=== PATIENT | male | born 1940 | race Caucasian/White ===

== ENCOUNTER 2020-11-01 01:29 | Emergency (ER) | payer MEDICARE, SELFPAY ==
[2020-11-01 01:41] VITALS: BP 160/80; BP 168/78; PULSE 90; RESP 22; TEMP 36.5; O2SAT 98; BMI 36.6
--- NOTE | 2020-11-01 01:56 | ECG_ITS ---
Test Reason : SOB Blood Pressure : / mmHG Vent. Rate : 089 BPM Atrial Rate : 089 BPM P-R Int : 150 ms QRS Dur : 078 ms QT Int : 352 ms P-R-T Axes : 059 041 005 degrees QTc Int : 428 ms Normal sinus rhythm Nonspecific T wave abnormality Borderline ECG When compared with ECG of 16-JUN-2020 15:38, No significant changes seen Referred By: Flores Amador Electronically Signed By:YEHUDA REHMAN
--- NOTE | 2020-11-01 01:56 | XR_ITS ---
EXAMINATION: XR CHEST CLINICAL INFORMATION: Shortness of breath COMPARISON: 06/16/2020 TECHNIQUE: Frontal view of the chest was obtained. FINDINGS: Lung volumes are symmetric. No focal consolidation is seen. No evidence of pneumothorax, pleural effusion, or pulmonary edema. Cardiac size is within normal limits. Calcification is present at the aortic arch. No acute osseous findings are seen. XR/XR chest 1V IMPRESSION: No acute cardiopulmonary findings.
[2020-11-01 02:00] VITALS: BP 167/67; PULSE 89; RESP 20; TEMP 36.7; O2SAT 95
--- NOTE | 2020-11-01 02:16 | ED_ITS ---
HPI - URI/Sore Throat General Chief Complaint: Upper Respiratory Symptoms Stated Complaint: sob,weakness Time Seen by Provider: 11/01/20 01:46 History of Present Illness HPI Narrative: Patient is a 79-year-old male with a history of asthma, diabetes presents today with having coughing upper respiratory symptoms starting at around 23:00 tonight. No fever. Patient from home. No new leg swelling. No chest pain. No diaphoresis. Positive generalized malaise. No change in smell or taste. Related Data Previous Rx's Medication Instructions Recorded albuterol sulfate 2 inh INHALATION Q6H PRN #1 ea 11/01/20 benzonatate [Tessalon Perles] 100 mg PO TID PRN #10 cap 11/01/20 prednisone 20 mg PO DAILY 4 Days #4 tab 11/01/20 Allergies Allergy/AdvReac Type Severity Reaction Status Date / Time Penicillins Allergy Unknown UNKNOWN Verified 11/01/20 01:40 Review of Systems Review of Systems: Constitutional: No Weight loss, No Fever, No Chills, No Night Sweats, No Fatigue, No Malaise ENT/Mouth: No Hearing loss, No Ear Pain, No Nasal Congestion, No Sinus Pain, No Hoarseness, No sore throat, No Rhinorrhea, No Swallowing Difficulty Eyes: No Eye Pain, No Swelling, No Redness, No Foreign Body, No Discharge, No Vision Changes Cardiovascular: No Chest Pain, No SOB, + Dyspnea on Exertion, No Orthopnea, No Edema, No Palpitations Respiratory: + Cough, No Sputum, No Wheezing, No Smoke Exposure, No Dyspnea Gastrointestinal: No Nausea, No Vomiting, No Diarrhea, No Constipation, No abdominal Pain, No Hematochezia, No Melena Genitourinary: no irregular bleeding, No Dysuria, No Urinary Frequency, No Hematuria, No Urinary Incontinence, No Urgency, No Flank Pain, No Urinary Flow Changes, No Hesitancy Musculoskeletal: No joint pain, No Myalgias, No Joint Swelling Skin: No Skin Lesions, No rash Neuro: No Weakness, No Numbness, No Paresthesias, No Loss of Consciousness, No Dizziness, No Headache Psych: No Anxiety/Panic, No Depression, No SI/HI/AH/VH, No Social Issues, Heme/Lymph: No Bruising, No Bleeding,No Lymphadenopathy Endocrine: No Polyuria, No Polydipsia, No Temperature Intolerance PMF Past Medical History Medical History (Updated 11/01/20 @ 04:08 by Flores Amador MD) Asthma Diabetes Hypertension Social History Social History Advance Directives: No Advance Directives Information Provided: No Physical Exam Vital Signs: Vital Signs: Last Vital Signs Temp 98.1 F 11/01/20 02:00 Pulse 94 11/01/20 03:35 Resp 20 11/01/20 02:00 BP 167/67 H 11/01/20 02:00 Pulse Ox 95 11/01/20 02:00 Body Mass Index 36.6 MDM - URI/Sore Throat MDM Narrative Medical decision making narrative: Patient's O2 sat 98% on room air. Chest x-ray negative for infiltrate. Test for coronavirus was negative. White count is 7.4. Minimal wheezing. Will give a small dose of steroid. Given albuterol here in the emergency department with moderate relief. When patient continue the albuterol pump on an outpatient basis. In stable condition. Patient's BMP was negative no evidence for congestive heart failure. Patient's troponin was negative. No chest pain. Unlikely ACS. Patient's EKG also showed no evidence of acute ST segment changes consistent with myocardial infarction. Will discharge patient home. Differential Diagnosis Differential diagnosis: Likely upper respiratory infection and bronchitis Medical Records Attestation: I reviewed the patient's medical records. Lab Data Attestation: I reviewed the patient's lab results. Result diagrams: 11/01/20 02:22 11/01/20 02:22 Labs: Lab Results 11/01/20 11/01/20 11/01/20 Range/Units 01:49 02:22 02:22 WBC 7.4 (4.8-10.8) X10*3/uL RBC 4.32 L (4.60-5.80) X10*6/uL Hgb 13.8 L (14.0-18.0) g/dl Hct 40.4 L (42-52) % MCV 93.5 (80-98) fL MCH 31.9 (27.0-33.0) pg MCHC 34.2 (31.0-36.0) g/dl RDW 12.3 (11.0-16.0) % Plt Count 87 L (160-400) X10*3/uL MPV 10.4 (9.4-12.4) fL Immature Gran % (Auto) Cancelled Neut % (Auto) Cancelled Lymph % (Auto) Cancelled [place] % (Auto) Cancelled Eos % (Auto) Cancelled Baso % (Auto) Cancelled Lymph # (Auto) Cancelled [place] # (Auto) Cancelled Eos # (Auto) Cancelled Baso # (Auto) Cancelled Abs Immat Gran (auto) Cancelled Absolute Neuts (auto) Cancelled Absolute Nucleated RBC 0.000 (0.0-0.012) X10*3/uL Nucleated RBC % (auto) 0.0 (0.0-0.2) /100WBC Neutrophils % (Manual) 44 L (45-73) % Band Neutrophils % 2 L (3-5) % Lymphocytes % (Manual) 17 L (20-40) % Monocytes % (Manual) 34 H (2-11) % Eosinophils % (Manual) 3 (0-4) % Abs Neuts (Manual) 3.4 (2.2-7.9) X10*3/uL Lymphocytes # (Manual) 1.3 (0.6-4.8) X10*3/uL Monocytes # (Manual) 2.5 H (0.0-1.2) X10*3/uL Eosinophils # (Manual) 0.2 (0.0-0.8) X10*3/UL Platelet Estimate DECREASED (NORMAL) Plt Morphology Comment NORMAL RBC Morphology NORMAL Hold Blue Top SEE NOTE Sodium (135-145) mmol/L Potassium (3.3-5.1) mmol/l Chloride (96-108) mmol/L Carbon Dioxide (22-29) mmol/L Anion Gap (12-20) BUN (9-16) mg/dL Creatinine (0.5-1.4) mg/dL Estim Creat Clear Calc Estimated GFR Random Glucose (60-115) mg/dL Calcium (8.4-10.2) mg/dL Troponin I High Sens (<3.5-35.0) ng/L B-Natriuretic Peptide (<100) pg/mL Urine Color Urine Appearance Urine pH (5.0-8.0) Ur Specific [place] (1.005-1.025) Urine Protein (NEG-TRACE) MG/DL Urine Glucose (UA) (NEG) MG/DL Urine Ketones (NEG) MG/DL Urine Blood (NEG) Urine Nitrite (NEG) Ur Leukocyte Esterase (NEG) Coronavirus (PCR) NEGATIVE (Negative) Influenza Type A (PCR) NEGATIVE (Negative) Influenza Type B (PCR) NEGATIVE (Negative) RSV RNA Qual (PCR) NEGATIVE (Negative) 11/01/20 11/01/20 11/01/20 Range/Units 02:22 02:22 03:53 WBC (4.8-10.8) X10*3/uL RBC (4.60-5.80) X10*6/uL Hgb (14.0-18.0) g/dl Hct (42-52) % MCV (80-98) fL MCH (27.0-33.0) pg MCHC (31.0-36.0) g/dl RDW (11.0-16.0) % Plt Count (160-400) X10*3/uL MPV (9.4-12.4) fL Immature Gran % (Auto) Neut % (Auto) Lymph % (Auto) [place] % (Auto) Eos % (Auto) Baso % (Auto) Lymph # (Auto) [place] # (Auto) Eos # (Auto) Baso # (Auto) Abs Immat Gran (auto) Absolute Neuts (auto) Absolute Nucleated RBC (0.0-0.012) X10*3/uL Nucleated RBC % (auto) (0.0-0.2) /100WBC Neutrophils % (Manual) (45-73) % Band Neutrophils % (3-5) % Lymphocytes % (Manual) (20-40) % Monocytes % (Manual) (2-11) % Eosinophils % (Manual) (0-4) % Abs Neuts (Manual) (2.2-7.9) X10*3/uL Lymphocytes # (Manual) (0.6-4.8) X10*3/uL Monocytes # (Manual) (0.0-1.2) X10*3/uL Eosinophils # (Manual) (0.0-0.8) X10*3/UL Platelet Estimate (NORMAL) Plt Morphology Comment RBC Morphology Hold Blue Top Sodium 139 (135-145) mmol/L Potassium 3.9 (3.3-5.1) mmol/l Chloride 104 (96-108) mmol/L Carbon Dioxide 23 (22-29) mmol/L Anion Gap 16 (12-20) BUN 15 (9-16) mg/dL Creatinine 0.80 (0.5-1.4) mg/dL Estim Creat Clear Calc 81.3 Estimated GFR > 60 Random Glucose 120 H (60-115) mg/dL Calcium 9.0 (8.4-10.2) mg/dL Troponin I High Sens 5.4 (<3.5-35.0) ng/L B-Natriuretic Peptide 28 (<100) pg/mL Urine Color DARK YELLOW Urine Appearance CLEAR Urine pH 5.5 (5.0-8.0) Ur Specific [place] 1.025 (1.005-1.025) Urine Protein NEG (NEG-TRACE) MG/DL Urine Glucose (UA) 100 H (NEG) MG/DL Urine Ketones NEG (NEG) MG/DL Urine Blood NEG (NEG) Urine Nitrite NEG (NEG) Ur Leukocyte Esterase NEG (NEG) Coronavirus (PCR) (Negative) Influenza Type A (PCR) (Negative) Influenza Type B (PCR) (Negative) RSV RNA Qual (PCR) (Negative) ECG Data Attestation: I personally reviewed and interpreted this ECG as follows: Interpretation: Are heart rate is 90 AK QRS QT within normal limits is nonspecific T-wave flattening diffusely noted. Discharge Plan Discharge Clinical Impression: Upper respiratory infection, Asthma Patient Disposition: Home, Self-Care Instructions: Asthma (ED), Upper Respiratory Infection (ED), COVID-19 (Coronavirus Disease 2019) (ED) Additional Instructions: Strict home quarantine into all symptom has resolved for at least 24 hours recommended. Prescriptions: New albuterol sulfate 90 mcg/actuation aerosol powdr breath activated 2 inh inhalation Q6H PRN (Reason: shortness of breath) Qty: 1 RF: 0 prednisone 20 mg tablet 20 mg PO DAILY 4 Days Qty: 4 RF: 0 benzonatate [Tessalon Perles] 100 mg capsule 100 mg PO TID PRN (Reason: cough) Qty: 10 RF: 0 Referrals: Lorne Gardner MD [Primary Care Provider] - 2 days Print Language: Japanese
[2020-11-01 02:28] LABS: PLT CLUMP 1
[2020-11-01 02:30] LABS: Hematocrit 40.4 % (42-52); Hemoglobin 13.8 g/dl (14.0-18.0); Mean Corpuscular HGB Conc 34.2 g/dl (31.0-36.0); Mean Corpuscular Hemoglobin 31.9 pg (27.0-33.0); Mean Corpuscular Volume 93.5 fL (80-98); Mean Platelet Volume 10.4 fL (9.4-12.4); Platelet Count 87 X10*3/uL (160-400); Red Blood Count 4.32 X10*6/uL (4.60-5.80); Red Cell Distribution Width 12.3 % (11.0-16.0); White Blood Count 7.4 X10*3/uL (4.8-10.8)
[2020-11-01 02:42] LABS: Influenza A PCR NEGATIVE (Negative); Influenza B PCR NEGATIVE (Negative); Resp Syncy Virus RNA Qual PCR NEGATIVE (Negative); SARS COV2 PCR INHOUSE NEGATIVE (Negative)
[2020-11-01 02:49] LABS: Band Neutrophils Percent 2 % (3-5); Eosinophils Absolute Manual 0.2 X10*3/UL (0.0-0.8); Eosinophils Percent Manual 3 % (0-4); Lymphocytes Absolute Manual 1.3 X10*3/uL (0.6-4.8); Lymphocytes Percent Manual 17 % (20-40); Monocytes Absolute Manual 2.5 X10*3/uL (0.0-1.2); Monocytes Percent Manual 34 % (2-11); Neutrophils Absolute Manual 3.4 X10*3/uL (2.2-7.9); Neutrophils Percent Manual 44 % (45-73)
[2020-11-01 02:50] LABS: Platelet Estimate DECREASED (NORMAL); Platelet Morphology Comment NORMAL; RBC Morphology NORMAL
[2020-11-01 02:58] LABS: Anion Gap 16 (12-20); Blood Urea Nitrogen 15 mg/dL (9-16); Carbon Dioxide 23 mmol/L (22-29); Chloride 104 mmol/L (96-108); Creatinine Clr Calc Pharmacy 81.3; Estimated Glomerular Filt Rate > 60; Glucose Random 120 mg/dL (60-115); Potassium 3.9 mmol/l (3.3-5.1); Sodium 139 mmol/L (135-145)
[2020-11-01 03:05] LABS: B Type Natriuretic Peptide 28 pg/mL (<100); Troponin-I High Sensitivity 5.4 ng/L (<3.5-35.0)
[2020-11-01] MEDS: predniSONE 20 MG TABLET PO (03:31)
--- NOTE | 2020-11-01 03:32 | PC.NURSE ---
pt resting in bed, rt at bedside with mdi and spirometer. pt in no distress, speaking in full sentences, interpretor at bedside. pt has clear and equal BBS.
[2020-11-01] MEDS: Albuterol Sulfate 90 MCG 8 GM INHALER 2 PUFF INHALE (03:33)
[2020-11-01 03:35] VITALS: PULSE 94; O2SAT 95
[2020-11-01 03:59] LABS: Appearance Urine CLEAR; Color Urine DARK YELLOW; Glucose Urine UA 100 MG/DL (NEG); Leukocyte Esterase Urine NEG (NEG); Nitrite Urine NEG (NEG); PH 5.5 (5.0-8.0); Specific Gravity - Urine 1.025 (1.005-1.025); UACC Culture Trigger NO; Urine Blood NEG (NEG); Urine Ketones NEG (NEG); Urine Protein NEG (NEG-TRACE)
[2020-11-01 04:01] VITALS: PULSE 95; RESP 96
--- NOTE | 2020-11-01 04:05 | PC.NURSE ---
PT AMBULATORY AROUND ER X2 WITH RT, PT'S SPO2 REMAINED 96% ON ROOM AIR.
[2020-11-01 04:19] VITALS: PULSE 112; RESP 17; O2SAT 96
== END 2020-11-01 04:36 | disposition home or self-care (01) ==
PROVIDERS: Emergency Provider Emergency Medicine Emergency Medical Services; PCP Internal Medicine
DX: J06.9 Acute upper respiratory infection, unspecified (principal); Z20.828 Contact with and (suspected) exposure to other viral communicable diseases; J45.909 Unspecified asthma, uncomplicated; E11.9 Type 2 diabetes mellitus without complications; I10 Essential (primary) hypertension
CPT/HCPCS: 0241U; 36415; 71045; 80048; 81003; 83880; 84484; 85007; 85027; 93005; 94640; 99284

== ENCOUNTER → 2021-03-22 13:51 | Outpatient (BNVA) | payer MEDICARE, SELFPAY | PROVIDERS: PCP Internal Medicine; Visit Provider Internal Medicine Pulmonary Disease | DX: J44.9 Chronic obstructive pulmonary disease, unspecified (principal); R06.00 Dyspnea, unspecified | CPT/HCPCS: 99202 ==

== ENCOUNTER → 2021-05-26 14:21 | Outpatient (BNVA) | payer MEDICARE, SELFPAY | PROVIDERS: PCP Internal Medicine; Visit Provider Internal Medicine Pulmonary Disease | DX: J44.9 Chronic obstructive pulmonary disease, unspecified (principal); R06.00 Dyspnea, unspecified | CPT/HCPCS: 99212 ==

== ENCOUNTER → 2021-06-21 08:05 | Outpatient (REF) | payer MEDICARE, SELFPAY ==
--- NOTE | 2021-06-21 08:08 | CA_ITS ---
Transthoracic Echocardiogram Patient (Last, First, Middle): Santiago Almanza, Gender: Male Date of : 1940 Age: 80 Procedure Date: 06/21/2021 Procedure Type: Transthoracic Echocardiogram Location: OP Height: 154.94 cm Weight: 96.16 kg BSA: 1.94 m2 Heart Rate: bpm BP: 176 / 88 mmHg Dough Machine Operator: Referring MD: Jose Luis Barbosa MD Symptoms: R06.00 - Dyspnea, unspecified Study Quality: Good ECG Rhythm: Sinus Conclusions: - The left ventricular systolic function is normal. The visually estimated ejection fraction is between 65-70%. - There is moderate calcification of the aortic valve. There is mild aortic valve stenosis. - There is mild posterior mitral annular calcification. - Small plaque is seen in the ascending aorta. Findings Procedure Information Contrast agent, definity, is being given per protocol without apparent complications. Left Ventricle Normal left ventricular cavity size. There is moderately increased left ventricular wall thickness. The left ventricular systolic function is normal. The visually estimated ejection fraction is between 65-70%. There is no evidence of regional wall motion abnormalities. E/E prime ratio is >15, consistent with elevated filling pressures. Evidence suggests grade I (mild) diastolic dysfunction. Right Ventricle Normal right ventricular cavity size and systolic function. Atria Both atria are normal in size. Aortic Valve There is moderate calcification of the aortic valve. There is mild aortic valve stenosis. The peak aortic velocity is 2.42 m/s with a calculated peak gradient of 23 mmHg. The mean gradient is 13 mmHg. The aortic valve area is 1.81 cm2. There is no aortic valve regurgitation. Mitral Valve There is mild posterior mitral annular calcification. There is no mitral valve regurgitation. There is no mitral valve stenosis. Pulmonic Valve The pulmonic valve was not well visualized. Tricuspid Valve Normal tricuspid valve structure. There is trace tricuspid valve regurgitation. The pulmonary artery systolic pressure is normal. Great Vessels The asc aorta and aortic arch are normal in size. Small plaque is seen in the ascending aorta. Venous The inferior vena cava is normal in size and collapses greater than 50% with inspiration. Pericardium/Pleural There is a trivial pericardial effusion. Prior Study Comparison No prior study available for comparison. Measurements 2D Linear Measurements RVIDd: 2.63 RVIDd Index: 1.36 IVSd: 1.37 0.6-0.9/0.6-1.0 cm LVIDd: 4.50 3.9-5.3/4.2-5.9 cm LVIDd Index: 2.32 2.4-3.2/2.2-3.1 cm/m2 LVIDs: 2.62 2.0-3.6 cm LVPWd: 1.35 0.7-1.1 cm Ao Root: 2.90 2.1-3.5 cm LA Diam: 4.40 2.7-3.8/3.0-4.0 cm LAIDs Index: 2.27 1.5-2.3 cm/m2 LV Mass: 296.65 67-162/88-224 g LV Mass Index: 152.91 43-95/49-115 g/m2 LVOT Diam: 2.10 3.0+(-)1.3 cm 2D Systolic Function EF 4C: 75.90 >55% EF 2C: 75.90 >55% EF BiP: 76.20 >55% Mitral Valve MV Pk E: 1.24 MV PK A: 1.56 MV Decel Time: 281.00 E/A: 0.80 E'Lateral: 6.20 E'Medial: 5.44 E/E' Med: 22.80 E/E' Lat: 20.00 PHT: 73.00 MVA PHT: 3.01 Decel [place]: 5.83 Aortic Valve AoV Pk Andrea: 2.42 AoV Mn Andrea: 1.67 AoV VTI: 0.47 AoV Pk Grad: 23.00 Aov Mn Grad: 13.00 ANN-MARIE Cont.VTI: 1.81 LVOT LVOT Pk Andrea: 1.10 LVOT Mn Andrea: 0.82 LVOT VTI: 0.25 LVOT Pk Grad: 5.00 LVOT Mn Grad: 3.00 LVOT Diam: 2.10 LVOT Area: 3.46 Diastolic Function MV Pk E: 1.24 MV Pk A: 1.56 E/A: 0.80 E'Medial: 5.44 E/E' Med: 22.80 E' Laterial: 6.20 E/E' Lat: 20.00 Tricuspid Valve TR Pk Andrea: 2.43 TR Pk Grad: 24.00 RA Press: 3.00 RVSP: 27.00 Great Vessels Aorta Ao Root-2D: 2.90 2.0-3.7 cm Ao Asc: 3.20 2.1-3.4 cm Ao Arch: 2.80 Updated in Other Vendor System with Status of Final Theodore Villafana MD electronically signed on 06/23/2021 12:05:58 PM with status of Final
== END ==
LOC: HO.CARD 08:05
PROVIDERS: Visit Provider Internal Medicine Pulmonary Disease
DX: R06.00 Dyspnea, unspecified (principal)
CPT/HCPCS: 93306; Q9957

== ENCOUNTER 2021-12-16 22:27 | Inpatient (IN) | payer MEDICARE, SELFPAY ==
--- NOTE | ~2021-12-16 | CT_ITS ---
EXAMINATION: CT ABDOMEN AND PELVIS WITH CONTRAST CLINICAL INFORMATION: Diffuse abdominal discomfort, greatest at the right lower quadrant. COMPARISON: CT from 06/16/2020 TECHNIQUE: Multidetector volumetric images were obtained from the superior aspect of the liver through the pubic symphysis following administration 85 mL of Omnipaque 350 intravenous contrast. Sagittal and coronal reformatted images were obtained on the technologist's workstation. Oral contrast: No This CT examination was performed using dose optimization techniques as appropriate, variously including the following: *Automated exposure control *Adjustment of mA and/or kV according to patient size (this includes techniques or standardized protocols for targeted exams where dose is matched to indication/reason for exam; i.e. extremities or head) *Use of iterative reconstruction technique DLP: 753 mGy-cm FINDINGS: LUNG BASES: Minimal bibasilar atelectasis. Coronary artery calcifications. LIVER, GALLBLADDER, AND BILIARY TREE: The liver is normal in size, shape, and attenuation. No focal hepatic lesion or biliary ductal dilatation is present. The gallbladder is unremarkable with no evidence of radiopaque gallstones, gallbladder wall thickening, or obvious pericholecystic inflammatory changes. PANCREAS: Calcifications in the region of the pancreatic head are unchanged from prior. The pancreatic parenchyma is otherwise homogenous. No pancreatic ductal dilatation. SPLEEN: Unremarkable. ADRENAL GLANDS: Unremarkable. KIDNEYS AND URETERS: The kidneys are normal in size, shape, and attenuation. No hydronephrosis, hydroureter, or calculi seen. Mild symmetric perinephric stranding. BLADDER: Unremarkable. GASTROINTESTINAL TRACT: The stomach is decompressed. Normal caliber of the small bowel. There is no obstruction. Abnormal appearance of the cecum with diffuse irregular wall thickening and adjacent inflammation. The appendix is identified. This appears to be normal in caliber, measuring 0.5 cm. Inflammation does not extend along the more distal aspect of the appendix. The appearance of the cecum is changed from prior. The remainder of the colon is unremarkable. No free air or free fluid. ABDOMINAL WALL: No significant hernia is appreciated. LYMPH NODES: Normal. VASCULAR: Normal caliber aorta with moderate atherosclerotic calcifications. PELVIC VISCERA: The prostate and seminal vesicles are unremarkable. Penile pump noted. OSSEOUS STRUCTURES: No acute or suspicious osseous abnormality. Degenerative changes are seen throughout the spine. Mild degenerative changes of the hips. Right femoral head avascular necrosis. CT/CT abdomen pelvis w con IMPRESSION: Abnormal appearance of the cecum and proximal ascending colon. There is prominent wall thickening with adjacent inflammation. The appearance is not suggestive of appendicitis. This is most concerning for colitis. Cannot exclude underlying neoplastic process. Fleischner guidelines were followed.
[2021-12-16 22:54] VITALS: BP 131/69; BP 180/100; PULSE 107; PULSE 116; RESP 20; TEMP 36.8; O2SAT 98; BMI 27.4
--- NOTE | 2021-12-16 23:30 | ED_ITS ---
HPI - Abdominal Pain General Chief Complaint: Abdominal Pain Stated Complaint: RLQ pain Time Seen by Provider: 12/16/21 23:05 Source: patient and title assistant Mode of arrival: ambulatory History of Present Illness HPI narrative: 81-year-old male who presents with abdominal discomfort for the past 3 days and describes some nausea without vomiting denies any fever chills and states he has had diarrheal stool with the presence of blood that he noticed in the toilet bowl. He denies any history of kidney stones or hemorrhoids and states that his last colonoscopy was without acute findings. He states is abdomen is diffusely tender and denies any urinary pain/burning/frequency and states that this is the 1st time he has had these symptoms. He denies any prior surgical history of the abdomen. Related Data Previous Rx's Medication Instructions Recorded albuterol sulfate 90 mcg/actuation 2 inh INHALATION Q6H PRN #1 ea 11/01/20 breath activated powder inhaler benzonatate 100 mg capsule 100 mg PO TID PRN #10 cap 11/01/20 (George Zabala) prednisone 20 mg tablet 20 mg PO DAILY 4 Days #4 tab 11/01/20 albuterol sulfate 90 mcg/actuation 2 puff INHALATION Q4-6H PRN 30 03/22/21 aerosol inhaler Days #1 ea fluticasone fur. 200 mcg-umeclid 1 ea PO DAILY #60 cap 10/31/21 62.5 mcg-vilant 25 mcg inhalat.powder (Trelegy Ellipta) Allergies Allergy/AdvReac Type Severity Reaction Status Date / Time Penicillins Allergy Unknown UNKNOWN Verified 05/26/21 14:27 Review of Systems Review of Systems Pertinent positives and negatives as stated in HPI 10 point review of systems is otherwise negative. Physical Exam Vital Signs: Vital Signs: Last Vital Signs Temp 98.5 F 12/17/21 00:00 Pulse 79 12/17/21 02:58 Resp 16 12/17/21 02:58 BP 122/65 12/17/21 02:58 Pulse Ox 98 12/17/21 02:58 BMI result Body Mass Index 27.4 VITAL SIGNS: Reviewed. GENERAL: Well developed, well nourished, in no acute distress. HEAD: Normocephalic/atraumatic EYES: PERRLA, EOMI OROPHARYNX: no oral lesions noted, posterior pharynx clear LUNGS: Normal breath sounds. No adventitious sounds or accessory muscle use. S pO2<96> CARDIOVASCULAR: Regular rate and rhythm without noted murmurs ABDOMEN: Soft, diffuse tenderness without rebound, non-distended with bowel sounds. HOLLY: Noted tag, but no evidence of external hemorrhoids, minimal brick red, thin stool in the rectal vault, good rectal tone MUSCULOSKELETAL: No tenderness, deformities, or effusions noted on gross inspection. EXTREMITIES: No cyanosis, clubbing or edema. SKIN: Inspection of the skin reveals no rashes, ulcerations, jaundice, pallor, or petechiae. NEUROLOGIC: Alert and oriented x 4. Strength and sensation to light touch were grossly intact x 4. Course Course Course Narrative: 81-year-old male with history and clinical presentation concerning for possible diverticulitis, SBO, GI bleed. Review of all investigations suggests right-sided colitis, abdomen remains tender and patient will receive antibiotics. I discussed this case with the inpatient hospitalist who accepts admission. MDM - Abdominal Pain Lab Data Result diagrams: 12/17/21 23:05 12/17/21 23:05 Labs: Lab Results 12/16/21 12/17/21 12/17/21 Range/Units 23:31 00:13 23:05 WBC 11.9 H (4.8-10.8) X10*3/uL RBC 3.78 L (4.60-5.80) X10*6/uL Hgb 12.1 L (14.0-18.0) g/dl Hct 35.3 L (42.0-52.0) % MCV 93.4 (80.0-98.0) fL MCH 32.0 (27.0-33.0) pg MCHC 34.3 (31.0-36.0) g/dl RDW 12.6 (11.0-16.0) % Plt Count 97 L (160-400) X10*3/uL MPV 10.6 (9.4-12.4) fL Immature Gran % (Auto) 0.7 H (0.0-0.4) % Neut % (Auto) 52.9 (45-73) % Lymph % (Auto) 12.7 L (20-40) % [place] % (Auto) 33.5 H (2-11) % Eos % (Auto) 0.1 (0-4) % Baso % (Auto) 0.1 (0-2) % Lymph # (Auto) 1.5 (1.2-4.9) X10*3/uL [place] # (Auto) 4.0 H (0.1-1.2) X10*3/uL Eos # (Auto) 0.0 (0.0-0.4) X10*3/uL Baso # (Auto) 0.0 (0.0-0.2) X10*3/uL Abs Immat Gran (auto) 0.08 H (0.00-0.03) X10*3/uL Absolute Neuts (auto) 6.3 (2.0-8.3) x10*3/uL Absolute Nucleated RBC 0.000 (0.0-0.012) X10*3/uL Nucleated RBC % (auto) 0.0 (0.0-0.2) /100WBC Smear Tech's Comments VERIFIED Sodium (135-145) mmol/L Potassium (3.3-5.1) mmol/L Chloride (96-108) mmol/L Carbon Dioxide (22-29) mmol/L Anion Gap (12-20) BUN (9-16) mg/dL Creatinine (0.5-1.4) mg/dL Estim Creat Clear Calc Estimated GFR Random Glucose (60-115) mg/dL Calcium (8.4-10.2) mg/dL Total Bilirubin (0.0-1.0) mg/dL AST (5-37) U/L ALT (0-40) U/L Alkaline Phosphatase (39-117) U/L Total Protein (6.5-8.0) g/dL Albumin (3.5-5.0) g/dL Urine Color YELLOW Urine Appearance CLEAR Urine pH 7.0 (5.0-8.0) Ur Specific [place] 1.015 (1.005-1.025) Urine Protein TRACE (NEG-TRACE) MG/DL Urine Glucose (UA) 100 H (NEG) MG/DL Urine Ketones 5 (NEG) MG/DL Urine Blood NEG (NEG) Urine Nitrite NEG (NEG) Ur Leukocyte Esterase NEG (NEG) Stool Occult Blood POSITIVE (NEGATIVE) 12/17/21 Range/Units 23:05 WBC (4.8-10.8) X10*3/uL RBC (4.60-5.80) X10*6/uL Hgb (14.0-18.0) g/dl Hct (42.0-52.0) % MCV (80.0-98.0) fL MCH (27.0-33.0) pg MCHC (31.0-36.0) g/dl RDW (11.0-16.0) % Plt Count (160-400) X10*3/uL MPV (9.4-12.4) fL Immature Gran % (Auto) (0.0-0.4) % Neut % (Auto) (45-73) % Lymph % (Auto) (20-40) % [place] % (Auto) (2-11) % Eos % (Auto) (0-4) % Baso % (Auto) (0-2) % Lymph # (Auto) (1.2-4.9) X10*3/uL [place] # (Auto) (0.1-1.2) X10*3/uL Eos # (Auto) (0.0-0.4) X10*3/uL Baso # (Auto) (0.0-0.2) X10*3/uL Abs Immat Gran (auto) (0.00-0.03) X10*3/uL Absolute Neuts (auto) (2.0-8.3) x10*3/uL Absolute Nucleated RBC (0.0-0.012) X10*3/uL Nucleated RBC % (auto) (0.0-0.2) /100WBC Smear Tech's Comments Sodium 137 (135-145) mmol/L Potassium 2.9 L (3.3-5.1) mmol/L Chloride 98 (96-108) mmol/L Carbon Dioxide 29 (22-29) mmol/L Anion Gap 13 (12-20) BUN 9 (9-16) mg/dL Creatinine 0.76 (0.5-1.4) mg/dL Estim Creat Clear Calc 64.6 Estimated GFR > 60 Random Glucose 218 H D (60-115) mg/dL Calcium 8.9 (8.4-10.2) mg/dL Total Bilirubin 0.8 (0.0-1.0) mg/dL AST 19 (5-37) U/L ALT 19 (0-40) U/L Alkaline Phosphatase 48 (39-117) U/L Total Protein 6.8 (6.5-8.0) g/dL Albumin 3.6 (3.5-5.0) g/dL Urine Color Urine Appearance Urine pH (5.0-8.0) Ur Specific [place] (1.005-1.025) Urine Protein (NEG-TRACE) MG/DL Urine Glucose (UA) (NEG) MG/DL Urine Ketones (NEG) MG/DL Urine Blood (NEG) Urine Nitrite (NEG) Ur Leukocyte Esterase (NEG) Stool Occult Blood (NEGATIVE) Discharge Plan Discharge Clinical Impression: Colitis, Abdominal pain, Hypokalemia Patient Disposition: Admitted As Inpatient [facility] Past Medical History Source: nursing notes reviewed Medical History Asthma Diabetes Hypertension Social History Social History Alcohol intake: unknown Patient Tobacco Use Status: Never used Tobacco Use of substances other than those prescribed or required for medical reasons: No Advance Directives: No
[2021-12-16 23:38] LABS: OBS Int Ctl Valid YES; OBS1 POSITIVE (NEGATIVE)
[2021-12-17] VITALS (11 sets, daily range): BP systolic 117–163; BP diastolic 60–83; PULSE 66–92; RESP 14–28; TEMP 36.7–37.2; O2SAT 94–98
[2021-12-17] MEDS: Ketorolac Tromethamine 30 MG/ML VIAL 15 MG IVPUSH (00:19)
[2021-12-17 00:20] LABS: Appearance Urine CLEAR; Color Urine YELLOW; Glucose Urine UA 100 MG/DL (NEG); Leukocyte Esterase Urine NEG (NEG); Nitrite Urine NEG (NEG); Specific Gravity - Urine 1.015 (1.005-1.025); Urine Blood NEG (NEG); Urine Ketones 5 MG/DL (NEG); Urine Protein TRACE MG/DL (NEG-TRACE)
[2021-12-17 01:05] LABS: Basophils Percent Auto 0.1 % (0-2); Imm Gran Abs Auto 0.08 X10*3/uL (0.00-0.03); Imm Gran Pct Auto 0.7 % (0.0-0.4); MANUAL DIFF FLAG SCAN; PLT CLUMP 1; SCAN SMEAR FLAG 1
[2021-12-17 01:06] LABS: Eosinophils Percent Auto 0.1 % (0-4); Hematocrit 35.3 % (42.0-52.0); Hemoglobin 12.1 g/dl (14.0-18.0); Lymphocytes Absolute Auto 1.5 X10*3/uL (1.2-4.9); Lymphocytes Percent Auto 12.7 % (20-40); Mean Corpuscular HGB Conc 34.3 g/dl (31.0-36.0); Mean Corpuscular Volume 93.4 fL (80.0-98.0); Mean Platelet Volume 10.6 fL (9.4-12.4); Monocytes Percent Auto 33.5 % (2-11); Neutrophils Absolute Auto 6.3 x10*3/uL (2.0-8.3); Neutrophils Percent Auto 52.9 % (45-73); Red Blood Count 3.78 X10*6/uL (4.60-5.80); Red Cell Distribution Width 12.6 % (11.0-16.0); White Blood Count 11.9 X10*3/uL (4.8-10.8)
[2021-12-17 01:17] LABS: Platelet Count 97 X10*3/uL (160-400)
[2021-12-17 01:24] LABS: Alanine Aminotransferase 19 U/L (0-40); Albumin Level 3.6 g/dL (3.5-5.0); Alkaline Phosphatase 48 U/L (39-117); Anion Gap 13 (12-20); Aspartate Amino Transferase 19 U/L (5-37); Bilirubin Total 0.8 mg/dL (0.0-1.0); Blood Urea Nitrogen 9 mg/dL (9-16); Calcium 8.9 mg/dL (8.4-10.2); Carbon Dioxide 29 mmol/L (22-29); Chloride 98 mmol/L (96-108); Creatinine Clr Calc Pharmacy 64.6; Estimated Glomerular Filt Rate > 60; Glucose Random 218 mg/dL (60-115); Potassium 2.9 mmol/L (3.3-5.1); Sodium 137 mmol/L (135-145); Total Protein 6.8 g/dL (6.5-8.0)
[2021-12-17 01:32] LABS: SLIDE REVIEW VERIFIED
--- NOTE | 2021-12-17 01:55 | PC.NURSE ---
pt taken to rad, meds will be given on return from ct.and xray
[2021-12-17] MEDS: iohexoL 350 MG/ML 100 ML INFUS..BTL 85 ML IV (02:24)
[2021-12-17] MEDS: Potassium Chloride ER 20 MEQ TAB.ER.PRT 60 MEQ PO (02:30)
[2021-12-17] MEDS: Potassium Chloride/H20 10 MEQ/100 ML PIGGYBACK 100 MEQ IV ×2 (02:31→04:09)
--- NOTE | 2021-12-17 03:24 | P.HPHOSP_ITS ---
History of Present Illness Date of Service: 12/17/21 Chief Complaint: abdominal pain 81-year-old male with a past medical history of COPD/asthma presented to the hospital with a chief complaint of nausea vomiting and abdominal discomfort. Patient reports that over the past 3 days he has been having nausea vomiting abdominal discomfort; abdominal discomfort is Diffuse, crampy. No change with bowel movements the food habits. Complains of 1 episode of blood in the stool. Denies any chest pain or palpitations. Denies any urinary symptoms. Denies any fever chills cough. Reports that he has been having decreased oral intake. Review of all other systems is negative except mentioned above ER course: Per ER team patient noted to have mild abdominal tenderness; CT scan showed severe inflammation - concern for colitis versus neoplasm. Patient was given empiric antibiotics. Guaiac test was positive. Admitted for further management. [facility] Medical History Asthma Diabetes Hypertension Pertinent family history: reviewed Social History Alcohol intake: unknown Patient Tobacco Use Status: Never used Tobacco Use of substances other than those prescribed or required for medical reasons: No Advance Directives: No Meds Allergies Allergy/AdvReac Type Severity Reaction Status Date / Time Penicillins Allergy Unknown UNKNOWN Verified 05/26/21 14:27 Active Medications: Current Medications Acetaminophen (Acetaminophen 325 Mg Tablet) 650 mg PO Q6H PRN PRN Reason: Pain, Mild (Pain Scale 1-3) Albuterol/Ipratropium (Albuterol/Iprat 2.5/0.5mg 3 Ml Ampul.Neb) 3 ml INHALE RQ4H PRN PRN Reason: Shortness of Breath/Wheezing Famotidine (Famotidine/Pf 20 Mg/2 Ml Vial) 20 mg IVPUSH BID [facility] Hydromorphone HCl (Hydromorphone Hcl 1 Mg/Ml Syringe) 0.5 mg IVPUSH Q4H PRN; Protocol PRN Reason: Pain, Severe (Pain Scale 7-10) Potassium Chloride () 10 meq in 100 mls @ 100 mls/hr IV Q1H [facility] Stop: 12/17/21 03:29 Last Admin: 12/17/21 02:31 Dose: 100 mls/hr Documented by: Ceftriaxone Sodium 1 gm/ (Sodium Chloride) 50 mls @ 100 mls/hr IV ONCE ONE Stop: 12/17/21 03:39 Metronidazole (Flagyl) 500 mg in 100 mls @ 100 mls/hr IV ONCE ONE Stop: 12/17/21 04:09 Dextrose/Sodium Chloride (D51/2ns) 1,000 mls @ 75 mls/hr IVCONT .[id number] [facility] Levofloxacin (Levaquin) 750 mg in 150 mls @ 100 mls/hr IV Q24H [facility] Metronidazole (Flagyl) 500 mg in 100 mls @ 100 mls/hr IV Q8H [facility] Sodium Chloride (0.9 % Sodium Chloride Flush 3 Ml Syringe) 3 ml IVFLUSH QSHIFT [facility] Physical Exam Verdana 4l Vital Signs and Narrative: Verdana 4d Verdana 4d Vital Signs: Verdana 4d Verdana 4Bd Last Vital Signs Verdana 4d Booky New 4d Booky New 4d Temp 98.5 F 12/17/21 00:00 Booky New 4d Pulse 79 12/17/21 02:58 Booky NewNew 4d Resp 16 12/17/21 02:58 BP 122/65 12/17/21 02:58 Pulse Ox 98 12/17/21 02:58 BMI result Body Mass Index 27.4 Gen: Appears be in no acute distress HEENT: NCAT, Moist mucosa. Pulmonary: Vesicular breath sounds, fair air entry CVS: Normal S1-S2 Abdomen: BS+, Soft, Mildly tender diffusely; no guarding no rigidity Extremities: Warm well perfused Neuro: Alert and awake. Results Labs CBC and Chem 7: 12/17/21 23:05 12/17/21 23:05 Labs: Laboratory Results - last 24 hr 12/16/21 12/17/21 12/17/21 23:31 00:13 23:05 MCV 93.4 MCH 32.0 MCHC 34.3 RDW 12.6 Plt Count 97 L MPV 10.6 Immature Gran % (Auto) 0.7 H Neut % (Auto) 52.9 Lymph % (Auto) 12.7 L [place] % (Auto) 33.5 H Eos % (Auto) 0.1 Baso % (Auto) 0.1 Lymph # (Auto) 1.5 [place] # (Auto) 4.0 H Eos # (Auto) 0.0 Baso # (Auto) 0.0 Abs Immat Gran (auto) 0.08 H Absolute Neuts (auto) 6.3 Absolute Nucleated RBC 0.000 Nucleated RBC % (auto) 0.0 Smear Tech's Comments VERIFIED Anion Gap Estim Creat Clear Calc Estimated GFR Random Glucose Calcium Total Bilirubin AST ALT Alkaline Phosphatase Total Protein Albumin Urine Color YELLOW Urine Appearance CLEAR Urine pH 7.0 Ur Specific [place] 1.015 Urine Protein TRACE Urine Glucose (UA) 100 H Urine Ketones 5 Urine Blood NEG Urine Nitrite NEG Ur Leukocyte Esterase NEG Stool Occult Blood POSITIVE 12/17/21 23:05 MCV MCH MCHC RDW Plt Count MPV Immature Gran % (Auto) Neut % (Auto) Lymph % (Auto) [place] % (Auto) Eos % (Auto) Baso % (Auto) Lymph # (Auto) [place] # (Auto) Eos # (Auto) Baso # (Auto) Abs Immat Gran (auto) Absolute Neuts (auto) Absolute Nucleated RBC Nucleated RBC % (auto) Smear Tech's Comments Anion Gap 13 Estim Creat Clear Calc 64.6 Estimated GFR > 60 Random Glucose 218 H D Calcium 8.9 Total Bilirubin 0.8 AST 19 ALT 19 Alkaline Phosphatase 48 Total Protein 6.8 Albumin 3.6 Urine Color Urine Appearance Urine pH Ur Specific [place] Urine Protein Urine Glucose (UA) Urine Ketones Urine Blood Urine Nitrite Ur Leukocyte Esterase Stool Occult Blood Imaging Radiologist's Impressions: Impressions Abdomen/Pelvis CT 12/17/21 02:20 IMPRESSION: Abnormal appearance of the cecum and proximal ascending colon. There is prominent wall thickening with adjacent inflammation. The appearance is not suggestive of appendicitis. This is most concerning for colitis. Cannot exclude underlying neoplastic process. Fleischner guidelines were followed. Assessment and Plan (1) Colitis: Status: Acute (2) Hypokalemia: Status: Acute (3) Asthma-COPD overlap syndrome: Status: Acute 81-year-old male with a past medical history of COPD/asthma presented to the hospital with a chief complaint of nausea vomiting and abdominal discomfort/ Diarrhea/ blood in the stool. Noted to have following. Colitis: CT scan showed Abnormal appearance of the cecum and proximal ascending colon. There is prominent wall thickening with adjacent inflammation. The appearance is not suggestive of appendicitis. This is most concerning for colitis. Cannot exclude underlying neoplastic process. continue empiric antibiotics -Levaquin, Flagyl. Will consult General surgery guaiac-positive stool: Hemoglobin currently stable. GI consult. Serial H&H. Hypokalemia: Repleted. History of asthma / COPD: DuoNebs p.r.n.. Stable. DVT prophylaxis: SCD boots. Unable to use pharmacologic agent given concerns for GI bleed. Code status: Full code Quality Stroke Does the patient have a stroke diagnosis?: No VTE Prior VTE?: No VTE Risk Level:: Medical - moderate - high VTE Device Contraindication: N/A - Device Ordered VTE Drug Contraindication: Treatment Not Indicated
[2021-12-17 03:49] LABS: Mean Corpuscular HGB Conc 34.2 g/dl (31.0-36.0); PLT CLUMP 1; SCAN SMEAR FLAG 1
[2021-12-17 03:50] LABS: MANUAL DIFF FLAG NO
[2021-12-17 03:51] LABS: Eosinophils Percent Auto 0.1 % (0-4); Hematocrit 37.1 % (42.0-52.0); Hemoglobin 12.7 g/dl (14.0-18.0); Imm Gran Abs Auto 0.07 X10*3/uL (0.00-0.03); Imm Gran Pct Auto 0.6 % (0.0-0.4); Lymphocytes Absolute Auto 1.7 X10*3/uL (1.2-4.9); Lymphocytes Percent Auto 15.2 % (20-40); Mean Corpuscular Hemoglobin 32.1 pg (27.0-33.0); Mean Corpuscular Volume 93.7 fL (80.0-98.0); Mean Platelet Volume 10.5 fL (9.4-12.4); Monocytes Absolute Auto 3.4 X10*3/uL (0.1-1.2); Monocytes Percent Auto 30.8 % (2-11); Neutrophils Absolute Auto 5.9 x10*3/uL (2.0-8.3); Neutrophils Percent Auto 53.3 % (45-73); Red Blood Count 3.96 X10*6/uL (4.60-5.80); Red Cell Distribution Width 12.7 % (11.0-16.0)
[2021-12-17 03:54] LABS: Platelet Count 96 X10*3/uL (160-400); White Blood Count 11.2 X10*3/uL (4.8-10.8)
[2021-12-17 04:00] LABS: Lactic Acid 1.1 mmol/L (0.5-2.0)
[2021-12-17 04:07] LABS: Anion Gap 11 (12-20); Blood Urea Nitrogen 9 mg/dL (9-16); Calcium 8.9 mg/dL (8.4-10.2); Carbon Dioxide 30 mmol/L (22-29); Chloride 98 mmol/L (96-108); Creatinine Clr Calc Pharmacy 62.2; Estimated Glomerular Filt Rate > 60; Glucose Random 194 mg/dL (60-115); Potassium 3.5 mmol/L (3.3-5.1); Sodium 135 mmol/L (135-145)
[2021-12-17] MEDS: cefTRIAXone sodium 1 GM in 0.9 % Sodium Chloride 50 ML IV (04:11)
[2021-12-17] MEDS: ondansetron HCL 4 MG/2 ML VIAL IVPUSH (04:12)
[2021-12-17] MEDS: metroNIDAZOLE/NS 500 MG/100 ML PIGGYBACK 100 MG IV ×3 (04:14→21:05)
[2021-12-17] MEDS: Dextrose 5 % and 0.45 % NaCl 1,000 ML 75 ML IVCONT ×2 (05:26→21:07)
[2021-12-17] MEDS: levoFLOXacin/D5W 750 MG/150 ML PIGGYBACK 100 MG IV (05:41)
[2021-12-17 07:42] LABS: Glucose, Whole Blood 181 mg/dL (60-115)
[2021-12-17] MEDS: 0.9 % Sodium Chloride Flush 3 ML SYRINGE IVFLUSH ×2 (08:20→16:24)
[2021-12-17] MEDS: Famotidine/PF 20 MG/2 ML VIAL IVPUSH (08:20)
--- NOTE | 2021-12-17 08:51 | PHA.MEDREC ---
Pharmacy Consult ? Medication Reconciliation Pharmacy has completed the medication reconciliation.Spoke with patient via metal flooring installer. Patient was unsure of medications, had a partial list. patient last took his medications two days ago. metformin to restart on 12/19/21.
--- NOTE | 2021-12-17 08:52 | P.CNGI_ITS ---
History of Present Illness Data of Consult Service Date: 12/17/21 Requesting physician: Bacilio Garcia Primary Care Provider: Sarah Hopper MD HPI Reason for consult: Abdominal pain, colitis, GI bleeding 81 year old Libyan-speaking male was seen at [facility] on 12/17/21 with abdominal pain, diarrhea and bloody stools: HPI narrative: 81-year-old male who presents with abdominal discomfort for the past 3 days and describes some nausea without vomiting denies any fever chills and states he has had diarrheal stool with the presence of blood that he noticed in the toilet bowl.? He denies any history of kidney stones or hemorrhoids and states that his last colonoscopy was without acute findings.? He states is abdomen is diffusely tender and denies any urinary pain/burning/frequency and states that this is the 1st time he has had these symptoms.? He denies any prior surgical history of the abdomen. History obtained with the help of early childhood specialist, Mayra. Patient complains of abdominal pain for the past 3-4 days which became worse on 12/16/2021. Patient took some milk of magnesia without improvement in abdominal pain and came to the ER. Pain is constant, 10 x 10 in intensity and becomes worse when he moves. Pt reports intermittent episodes of similar pain in the past which resolved when he took MOM. Patient noted nausea and denies fever chills or sweating, constipation. After arrival in ED, pt went to the rest room and noted 1 episode of blood in the stool. Blood was light red and stool was watery. He denies noticing any blood on subsequent BMs. Patient denies feeling dizzy or lightheaded. Patient has Htn, DM and asthma-COPD overlap syndrome and denies loud snoring or sleep apnea Denies being on chronic anticoagulation. Patient quit did smoking 20 years ago. He admits to intermittent alcohol use - 6 packs of beer when he has the money to buy it. He denies drinking for the past 12 days. Patient denies known family history of colon polyps, colon cancer or other GI malignancies. PAST EGD/COLONOSCOPY: Pt denies having an upper endoscopy in the past. He has been getting colonoscopy every 5 years at [facility]. Last colonoscopy was in 2018 and a tubular adenoma was removed from the ascending colon. He is due for repeat colonoscopy next year. IMAGING STUDIES: 12/17/[address] SCAN (PERSONALLY REVIEWED) SHOWED: Abnormal appearance of the cecum and proximal ascending colon. There is prominent wall thickening with adjacent inflammation. The appearance is not suggestive of appendicitis. This is most concerning for colitis. Cannot exclude underlying neoplastic process.? ? Review of Systems Constitutional: Constitutional: Denies fever(s), Denies headache(s) and Denies weight loss Eyes: Eyes: Denies eye discharge and Denies irritation ENT: Reports Normal hearing present, Denies dysphagia, Denies dizziness and Denies headache(s) Cardiovascular: Cardiovascular: Denies chest pain, Denies leg edema and Reports dyspnea on exertion Respiratory: Respiratory: Denies cough, Reports dyspnea on exertion and Denies wheezing Gastrointestinal: Gastrointestinal: Reports abdominal pain, Reports hematochezia, Denies change in bowel habits, Denies dysphagia, Denies heartburn and Reports diarrhea Genitourinary: Genitourinary: Denies dysuria Musculoskeletal: Musculoskeletal: Denies back pain and Denies arthralgias Integumentary/Breasts: Skin/Breast: Denies pruritus, Denies rash and Denies jaundice Neurologic: Reports Normal hearing present, Denies Abnormal speech present, Denies dizziness, Denies headache(s) and Denies seizure-like activity Psychiatric: Psychiatric: Denies anxiety, Denies depression and Denies panic attacks Endocrine: Endocrine: Denies cold intolerance, Denies flushing and Denies heat intolerance Hematologic/Lymphatic: Hematologic/Lymphatic: Denies easy bleeding and Denies easy bruising Allergic/Immunologic: Allergic/Immunologic: Denies wheezing PMFSH Past Medical History Medical History Asthma Diabetes Hypertension Social History Social History Household Members: None Housing: Apartment Do you presently have visiting nurse or other home services: Yes ([employer] 7 hrs a week) Alcohol intake: unknown Patient Tobacco Use Status: Never used Tobacco service: No Current occupational status: disabled Meds Allergies Allergy/AdvReac Type Severity Reaction Status Date / Time Penicillins Allergy Unknown UNKNOWN Verified 05/26/21 14:27 Active Medications: Current Medications Acetaminophen (Acetaminophen 325 Mg Tablet) 650 mg PO Q6H PRN PRN Reason: Pain, Mild (Pain Scale 1-3) Albuterol/Ipratropium (Albuterol/Iprat 2.5/0.5mg 3 Ml Ampul.Neb) 3 ml INHALE RQ4H PRN PRN Reason: Shortness of Breath/Wheezing Famotidine (Famotidine/Pf 20 Mg/2 Ml Vial) 20 mg IVPUSH BID [facility] Last Admin: 12/17/21 08:20 Dose: 20 mg Documented by: Hydromorphone HCl (Hydromorphone Hcl 1 Mg/Ml Syringe) 0.5 mg IVPUSH Q4H PRN; Protocol PRN Reason: Pain, Severe (Pain Scale 7-10) Dextrose/Sodium Chloride (D51/2ns) 1,000 mls @ 75 mls/hr IVCONT .[id number] [facility] Last Admin: 12/17/21 05:26 Dose: 75 mls/hr Documented by: Levofloxacin (Levaquin) 750 mg in 150 mls @ 100 mls/hr IV Q24H [facility] Last Infusion: 12/17/21 06:44 Dose: Infused Documented by: Metronidazole (Flagyl) 500 mg in 100 mls @ 100 mls/hr IV Q8H [facility] Last Admin: 12/17/21 05:28 Dose: Not Given Documented by: Pharmacy Consult (Consult Rx Perform Med Rec) 1 each MISCELLANE ONCE PRN PRN Reason: Consult order Sodium Chloride (0.9 % Sodium Chloride Flush 3 Ml Syringe) 3 ml IVFLUSH QSHIFT [facility] Last Admin: 12/17/21 08:20 Dose: 3 ml Documented by: Home Medications Medication Instructions Recorded Confirmed Last Taken Type albuterol sulfate 90 mcg/actuation 2 puff PO Q4-6H PRN 12/17/21 12/17/21 Unknown History aerosol inhaler cetirizine 10 mg tablet 1 tab PO DAILY PRN 12/17/21 12/17/21 Unknown History fluticasone propionate 50 1 spray INTRANASAL DAILY 12/17/21 12/17/21 12/15/21 History mcg/actuation nasal spray,suspension glipizide 10 mg tablet, extended 1 tab PO DAILY 12/17/21 12/17/21 12/15/21 History release 24 hr glipizide 5 mg tablet, extended 1 tab PO DAILY 12/17/21 12/17/21 12/15/21 History release 24 hr insulin detemir U-100 100 unit/mL 12 unit SUBCUT DAILY 12/17/21 12/17/21 12/15/21 History (3 mL) subcutaneous pen (Levemir FlexTouch U-100 Insulin) losartan 25 mg tablet 1 tab PO DAILY 12/17/21 12/17/21 12/15/21 History metformin 500 mg tablet 2 tab PO DAILY 12/17/21 12/17/21 12/15/21 History oxybutynin chloride 5 mg 1 tab PO DAILY 12/17/21 12/17/21 12/15/21 History tablet,extended release 24 hr oxycodone-acetaminophen 5 mg-325 1 tab PO Q8H PRN 12/17/21 12/17/21 12/15/21 History mg tablet pravastatin 40 mg tablet 1 tab PO BEDTIME 12/17/21 12/17/21 12/15/21 History tamsulosin 0.4 mg capsule 1 cap PO DAILY@1700 12/17/21 12/17/21 12/15/21 History Physical Exam Vital Signs: Vital Signs: Last Vital Signs Temp 98.5 F 12/17/21 07:32 Pulse 72 12/17/21 07:32 Resp 14 12/17/21 07:32 BP 120/60 12/17/21 07:32 Pulse Ox 94 12/17/21 07:32 BMI result Body Mass Index 27.4 Const: General: healthy appearing and no acute distress Nutritional Appearance: overweight Orientation/consciousness: patient oriented x3 Li mitations: no limitations HENMT: Head: Yes normal to inspection Ears: hearing grossly normal bilaterally Mouth: Normal oral and palatal mucosa present Eyes: Sclerae: sclerae normal Pupils: Equal, round and reactive pupils present Neck: Neck: Yes normal visual inspection Chest: Chest palpation & inspection: normal inspection of the chest Resp: Effort & Inspection: normal respiratory effort Auscultation: clear to auscultation bilaterally Cardio: Palpation: normal PMI Rate: regular rate Rhythm: regular rhythm Heart sounds: S1 normal heart sound present, S2 normal heart sound present and no murmurs GI: Palpation (GI): Soft to palpation, Tenderness to palpation present (GI) (RLQ tenderness) and No hepatosplenomegaly present Auscultation: normal bowel sounds Rectal Exam - Male: Yes deferred Skin: General skin exam: no rashes or lesions noted Neuro: General: patient oriented x3, gait normal and moves all extremities Cranial nerves: Yes Equal, round and reactive pupils present and Yes Normal hearing present Speech: No Abnormal speech present Psych: Appearance: grossly normal Mental Status: mental status grossly nor mal Results Labs CBC & Chem 7: 12/19/21 06:19 12/19/21 06:19 Labs: Short CBC 12/17/21 12/17/21 Range/Units 03:43 23:05 WBC 11.2 H 11.9 H (4.8-10.8) X10*3/uL Hgb 12.7 L 12.1 L (14.0-18.0) g/dl Hct 37.1 L 35.3 L (42.0-52.0) % Plt Count 96 L 97 L (160-400) X10*3/uL BMP 12/17/21 12/17/21 03:43 23:05 Sodium 135 137 Potassium 3.5 2.9 L Chloride 98 98 Carbon Dioxide 30 H 29 BUN 9 9 Creatinine 0.79 0.76 Calcium 8.9 8.9 Liver Function 12/17/21 Range/Units 23:05 Total Bilirubin 0.8 (0.0-1.0) mg/dL AST 19 (5-37) U/L ALT 19 (0-40) U/L Alkaline Phosphatase 48 (39-117) U/L Albumin 3.6 (3.5-5.0) g/dL Urine 12/17/21 Range/Units 00:13 Urine Color YELLOW Urine Appearance CLEAR Urine pH 7.0 (5.0-8.0) Ur Specific [place] 1.015 (1.005-1.025) Urine Protein TRACE (NEG-TRACE) MG/DL Urine Glucose (UA) 100 H (NEG) MG/DL Assessment and Plan (1) Colitis: Status: Acute (2) Abdominal pain: Status: Acute Plan 81 year old Libyan-speaking male with hypertension, diabetes mellitus, GERD, COPD overlap syndrome was seen at [facility] on 12/17/21 with abdominal pain, diarrhea and bloody stools. labs showed an elevated WBC count. COVID 19 antigen test was positive. Abdominal CT scan showed abnormal appearance of the cecum and proximal ascending colon with prominent wall thickening with adjacent inflammation concerning for colitis. CT changes are likely due to ischemic colitis or IBD. Malignancy is less likely since patient is undergoing regular colonoscopies every 5 yrs. Colonic and small-bowel ischemia have been reported in patients with severe coronavirus disease 2019 (COVID-19) infection usually related to thrombophl ebitis and hypoperfusion RECOMMENDATIONS: 1. Continue IV antibiotics and pain medications 2. Clear liquid diet and advance diet in the am if abdominal pain has improved. 3. Pt needs evaluation with a colonoscopy - can be scheduled once he is negative for COVID. Procedures Date of Service Date of Service: 12/17/21
[2021-12-17] MEDS: Acetaminophen 325 MG TABLET 650 MG PO ×2 (09:44→16:24)
[2021-12-17] MEDS: Losartan Potassium 25 MG TABLET PO (09:45)
[2021-12-17] MEDS: HYDROmorphone HCl 1 MG/ML SYRINGE 0.5 MG IVPUSH ×3 (09:45→21:20)
--- NOTE | 2021-12-17 10:05 | PC.NURSE ---
pt seen by renetta (norberto) pt aware of plan of care.
[2021-12-17 11:54] LABS: Glucose, Whole Blood 188 mg/dL (60-115)
--- NOTE | 2021-12-17 12:06 | P.PNIM_ITS ---
Subjective Subjective Date of Service: 12/17/21 Interval History: cc: abd pain interval hiustory: still with pain Cardiovascular Cardiovascular: Reports no additional cardiovascular complaints Respiratory Respiratory: Reports no additional respiratory complaints Physical Exam Vital Signs: Vital Signs: Last Vital Signs Temp 98.1 F 12/17/21 11:27 Pulse 73 12/17/21 11:27 Resp 18 12/17/21 11:27 BP 117/63 12/17/21 11:27 Pulse Ox 95 12/17/21 11:27 BMI result Body Mass Index 27.4 General: AO X 3, no acute distress Resp: CTA bilateral, no accessory muscles used CVS: S1,S2,RRR GI: soft,LLQ tender, non distended Neuro: motor grossly intact, alert Psych: appropriate affect, appropriate insight Objective Data Active Medications Acetaminophen (Acetaminophen 325 Mg Tablet) 650 mg PO Q6H PRN PRN Reason: Pain, Mild (Pain Scale 1-3) Last Admin: 12/17/21 09:44 Dose: 650 mg Documented by: CHRIS Albuterol/Ipratropium (Albuterol/Iprat 2.5/0.5mg 3 Ml Ampul.Neb) 3 ml INHALE RQ4H PRN PRN Reason: Shortness of Breath/Wheezing Dextrose (Dextrose 50 % 25 Gm/50 Ml Syringe) 25 gm IVPUSH Q15M PRN; Protocol PRN Reason: per Hypoglycemia Standing Ord. Glucose (Glucose Gel 15 Gm Gel..Gram.) 15 gm PO Q15M PRN; Protocol PRN Reason: per Hypoglycemia Standing Ord. Hydromorphone HCl (Hydromorphone Hcl 1 Mg/Ml Syringe) 0.5 mg IVPUSH Q4H PRN; Protocol PRN Reason: Pain, Severe (Pain Scale 7-10) Last Admin: 12/17/21 09:45 Dose: 0.5 mg Documented by: SCOC Dextrose/Sodium Chloride (D51/2ns) 1,000 mls @ 75 mls/hr IVCONT .[id number] [facility] Last Admin: 12/17/21 05:26 Dose: 75 mls/hr Documented by: MCTA Levofloxacin (Levaquin) 750 mg in 150 mls @ 100 mls/hr IV Q24H [facility] Last Infusion: 12/17/21 06:44 Dose: 0 mls/hr Documented by: BLAINE Metronidazole (Flagyl) 500 mg in 100 mls @ 100 mls/hr IV Q8H [facility] Last Admin: 12/17/21 05:28 Dose: Not Given Documented by: BLAINE Non-Admin Reason: Previously Administered Insulin Human Lispro (Insulin Lispro 100 Unit/Ml 3 Ml Vial) 0 unit SUBCUT QIDACHS [facility]; Protocol Losartan Potassium (Losartan Potassium 25 Mg Tablet) 25 mg PO DAILY [facility]; Protocol Last Admin: 12/17/21 09:45 Dose: 25 mg Documented by: CHRIS Non-Formulary Medication (Kfimaisfgia-Lwxnmapiv-Qhxoypqa [Trelegy Ellipta]) 1 each PO DAILY [facility] Pharmacy Consult (Consult Rx Perform Med Rec) 1 each MISCELLANE ONCE PRN PRN Reason: Consult order Pravastatin Sodium (Pravastatin Sodium 40 Mg Tablet) 40 mg PO BEDTIME [facility] Sodium Chloride (0.9 % Sodium Chloride Flush 3 Ml Syringe) 3 ml IVFLUSH QSHIFT [facility] Last Admin: 12/17/21 08:20 Dose: 3 ml Documented by: CHRIS Tamsulosin HCl (Tamsulosin Hcl 0.4 Mg Capsule) 0.4 mg PO DAILY@1700 [facility] Labs CBC & Chem 7: 12/17/21 23:05 12/17/21 23:05 Labs: Laboratory Results - last 24 hr 12/16/21 12/17/21 12/17/21 23:31 00:13 03:43 MCV MCH MCHC RDW Plt Count MPV Immature Gran % (Auto) Neut % (Auto) Lymph % (Auto) [place] % (Auto) Eos % (Auto) Baso % (Auto) Lymph # (Auto) [place] # (Auto) Eos # (Auto) Baso # (Auto) Abs Immat Gran (auto) Absolute Neuts (auto) Absolute Nucleated RBC Nucleated RBC % (auto) Smear Tech's Comments Anion Gap Estim Creat Clear Calc Estimated GFR POC Glucose Random Glucose Lactic Acid 1.1 Calcium Total Bilirubin AST ALT Alkaline Phosphatase Total Protein Albumin Urine Color YELLOW Urine Appearance CLEAR Urine pH 7.0 Ur Specific [place] 1.015 Urine Protein TRACE Urine Glucose (UA) 100 H Urine Ketones 5 Urine Blood NEG Urine Nitrite NEG Ur Leukocyte Esterase NEG Stool Occult Blood POSITIVE 12/17/21 12/17/21 12/17/21 03:43 03:43 07:37 MCV 93.7 MCH 32.1 MCHC 34.2 RDW 12.7 Plt Count 96 L MPV 10.5 Immature Gran % (Auto) 0.6 H Neut % (Auto) 53.3 Lymph % (Auto) 15.2 L [place] % (Auto) 30.8 H Eos % (Auto) 0.1 Baso % (Auto) 0.0 Lymph # (Auto) 1.7 [place] # (Auto) 3.4 H Eos # (Auto) 0.0 Baso # (Auto) 0.0 Abs Immat Gran (auto) 0.07 H Absolute Neuts (auto) 5.9 Absolute Nucleated RBC 0.000 Nucleated RBC % (auto) 0.0 Smear Tech's Comments Anion Gap 11 L Estim Creat Clear Calc 62.2 Estimated GFR > 60 POC Glucose 181 H Random Glucose 194 H D Lactic Acid Calcium 8.9 Total Bilirubin AST ALT Alkaline Phosphatase Total Protein Albumin Urine Color Urine Appearance Urine pH Ur Specific [place] Urine Protein Urine Glucose (UA) Urine Ketones Urine Blood Urine Nitrite Ur Leukocyte Esterase Stool Occult Blood 12/17/21 12/17/21 12/17/21 11:49 23:05 23:05 MCV 93.4 MCH 32.0 MCHC 34.3 RDW 12.6 Plt Count 97 L MPV 10.6 Immature Gran % (Auto) 0.7 H Neut % (Auto) 52.9 Lymph % (Auto) 12.7 L [place] % (Auto) 33.5 H Eos % (Auto) 0.1 Baso % (Auto) 0.1 Lymph # (Auto) 1.5 [place] # (Auto) 4.0 H Eos # (Auto) 0.0 Baso # (Auto) 0.0 Abs Immat Gran (auto) 0.08 H Absolute Neuts (auto) 6.3 Absolute Nucleated RBC 0.000 Nucleated RBC % (auto) 0.0 Smear Tech's Comments VERIFIED Anion Gap 13 Estim Creat Clear Calc 64.6 Estimated GFR > 60 POC Glucose 188 H Random Glucose 218 H Lactic Acid Calcium 8.9 Total Bilirubin 0.8 AST 19 ALT 19 Alkaline Phosphatase 48 Total Protein 6.8 Albumin 3.6 Urine Color Urine Appearance Urine pH Ur Specific [place] Urine Protein Urine Glucose (UA) Urine Ketones Urine Blood Urine Nitrite Ur Leukocyte Esterase Stool Occult Blood Assessment and Plan (1) Colitis: Status: Acute Assessment and Plan: 81M presented with abdominal pain and blood in stool, found to have right sided colitis acute colitis levaquinagapito gi eval will need scope eventually to rule out neoplasm hematokezia hgb stable monitor hyopkalemia resplace and monitor copd trelegy htn losartan hld statin dm insulin bph flomax Quality Stroke Does the patient have a stroke diagnosis?: No VTE Prior VTE?: No VTE Risk Level:: Medical - moderate - high VTE Device Contraindication: N/A - Device Ordered VTE Drug Contraindication: Treatment Not Indicated
--- NOTE | 2021-12-17 13:20 | MHC.CM.PN ---
Met with pt and whey department operator to review d/c plans: pt resides with a room mate, Lauri who assists pt with transportation. He is independent with care needs and has no services but does receive CM visits from his insurance payor, [facility]. Pt states Lauri will transport him home when he is ready to d/c. HCP declined: Vax status: possibly one: pt vague. IMM in chart. CM to follow for changes in d/c plan.
--- NOTE | 2021-12-17 14:11 | PC.NURSE ---
rn to rn report given to fay in ed overflow unit. pt aware of plan of care.
[2021-12-17] MEDS: Insulin Lispro 100 UNIT/ML 3 ML VIAL SUBCUT ×3 (14:24→22:31)
--- NOTE | 2021-12-17 14:39 | PC.NURSE ---
pt moved to [facility], bed 5.
[2021-12-17 15:36] LABS: COVID-19 Test Positive (Negative); IDNOW Serial# 9DD0AD1C
--- NOTE | 2021-12-17 16:29 | P.CONGS_ITS ---
History of Present Illness Consult details Consult date: 12/17/21 Reason for consult: abdominal pain Requesting physician: Eyad MCKINLEY Past Medical History Medical History Asthma Diabetes Hypertension Family History Family history: reviewed and not pertinent Social History Social History Alcohol intake: unknown Patient Tobacco Use Status: Never used Tobacco Use of substances other than those prescribed or required for medical reasons: No Advance Directives: No service: No Current occupational status: disabled Meds Allergies Allergy/AdvReac Type Severity Reaction Status Date / Time Penicillins Allergy Unknown UNKNOWN Verified 05/26/21 14:27 Active Medications: Current Medications Acetaminophen (Acetaminophen 325 Mg Tablet) 650 mg PO Q6H PRN PRN Reason: Pain, Mild (Pain Scale 1-3) Last Admin: 12/17/21 16:24 Dose: 650 mg Documented by: Albuterol/Ipratropium (Albuterol/Iprat 2.5/0.5mg 3 Ml Ampul.Neb) 3 ml INHALE RQ4H PRN PRN Reason: Shortness of Breath/Wheezing Dextrose (Dextrose 50 % 25 Gm/50 Ml Syringe) 25 gm IVPUSH Q15M PRN; Protocol PRN Reason: per Hypoglycemia Standing Ord. Glucose (Glucose Gel 15 Gm Gel..Gram.) 15 gm PO Q15M PRN; Protocol PRN Reason: per Hypoglycemia Standing Ord. Hydromorphone HCl (Hydromorphone Hcl 1 Mg/Ml Syringe) 0.5 mg IVPUSH Q4H PRN; Protocol PRN Reason: Pain, Severe (Pain Scale 7-10) Last Admin: 12/17/21 14:24 Dose: 0.5 mg Documented by: Dextrose/Sodium Chloride (D51/2ns) 1,000 mls @ 75 mls/hr IVCONT .[id number] [facility] Last Admin: 12/17/21 05:26 Dose: 75 mls/hr Documented by: Levofloxacin (Levaquin) 750 mg in 150 mls @ 100 mls/hr IV Q24H [facility] Last Infusion: 12/17/21 06:44 Dose: Infused Documented by: Metronidazole (Flagyl) 500 mg in 100 mls @ 100 mls/hr IV Q8H [facility] Last Infusion: 12/17/21 15:24 Dose: Infused Documented by: Insulin Human Lispro (Insulin Lispro 100 Unit/Ml 3 Ml Vial) 0 unit SUBCUT QIDACHS [facility]; Protocol Last Admin: 12/17/21 14:24 Dose: 2 unit Documented by: Losartan Potassium (Losartan Potassium 25 Mg Tablet) 25 mg PO DAILY [facility]; Protocol Last Admin: 12/17/21 09:45 Dose: 25 mg Documented by: Non-Formulary Medication (Ckednuxygqm-Hknslykyx-Jqdmiymj [Trelegy Ellipta]) 1 each PO DAILY [facility] Pharmacy Consult (Consult Rx Perform Med Rec) 1 each MISCELLANE ONCE PRN PRN Reason: Consult order Pravastatin Sodium (Pravastatin Sodium 40 Mg Tablet) 40 mg PO BEDTIME [facility] Sodium Chloride (0.9 % Sodium Chloride Flush 3 Ml Syringe) 3 ml IVFLUSH QSHIFT [facility] Last Admin: 12/17/21 16:24 Dose: 3 ml Documented by: Tamsulosin HCl (Tamsulosin Hcl 0.4 Mg Capsule) 0.4 mg PO DAILY@1700 [facility] Home Medications Medication Instructions Recorded Confirmed Last Taken Type albuterol sulfate 90 mcg/actuation 2 puff PO Q4-6H PRN 12/17/21 12/17/21 Unknown History aerosol inhaler cetirizine 10 mg tablet 1 tab PO DAILY PRN 12/17/21 12/17/21 Unknown History fluticasone propionate 50 1 spray INTRANASAL DAILY 12/17/21 12/17/21 12/15/21 History mcg/actuation nasal spray,suspension glipizide 10 mg tablet, extended 1 tab PO DAILY 12/17/21 12/17/21 12/15/21 History release 24 hr glipizide 5 mg tablet, extended 1 tab PO DAILY 12/17/21 12/17/21 12/15/21 History release 24 hr insulin detemir U-100 100 unit/mL 12 unit SUBCUT DAILY 12/17/21 12/17/21 12/15/21 History (3 mL) subcutaneous pen (Levemir FlexTouch U-100 Insulin) losartan 25 mg tablet 1 tab PO DAILY 12/17/21 12/17/21 12/15/21 History metformin 500 mg tablet 2 tab PO DAILY 12/17/21 12/17/21 12/15/21 History oxybutynin chloride 5 mg 1 tab PO DAILY 12/17/21 12/17/21 12/15/21 History tablet,extended release 24 hr oxycodone-acetaminophen 5 mg-325 1 tab PO Q8H PRN 12/17/21 12/17/21 12/15/21 Hi story mg tablet pravastatin 40 mg tablet 1 tab PO BEDTIME 12/17/21 12/17/21 12/15/21 History tamsulosin 0.4 mg capsule 1 cap PO DAILY@1700 12/17/21 12/17/21 12/15/21 History Physical Exam Vital Signs: Vital Signs: Last Vital Signs Temp 98.5 F 12/17/21 14:31 Pulse 82 12/17/21 14:31 Resp 16 12/17/21 14:31 BP 124/65 12/17/21 14:31 Pulse Ox 97 12/17/21 14:31 BMI result Body Mass Index 27.4 Const: General: cooperative, healthy appearing, comfortable and no acute distress Nutritional Appearance: overweight Orientation/consciousness: oriented to person, oriented to place and oriented to time GI: Other: abdomen soft , obese, mild tenderness diffuse more on right side but no peritonitis and active bowel sounds Inspection: Yes normal to inspection Neuro: General: oriented to person, oriented to place and oriented to time Results Labs Result diagrams: 12/17/21 23:05 12/17/21 23:05 Labs: Abnormal lab results 12/17/21 12/17/21 12/17/21 Range/Units 00:13 03:43 03:43 WBC 11.2 H (4.8-10.8) X10*3/uL RBC 3.96 L (4.60-5.80) X10*6/uL Hgb 12.7 L (14.0-18.0) g/dl Hct 37.1 L (42.0-52.0) % Plt Count 96 L (160-400) X10*3/uL Immature Gran % (Auto) 0.6 H (0.0-0.4) % Lymph % (Auto) 15.2 L (20-40) % Nuckolls % (Auto) 30.8 H (2-11) % Nuckolls # (Auto) 3.4 H (0.1-1.2) X10*3/uL Abs Immat Gran (auto) 0.07 H (0.00-0.03) X10*3/uL Potassium (3.3-5.1) mmol/L Carbon Dioxide 30 H (22-29) mmol/L Anion Gap 11 L (12-20) POC Glucose (60-115) mg/dL Random Glucose 194 H D (60-115) mg/dL Urine Glucose (UA) 100 H (NEG) MG/DL COVID-19 ([facility]) (Negative) 12/17/21 12/17/21 12/17/21 Range/Units 07:37 11:49 15:18 WBC (4.8-10.8) X10*3/uL RBC (4.60-5.80) X10*6/uL Hgb (14.0-18.0) g/dl Hct (42.0-52.0) % Plt Count (160-400) X10*3/uL Immature Gran % (Auto) (0.0-0.4) % Lymph % (Auto) (20-40) % Nuckolls % (Auto) (2-11) % [place]olls # (Auto) (0.1-1.2) X10*3/uL Abs Immat Gran (auto) (0.00-0.03) X10*3/uL Potassium (3.3-5.1) mmol/L Carbon Dioxide (22-29) mmol/L Anion Gap (12-20) POC Glucose 181 H 188 H (60-115) mg/dL Random Glucose (60-115) mg/dL Urine Glucose (UA) (NEG) MG/DL COVID-19 ([facility]) Positive A (Negative) 12/17/21 12/17/21 Range/Units 23:05 23:05 WBC 11.9 H (4.8-10.8) X10*3/uL RBC 3.78 L (4.60-5.80) X10*6/uL Hgb 12.1 L (14.0-18.0) g/dl Hct 35.3 L (42.0-52.0) % Plt Count 97 L (160-400) X10*3/uL Immature Gran % (Auto) 0.7 H (0.0-0.4) % Lymph % (Auto) 12.7 L (20-40) % Nuckolls % (Auto) 33.5 H (2-11) % [place]olls # (Auto) 4.0 H (0.1-1.2) X10*3/uL Abs Immat Gran (auto) 0.08 H (0.00-0.03) X10*3/uL Potassium 2.9 L (3.3-5.1) mmol/L Carbon Dioxide (22-29) mmol/L Anion Gap (12-20) POC Glucose (60-115) mg/dL Random Glucose 218 H (60-115) mg/dL Urine Glucose (UA) (NEG) MG/DL COVID-19 ([facility]ANCO) (Negative) Short CBC 12/17/21 12/17/21 Range/Units 03:43 23:05 WBC 11.2 H 11.9 H (4.8-10.8) X10*3/uL Hgb 12.7 L 12.1 L (14.0-18.0) g/dl Hct 37.1 L 35.3 L (42.0-52.0) % Plt Count 96 L 97 L (160-400) X10*3/uL BMP 12/17/21 12/17/21 03:43 23:05 Sodium 135 137 Potassium 3.5 2.9 L Chloride 98 98 Carbon Dioxide 30 H 29 BUN 9 9 Creatinine 0.79 0.76 Calcium 8.9 8.9 Liver Function 12/17/21 Range/Units 23:05 Total Bilirubin 0.8 (0.0-1.0) mg/dL AST 19 (5-37) U/L ALT 19 (0-40) U/L Alkaline Phosphatase 48 (39-117) U/L Albumin 3.6 (3.5-5.0) g/dL Urine 12/17/21 Range/Units 00:13 Urine Color YELLOW Urine Appearance CLEAR Urine pH 7.0 (5.0-8.0) Ur Specific Holly 1.015 (1.005-1.025) Urine Protein TRACE (NEG-TRACE) MG/DL Urine Glucose (UA) 100 H (NEG) MG/DL All other labs normal. Imaging Abdomen CT scan report/results: report reviewed and image reviewed CT scan - pelvis: report reviewed and image reviewed Assessment and Plan (1) Colitis: Status: Acute pt is a 81 year old male with colitis -? etiology but significant changes on CT, not too tender and vitals stable. recommend - admit and npo ivf iv antibx gi consult he will need outpt cscope - his findings on ct are significant but he looks good we will follow along as needed - no surgical intervention required at this time thanks yudelka scott now Procedures Date of Service Date of Service: 12/17/21
[2021-12-17 18:03] LABS: Glucose, Whole Blood 171 mg/dL (60-115)
[2021-12-17] MEDS: Tamsulosin HCL 0.4 MG CAPSULE PO (18:25)
[2021-12-17] MEDS: Pravastatin Sodium 40 MG TABLET PO (21:04)
--- NOTE | 2021-12-17 22:52 | PC.NURSE ---
pt received IV Dilaudid per JAN, pt continues to c/o pain. [employer] interpreter Juancho in room to assist t/w. bedside commode brought to room for pt and moved next to bed for easy access. educated pt regarding the importance to ring for assistance as necessary. pt ambulates independently.
[2021-12-18] VITALS (7 sets, daily range): BP systolic 104–167; BP diastolic 51–80; PULSE 85–119; RESP 15–20; TEMP 36.7–37; O2SAT 92–97
[2021-12-18] MEDS: 0.9 % Sodium Chloride Flush 3 ML SYRINGE IVFLUSH ×3 (01:59→22:05)
[2021-12-18] MEDS: metroNIDAZOLE/NS 500 MG/100 ML PIGGYBACK 100 MG IV ×3 (05:18→21:50)
[2021-12-18] MEDS: HYDROmorphone HCl 1 MG/ML SYRINGE 0.5 MG IVPUSH ×4 (05:19→21:48)
[2021-12-18] MEDS: levoFLOXacin/D5W 750 MG/150 ML PIGGYBACK 100 MG IV (06:47)
[2021-12-18 07:54] LABS: Hematocrit 35.9 % (42.0-52.0); Hemoglobin 11.8 g/dl (14.0-18.0); Mean Corpuscular HGB Conc 32.9 g/dl (31.0-36.0); Mean Corpuscular Hemoglobin 31.3 pg (27.0-33.0); Mean Corpuscular Volume 95.2 fL (80.0-98.0); Mean Platelet Volume 10.7 fL (9.4-12.4); Red Blood Count 3.77 X10*6/uL (4.60-5.80); Red Cell Distribution Width 12.6 % (11.0-16.0); White Blood Count 8.7 X10*3/uL (4.8-10.8)
[2021-12-18 07:55] LABS: Platelet Count 88 X10*3/uL (160-400)
[2021-12-18 08:01] LABS: Glucose, Whole Blood 186 mg/dL (60-115)
[2021-12-18 08:01] LABS: Glucose, Whole Blood 197 mg/dL (60-115)
[2021-12-18 08:23] LABS: Anion Gap 12 (12-20); Blood Urea Nitrogen 6 mg/dL (9-16); Calcium 8.3 mg/dL (8.4-10.2); Carbon Dioxide 26 mmol/L (22-29); Chloride 103 mmol/L (96-108); Creatinine Clr Calc Pharmacy 72.2; Estimated Glomerular Filt Rate > 60; Glucose Fasting 202 mg/dL (60-99); Potassium 3.5 mmol/L (3.3-5.1); Sodium 137 mmol/L (135-145)
[2021-12-18] MEDS: Insulin Lispro 100 UNIT/ML 3 ML VIAL SUBCUT ×4 (08:40→21:48)
[2021-12-18] MEDS: Dextrose 5 % and 0.45 % NaCl 1,000 ML 75 ML IVCONT (08:41)
[2021-12-18] MEDS: Losartan Potassium 25 MG TABLET PO (08:41)
--- NOTE | 2021-12-18 11:41 | HO.PM.IMPN ---
Subjective Subjective Date of Service: 12/18/21 Interval History: cc: abd pain itnerval history: still with pain but wants to advance diet Cardiovascular Cardiovascular: Reports no additional cardiovascular complaints Gastrointestinal Gastrointestinal: Reports no additional gastrointestinal complaints Physical Exam Vital Signs: Vital Signs: Last Vital Signs Temp 98.0 F 12/18/21 00:00 Pulse 108 H 12/18/21 08:12 Resp 15 12/18/21 08:12 BP 115/69 12/18/21 08:12 Pulse Ox 96 12/18/21 08:12 BMI result Body Mass Index 27.4 General: AO X 3, no acute distress Resp:? CTA bilateral, no accessory muscles used CVS: S1,S2,RRR GI: soft,LLQ tender, non distended Neuro:? motor grossly intact, alert Psych: appropriate affect, appropriate insight? Objective Data Active Medications Acetaminophen (Acetaminophen 325 Mg Tablet) 650 mg PO Q6H PRN PRN Reason: Pain, Mild (Pain Scale 1-3) Last Admin: 12/17/21 16:24 Dose: 650 mg Documented by: RK Albuterol/Ipratropium (Albuterol/Iprat 2.5/0.5mg 3 Ml Ampul.Neb) 3 ml INHALE RQ4H PRN PRN Reason: Shortness of Breath/Wheezing Dextrose (Dextrose 50 % 25 Gm/50 Ml Syringe) 25 gm IVPUSH Q15M PRN; Protocol PRN Reason: per Hypoglycemia Standing Ord. Glucose (Glucose Gel 15 Gm Gel..Gram.) 15 gm PO Q15M PRN; Protocol PRN Reason: per Hypoglycemia Standing Ord. Hydromorphone HCl (Hydromorphone Hcl 1 Mg/Ml Syringe) 0.5 mg IVPUSH Q4H PRN; Protocol PRN Reason: Pain, Severe (Pain Scale 7-10) Last Admin: 12/18/21 10:40 Dose: 0.5 mg Documented by: DAYLIN Levofloxacin (Levaquin) 750 mg in 150 mls @ 100 mls/hr IV Q24H [facility] Last Admin: 12/18/21 06:47 Dose: 100 mls/hr Documented by: MARTÍN Metronidazole (Flagyl) 500 mg in 100 mls @ 100 mls/hr IV Q8H [facility] Last Infusion: 12/18/21 08:53 Dose: 0 mls/hr Documented by: DAYLIN Insulin Human Lispro (Insulin Lispro 100 Unit/Ml 3 Ml Vial) 0 unit SUBCUT QIDACHS [facility]; Protocol Last Admin: 12/18/21 08:40 Dose: 2 unit Documented by: DAYLIN Losartan Potassium (Losartan Potassium 25 Mg Tablet) 25 mg PO DAILY [facility]; Protocol Last Admin: 12/18/21 08:41 Dose: 25 mg Documented by: DAYLIN Non-Formulary Medication (Fbdyshyliyj-Swvsuzyjw-Lfsazrmx [Trelegy Ellipta]) 1 each PO DAILY [facility] Pharmacy Consult (Consult Rx Perform Med Rec) 1 each MISCELLANE ONCE PRN PRN Reason: Consult order Pravastatin Sodium (Pravastatin Sodium 40 Mg Tablet) 40 mg PO BEDTIME [facility] Last Admin: 12/17/21 21:04 Dose: 40 mg Documented by: RK Sodium Chloride (0.9 % Sodium Chloride Flush 3 Ml Syringe) 3 ml IVFLUSH QSHIFT [facility] Last Admin: 12/18/21 09:06 Dose: Not Given Documented by: DAYLIN Non-Admin Reason: IV Running Tamsulosin HCl (Tamsulosin Hcl 0.4 Mg Capsule) 0.4 mg PO DAILY@1700 [facility] Last Admin: 12/17/21 18:25 Dose: 0.4 mg Documented by: RK Labs CBC & Chem 7: 12/18/21 06:55 12/18/21 06:55 Labs: Laboratory Results - last 24 hr 12/17/21 12/17/21 12/17/21 11:49 15:18 17:51 MCV MCH MCHC RDW Plt Count MPV Absolute Nucleated RBC Nucleated RBC % (auto) Anion Gap Estim Creat Clear Calc Estimated GFR POC Glucose 188 H 171 H Fasting Glucose Calcium COVID-19 ([facility]) Positive A COVID-19 Clin Com See Note 12/17/21 12/18/21 12/18/21 21:40 06:55 06:55 MCV 95.2 MCH 31.3 MCHC 32.9 RDW 12.6 Plt Count 88 L MPV 10.7 Absolute Nucleated RBC 0.000 Nucleated RBC % (auto) 0.0 Anion Gap 12 Estim Creat Clear Calc 72.2 Estimated GFR > 60 POC Glucose 197 H Fasting Glucose 202 H Calcium 8.3 L D COVID-19 ([facility]) COVID-19 Clin Com 12/18/21 07:20 MCV MCH MCHC RDW Plt Count MPV Absolute Nucleated RBC Nucleated RBC % (auto) Anion Gap Estim Creat Clear Calc Estimated GFR POC Glucose 186 H Fasting Glucose Calcium COVID-19 ([facility]) COVID-19 Clin Com Microbiology Microbiology Results: Microbiology 12/17/21 18:38 Stool Culture - Preliminary Stool Normal so far. 12/17/21 04:07 Blood Culture - Preliminary Blood - Venous No growth after 24 hours. 12/17/21 04:07 Blood Culture - Preliminary Blood - Venous No growth after 24 hours. Assessment and Plan (1) Colitis: Status: Acute Assessment and Plan: 81M presented with abdominal pain and blood in stool, found to have right sided colitis, incidentally found to be covid positive acute colitis levaquin, flagyl will need scope eventually to rule out neoplasm advanced to low residue covid positive asymptomatic isolation monitor BRBPR hgb stable monitor hyopkalemia replaced copd trelegy htn losartan hld statin dm insulin bph flomax Quality Stroke Does the patient have a stroke diagnosis?: No VTE Prior VTE?: No VTE Risk Level:: Medical - moderate - high VTE Device Contraindication: N/A - Device Ordered VTE Drug Contraindication: Treatment Not Indicated
--- NOTE | 2021-12-18 11:42 | P.PNGS_ITS ---
Subjective Subjective Date of Service: 12/18/21 Interval history: pt feeling like still has pain, no further bloody bowel movements wbc improved Physical Exam Vital Signs: Vital Signs: Last Vital Signs Temp 98.0 F 12/18/21 00:00 Pulse 108 H 12/18/21 08:12 Resp 15 12/18/21 08:12 BP 115/69 12/18/21 08:12 Pulse Ox 96 12/18/21 08:12 BMI result Body Mass Index 27.4 GI: Other: abdo soft still says diffuse tenderness but improving no peritoneal signs Objective Data Active Medications Acetaminophen (Acetaminophen 325 Mg Tablet) 650 mg PO Q6H PRN PRN Reason: Pain, Mild (Pain Scale 1-3) Last Admin: 12/17/21 16:24 Dose: 650 mg Documented by: RK Albuterol/Ipratropium (Albuterol/Iprat 2.5/0.5mg 3 Ml Ampul.Neb) 3 ml INHALE RQ4H PRN PRN Reason: Shortness of Breath/Wheezing Dextrose (Dextrose 50 % 25 Gm/50 Ml Syringe) 25 gm IVPUSH Q15M PRN; Protocol PRN Reason: per Hypoglycemia Standing Ord. Glucose (Glucose Gel 15 Gm Gel..Gram.) 15 gm PO Q15M PRN; Protocol PRN Reason: per Hypoglycemia Standing Ord. Hydromorphone HCl (Hydromorphone Hcl 1 Mg/Ml Syringe) 0.5 mg IVPUSH Q4H PRN; Protocol PRN Reason: Pain, Severe (Pain Scale 7-10) Last Admin: 12/18/21 10:40 Dose: 0.5 mg Documented by: DAYLIN Levofloxacin (Levaquin) 750 mg in 150 mls @ 100 mls/hr IV Q24H [facility] Last Admin: 12/18/21 06:47 Dose: 100 mls/hr Documented by: MARTÍN Metronidazole (Flagyl) 500 mg in 100 mls @ 100 mls/hr IV Q8H [facility] Last Infusion: 12/18/21 08:53 Dose: 0 mls/hr Documented by: DAYLIN Insulin Human Lispro (Insulin Lispro 100 Unit/Ml 3 Ml Vial) 0 unit SUBCUT QIDACHS [facility]; Protocol Last Admin: 12/18/21 08:40 Dose: 2 unit Documented by: DAYLIN Losartan Potassium (Losartan Potassium 25 Mg Tablet) 25 mg PO DAILY [facility]; Protocol Last Admin: 12/18/21 08:41 Dose: 25 mg Documented by: DAYLIN Non-Formulary Medication (Ygrmdfapifn-Ufplkrpot-Vtpokfxk [Trelegy Ellipta]) 1 each PO DAILY [facility] Pharmacy Consult (Consult Rx Perform Med Rec) 1 each MISCELLANE ONCE PRN PRN Reason: Consult order Pravastatin Sodium (Pravastatin Sodium 40 Mg Tablet) 40 mg PO BEDTIME [facility] Last Admin: 12/17/21 21:04 Dose: 40 mg Documented by: RK Sodium Chloride (0.9 % Sodium Chloride Flush 3 Ml Syringe) 3 ml IVFLUSH QSHIFT [facility] Last Admin: 12/18/21 09:06 Dose: Not Given Documented by: DAYLIN Non-Admin Reason: IV Running Tamsulosin HCl (Tamsulosin Hcl 0.4 Mg Capsule) 0.4 mg PO DAILY@1700 [facility] Last Admin: 12/17/21 18:25 Dose: 0.4 mg Documented by: RK Labs CBC & Chem 7: 12/18/21 06:55 12/18/21 06:55 Labs: Laboratory Results - last 24 hr 12/17/21 12/17/21 12/17/21 11:49 15:18 17:51 MCV MCH MCHC RDW Plt Count MPV Absolute Nucleated RBC Nucleated RBC % (auto) Anion Gap Estim Creat Clear Calc Estimated GFR POC Glucose 188 H 171 H Fasting Glucose Calcium COVID-19 ([facility]) Positive A COVID-19 Clin Com See Note 12/17/21 12/18/21 12/18/21 21:40 06:55 06:55 MCV 95.2 MCH 31.3 MCHC 32.9 RDW 12.6 Plt Count 88 L MPV 10.7 Absolute Nucleated RBC 0.000 Nucleated RBC % (auto) 0.0 Anion Gap 12 Estim Creat Clear Calc 72.2 Estimated GFR > 60 POC Glucose 197 H Fasting Glucose 202 H Calcium 8.3 L D COVID-19 ([facility]) COVID-19 Clin Com 12/18/21 07:20 MCV MCH MCHC RDW Plt Count MPV Absolute Nucleated RBC Nucleated RBC % (auto) Anion Gap Estim Creat Clear Calc Estimated GFR POC Glucose 186 H Fasting Glucose Calcium COVID-19 ([facility]) COVID-19 Clin Com Microbiology Microbiology Results: Microbiology 12/17/21 18:38 Stool Culture - Preliminary Stool Normal so far. 12/17/21 04:07 Blood Culture - Preliminary Blood - Venous No growth after 24 hours. 12/17/21 04:07 Blood Culture - Preliminary Blood - Venous No growth after 24 hours. Procedures Date of Service Date of Service: 12/18/21 Progress Note: A&P Assessment and plan (1) Colitis: Status: Acute Assessment and Plan: pt still complaining of pain but abdo exam is better, less bloody stools, wbc improved. pt to follow course with conservative advancement of diet once less tender GI should follow for care and outpt cscope. Fall Risk Details Current Medications: Current Medications Acetaminophen (Acetaminophen 325 Mg Tablet) 650 mg PO Q6H PRN PRN Reason: Pain, Mild (Pain Scale 1-3) Last Admin: 12/17/21 16:24 Dose: 650 mg Documented by: Albuterol/Ipratropium (Albuterol/Iprat 2.5/0.5mg 3 Ml Ampul.Neb) 3 ml INHALE RQ4H PRN PRN Reason: Shortness of Breath/Wheezing Dextrose (Dextrose 50 % 25 Gm/50 Ml Syringe) 25 gm IVPUSH Q15M PRN; Protocol PRN Reason: per Hypoglycemia Standing Ord. Glucose (Glucose Gel 15 Gm Gel..Gram.) 15 gm PO Q15M PRN; Protocol PRN Reason: per Hypoglycemia Standing Ord. Hydromorphone HCl (Hydromorphone Hcl 1 Mg/Ml Syringe) 0.5 mg IVPUSH Q4H PRN; Protocol PRN Reason: Pain, Severe (Pain Scale 7-10) Last Admin: 12/18/21 10:40 Dose: 0.5 mg Documented by: Levofloxacin (Levaquin) 750 mg in 150 mls @ 100 mls/hr IV Q24H [facility] Last Admin: 12/18/21 06:47 Dose: 100 mls/hr Documented by: Metronidazole (Flagyl) 500 mg in 100 mls @ 100 mls/hr IV Q8H [facility] Last Infusion: 12/18/21 08:53 Dose: Infused Documented by: Insulin Human Lispro (Insulin Lispro 100 Unit/Ml 3 Ml Vial) 0 unit SUBCUT QIDA [facility]; Protocol Last Admin: 12/18/21 08:40 Dose: 2 unit Documented by: Losartan Potassium (Losartan Potassium 25 Mg Tablet) 25 mg PO DAILY [facility]; Protocol Last Admin: 12/18/21 08:41 Dose: 25 mg Documented by: Non-Formulary Medication (Llswagmebrj-Fjihmjpbn-Vrrhfwnq [Trelegy Ellipta]) 1 each PO DAILY [facility] Pharmacy Consult (Consult Rx Perform Med Rec) 1 each MISCELLANE ONCE PRN PRN Reason: Consult order Pravastatin Sodium (Pravastatin Sodium 40 Mg Tablet) 40 mg PO BEDTIME [facility] Last Admin: 12/17/21 21:04 Dose: 40 mg Documented by: Sodium Chloride (0.9 % Sodium Chloride Flush 3 Ml Syringe) 3 ml IVFLUSH QSHIFT [facility] Last Admin: 12/18/21 09:06 Dose: Not Given Documented by: Tamsulosin HCl (Tamsulosin Hcl 0.4 Mg Capsule) 0.4 mg PO DAILY@1700 [facility] Last Admin: 12/17/21 18:25 Dose: 0.4 mg Documented by: Time Spent With Patient Time: Total time spent is greater than 50% in coordination of care (as documented) at patient's floor/unit and/or counseling patient: Time with patient: 15 - 24 minutes Quality Stroke Does the patient have a stroke diagnosis?: No VTE Prior VTE?: No VTE Risk Level:: Medical - moderate - high VTE Device Contraindication: N/A - Device Ordered VTE Drug Contraindication: Treatment Not Indicated
[2021-12-18 13:35] LABS: Glucose, Whole Blood 187 mg/dL (60-115)
[2021-12-18 16:21] LABS: Glucose, Whole Blood 197 mg/dL (60-115)
[2021-12-18] MEDS: Tamsulosin HCL 0.4 MG CAPSULE PO ×2 (16:27→16:29)
[2021-12-18 20:37] LABS: Glucose, Whole Blood 181 mg/dL (60-115)
[2021-12-18] MEDS: Pravastatin Sodium 40 MG TABLET PO (21:48)
[2021-12-19 03:20] VITALS: RESP 18
[2021-12-19] MEDS: HYDROmorphone HCl 1 MG/ML SYRINGE 0.5 MG IVPUSH (03:20)
[2021-12-19 03:29] VITALS: BP 114/56; PULSE 85; RESP 18; TEMP 36.6; O2SAT 97
[2021-12-19] MEDS: levoFLOXacin/D5W 750 MG/150 ML PIGGYBACK 100 MG IV (05:26)
[2021-12-19] MEDS: metroNIDAZOLE/NS 500 MG/100 ML PIGGYBACK 100 MG IV (05:26)
[2021-12-19 06:44] LABS: Hematocrit 34.3 % (42.0-52.0); Hemoglobin 11.8 g/dl (14.0-18.0); Mean Corpuscular HGB Conc 34.4 g/dl (31.0-36.0); Mean Corpuscular Hemoglobin 32.7 pg (27.0-33.0); Mean Platelet Volume 10.9 fL (9.4-12.4); Red Blood Count 3.61 X10*6/uL (4.60-5.80); Red Cell Distribution Width 12.4 % (11.0-16.0); White Blood Count 6.3 X10*3/uL (4.8-10.8)
[2021-12-19 06:47] LABS: Anion Gap 9 (12-20); Blood Urea Nitrogen 6 mg/dL (9-16); Calcium 8.6 mg/dL (8.4-10.2); Carbon Dioxide 29 mmol/L (22-29); Chloride 102 mmol/L (96-108); Creatinine Clr Calc Pharmacy 72.2; Estimated Glomerular Filt Rate > 60; Glucose Fasting 199 mg/dL (60-99); Potassium 3.4 mmol/L (3.3-5.1); Sodium 137 mmol/L (135-145)
[2021-12-19 06:50] LABS: Platelet Count 95 X10*3/uL (160-400)
[2021-12-19 07:26] VITALS: BP 119/71; PULSE 75; RESP 20; TEMP 36.4; O2SAT 92
[2021-12-19 07:28] LABS: Glucose, Whole Blood 196 mg/dL (60-115)
[2021-12-19] MEDS: Insulin Lispro 100 UNIT/ML 3 ML VIAL SUBCUT (07:39)
--- NOTE | 2021-12-19 09:06 | PM.DS ---
DS: Providers Provider Date of Service: 12/19/21 Date of admission: 12/17/21 03:19 Primary care physician: Sarah Hopper MD Consults: 12/17/21 03:19 Consult to Gastroenterology Routine Consulting Provider: Alison Marshall Reason for consultation: GI bleed; colitis; guaiac positive stool Consult to General Surgery Routine Consulting Provider: Nikki Kaufman Reason for consultation: colitis; guaiac positive stool DS: Diagnosis Discharge Diagnosis (1) Colitis: Status: Acute DS: Summary Hospital Course Hospital Course: patient was admitted for acute colitis. he was treated with levaquin and flagyl. he was seen by GI who recommended follow up outpatient for colonoscopy. patient was incidentally noted to be covid positive, but has been asymptomatic. his pain improved, he was able to be advanced to solid diet. he will be discharged home on one week of levaquin and flagyl and will follow up with GI. Time Spent with Patient Time attestation: Total time spent providing and/or coordinating discharge services: Discharge coordination time: Greater than 30 minutes Quality: Stroke Does the patient have a stroke diagnosis?: No Physical Exam Vital Signs: Vital Signs: Last Vital Signs Temp 97.6 F 12/19/21 07:26 Pulse 75 12/19/21 07:26 Resp 20 12/19/21 07:26 BP 119/71 12/19/21 07:26 Pulse Ox 92 12/19/21 07:26 BMI result Body Mass Index 27.4 General: AO X 3, no acute distress Resp: CTA bilateral, no accessory muscles used CVS: S1,S2,RRR GI: soft, non tender, non distended Neuro: motor grossly intact, alert Psych: appropriate affect, appropriate insight DS: Data Data Completed and Pending Labs on day of discharge: Laboratory Results - last 24 hr 12/18/21 12/18/21 12/18/21 13:27 16:17 20:14 WBC RBC Hgb Hct MCV MCH MCHC RDW Plt Count MPV Absolute Nucleated RBC Nucleated RBC % (auto) Sodium Potassium Chloride Carbon Dioxide Anion Gap BUN Creatinine Estim Creat Clear Calc Estimated GFR POC Glucose 187 H 197 H 181 H Fasting Glucose Calcium 12/19/21 12/19/21 12/19/21 06:19 06:19 07:08 WBC 6.3 RBC 3.61 L Hgb 11.8 L Hct 34.3 L MCV 95.0 MCH 32.7 MCHC 34.4 RDW 12.4 Plt Count 95 L MPV 10.9 Absolute Nucleated RBC 0.000 Nucleated RBC % (auto) 0.0 Sodium 137 Potassium 3.4 Chloride 102 Carbon Dioxide 29 Anion Gap 9 L BUN 6 L Creatinine 0.68 Estim Creat Clear Calc 72.2 Estimated GFR > 60 POC Glucose 196 H Fasting Glucose 199 H Calcium 8.6 Preliminary micro results at discharge 12/17/21 18:38 Stool Culture - Preliminary Stool Normal so far. 12/17/21 04:07 Blood Culture - Preliminary Blood - Venous No growth after 48 hours. 12/17/21 04:07 Blood Culture - Preliminary Blood - Venous No growth after 48 hours. Discharge Plan Discharge Patient Disposition: Home, Self-Care Discharge Diagnosis: colitis Referrals: Sarah Caal MD [Primary Care Provider] - 1 Week Alison Marshall MD [Physician] - 1 Week Discharge Medications: New levofloxacin 500 mg tablet 500 mg PO DAILY Qty: 7 RF: 0 metronidazole 500 mg tablet 500 mg PO Q12H Qty: 14 RF: 0 Continued Trelegy Ellipta 200-62.5-25 mcg blister with device 1 ea PO DAILY Qty: 60 RF: 6 metformin 500 mg tablet 2 tab PO DAILY RF: 0 cetirizine 10 mg tablet 1 tab PO DAILY PRN (Reason: Allergy Symptoms) RF: 0 pravastatin 40 mg tablet 1 tab PO BEDTIME RF: 0 glipizide 10 mg tablet extended release 24hr 1 tab PO DAILY RF: 0 glipizide 5 mg tablet extended release 24 hr 1 tab PO DAILY RF: 0 oxycodone-acetaminophen 5-325 mg tablet 1 tab PO Q8H PRN (Reason: severe pain) RF: 0 tamsulosin 0.4 mg capsule 1 cap PO DAILY@1700 RF: 0 losartan 25 mg tablet 1 tab PO DAILY RF: 0 oxybutynin chloride 5 mg tablet extended release 24hr 1 tab PO DAILY RF: 0 albuterol sulfate 90 mcg/actuation HFA aerosol inhaler 2 puff PO Q4-6H PRN (Reason: Shortness Of Breath) RF: 0 fluticasone propionate 50 mcg/actuation [place],Suspension 1 spray INTRANASAL DAILY RF: 0 Levemir FlexTouch U-100 Insuln 100 unit/mL (3 mL) insulin pen 12 unit subcut DAILY RF: 0 Discharge Orders: Discharge Order (Routine); Ordered 12/19/21 Ordered By: Eyad Blake Diet: advance to usual diet Activity on Discharge: As tolerated Stand Alone Forms: Patient Portal Discharge page Care Plan Goals: recovery Health Concerns: colitis, rule out underlying mass Plan of Treatment: levaquin, flagyl, monitor covid symptoms, isolation, follow up gi for cscope Assessment: see above
--- NOTE | 2021-12-19 09:11 | MHC.CM.PN ---
pt dcd home today no skilled servceis orderd by
[2021-12-19] MEDS: Losartan Potassium 25 MG TABLET PO (09:39)
[2021-12-19] MEDS: 0.9 % Sodium Chloride Flush 3 ML SYRINGE IVFLUSH (09:39)
== END 2021-12-19 10:08 | disposition home or self-care (01) | DRG 391 ==
LOC: HO.ED 12-17 03:22 → HO.EDOVER 12-17 03:56 → HO.IMC 12-18 15:39
PROVIDERS: Admitting Provider Hospitalist; Emergency Provider Student in an Organized Health Care Education/Training Program; PCP Internal Medicine; Visit Provider Internal Medicine
DX: K52.9 Noninfective gastroenteritis and colitis, unspecified (principal); U07.1 COVID-19; K62.5 Hemorrhage of anus and rectum; E87.6 Hypokalemia; J44.9 Chronic obstructive pulmonary disease, unspecified; I10 Essential (primary) hypertension; E78.5 Hyperlipidemia, unspecified; E11.9 Type 2 diabetes mellitus without complications; N40.0 Benign prostatic hyperplasia without lower urinary tract symptoms; Z88.0 Allergy status to penicillin; Z79.4 Long term (current) use of insulin; Z79.51 Long term (current) use of inhaled steroids; Z79.899 Other long term (current) drug therapy
CPT/HCPCS: 36415; 74177; 80048; 80053; 81003; 82272; 82947; 83605; 85025; 85027; 87040; 87045; 87046; 87635; 99285; J0696; J1170; J1885; J1956; J2405; Q9967

== ENCOUNTER 2022-04-05 12:24 | Outpatient (REF) | payer OTHER, SELFPAY ==
--- NOTE | ~2022-04-05 | XR_ITS ---
EXAMINATION: XR SHOULDER, RIGHT CLINICAL INFORMATION: Primary osteoarthritis COMPARISON: Chest radiograph from 11/01/2020 TECHNIQUE: Four views of the right shoulder. FINDINGS: No acute visible fracture or dislocation. Moderate to severe degenerative changes of the glenohumeral and acromioclavicular joint with joint space narrowing, subchondral cystic changes, and periarticular osteophyte formation, the largest appearing at the inferior margin of the glenohumeral joints measuring up to 1.4 cm. Joint spaces and alignment are otherwise maintained. Soft tissues are unremarkable. Visualized portions of the right chest are unremarkable. XR/XR shoulder RT min 2V IMPRESSION: 1. No acute visible fracture or dislocation. 2. Moderate to severe degenerative changes of the glenohumeral and acromioclavicular joint.
== END 2022-04-05 12:25 | disposition home or self-care (01) ==
LOC: HO.XRAY 12:24
PROVIDERS: PCP Internal Medicine; Visit Provider Physical Medicine & Rehabilitation
DX: M19.011 Primary osteoarthritis, right shoulder (principal)
CPT/HCPCS: 73030

== ENCOUNTER 2022-05-11 06:05 | Inpatient (IN) | payer OTHER, SELFPAY ==
--- NOTE | ~2022-05-11 | XR_ITS ---
EXAMINATION: XR CHEST CLINICAL INFORMATION: Shortness of breath COMPARISON: Chest radiograph 11/01/2020. TECHNIQUE: Frontal view of the chest was obtained. FINDINGS: Normal appearance of the cardiomediastinal structures. Dense aortic calcific atherosclerosis. No effusions or pneumothoraces. Mild diffuse vascular indistinctness. Mild prominence of the minor fissure. No focal pulmonary consolidation. XR/XR chest 1V IMPRESSION: *Findings suspicious for mild pulmonary vascular congestion. No focal pulmonary consolidation. *Dense aortic calcific atherosclerosis.
--- NOTE | 2022-05-11 06:14 | ECG_ITS ---
Test Reason : CHEST PAIN Blood Pressure : / mmHG Vent. Rate : 106 BPM Atrial Rate : 106 BPM P-R Int : 142 ms QRS Dur : 082 ms QT Int : 310 ms P-R-T Axes : 062 040 146 degrees QTc Int : 411 ms Sinus tachycardia Nonspecific T wave abnormality Abnormal ECG When compared with ECG of 01-NOV-2020 02:48, No significant changes seen Referred By: Generic ED Physician Electronically Signed By:Angelo Adler
[2022-05-11 06:17] VITALS: BP 142/68; BP 157/81; PULSE 115; PULSE 90; RESP 20; TEMP 36.6; O2SAT 96; BMI 34.2
[2022-05-11 06:31] LABS: Hematocrit 38.9 % (42.0-52.0); Hemoglobin 13.1 g/dl (14.0-18.0); Mean Corpuscular HGB Conc 33.7 g/dl (31.0-36.0); Mean Corpuscular Hemoglobin 31.6 pg (27.0-33.0); Mean Platelet Volume 10.6 fL (9.4-12.4); Platelet Count 63 X10*3/uL (160-400); Red Blood Count 4.14 X10*6/uL (4.60-5.80); WBC ABN SCTR FOR CBC 1; White Blood Count 5.9 X10*3/uL (4.8-10.8)
[2022-05-11 06:43] LABS: Anion Gap 15 (12-20); Blood Urea Nitrogen 13 mg/dL (9-16); Calcium 9.4 mg/dL (8.4-10.2); Carbon Dioxide 21 mmol/L (22-29); Chloride 106 mmol/L (96-108); Creatinine Clr Calc Pharmacy 75.7; Estimated Glomerular Filt Rate > 60; Glucose Random 249 mg/dL (60-115); Sodium 138 mmol/L (135-145)
[2022-05-11 06:44] LABS: COVID-19 Test Negative (Negative)
[2022-05-11 06:51] LABS: Troponin-I High Sensitivity 357.2 ng/L (<3.5-35.0)
[2022-05-11 06:52] LABS: Band Neutrophils Percent 0 % (3-5); Eosinophils Absolute Manual 0.1 X10*3/uL (0.0-0.4); Eosinophils Percent Manual 1 % (0-4); Lymphocytes Absolute Manual 1.1 X10*3/uL (1.2-4.9); Lymphocytes Percent Manual 19 % (20-40); Monocytes Absolute Manual 1.8 X10*3/uL (0.1-1.2); Monocytes Percent Manual 30 % (2-11); Neutrophils Percent Manual 50 % (45-73)
[2022-05-11 06:53] LABS: Platelet Estimate DECREASED (NORMAL); Platelet Morphology Comment NORMAL; RBC Morphology NORMAL
--- NOTE | 2022-05-11 06:55 | ECG_ITS ---
Test Reason : REPEAT CHEST PAIN Blood Pressure : / mmHG Vent. Rate : 101 BPM Atrial Rate : 101 BPM P-R Int : 156 ms QRS Dur : 076 ms QT Int : 300 ms P-R-T Axes : 056 018 106 degrees QTc Int : 389 ms Sinus tachycardia Poor R wave progression Abnormal ECG When compared with ECG of 11-MAY-2022 06:07, Poor R wave progression Referred By: Ghazala Pete Electronically Signed By:Angelo Adler
--- NOTE | 2022-05-11 06:57 | ED.CHESTPAIN ---
HPI - Chest Pain General Chief Complaint: Chest Pain Stated Complaint: cp Time Seen by Provider: 05/11/22 06:43 Source: patient and deaf interpreter Mode of arrival: EMS History of Present Illness HPI narrative: 81-year-old male with history of COPD, intermittent chest pain for several days he described as ?feeling fatigued and then becoming short of breath? especially when he was in the sun and he denies any radiation of this ?pain? into the back/neck/arm and states that this has happened several times before. He denies any recent increase in size of his lower extremities, travel, fever/chills, GI or symptoms. He states that this does feel different from his asthma congestion. Currently patient denies any chest pain. Related Data Home Medications Medication Instructions Recorded Confirmed cetirizine 10 mg tablet 1 tab PO DAILY PRN Allergy Symptoms 12/17/21 12/17/21 fluticasone propionate 50 1 spray intranasal DAILY 12/17/21 12/17/21 mcg/actuation nasal spray,suspension glipizide 10 mg tablet, extended 1 tab PO DAILY 12/17/21 12/17/21 release 24 hr glipizide 5 mg tablet, extended 1 tab PO DAILY 12/17/21 12/17/21 release 24 hr insulin detemir U-100 100 unit/mL 12 unit subcut DAILY 12/17/21 12/17/21 (3 mL) subcutaneous pen (Levemir FlexTouch U-100 Insulin) losartan 25 mg tablet 1 tab PO DAILY 12/17/21 12/17/21 metformin 500 mg tablet 2 tab PO DAILY 12/17/21 12/17/21 oxybutynin chloride 5 mg 1 tab PO DAILY 12/17/21 12/17/21 tablet,extended release 24 hr oxycodone-acetaminophen 5 mg-325 1 tab PO Q8H PRN severe pain 12/17/21 12/17/21 mg tablet pravastatin 40 mg tablet 1 tab PO BEDTIME 12/17/21 12/17/21 tamsulosin 0.4 mg capsule 1 cap PO DAILY@1700 12/17/21 12/17/21 Previous Rx's Medication Instructions Recorded fluticasone fur. 200 mcg-umeclid 1 ea PO DAILY #60 caps 10/31/21 62.5 mcg-vilant 25 mcg inhalat.powder (Trelegy Ellipta) levofloxacin 500 mg tablet 500 mg PO DAILY #7 tabs 12/19/21 metronidazole 500 mg tablet 500 mg PO Q12H #14 tabs 12/19/21 albuterol sulfate 90 mcg/actuation 2 puff PO Q4-6H PRN shortness of 05/02/22 aerosol inhaler breath or wheezing #8.5 grams Allergies Allergy/AdvReac Type Severity Reaction Status Date / Time Penicillins Allergy Unknown UNKNOWN Verified 05/26/21 14:27 Review of Systems Review of Systems: Pertinent positives and negatives as stated in HPI 10 point review of systems otherwise negative. [facility]LY [facility] Past Medical History Source: nursing notes reviewed Medical History Asthma Diabetes Hypertension Social History Social History Household Members: None Housing: Apartment Do you presently have visiting nurse or other home services: Yes ([employer] 7 hrs a week) Alcohol intake: unknown Patient Tobacco Use Status: Never used Tobacco Advance Directives: No Advance Directives Information Provided: Yes service: No Current occupational status: disabled Physical Exam Vital Signs: Vital Signs: Last Vital Signs Temp 98.0 F 05/11/22 08:06 Pulse 100 05/11/22 08:06 Resp 22 H 05/11/22 08:06 BP 155/81 H 05/11/22 08:06 Pulse Ox 98 05/11/22 08:06 O2 Del Method 05/11/22 08:06 O2 Flow Rate 4 05/11/22 07:06 Oxygen Flow Rate 4 05/11/22 06:17 BMI result Body Mass Index 34.2 VITAL SIGNS: Reviewed. GENERAL: Elevated BMI, Well developed, well nourished, in no acute distress. HEAD: Normocephalic/atraumatic EYES: PERRLA, EOMI EARS: Ext canals without abnormality OROPHARYNX: no oral lesions noted, posterior pharynx clear LUNGS: Good inspiratory effort, decreased breath sounds bilaterally but no appreciated expiratory wheeze/rhonchi/rales. SpO2<96> CARDIOVASCULAR: Regular rate and rhythm without noted murmurs, no JVD or lower extremity edema. ABDOMEN: Soft, non-tender, non-distended with bowel sounds. MUSCULOSKELETAL: No tenderness, deformities, or effusions noted on gross inspection. EXTREMITIES: No cyanosis, clubbing or edema. SKIN: Inspection of the skin reveals no rashes NEUROLOGIC: Alert and oriented x 4. Strength and sensation to light touch were grossly intact x 4. Course Course Course Narrative: 81-year-old male with history and clinical presentation suggestive of ACS, COPD/asthma overlap exacerbation, less likely felt to be pneumonia or CHF. Patient is currently asymptomatic for chest pain but it is noted that his troponin was elevated to over 300 however this is in the context of patient being tachycardic. Will repeat EKG which was not significant for STEMI as well as repeating the troponins. Patient was provided with aspirin. Review of all investigations without evidence to objectively suggest COPD or CHF, however initial troponin was noted be elevated and initially attributed to patient's tachycardia, however on repeat troponin it is 1600, patient does remain without chest pain at this time and states that he feels better after the breathing treatment that he was provided. 0935: D-dimer is not indicative of PE, and will proceed with heparinization, it is noted the patient does have low platelets but these appear to be chronic in nature. This was communicated to the cryogenic transport driver as well. Reevaluation(s) Reevaluation #1: I paged Cardiology thinks nothing acute and recommendations are to follow-up with a D-dimer, if it is positive do the CT angio with PE protocol, if it is negative heparinize the patient and Dr. Adler to see patient in the ER. Time: 08:53 MDM - Chest Pain Lab Data Result diagrams: 05/11/22 06:22 05/11/22 06:22 Labs: Lab Results 05/11/22 05/11/22 05/11/22 Range/Units 06:22 06:22 06:22 WBC 5.9 (4.8-10.8) X10*3/uL RBC 4.14 L (4.60-5.80) X10*6/uL Hgb 13.1 L (14.0-18.0) g/dl Hct 38.9 L (42.0-52.0) % MCV 94.0 (80.0-98.0) fL MCH 31.6 (27.0-33.0) pg MCHC 33.7 (31.0-36.0) g/dl RDW 13.0 (11.0-16.0) % Plt Count 63 L D (160-400) X10*3/uL MPV 10.6 (9.4-12.4) fL Immature Gran % (Auto) Cancelled Neut % (Auto) Cancelled Lymph % (Auto) Cancelled [place] % (Auto) Cancelled Eos % (Auto) Cancelled Baso % (Auto) Cancelled Lymph # (Auto) Cancelled [place] # (Auto) Cancelled Eos # (Auto) Cancelled Baso # (Auto) Cancelled Abs Immat Gran (auto) Cancelled Absolute Neuts (auto) Cancelled Absolute Nucleated RBC 0.000 (0.0-0.012) X10*3/uL Nucleated RBC % (auto) 0.0 (0.0-0.2) /100WBC Neutrophils % (Manual) 50 (45-73) % Band Neutrophils % 0 L (3-5) % Lymphocytes % (Manual) 19 L (20-40) % Monocytes % (Manual) 30 H (2-11) % Eosinophils % (Manual) 1 (0-4) % Abs Neuts (Manual) 3.0 (2.0-8.3) X10*3/uL Lymphocytes # (Manual) 1.1 L (1.2-4.9) X10*3/uL Monocytes # (Manual) 1.8 H (0.1-1.2) X10*3/uL Eosinophils # (Manual) 0.1 (0.0-0.4) X10*3/uL Platelet Estimate DECREASED (NORMAL) Plt Morphology Comment NORMAL RBC Morphology NORMAL PT (9.9-13.0) SEC INR (0.9-1.1) APTT (24.1-38.0) SEC D-Dimer High Sensitivty NG/ML VBG pH (7.32-7.43) VBG pCO2 mmHg VBG pO2 mmHg VBG HCO3 (22-26) mmol/L VBG O2 Saturation % VBG Base Excess mmol/L Sodium 138 (135-145) mmol/L Potassium 4.0 (3.3-5.1) mmol/L Chloride 106 (96-108) mmol/L Carbon Dioxide 21 L (22-29) mmol/L Anion Gap 15 (12-20) BUN 13 D (9-16) mg/dL Creatinine 0.83 (0.5-1.4) mg/dL Estim Creat Clear Calc 75.7 Estimated GFR > 60 POC Glucose (60-115) mg/dL Random Glucose 249 H (60-115) mg/dL Lactic Acid (0.5-2.0) mmol/L Calcium 9.4 D (8.4-10.2) mg/dL Troponin I High Sens 357.2 H* (<3.5-35.0) ng/L B-Natriuretic Peptide 78 (<100) pg/mL COVID-19 ([facility]) (Negative) COVID-19 Clin Com 05/11/22 05/11/22 05/11/22 Range/Units 06:22 07:12 07:54 WBC (4.8-10.8) X10*3/uL RBC (4.60-5.80) X10*6/uL Hgb (14.0-18.0) g/dl Hct (42.0-52.0) % MCV (80.0-98.0) fL MCH (27.0-33.0) pg MCHC (31.0-36.0) g/dl RDW (11.0-16.0) % Plt Count (160-400) X10*3/uL MPV (9.4-12.4) fL Immature Gran % (Auto) Neut % (Auto) Lymph % (Auto) [place] % (Auto) Eos % (Auto) Baso % (Auto) Lymph # (Auto) [place] # (Auto) Eos # (Auto) Baso # (Auto) Abs Immat Gran (auto) Absolute Neuts (auto) Absolute Nucleated RBC (0.0-0.012) X10*3/uL Nucleated RBC % (auto) (0.0-0.2) /100WBC Neutrophils % (Manual) (45-73) % Band Neutrophils % (3-5) % Lymphocytes % (Manual) (20-40) % Monocytes % (Manual) (2-11) % Eosinophils % (Manual) (0-4) % Abs Neuts (Manual) (2.0-8.3) X10*3/uL Lymphocytes # (Manual) (1.2-4.9) X10*3/uL Monocytes # (Manual) (0.1-1.2) X10*3/uL Eosinophils # (Manual) (0.0-0.4) X10*3/uL Platelet Estimate (NORMAL) Plt Morphology Comment RBC Morphology PT (9.9-13.0) SEC INR (0.9-1.1) APTT (24.1-38.0) SEC D-Dimer High Sensitivty NG/ML VBG pH (7.32-7.43) VBG pCO2 mmHg VBG pO2 mmHg VBG HCO3 (22-26) mmol/L VBG O2 Saturation % VBG Base Excess mmol/L Sodium (135-145) mmol/L Potassium (3.3-5.1) mmol/L Chloride (96-108) mmol/L Carbon Dioxide (22-29) mmol/L Anion Gap (12-20) BUN (9-16) mg/dL Creatinine (0.5-1.4) mg/dL Estim Creat Clear Calc Estimated GFR POC Glucose 222 H (60-115) mg/dL Random Glucose (60-115) mg/dL Lactic Acid 2.9 H* (0.5-2.0) mmol/L Calcium (8.4-10.2) mg/dL Troponin I High Sens (<3.5-35.0) ng/L B-Natriuretic Peptide (<100) pg/mL COVID-19 ([facility]) Negative (Negative) COVID-19 Clin Com See Note 05/11/22 05/11/22 05/11/22 Range/Units 08:02 08:04 09:09 WBC (4.8-10.8) X10*3/uL RBC (4.60-5.80) X10*6/uL Hgb (14.0-18.0) g/dl Hct (42.0-52.0) % MCV (80.0-98.0) fL MCH (27.0-33.0) pg MCHC (31.0-36.0) g/dl RDW (11.0-16.0) % Plt Count (160-400) X10*3/uL MPV (9.4-12.4) fL Immature Gran % (Auto) Neut % (Auto) Lymph % (Auto) [place] % (Auto) Eos % (Auto) Baso % (Auto) Lymph # (Auto) [place] # (Auto) Eos # (Auto) Baso # (Auto) Abs Immat Gran (auto) Absolute Neuts (auto) Absolute Nucleated RBC (0.0-0.012) X10*3/uL Nucleated RBC % (auto) (0.0-0.2) /100WBC Neutrophils % (Manual) (45-73) % Band Neutrophils % (3-5) % Lymphocytes % (Manual) (20-40) % Monocytes % (Manual) (2-11) % Eosinophils % (Manual) (0-4) % Abs Neuts (Manual) (2.0-8.3) X10*3/uL Lymphocytes # (Manual) (1.2-4.9) X10*3/uL Monocytes # (Manual) (0.1-1.2) X10*3/uL Eosinophils # (Manual) (0.0-0.4) X10*3/uL Platelet Estimate (NORMAL) Plt Morphology Comment RBC Morphology PT (9.9-13.0) SEC INR (0.9-1.1) APTT 35.4 (24.1-38.0) SEC D-Dimer High Sensitivty NG/ML VBG pH 7.33 (7.32-7.43) VBG pCO2 43 mmHg VBG pO2 53 mmHg VBG HCO3 23 (22-26) mmol/L VBG O2 Saturation 77.0 % VBG Base Excess -2.4 mmol/L Sodium (135-145) mmol/L Potassium (3.3-5.1) mmol/L Chloride (96-108) mmol/L Carbon Dioxide (22-29) mmol/L Anion Gap (12-20) BUN (9-16) mg/dL Creatinine (0.5-1.4) mg/dL Estim Creat Clear Calc Estimated GFR POC Glucose (60-115) mg/dL Random Glucose (60-115) mg/dL Lactic Acid (0.5-2.0) mmol/L Calcium (8.4-10.2) mg/dL Troponin I High Sens 1650.8 H* D (<3.5-35.0) ng/L B-Natriuretic Peptide (<100) pg/mL COVID-19 ([facility]) (Negative) COVID-19 Clin Com 05/11/22 Range/Units 09:09 WBC (4.8-10.8) X10*3/uL RBC (4.60-5.80) X10*6/uL Hgb (14.0-18.0) g/dl Hct (42.0-52.0) % MCV (80.0-98.0) fL MCH (27.0-33.0) pg MCHC (31.0-36.0) g/dl RDW (11.0-16.0) % Plt Count (160-400) X10*3/uL MPV (9.4-12.4) fL Immature Gran % (Auto) Neut % (Auto) Lymph % (Auto) [place] % (Auto) Eos % (Auto) Baso % (Auto) Lymph # (Auto) [place] # (Auto) Eos # (Auto) Baso # (Auto) Abs Immat Gran (auto) Absolute Neuts (auto) Absolute Nucleated RBC (0.0-0.012) X10*3/uL Nucleated RBC % (auto) (0.0-0.2) /100WBC Neutrophils % (Manual) (45-73) % Band Neutrophils % (3-5) % Lymphocytes % (Manual) (20-40) % Monocytes % (Manual) (2-11) % Eosinophils % (Manual) (0-4) % Abs Neuts (Manual) (2.0-8.3) X10*3/uL Lymphocytes # (Manual) (1.2-4.9) X10*3/uL Monocytes # (Manual) (0.1-1.2) X10*3/uL Eosinophils # (Manual) (0.0-0.4) X10*3/uL Platelet Estimate (NORMAL) Plt Morphology Comment RBC Morphology PT 12.7 (9.9-13.0) SEC INR 1.1 (0.9-1.1) APTT (24.1-38.0) SEC D-Dimer High Sensitivty 160 NG/ML VBG pH (7.32-7.43) VBG pCO2 mmHg VBG pO2 mmHg VBG HCO3 (22-26) mmol/L VBG O2 Saturation % VBG Base Excess mmol/L Sodium (135-145) mmol/L Potassium (3.3-5.1) mmol/L Chloride (96-108) mmol/L Carbon Dioxide (22-29) mmol/L Anion Gap (12-20) BUN (9-16) mg/dL Creatinine (0.5-1.4) mg/dL Estim Creat Clear Calc Estimated GFR POC Glucose (60-115) mg/dL Random Glucose (60-115) mg/dL Lactic Acid (0.5-2.0) mmol/L Calcium (8.4-10.2) mg/dL Troponin I High Sens (<3.5-35.0) ng/L B-Natriuretic Peptide (<100) pg/mL COVID-19 ([facility]) (Negative) COVID-19 Clin Com ECG Data ECG #1: Interpretation: Sinus tachycardia, HR-106, no STEMI, ME/QRS/QTC are within normal limits. 0655: Sinus tachycardia, HR-101, no STEMI, ME/QRS/QTC is within normal limits. Discharge Plan Discharge Clinical Impression: Non-ST elevation MS (NSTEMI), COPD with asthma, Diabetes, Thrombocytopenia Patient Disposition: Admitted As Inpatient Prescriptions: No Action Trelegy Ellipta 200-62.5-25 mcg blister with device 1 ea PO DAILY Qty: 60 6RF albuterol sulfate 90 mcg/actuation HFA aerosol inhaler 2 puff PO Q4-6H PRN (Reason: shortness of breath or wheezing) Qty: 8.5 6RF metformin 500 mg tablet 2 tab PO DAILY Rx Instructions: RESTARTING ON 12/19/21 cetirizine 10 mg tablet 1 tab PO DAILY PRN (Reason: Allergy Symptoms) pravastatin 40 mg tablet 1 tab PO BEDTIME glipizide 10 mg tablet extended release 24hr 1 tab PO DAILY Rx Instructions: total daily dose = 15 mg glipizide 5 mg tablet extended release 24 hr 1 tab PO DAILY Rx Instructions: total daily dose = 15 mg oxycodone-acetaminophen 5-325 mg tablet 1 tab PO Q8H PRN (Reason: severe pain) tamsulosin 0.4 mg capsule 1 cap PO DAILY@1700 losartan 25 mg tablet 1 tab PO DAILY oxybutynin chloride 5 mg tablet extended release 24hr 1 tab PO DAILY fluticasone propionate 50 mcg/actuation [place],Suspension 1 spray INTRANASAL DAILY Levemir FlexTouch U-100 Insuln 100 unit/mL (3 mL) insulin pen 12 unit subcut DAILY levofloxacin 500 mg tablet 500 mg PO DAILY Qty: 7 0RF metronidazole 500 mg tablet 500 mg PO Q12H Qty: 14 0RF
--- NOTE | 2022-05-11 07:00 | CA_ITS ---
Transthoracic Echocardiogram Patient (Last, First, Middle): Santiago Almanza, Gender: Male Date of : 1940 Age: 81 Procedure Date: 05/11/2022 Procedure Type: Transthoracic Echocardiogram Location: ER Height: 167.64 cm Weight: 97.98 kg BSA: 2.07 m2 Heart Rate: bpm BP: 155 / 81 mmHg Credit Collector: TO Referring MD: Romain Perrin MD Symptoms: NSTEMI Study Quality: Technically Difficult Conclusions: - Technically limited and incomplete study. - Poor visualization of the heart and cannot comment about LV function or wall motion abnormality. Overall the heart size looks okay. - No obvious pericardial effusion is noted. Findings Left Ventricle The left ventricle was not well visualized. Normal left ventricular cavity size. Regional wall motion abnormalities can not be excluded due to suboptimal endocardial definition. Diastolic function is indeterminate on the basis of available data. Right Ventricle The right ventricle was not well visualized. Atria The left atrium was not well visualized. Aortic Valve The aortic valve was not well visualized. There is mild calcification of the aortic valve. Mitral Valve The mitral valve was not well visualized. There is mild mitral annular calcification. Pulmonic Valve The pulmonic valve was not well visualized. Tricuspid Valve The tricuspid valve was not well visualized. Great Vessels All visible segments of the aorta are normal in size. Venous The inferior vena cava was not well visualized. Pericardium/Pleural There is no evidence of pericardial effusion. Measurements Mitral Valve E'Lateral: 2.07 E'Medial: 2.61 Diastolic Function E'Medial: 2.61 E' Laterial: 2.07 Great Vessels Aorta Ao Asc: 3.20 2.1-3.4 cm Updated in Other Vendor System with Status of Final Angelo Adler MD electronically signed on 05/12/2022 11:55:25 AM with status of Final
[2022-05-11 07:06] VITALS: BP 147/84; PULSE 100; RESP 22; TEMP 36.7; O2SAT 99
[2022-05-11 07:07] VITALS: PULSE 104; RESP 26; O2SAT 96
[2022-05-11] MEDS: Albuterol Sulfate (0.083%) 2.5 MG/3 ML VIAL.NEB 5 MG INHALE (07:07)
[2022-05-11] MEDS: Aspirin 81 MG TAB.CHEW 324 MG PO (07:08)
[2022-05-11 07:17] LABS: Glucose, Whole Blood 222 mg/dL (60-115)
[2022-05-11 07:27] LABS: B Type Natriuretic Peptide 78 pg/mL (<100)
[2022-05-11 08:06] VITALS: BP 155/81; PULSE 100; RESP 22; TEMP 36.7; O2SAT 98
[2022-05-11 08:06] LABS: VBG Base Excess -2.4 mmol/L; VBG HCO3 23 mmol/L (22-26); VBG pCO2 43 mmHg; VBG pH 7.33 (7.32-7.43); VBG pO2 53 mmHg
[2022-05-11 08:07] LABS: Venous Blood Gas Refer to POC result
[2022-05-11] MEDS: methylPREDNISolone Sod Succ 125 MG/2 ML VIAL IVPUSH (08:08)
[2022-05-11 08:21] LABS: Lactic Acid 2.9 mmol/L (0.5-2.0)
[2022-05-11 08:43] LABS: Troponin-I High Sensitivity 1650.8 ng/L (<3.5-35.0)
[2022-05-11 09:26] LABS: INTERNATIONAL NORM RATIO 1.1 (0.9-1.1); Prothrombin Time 12.7 SEC (9.9-13.0)
[2022-05-11 09:28] LABS: D Dimer High Sensitivity 160 NG/ML; Partial Thromboplastin Time 35.4 SEC (24.1-38.0)
[2022-05-11 09:40] VITALS: BMI 35.0
[2022-05-11 10:00] LABS: Reflex Lactate? Lactic Acid Added
[2022-05-11 10:19] LABS: Hematocrit 40.2 % (42.0-52.0); Hemoglobin 13.6 g/dl (14.0-18.0); Mean Corpuscular HGB Conc 33.8 g/dl (31.0-36.0); Mean Corpuscular Hemoglobin 31.8 pg (27.0-33.0); Mean Corpuscular Volume 93.9 fL (80.0-98.0); Mean Platelet Volume 10.9 fL (9.4-12.4); Platelet Count 63 X10*3/uL (160-400); Red Blood Count 4.28 X10*6/uL (4.60-5.80)
[2022-05-11] MEDS: Heparin Sodium,Porcine/1/2NS 25,000 UNIT/250 ML IV.SOLN 10 UNIT IVCONT (10:25)
[2022-05-11 10:27] LABS: INTERNATIONAL NORM RATIO 1.1 (0.9-1.1); Prothrombin Time 12.6 SEC (9.9-13.0)
[2022-05-11 10:28] LABS: ~Lactic Acid-LAB USE ONLY 2.4 mmol/L (0.5-2.0)
[2022-05-11 10:30] LABS: PTT Heparin Drip 35.8 SEC (53-77.9)
--- NOTE | 2022-05-11 10:30 | P.HPHOSP_ITS ---
History of Present Illness Date of Service: 05/11/22 Chief Complaint: chest pain / shortness of breath This is an 81 yo M with multiple medical problems including DM, HTN, HLD, Thrombocytopenia, asthma-COPD overlap syndrome, chronic respiratory failure with hypoxia on oxygen as needed (does not know how much) who presents to [facility] with sudden onset chest symptoms. The patient is Macedonian speaking and despite the use of a Macedonian speaking certified court interpreter, he remains a vague historian. He reports that he woke up around 4am on the day of admission and noticed a strange feeling in his lower neck/upper chest which he is unable to describe, but repeatedly says it is not pain. He reports some trouble breathing during this time. He reports that he has had similar symptoms, more progressive over the last 1 month. How ever, he reoprts that these occur when he is exerting himself and not rest. Today his symptoms did no subside and hence he presented to [facility] for evalatuion. He denies any current chest pain at the time of admission. He denies any orthopnea, PND. He does endorse LE swelling, but is unsure how long it has been present. In the ED, he was given ASA, albuterol updraft, IV solu-medrol. His work up s howed an EKG with non-specific changes. His HS trop-I was around 300 and jumped to 1600. A d-dimer was low. His case was d/w with cardiology who recommended work up and treatment for NSTEMI. Review of Systems Review of Systems: negative except HPI [facility] Medical History (Updated 05/11/22 @ 10:47 by Romain Perrin MD) Asthma Asthma-COPD overlap syndrome COPD with asthma COVID-19 Diabetes Diabetes Dyspnea on exertion Hyperlipidemia Hypertension Thrombocytopenia Pertinent family history: Denies any significant FH Surgical History (Updated 05/11/22 @ 10:49 by Romain Perrin MD) H/O lithotripsy Social History (Updated 05/11/22 @ 10:58 by Romain Perrin MD) Household Members: None Housing: Apartment Do you presently have visiting nurse or other home services: Yes ([employer] 7 hrs a week) Alcohol intake: current Alcohol intake frequency: 3 or more drinks per day Patient Tobacco Use Status: Former Tobacco user Advance Directives: No Advance Directives Information Provided: Yes service: No Current occupational status: disabled Meds Allergies Allergy/AdvReac Type Severity Reaction Status Date / Time Penicillins Allergy Unknown UNKNOWN Verified 05/26/21 14:27 Active Medications: Current Medications Acetaminophen (Acetaminophen 325 Mg Tablet) 650 mg PO Q6H PRN PRN Reason: Pain, Mild (Pain Scale 1-3) Furosemide (Furosemide 40 Mg/4 Ml Vial) 40 mg IVPUSH BID@0900,1800 [facility]; Protocol Heparin Sodium (Porcine) (Heparin Sodium,Porcine 5,000 Unit/Ml Vial) 3,900 unit 40 unit/kg (3900 unit) IVPUSH PROTOCOL BOLUS PRN; Protocol PRN Reason: 40 unit/kg - Heparin Protocol Heparin Sodium (Porcine) (Heparin Sodium,Porcine 5,000 Unit/Ml Vial) 7,900 unit 80 unit/kg (7900 unit) IVPUSH PROTOCOL BOLUS PRN; Protocol PRN Reason: 80 unit/kg - Heparin Protocol Heparin Sodium/Sodium Chloride () 25,000 unit in 250 mls @ 0 mls/hr IVCONT .Q0M [facility]; Protocol Last Admin: 05/11/22 10:25 Dose: 10.16 units/kg/hr, 10 mls/hr Ondansetron HCl (Ondansetron Hcl 4 Mg/2 Ml Vial) 4 mg IVPUSH Q8H PRN PRN Reason: Nausea and Vomiting Pharmacy Consult (Consult Rx Perform Med Rec) 1 each MISCELLANE ONCE PRN PRN Reason: Consult order Sodium Chloride (0.9 % Sodium Chloride Flush 3 Ml Syringe) [facility]ations Medication Instructions Recorded Confirmed Last Taken Type cetirizine 10 mg tablet 1 tab PO DAILY PRN Allergy Symptoms 12/17/21 12/17/21 Unknown History fluticasone propionate 50 1 spray intranasal DAILY 12/17/21 12/17/21 12/15/21 History mcg/actuation nasal spray,suspension glipizide 10 mg tablet, extended 1 tab PO DAILY 12/17/21 12/17/21 12/15/21 History release 24 hr glipizide 5 mg tablet, extended 1 tab PO DAILY 12/17/21 12/17/21 12/15/21 History release 24 hr insulin detemir U-100 100 unit/mL 12 unit subcut DAILY 12/17/21 12/17/21 12/15/21 History (3 mL) subcutaneous pen (Levemir FlexTouch U-100 Insulin) losartan 25 mg tablet 1 tab PO DAILY 12/17/21 12/17/21 12/15/21 History metformin 500 mg tablet 2 tab PO DAILY 12/17/21 12/17/21 12/15/21 History oxybutynin chloride 5 mg 1 tab PO DAILY 12/17/21 12/17/21 12/15/21 History tablet,extended release 24 hr oxycodone-acetaminophen 5 mg-325 1 tab PO Q8H PRN severe pain 12/17/21 12/17/21 12/15/21 History mg tablet pravastatin 40 mg tablet 1 tab PO BEDTIME 12/17/21 12/17/21 12/15/21 History tamsulosin 0.4 mg capsule 1 cap PO DAILY@1700 12/17/21 12/17/21 12/15/21 History Physical Exam Vital Signs and Narrative: Vital Signs: Last Vital Signs Temp 98.0 F 05/11/22 08:06 Pulse 100 05/11/22 08:06 Resp 22 H 05/11/22 08:06 BP 155/81 H 05/11/22 08:06 Pulse Ox 98 05/11/22 08:06 O2 Del Method 05/11/22 08:06 O2 Flow Rate 4 05/11/22 07:06 Oxygen Flow Rate 4 05/11/22 06:17 BMI result Body Mass Index 35.0 Const: Other: Constitutional - Awake and Alert, No apparent distress Eyes - PERRLA, EOMI Cardiovascular - S1S2, RRR, 2+ b/l LE pitting edema Respiratory - Dim sound, specifically at the bases; no respiratory distress Gastrointestinal - NT / ND; +BS; No rebound or guarding - No CVA tenderness Extremities - no calf tenderness bilaterally, no swelling Musculoskeletal - Normal inspection, normal ROM Skin - Warm/Dry Neurological - Alert & oriented x3, No focal deficit Psychological - Appropriate affect Results Labs CBC and Chem 7: 05/11/22 10:10 05/11/22 06:22 Labs: Laboratory Results - last 24 hr 05/11/22 05/11/22 05/11/22 06:22 06:22 06:22 MCV 94.0 MCH 31.6 MCHC 33.7 RDW 13.0 Plt Count 63 L D MPV 10.6 Immature Gran % (Auto) Cancelled Neut % (Auto) Cancelled Lymph % (Auto) Cancelled [place] % (Auto) Cancelled Eos % (Auto) Cancelled Baso % (Auto) Cancelled Lymph # (Auto) Cancelled [place] # (Auto) Cancelled Eos # (Auto) Cancelled Baso # (Auto) Cancelled Abs Immat Gran (auto) Cancelled Absolute Neuts (auto) Cancelled Absolute Nucleated RBC 0.000 Nucleated RBC % (auto) 0.0 Neutrophils % (Manual) 50 Band Neutrophils % 0 L Lymphocytes % (Manual) 19 L Monocytes % (Manual) 30 H Eosinophils % (Manual) 1 Abs Neuts (Manual) 3.0 Lymphocytes # (Manual) 1.1 L Monocytes # (Manual) 1.8 H Eosinophils # (Manual) 0.1 Platelet Estimate DECREASED Plt Morphology Comment NORMAL RBC Morphology NORMAL PT INR APTT aPTT Heparin Protocol D-Dimer High Sensitivty VBG pH VBG pCO2 VBG pO2 VBG HCO3 VBG O2 Saturation VBG Base Excess Anion Gap 15 Estim Creat Clear Calc 75.7 Estimated GFR > 60 POC Glucose Random Glucose 249 H Lactic Acid Lactic Acid F/U @ 2Hr Calcium 9.4 D Troponin I High Sens 357.2 H* B-Natriuretic Peptide 78 COVID-19 ([facility]) COVID-19 Clin Com 05/11/22 05/11/22 05/11/22 06:22 07:12 07:54 MCV MCH MCHC RDW Plt Count MPV Immature Gran % (Auto) Neut % (Auto) Lymph % (Auto) [place] % (Auto) Eos % (Auto) Baso % (Auto) Lymph # (Auto) [place] # (Auto) Eos # (Auto) Baso # (Auto) Abs Immat Gran (auto) Absolute Neuts (auto) Absolute Nucleated RBC Nucleated RBC % (auto) Neutrophils % (Manual) Band Neutrophils % Lymphocytes % (Manual) Monocytes % (Manual) Eosinophils % (Manual) Abs Neuts (Manual) Lymphocytes # (Manual) Monocytes # (Manual) Eosinophils # (Manual) Platelet Estimate Plt Morphology Comment RBC Morphology PT INR APTT aPTT Heparin Protocol D-Dimer High Sensitivty VBG pH VBG pCO2 VBG pO2 VBG HCO3 VBG O2 Saturation VBG Base Excess Anion Gap Estim Creat Clear Calc Estimated GFR POC Glucose 222 H Random Glucose Lactic Acid 2.9 H* Lactic Acid F/U @ 2Hr Calcium Troponin I High Sens B-Natriuretic Peptide COVID-19 ([facility]) Negative COVID-19 Clin Com See Note 05/11/22 05/11/22 05/11/22 08:02 08:04 09:09 MCV MCH MCHC RDW Plt Count MPV Immature Gran % (Auto) Neut % (Auto) Lymph % (Auto) [place] % (Auto) Eos % (Auto) Baso % (Auto) Lymph # (Auto) [place] # (Auto) Eos # (Auto) Baso # (Auto) Abs Immat Gran (auto) Absolute Neuts (auto) Absolute Nucleated RBC Nucleated RBC % (auto) Neutrophils % (Manual) Band Neutrophils % Lymphocytes % (Manual) Monocytes % (Manual) Eosinophils % (Manual) Abs Neuts (Manual) Lymphocytes # (Manual) Monocytes # (Manual) Eosinophils # (Manual) Platelet Estimate Plt Morphology Comment RBC Morphology PT INR APTT 35.4 aPTT Heparin Protocol D-Dimer High Sensitivty VBG pH 7.33 VBG pCO2 43 VBG pO2 53 VBG HCO3 23 VBG O2 Saturation 77.0 VBG Base Excess -2.4 Anion Gap Estim Creat Clear Calc Estimated GFR POC Glucose Random Glucose Lactic Acid Lactic Acid F/U @ 2Hr Calcium Troponin I High Sens 1650.8 H* D B-Natriuretic Peptide COVID-19 ([facility]) COVID-19 Clin Com 05/11/22 05/11/22 05/11/22 09:09 10:10 10:10 MCV 93.9 MCH 31.8 MCHC 33.8 RDW 13.0 Plt Count 63 L MPV 10.9 Immature Gran % (Auto) Neut % (Auto) Lymph % (Auto) [place] % (Auto) Eos % (Auto) Baso % (Auto) Lymph # (Auto) [place] # (Auto) Eos # (Auto) Baso # (Auto) Abs Immat Gran (auto) Absolute Neuts (auto) Absolute Nucleated RBC 0.000 Nucleated RBC % (auto) 0.0 Neutrophils % (Manual) Band Neutrophils % Lymphocytes % (Manual) Monocytes % (Manual) Eosinophils % (Manual) Abs Neuts (Manual) Lymphocytes # (Manual) Monocytes # (Manual) Eosinophils # (Manual) Platelet Estimate Plt Morphology Comment RBC Morphology PT 12.7 12.6 INR 1.1 1.1 APTT aPTT Heparin Protocol 35.8 L D-Dimer High Sensitivty 160 VBG pH VBG pCO2 VBG pO2 VBG HCO3 VBG O2 Saturation VBG Base Excess Anion Gap Estim Creat Clear Calc Estimated GFR POC Glucose Random Glucose Lactic Acid Lactic Acid F/U @ 2Hr Calcium Troponin I High Sens B-Natriuretic Peptide COVID-19 ([facility]) COVID-19 Clin Com 05/11/22 10:10 MCV MCH MCHC RDW Plt Count MPV Immature Gran % (Auto) Neut % (Auto) Lymph % (Auto) [place] % (Auto) Eos % (Auto) Baso % (Auto) Lymph # (Auto) [place] # (Auto) Eos # (Auto) Baso # (Auto) Abs Immat Gran (auto) Absolute Neuts (auto) Absolute Nucleated RBC Nucleated RBC % (auto) Neutrophils % (Manual) Band Neutrophils % Lymphocytes % (Manual) Monocytes % (Manual) Eosinophils % (Manual) Abs Neuts (Manual) Lymphocytes # (Manual) Monocytes # (Manual) Eosinophils # (Manual) Platelet Estimate Plt Morphology Comment RBC Morphology PT INR APTT aPTT Heparin Protocol D-Dimer High Sensitivty VBG pH VBG pCO2 VBG pO2 VBG HCO3 VBG O2 Saturation VBG Base Excess Anion Gap Estim Creat Clear Calc Estimated GFR POC Glucose Random Glucose Lactic Acid Lactic Acid F/U @ 2Hr 2.4 H* Calcium Troponin I High Sens B-Natriuretic Peptide COVID-19 ([facility]) COVID-19 Clin Com Imaging Radiologist's Impressions: Impressions Chest X-Ray 05/11/22 06:45 IMPRESSION: *Findings suspicious for mild pulmonary vascular congestion. No focal pulmonary consolidation. *Dense aortic calcific atherosclerosis. Assessment and Plan (1) Non-ST elevation AR (NSTEMI): Status: Acute Plan This is an 81 yo M with multiple risk factors for CAD who presents to the ED with vague chest pain/shortness of breath complaints. He endorses an increase in frequency of these symptoms over the last 1 month. His work up and presentation are concerning for NSTEMI. 1. NSTEMI HS trop I 300 --> 1600; no active CP right now; EKG non-specific given asa in the ED, started on heparin drip will check 2d echo and cardiology consult; beta-malinda post echo 2. Acute CHF, diastolic on echo done in Jun 2021. clinically with volume overload + congestion seen on CXR IV lasix 40mg BID I/O 3. DM hold orals -- use basal + bolus 4. HTN med rec pending -- resume home meds as appropriate 5. Heavy alcohol use endores 3-5 beers daily; last drink day [employer] denies prior alcohol withdrawal symptoms currently not in withdrawal -- monitor 6. Thrombocytopenia chronic and above 50 Of note -- patient was admitted to [facility] in November 2021 for rectal bleed + colitis. He was advised to f/u as an outpatient for colonoscopy which he has not done. He denies any further bleeding since then. For now, will continue heparin and given his prior bleed, monitor for bleeding. Full Code DVT pptx -- heparin drip. In light of the patients acute CHF + NSTEMI -- I anticipate a medically necessary inpatient hospitalization for the treatment of and monitoring response to the above mentioned conditions / treatments. This cannot be completed in a less acute setting. Med rec is pending -- will continue baseline meds as appropriate. Quality Stroke Does the patient have a stroke diagnosis?: No VTE Prior VTE?: No VTE Risk Level:: Medical - moderate - high VTE Device Contraindication: Treatment Not Indicated VTE Drug Contraindication: N/A - Med Ordered
[2022-05-11 10:43] VITALS: BP 177/94; PULSE 107; RESP 24; O2SAT 96
[2022-05-11 10:48] LABS: Cholesterol 125 mg/dL; HDL Cholesterol 34 mg/dL; LDL Cholesterol Calculated 72 mg/dl; Triglycerides 97 mg/dL
[2022-05-11] MEDS: Furosemide 40 MG/4 ML VIAL IVPUSH (11:01)
--- NOTE | 2022-05-11 11:14 | PC.NURSE ---
@ 1111AM CALL RECEIVED FROM DORIS OF THE [facility] PT TX LINE WITH ROOM ASSIGNMENT AND ACCEPTING MD INFO MASS MUTUAL 7, ROOM 6 RN TO RN SHOULD BE CALLED TO [phone]
[2022-05-11] MEDS: Nitroglycerin 2 % Oint 1 GM Packet 1 INCH TRANSDERMA (11:16)
--- NOTE | 2022-05-11 11:43 | PHA.MEDREC ---
Pharmacy Consult ? Medication Reconciliation Pharmacy has completed the medication reconciliation. Patient carries a list of medications that is not accurate. Received list for [facility]. Called PCP to confirm which dose of glipizde patient is on, which is suppose to be glipizde ER 5 mg and not glipizde ER 15 mg. Patient reports using 14 untis of Levemir but admits he is not sure if he is doing it correctly. Daniela Smallwood, PharmD
--- NOTE | 2022-05-11 11:48 | PC.NURSE ---
MOY CERNA HERE @ THIS TIME TO [employer]INFORMAT[employer] ANALYST FOR ALS TX TO [facility]
--- NOTE | 2022-05-11 11:53 | PM.DS ---
DS: Providers Provider Date of Service: 05/11/22 Date of admission: 05/11/22 10:25 Date of discharge: 05/11/22 Primary care physician: Sarah Hopper MD Consults: 05/11/22 10:26 Consult to Cardiology Routine Consulting Provider: Angelo Adler Reason for consultation: NSTEMI DS: Diagnosis Discharge Diagnosis (1) Non-ST elevation CA (NSTEMI): Status: Acute (2) Acute CHF: Status: Acute DS: Summary Hospital Course Hospital Course: HPI from admission H&P: Chief Complaint: chest pain / shortness of breath This is an 81 yo M with multiple medical problems including DM, HTN, HLD, Thrombocytopenia, asthma-COPD overlap syndrome, chronic respiratory failure with hypoxia on oxygen as needed (does not know how much) who [place] [facility] with sudden onset chest symptoms. The patient is Swedish speaking and despite the use of a Swedish speaking staff interpreter, he remains a vague historian. He reports that he woke up around 4am on the day of admission and noticed a strange feeling in his lower neck/upper chest which he is unable to describe, but repeatedly says it is not pain. He reports some trouble breathing during this time. He reports that he has had similar symptoms, more progressive over the last 1 month. However, he reoprts that these occur when he is exerting himself and not rest. Today his symptoms did no subside and hence he presented to [facility] [place]. He denies any current chest pain at the time of admission. He denies any orthopnea, PND. He does endorse LE swelling, but is unsure how long it has been present. In the ED, he was given ASA, albuterol updraft, IV solu-medrol. His work up showed an EKG with non-specific changes. His HS trop-I was around 300 and jumped to 1600. A d-dimer was low. His case was d/w with cardiology who recommended work up and treatment for NSTEMI. Hospital Course: Patient was admitted for NSTEMI/acute CHF. He was started on IV heparin drip and cardiology was consulted. Cardiology recommended transfer [place] [facility] [place] cath which was arranged. He was in agreement with transclementina. Patient is chest pain free at the time of transfer. Discharge diagnosis: 1. NSTEMI 2. Acute CHF, previously diastolic 3. THrombocytopenia 4. DM 5. Alcohol abuse 6. HLD 7. HTN Time Spent with Patient Time attestation: Total time spent providing and/or coordinating discharge services: Discharge coordination time: Greater than 30 minutes Quality: Safe Use of Opioids Does Pt have an Active Cancer Diagnosis on the Problem List?: No Quality: Stroke Does the patient have a stroke diagnosis?: No Physical Exam Vital Signs: Vital Signs: Last Vital Signs Temp 98.0 F 05/11/22 08:06 Pulse 107 H 05/11/22 10:43 Resp 24 H 05/11/22 10:43 BP 177/94 H 05/11/22 10:43 Pulse Ox 96 05/11/22 10:43 O2 Del Method 05/11/22 10:43 O2 Flow Rate 2 05/11/22 10:43 Oxygen Flow Rate 4 05/11/22 06:17 BMI result Body Mass Index 35.0 Const: Other: unchanged from admission DS: Data Data Completed and Pending Labs on day of discharge: Laboratory Results - last 24 hr 05/11/22 05/11/22 05/11/22 06:22 06:22 06:22 WBC 5.9 RBC 4.14 L Hgb 13.1 L Hct 38.9 L MCV 94.0 MCH 31.6 MCHC 33.7 RDW 13.0 Plt Count 63 L D MPV 10.6 Immature Gran % (Auto) Cancelled Neut % (Auto) Cancelled Lymph % (Auto) Cancelled [place] % (Auto) Cancelled Eos % (Auto) Cancelled Baso % (Auto) Cancelled Lymph # (Auto) Cancelled [place] # (Auto) Cancelled Eos # (Auto) Cancelled Baso # (Auto) Cancelled Abs Immat Gran (auto) Cancelled Absolute Neuts (auto) Cancelled Absolute Nucleated RBC 0.000 Nucleated RBC % (auto) 0.0 Neutrophils % (Manual) 50 Band Neutrophils % 0 L Lymphocytes % (Manual) 19 L Monocytes % (Manual) 30 H Eosinophils % (Manual) 1 Abs Neuts (Manual) 3.0 Lymphocytes # (Manual) 1.1 L Monocytes # (Manual) 1.8 H Eosinophils # (Manual) 0.1 Platelet Estimate DECREASED Plt Morphology Comment NORMAL RBC Morphology NORMAL PT INR APTT aPTT Heparin Protocol D-Dimer High Sensitivty VBG pH VBG pCO2 VBG pO2 VBG HCO3 VBG O2 Saturation VBG Base Excess Sodium 138 Potassium 4.0 Chloride 106 Carbon Dioxide 21 L Anion Gap 15 BUN 13 D Creatinine 0.83 Estim Creat Clear Calc 75.7 Estimated GFR > 60 POC Glucose Random Glucose 249 H Lactic Acid Lactic Acid F/U @ 2Hr Calcium 9.4 D Troponin I High Sens 357.2 H* B-Natriuretic Peptide 78 Triglycerides 97 Cholesterol 125 LDL Cholesterol, Calc 72 HDL Cholesterol 34 COVID-19 ([facility]) COVID-19 Clin Com 05/11/22 05/11/22 05/11/22 06:22 07:12 07:54 WBC RBC Hgb Hct MCV MCH MCHC RDW Plt Count MPV Immature Gran % (Auto) Neut % (Auto) Lymph % (Auto) [place] % (Auto) Eos % (Auto) Baso % (Auto) Lymph # (Auto) [place] # (Auto) Eos # (Auto) Baso # (Auto) Abs Immat Gran (auto) Absolute Neuts (auto) Absolute Nucleated RBC Nucleated RBC % (auto) Neutrophils % (Manual) Band Neutrophils % Lymphocytes % (Manual) Monocytes % (Manual) Eosinophils % (Manual) Abs Neuts (Manual) Lymphocytes # (Manual) Monocytes # (Manual) Eosinophils # (Manual) Platelet Estimate Plt Morphology Comment RBC Morphology PT INR APTT aPTT Heparin Protocol D-Dimer High Sensitivty VBG pH VBG pCO2 VBG pO2 VBG HCO3 VBG O2 Saturation VBG Base Excess Sodium Potassium Chloride Carbon Dioxide Anion Gap BUN Creatinine Estim Creat Clear Calc Estimated GFR POC Glucose 222 H Random Glucose Lactic Acid 2.9 H* Lactic Acid F/U @ 2Hr Calcium Troponin I High Sens B-Natriuretic Peptide Triglycerides Cholesterol LDL Cholesterol, Calc HDL Cholesterol COVID-19 ([facility]) Negative COVID-19 Clin Com See Note 05/11/22 05/11/22 05/11/22 08:02 08:04 09:09 WBC RBC Hgb Hct MCV MCH MCHC RDW Plt Count MPV Immature Gran % (Auto) Neut % (Auto) Lymph % (Auto) [place] % (Auto) Eos % (Auto) Baso % (Auto) Lymph # (Auto) [place] # (Auto) Eos # (Auto) Baso # (Auto) Abs Immat Gran (auto) Absolute Neuts (auto) Absolute Nucleated RBC Nucleated RBC % (auto) Neutrophils % (Manual) Band Neutrophils % Lymphocytes % (Manual) Monocytes % (Manual) Eosinophils % (Manual) Abs Neuts (Manual) Lymphocytes # (Manual) Monocytes # (Manual) Eosinophils # (Manual) Platelet Estimate Plt Morphology Comment RBC Morphology PT INR APTT 35.4 aPTT Heparin Protocol D-Dimer High Sensitivty VBG pH 7.33 VBG pCO2 43 VBG pO2 53 VBG HCO3 23 VBG O2 Saturation 77.0 VBG Base Excess -2.4 Sodium Potassium Chloride Carbon Dioxide Anion Gap BUN Creatinine Estim Creat Clear Calc Estimated GFR POC Glucose Random Glucose Lactic Acid Lactic Acid F/U @ 2Hr Calcium Troponin I High Sens 1650.8 H* D B-Natriuretic Peptide Triglycerides Cholesterol LDL Cholesterol, Calc HDL Cholesterol COVID-19 ([facility]) COVID-Semasio 05/11/22 05/11/22 05/11/22 09:09 10:10 10:10 WBC 5.0 RBC 4.28 L Hgb 13.6 L Hct 40.2 L MCV 93.9 MCH 31.8 MCHC 33.8 RDW 13.0 Plt Count 63 L MPV 10.9 Immature Gran % (Auto) Neut % (Auto) Lymph % (Auto) [place] % (Auto) Eos % (Auto) Baso % (Auto) Lymph # (Auto) [place] # (Auto) Eos # (Auto) Baso # (Auto) Abs Immat Gran (auto) Absolute Neuts (auto) Absolute Nucleated RBC 0.000 Nucleated RBC % (auto) 0.0 Neutrophils % (Manual) Band Neutrophils % Lymphocytes % (Manual) Monocytes % (Manual) Eosinophils % (Manual) Abs Neuts (Manual) Lymphocytes # (Manual) Monocytes # (Manual) Eosinophils # (Manual) Platelet Estimate Plt Morphology Comment RBC Morphology PT 12.7 12.6 INR 1.1 1.1 APTT aPTT Heparin Protocol 35.8 L D-Dimer High Sensitivty 160 VBG pH VBG pCO2 VBG pO2 VBG HCO3 VBG O2 Saturation VBG Base Excess Sodium Potassium Chloride Carbon Dioxide Anion Gap BUN Creatinine Estim Creat Clear Calc Estimated GFR POC Glucose Random Glucose Lactic Acid Lactic Acid F/U @ 2Hr Calcium Troponin I High Sens B-Natriuretic Peptide Triglycerides Cholesterol LDL Cholesterol, Calc HDL Cholesterol COVID-19 ([facility]) COVID-19 [employer] 05/11/22 10:10 WBC RBC Hgb Hct MCV MCH MCHC RDW Plt Count MPV Immature Gran % (Auto) Neut % (Auto) Lymph % (Auto) [place] % (Auto) Eos % (Auto) Baso % (Auto) Lymph # (Auto) [place] # (Auto) Eos # (Auto) Baso # (Auto) Abs Immat Gran (auto) Absolute Neuts (auto) Absolute Nucleated RBC Nucleated RBC % (auto) Neutrophils % (Manual) Band Neutrophils % Lymphocytes % (Manual) Monocytes % (Manual) Eosinophils % (Manual) Abs Neuts (Manual) Lymphocytes # (Manual) Monocytes # (Manual) Eosinophils # (Manual) Platelet Estimate Plt Morphology Comment RBC Morphology PT INR APTT aPTT Heparin Protocol D-Dimer High Sensitivty VBG pH VBG pCO2 VBG pO2 VBG HCO3 VBG O2 Saturation VBG Base Excess Sodium Potassium Chloride Carbon Dioxide Anion Gap BUN Creatinine Estim Creat Clear Calc Estimated GFR POC Glucose Random Glucose Lactic Acid Lactic Acid F/U @ 2Hr 2.4 H* Calcium Troponin I High Sens B-Natriuretic Peptide Triglycerides Cholesterol LDL Cholesterol, Calc HDL Cholesterol COVID-19 ([facility]) COVID-19 Clin Com Discharge Plan Discharge Patient Disposition: Xfer Acute Care Hospital Discharge Diagnosis: NSTEMI Referrals: Sarah Caal MD [Primary Care Provider] - 1 Week Discharge Medications: Continued albuterol sulfate 90 mcg/actuation HFA aerosol inhaler 2 puff PO Q4-6H PRN (Reason: shortness of breath or wheezing) Qty: 8.5 6RF cetirizine 10 mg tablet 1 tab PO DAILY PRN (Reason: Allergy Symptoms) pravastatin 40 mg tablet 1 tab PO BEDTIME glipizide 5 mg tablet extended release 24 hr 1 tab PO DAILY oxycodone-acetaminophen 5-325 mg tablet 1 tab PO Q8H PRN (Reason: severe pain) tamsulosin 0.4 mg capsule 1 cap PO DAILY@1700 losartan 25 mg tablet 1 tab PO DAILY oxybutynin chloride 5 mg tablet extended release 24hr 1 tab PO DAILY Levemir FlexTouch U-100 Insuln 100 unit/mL (3 mL) insulin pen 14 unit subcut DAILY ipratropium-albuterol 0.5 mg-3 mg(2.5 mg base)/3 mL solution for nebulization 3 ml INHALATION QID metformin 500 mg tablet extended release 24 hr 500 mg PO BID Fish Oil 340-1,000 mg capsule 1 cap PO TID multivitamin with folic acid [Daily-Tejinder (with folic acid)] 400 mcg tablet 1 tab PO DAILY Trelegy Ellipta 200-62.5-25 mcg blister with device 1 inh INHALATION DAILY Diet: advance to usual diet Activity on Discharge: As tolerated Stand Alone Forms: Patient Portal Discharge page Care Plan Goals: Transfer [place] [facility] [place] Health Concerns: Transfer to [facility] [place] cardiac evaluation Plan of Treatment: Transfer to [facility] [place] cardiac evaluation Assessment: see d/c summary
[2022-05-11 12:13] LABS: Reflex Lactate? 2 Y
--- NOTE | 2022-05-11 12:19 | PM.CNCAR ---
History of Present Illness History of Present Illness Date of Service: 05/11/22 Requesting physician: Ghazala Pete Chief complaint: Chest Pain SOB Narrative: 81-year-old gentleman who is presenting for chest discomfort shortness of breath ongoing for couple of weeks. He has been experiencing a dull chest discomfort and shortness of breath for 2 weeks. He had worsening of his shortness of breath overnight along with chest discomfort and decided come to the emergency department where he has ruled in for NSTEMI. He is short of breath and has crackles on examination along with signs of congestive heart failure. He is tachycardic on exam. He is also hypertensive. EKG is not showing any dynamic changes. He has been started on heparin drip. We given nitroglycerin paste in the ER and also IV furosemide. [facility] Past Medical History Medical History (Updated 05/11/22 @ 11:59 by Romain Perrin MD) Asthma Asthma-COPD overlap syndrome COPD with asthma COVID-19 Diabetes Diabetes Dyspnea on exertion Hyperlipidemia Hypertension Thrombocytopenia Surgical History Surgical History (Updated 05/11/22 @ 10:49 by Romain Perrin MD) H/O lithotripsy Social History Social History (Updated 05/11/22 @ 10:58 by Romain Perrin MD) Household Members: None Housing: Apartment Do you presently have visiting nurse or other home services: Yes ([employer] 7 hrs a week) Alcohol intake: current Alcohol intake frequency: 3 or more drinks per day Patient Tobacco Use Status: Former Tobacco user service: No Current occupational status: disabled Meds Allergies Allergy/AdvReac Type Severity Reaction Status Date / Time Penicillins Allergy Unknown UNKNOWN Verified 05/26/21 14:27 Active Medications: Current Medications Acetaminophen (Acetaminophen 325 Mg Tablet) 650 mg PO Q6H PRN PRN Reason: Pain, Mild (Pain Scale 1-3) Furosemide (Furosemide 40 Mg/4 Ml Vial) 40 mg IVPUSH BID@0900,1800 [facility]; Protocol Last Admin: 05/11/22 11:01 Dose: 40 mg Heparin Sodium (Porcine) (Heparin Sodium,Porcine 5,000 Unit/Ml Vial) 3,900 unit 40 unit/kg (3900 unit) IVPUSH PROTOCOL BOLUS PRN; Protocol PRN Reason: 40 unit/kg - Heparin Protocol Heparin Sodium (Porcine) (Heparin Sodium,Porcine 5,000 Unit/Ml Vial) 7,900 unit 80 unit/kg (7900 unit) IVPUSH PROTOCOL BOLUS PRN; Protocol PRN Reason: 80 unit/kg - Heparin Protocol Heparin Sodium/Sodium Chloride () 25,000 unit in 250 mls @ 0 mls/hr IVCONT .Q0M [facility]; Protocol Last Admin: 05/11/22 10:25 Dose: 10.16 units/kg/hr, 10 mls/hr Insulin Human Lispro (Insulin Lispro 100 Unit/Ml 3 Ml Vial) 0 unit SUBCUT QIDACHS [facility]; Protocol Last Admin: 05/11/22 11:01 Dose: Not Given Ondansetron HCl (Ondansetron Hcl 4 Mg/2 Ml Vial) 4 mg IVPUSH Q8H PRN PRN Reason: Nausea and Vomiting Pharmacy Consult (Consult Rx Perform Med Rec) 1 each MISCELLANE ONCE PRN PRN Reason: Consult order Sodium Chloride (0.9 % Sodium Chloride Flush 3 Ml Syringe) 3 ml IVFLUSH QSHIFT [facility] Last Admin: 05/11/22 10:31 Dose: Not Given Home Medications Medication Instructions Recorded Confirmed Last Taken Type cetirizine 10 mg tablet 1 tab PO DAILY PRN Allergy Symptoms 12/17/21 05/11/22 Unknown History glipizide 5 mg tablet, extended 1 tab PO DAILY 12/17/21 05/11/22 12/15/21 History release 24 hr insulin detemir U-100 100 unit/mL 14 unit subcut DAILY 12/17/21 05/11/22 12/15/21 History (3 mL) subcutaneous pen (Levemir FlexTouch U-100 Insulin) losartan 25 mg tablet 1 tab PO DAILY 12/17/21 05/11/22 12/15/21 History oxybutynin chloride 5 mg 1 tab PO DAILY 12/17/21 05/11/22 12/15/21 History tablet,extended release 24 hr oxycodone-acetaminophen 5 mg-325 1 tab PO Q8H PRN severe pain 12/17/21 05/11/22 12/15/21 History mg tablet pravastatin 40 mg tablet 1 tab PO BEDTIME 12/17/21 05/11/22 12/15/21 History tamsulosin 0.4 mg capsule 1 cap PO DAILY@1700 12/17/21 05/11/22 12/15/21 History fluticasone fur. 200 mcg-umeclid 1 inh inhalation DAILY 05/11/22 05/11/22 Unknown History 62.5 mcg-vilant 25 mcg inhalat.powder (Trelegy Ellipta) ipratropium 0.5 mg-albuterol 3 mg 3 ml inhalation QID 05/11/22 05/11/22 Unknown History (2.5 mg base)/3 mL nebulization soln metformin 500 mg tablet,extended 500 mg PO BID 05/11/22 05/11/22 Unknown History release 24 hr multivitamin with folic acid 400 1 tab PO DAILY 05/11/22 05/11/22 Unknown History mcg tablet (Daily-Tejinder (with folic acid)) omega-3 fatty acids-fish oil 340 1 cap PO TID 05/11/22 05/11/22 Unknown History mg-1,000 mg capsule (Fish Oil) Physical Exam Vital Signs: Vital Signs: Last Vital Signs Temp 98.0 F 05/11/22 08:06 Pulse 107 H 05/11/22 10:43 Resp 24 H 05/11/22 10:43 BP 177/94 H 05/11/22 10:43 Pulse Ox 96 05/11/22 10:43 O2 Del Method 05/11/22 10:43 O2 Flow Rate 2 05/11/22 10:43 Oxygen Flow Rate 4 05/11/22 06:17 BMI result Body Mass Index 35.0 GENERAL APPEARANCE: Short of breath. NECK: no carotid bruit, mild jugular venous distention. SKIN: no suspicious lesions, warm and dry. HEART: no murmurs, regular rate and rhythm. Tachycardic. LUNGS: Bilateral crackles. ABDOMEN: soft, nontender. EXTREMITIES: Mild edema. PERIPHERAL PULSES: equal. NEUROLOGIC: No gross deficits, AAO X 3 Objective Labs and Meds Result diagrams: 05/11/22 10:10 05/11/22 06:22 Lab results: Laboratory Results - last 24 hr 05/11/22 05/11/22 05/11/22 06:22 06:22 06:22 WBC 5.9 RBC 4.14 L Hgb 13.1 L Hct 38.9 L MCV 94.0 MCH 31.6 MCHC 33.7 RDW 13.0 Plt Count 63 L D MPV 10.6 Immature Gran % (Auto) Cancelled Neut % (Auto) Cancelled Lymph % (Auto) Cancelled Pinal % (Auto) Cancelled Eos % (Auto) Cancelled Baso % (Auto) Cancelled Lymph # (Auto) Cancelled Pinal # (Auto) Cancelled Eos # (Auto) Cancelled Baso # (Auto) Cancelled Abs Immat Gran (auto) Cancelled Absolute Neuts (auto) Cancelled Absolute Nucleated RBC 0.000 Nucleated RBC % (auto) 0.0 Neutrophils % (Manual) 50 Band Neutrophils % 0 L Lymphocytes % (Manual) 19 L Monocytes % (Manual) 30 H Eosinophils % (Manual) 1 Abs Neuts (Manual) 3.0 Lymphocytes # (Manual) 1.1 L Monocytes # (Manual) 1.8 H Eosinophils # (Manual) 0.1 Platelet Estimate DECREASED Plt Morphology Comment NORMAL RBC Morphology NORMAL PT INR APTT aPTT Heparin Protocol D-Dimer High Sensitivty VBG pH VBG pCO2 VBG pO2 VBG HCO3 VBG O2 Saturation VBG Base Excess Sodium 138 Potassium 4.0 Chloride 106 Carbon Dioxide 21 L Anion Gap 15 BUN 13 D Creatinine 0.83 Estim Creat Clear Calc 75.7 Estimated GFR > 60 POC Glucose Random Glucose 249 H Lactic Acid Lactic Acid F/U @ 2Hr Calcium 9.4 D Troponin I High Sens 357.2 H* B-Natriuretic Peptide 78 Triglycerides 97 Cholesterol 125 LDL Cholesterol, Calc 72 HDL Cholesterol 34 COVID-19 ([facility]) COVID-19 Clin Com 05/11/22 05/11/22 05/11/22 06:22 07:12 07:54 WBC RBC Hgb Hct MCV MCH MCHC RDW Plt Count MPV Immature Gran % (Auto) Neut % (Auto) Lymph % (Auto) P[place] % (Auto) Eos % (Auto) Baso % (Auto) Lymph # (Auto) Pinal # (Auto) Eos # (Auto) Baso # (Auto) Abs Immat Gran (auto) Absolute Neuts (auto) Absolute Nucleated RBC Nucleated RBC % (auto) Neutrophils % (Manual) Band Neutrophils % Lymphocytes % (Manual) Monocytes % (Manual) Eosinophils % (Manual) Abs Neuts (Manual) Lymphocytes # (Manual) Monocytes # (Manual) Eosinophils # (Manual) Platelet Estimate Plt Morphology Comment RBC Morphology PT INR APTT aPTT Heparin Protocol D-Dimer High Sensitivty VBG pH VBG pCO2 VBG pO2 VBG HCO3 VBG O2 Saturation VBG Base Excess Sodium Potassium Chloride Carbon Dioxide Anion Gap BUN Creatinine Estim Creat Clear Calc Estimated GFR POC Glucose 222 H Random Glucose Lactic Acid 2.9 H* Lactic Acid F/U @ 2Hr Calcium Troponin I High Sens B-Natriuretic Peptide Triglycerides Cholesterol LDL Cholesterol, Calc HDL Cholesterol COVID-19 ([facility]) Negative COVID-19 Clin Com See Note 05/11/22 05/11/22 05/11/22 08:02 08:04 09:09 WBC RBC Hgb Hct MCV MCH MCHC RDW Plt Count MPV Immature Gran % (Auto) Neut % (Auto) Lymph % (Auto) Pinal % (Auto) Eos % (Auto) Baso % (Auto) Lymph # (Auto) Pinal # (Auto) Eos # (Auto) Baso # (Auto) Abs Immat Gran (auto) Absolute Neuts (auto) Absolute Nucleated RBC Nucleated RBC % (auto) Neutrophils % (Manual) Band Neutrophils % Lymphocytes % (Manual) Monocytes % (Manual) Eosinophils % (Manual) Abs Neuts (Manual) Lymphocytes # (Manual) Monocytes # (Manual) Eosinophils # (Manual) Platelet Estimate Plt Morphology Comment RBC Morphology PT INR APTT 35.4 aPTT Heparin Protocol D-Dimer High Sensitivty VBG pH 7.33 VBG pCO2 43 VBG pO2 53 VBG HCO3 23 VBG O2 Saturation 77.0 VBG Base Excess -2.4 Sodium Potassium Chloride Carbon Dioxide Anion Gap BUN Creatinine Estim Creat Clear Calc Estimated GFR POC Glucose Random Glucose Lactic Acid Lactic Acid F/U @ 2Hr Calcium Troponin I High Sens 1650.8 H* D B-Natriuretic Peptide Triglycerides Cholesterol LDL Cholesterol, Calc HDL Cholesterol COVID-19 ([facility]) COVID-19 Clin Com 05/11/22 05/11/22 05/11/22 09:09 10:10 10:10 WBC 5.0 RBC 4.28 L Hgb 13.6 L Hct 40.2 L MCV 93.9 MCH 31.8 MCHC 33.8 RDW 13.0 Plt Count 63 L MPV 10.9 Immature Gran % (Auto) Neut % (Auto) Lymph % (Auto) Pinal % (Auto) Eos % (Auto) Baso % (Auto) Lymph # (Auto) Pinal # (Auto) Eos # (Auto) Baso # (Auto) Abs Immat Gran (auto) Absolute Neuts (auto) Absolute Nucleated RBC 0.000 Nucleated RBC % (auto) 0.0 Neutrophils % (Manual) Band Neutrophils % Lymphocytes % (Manual) Monocytes % (Manual) Eosinophils % (Manual) Abs Neuts (Manual) Lymphocytes # (Manual) Monocytes # (Manual) Eosinophils # (Manual) Platelet Estimate Plt Morphology Comment RBC Morphology PT 12.7 12.6 INR 1.1 1.1 APTT aPTT Heparin Protocol 35.8 L D-Dimer High Sensitivty 160 VBG pH VBG pCO2 VBG pO2 VBG HCO3 VBG O2 Saturation VBG Base Excess Sodium Potassium Chloride Carbon Dioxide Anion Gap BUN Creatinine Estim Creat Clear Calc Estimated GFR POC Glucose Random Glucose Lactic Acid Lactic Acid F/U @ 2Hr Calcium Troponin I High Sens B-Natriuretic Peptide Triglycerides Cholesterol LDL Cholesterol, Calc HDL Cholesterol COVID-19 ([facility]) COVID-[employer] 05/11/22 10:10 WBC RBC Hgb Hct MCV MCH MCHC RDW Plt Count MPV Immature Gran % (Auto) Neut % (Auto) Lymph % (Auto) Pinal % (Auto) Eos % (Auto) Baso % (Auto) Lymph # (Auto) Pinal # (Auto) Eos # (Auto) Baso # (Auto) Abs Immat Gran (auto) Absolute Neuts (auto) Absolute Nucleated RBC Nucleated RBC % (auto) Neutrophils % (Manual) Band Neutrophils % Lymphocytes % (Manual) Monocytes % (Manual) Eosinophils % (Manual) Abs Neuts (Manual) Lymphocytes # (Manual) Monocytes # (Manual) Eosinophils # (Manual) Platelet Estimate Plt Morphology Comment RBC Morphology PT INR APTT aPTT Heparin Protocol D-Dimer High Sensitivty VBG pH VBG pCO2 VBG pO2 VBG HCO3 VBG O2 Saturation VBG Base Excess Sodium Potassium Chloride Carbon Dioxide Anion Gap BUN Creatinine Estim Creat Clear Calc Estimated GFR POC Glucose Random Glucose Lactic Acid Lactic Acid F/U @ 2Hr 2.4 H* Calcium Troponin I High Sens B-Natriuretic Peptide Triglycerides Cholesterol LDL Cholesterol, Calc HDL Cholesterol COVID-19 ([facility]) COVID-19 Clin Com Imaging Radiologist's impression: Impressions Chest X-Ray 05/11/22 06:45 IMPRESSION: *Findings suspicious for mild pulmonary vascular congestion. No focal pulmonary consolidation. *Dense aortic calcific atherosclerosis. Assessment and Plan (1) Acute CHF: Status: Acute (2) Non-ST elevation ND (NSTEMI): Status: Acute Plan 81-year-old gentleman who is presenting for chest discomfort and shortness of breath. He has ruled in for NSTEMI. Clinically he is in heart failure and is tachycardia. He has been started on heparin drip and given aspirin load. Agree with giving nitro paste to him. I would avoid beta-malinda till I do echocardiography to assess for wall motion abnormality and assess ejection fraction. He is tachycardic which is a concerning sign. I think he needs to be transferred to [facility] urgently. I will arrange transfer to [facility]. Will try to do cardiac catheterization on him today if he stabilizes. Otherwise we will do angiography on him tomorrow. In the meantime he should be diuresed and given nitrates. We need to control blood pressure better. Thank you for allowing me to participate in the care of your patient. Please feel free to contact me if you have any questions. Procedures Date of Service Date of Service: 05/11/22
[2022-05-11 13:56] LABS: Glucose, Whole Blood 262 mg/dL (60-115)
== END 2022-05-11 15:59 | disposition short-term general hospital (02) | DRG 280 ==
LOC: HO.ED 09:40 → HO.EDOVER 10:46
PROVIDERS: Admitting Provider Family Medicine; Emergency Provider Student in an Organized Health Care Education/Training Program; PCP Internal Medicine; Visit Provider Family Medicine
DX: I21.4 Non-ST elevation (NSTEMI) myocardial infarction (principal); I50.31 Acute diastolic (congestive) heart failure; E78.5 Hyperlipidemia, unspecified; D69.6 Thrombocytopenia, unspecified; E11.9 Type 2 diabetes mellitus without complications; I11.0 Hypertensive heart disease with heart failure; J44.9 Chronic obstructive pulmonary disease, unspecified; F10.10 Alcohol abuse, uncomplicated; Z87.442 Personal history of urinary calculi; Z20.822 Contact with and (suspected) exposure to COVID-19; Z87.891 Personal history of nicotine dependence; Z88.0 Allergy status to penicillin; Z79.84 Long term (current) use of oral hypoglycemic drugs; Z79.899 Other long term (current) drug therapy
CPT/HCPCS: 36415; 71045; 80048; 80061; 82803; 82947; 83605; 83880; 84484; 85007; 85027; 85379; 85610; 85730; 87040; 87635; 93005; 93308; 94640; 96374; 96375; 99284; 99285; J1940; J2930; Q9957

== ENCOUNTER 2022-05-25 13:39 | Outpatient (REF) | payer OTHER, SELFPAY ==
--- NOTE | ~2022-05-25 | XR_ITS ---
EXAMINATION: XR RIBS, LEFT CLINICAL INFORMATION: Pleurodynia COMPARISON: Chest radiographs 05/11/2022, 11/01/2020, 06/16/2020, 11/17/2018; CT abdomen 12/17/2021. TECHNIQUE: Frontal view chest and 3 views left ribs are obtained for a total of 4 views. FINDINGS: There is no visible left rib fracture or rib destructive process. The lungs are clear and there is no pneumothorax, pleural reaction, airspace consolidation, or effusion. Heart size within limits of normal. Mitral annulus calcification. The hilar and mediastinal contours similar to prior exam. There are again degenerative changes thoracic spine and right glenohumeral joint. Small calcification left shoulder in region of teres minor consistent with calcific tendinosis. There are scattered vascular calcifications upper abdomen. XR/XR ribs LT min 3V w CXR1V IMPRESSION: -No visible rib fracture or rib destructive process. -No acute intrathoracic disease. No pneumothorax or effusion.
== END 2022-05-25 13:40 | disposition home or self-care (01) ==
LOC: HO.XRAY 13:39
PROVIDERS: PCP Internal Medicine; Visit Provider Internal Medicine
DX: R07.81 Pleurodynia (principal); I21.4 Non-ST elevation (NSTEMI) myocardial infarction; I11.0 Hypertensive heart disease with heart failure; I50.9 Heart failure, unspecified; E78.5 Hyperlipidemia, unspecified; E11.9 Type 2 diabetes mellitus without complications; Z79.899 Other long term (current) drug therapy
CPT/HCPCS: 71101; 99212

== ENCOUNTER → 2022-07-24 12:59 | Outpatient (REF) | payer OTHER, SELFPAY ==
--- NOTE | 2022-07-24 13:03 | CA_ITS ---
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 Left Ventricle Normal left ventricular cavity size. There is mildly increased left ventricular wall thickness. The left ventricular systolic function is hyperdynamic. The visually estimated ejection fraction is >70%. Spectral Doppler is indicative of an impaired relaxation filling pattern. Filling pressures are difficult to assess due to extensive mitral annular calcification Pericardium/Pleural There is a trivial pericardial effusion. Prior Study Comparison Changes noted compared to prior study dated: 05/11/2022. prior study was suboptimal, on this study LV systolic function appears to be hyperdynamic Measurements 2D Linear Measurements IVSd: 1.39 0.6-0.9/0.6-1.0 cm LVIDd: 3.99 3.9-5.3/4.2-5.9 cm LVIDd Index: 2.13 2.4-3.2/2.2-3.1 cm/m2 LVIDs: 2.94 2.0-3.6 cm LVPWd: 1.34 0.7-1.1 cm LA Diam: 3.30 2.7-3.8/3.0-4.0 cm LAIDs Index: 1.76 1.5-2.3 cm/m2 LV Mass: 249.54 67-162/88-224 g LV Mass Index: 133.44 43-95/49-115 g/m2 2D Systolic Function EF 4C: 76.20 >55% EF 2C: 69.60 >55% EF BiP: 73.30 >55% Mitral Valve MV Pk E: 1.20 MV PK A: 1.63 MV Decel Time: 367.00 E/A: 0.70 E'Lateral: 4.79 E'Medial: 4.57 E/E' Med: 26.30 E/E' Lat: 25.10 PHT: 108.00 MVA PHT: 2.04 Decel Marion: 3.27 Diastolic Function MV Pk E: 1.20 MV Pk A: 1.63 E/A: 0.70 E'Medial: 4.57 E/E' Med: 26.30 E' Laterial: 4.79 E/E' Lat: 25.10 Right Ventricle TAPSE (mm): 20.80 TVS' Andrea: 11.50 Updated in Other Vendor System with Status of Final Ephraim Cartagena MD electronically signed on 07/25/2022 10:35:22 AM with status of Final
== END ==
LOC: HO.CARD 12:59
PROVIDERS: PCP Internal Medicine; Visit Provider Nurse Practitioner Family
DX: I21.4 Non-ST elevation (NSTEMI) myocardial infarction (principal)
CPT/HCPCS: 93308; Q9957

== ENCOUNTER 2022-08-20 14:17 | Emergency (ER) | payer OTHER, SELFPAY ==
--- NOTE | ~2022-08-20 | XR_ITS ---
EXAMINATION: XR CHEST CLINICAL INFORMATION: Chest pain COMPARISON: Chest x-ray and left rib radiographs 05/25/2022 TECHNIQUE: 2 views of the chest were obtained. FINDINGS: Minimal streaky linear subsegmental atelectasis or scarring in the lateral costophrenic sulci, unchanged. Lungs are otherwise clear. No airspace consolidation, pleural effusion, or pneumothorax. Unchanged cardiomediastinal silhouette. Prominence of the hilar vascular structures, unchanged. No evidence pulmonary edema. Aortic vascular calcifications noted. No acute osseous injury. 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 XR/XR chest 2V IMPRESSION: No acute pulmonary process.
[2022-08-20 14:25] VITALS: BP 136/65; BP 152/76; PULSE 103; PULSE 91; RESP 18; TEMP 37.1; O2SAT 96; O2SAT 97; BMI 41.2
--- NOTE | 2022-08-20 14:43 | ED_ITS ---
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 Patient states that the pain started 3 days ago. Patient states that the pain resolves when he sits up. Patient denies any dizziness, lightheadedness, abdominal pain, nausea, vomiting, fever, chills, blurry vision, double vision, loss of vision, difficulty breathing, shortness of breath, back pain, night sweats, pain with urination, increased urinary frequency, increased urinary urgency, blood in his urine or stool, syncope or a near syncopal episode, recent trauma or falls, bowel incontinence, bladder incontinence, bowel retention, bladder retention, or any other complaints at this time. MD complaint: chest pain Relieving factors: nothing Exacerbating factors: other (sitting up) Treatment prior to arrival: none Related Data Home Medications Medication Instructions Recorded Confirmed insulin detemir U-100 100 unit/mL 14 unit subcut DAILY 12/17/21 05/26/22 (3 mL) subcutaneous pen (Levemir FlexTouch U-100 Insulin) oxybutynin chloride 5 mg 1 tab PO DAILY 12/17/21 05/26/22 tablet,extended release 24 hr oxycodone-acetaminophen 5 mg-325 1 tab PO Q8H PRN severe pain 12/17/21 05/26/22 mg tablet fluticasone fur. 200 mcg-umeclid 1 inh inhalation DAILY 05/11/22 05/26/22 62.5 mcg-vilant 25 mcg inhalat.powder (Trelegy Ellipta) ipratropium 0.5 mg-albuterol 3 mg 3 ml inhalation QID 05/11/22 05/26/22 (2.5 mg base)/3 mL nebulization soln metformin 500 mg tablet,extended 500 mg PO BID 05/11/22 05/26/22 release 24 hr multivitamin with folic acid 400 1 tab PO DAILY 05/11/22 05/26/22 mcg tablet (Daily-Tejinder (with folic acid)) omega-3 fatty acids-fish oil 340 1 cap PO TID 05/11/22 05/26/22 mg-1,000 mg capsule (Fish Oil) cetirizine 10 mg tablet 10 mg PO DAILY PRN Allergy Symptoms 05/25/22 05/26/22 glipizide 5 mg tablet, extended 10 mg PO DAILY 05/25/22 05/26/22 release 24 hr tamsulosin 0.4 mg capsule 0.4 mg PO DAILY@1700 05/25/22 05/26/22 atorvastatin 80 mg tablet 80 mg PO DAILY 05/30/22 carvedilol 3.125 mg tablet 3.125 mg PO BID 05/30/22 furosemide 40 mg tablet 40 mg PO DAILY 05/30/22 omega-3 fatty acids 1,000 mg 1,000 mg PO DAILY 05/30/22 capsule oxybutynin chloride 5 mg 5 mg PO DAILY 05/30/22 tablet,extended release 24 hr Previous Rx's Medication Instructions Recorded albuterol sulfate 90 mcg/actuation 2 puff PO Q4-6H PRN shortness of 05/02/22 aerosol inhaler breath or wheezing #8.5 grams aspirin 81 mg tablet,delayed 81 mg PO DAILY #90 tabs 05/26/22 release ticagrelor 90 mg tablet (Brilinta) 90 mg PO BID #180 tabs 05/26/22 isosorbide mononitrate 30 mg 30 mg PO DAILY #90 tabs 06/14/22 tablet,extended release 24 hr losartan 25 mg tablet 25 mg PO DAILY #90 tabs 07/27/22 Allergies Allergy/AdvReac Type Severity Reaction Status Date / Time Penicillins Allergy Unknown UNKNOWN Verified 05/25/22 13:05 Review of Systems Constitutional: Constitutional: Reports no additional constitutional complaints, Denies chills, Denies fever(s) and Denies night sweats Eyes: Eyes: Reports no additional eye complaints, Denies blurry vision, Denies change in vision, Denies diplopia, Denies eye discharge, Denies loss of vision and Denies eye pain ENT: Denies dizziness Cardiovascular: Cardiovascular: Reports no additional cardiovascular complaints, Reports chest pain, Denies lightheadedness, Denies Loss of Consciousness and Denies dyspnea Respiratory: Respiratory: Reports no additional respiratory complaints and Denies dyspnea Gastrointestinal: Gastrointestinal: Reports no additional gastrointestinal complaints, Denies abdominal pain, Denies melena, Denies hematochezia, Denies c hange in bowel habits and Denies change in stool character Genitourinary: Genitourinary: Reports no additional male genitourinary complaints, Denies hematuria, Denies oliguria, Denies difficulty urinating, Denies dysuria, Denies urinary frequency, Denies urinary hesitancy, Denies urinary incontinence and Denies urinary urgency Musculoskeletal: Musculoskeletal: Reports no additional musculoskeletal complaints, Denies numbness and Denies tingling Neurologic: Denies dizziness, Denies loss of vision, Denies numbness and Denies tingling Psychiatric: Psychiatric: Reports no additional psychiatric complaints Endocrine: Endocrine: Reports no additional endocrine complaints Hematologic/Lymphatic: Hematologic/Lymphatic: Reports no additional hematologic/lymphatic complaints Allergic/Immunologic: Allergic/Immunologic: Reports no additional aller gic/immunologic complaints PMFSH Past Medical History Attestation statement: The following information was validated with the patient. Source: old records reviewed Medical History Asthma Asthma-COPD overlap syndrome COPD with asthma COVID-19 Diabetes Diabetes Dyspnea on exertion Hyperlipidemia Hypertension Thrombocytopenia Surgical History H/O lithotripsy Social History Social History Household Members: None Housing: Apartment Do you presently have visiting nurse or other home services: Yes ([employer] 7 hrs a week) Alcohol intake: current Alcohol intake frequency: 3 or more drinks per day Patient Tobacco Use Status: Former Tobacco user Advance Directives: No Advance Directives Information Provided: Yes service: No Current occupational status: disabled Physical Exam Vital Signs: Vital Signs: Last Vital Signs Temp 98.7 F 08/20/22 14:25 Pulse 85 08/20/22 15:15 Resp 22 H 08/20/22 15:15 BP 105/64 08/20/22 15:15 Pulse Ox 96 08/20/22 15:15 O2 Del Method 08/20/22 15:15 BMI result Body Mass Index 41.2 Const: General: cooperative, no acute distress, alert and awake Nutritional Appearance: well nourished Orientation/consciousness: patient oriented x3 Limitations: no limitations HEENT: Head: Yes normal to inspection and Yes atraumatic Ears: hearing gr ossly normal bilaterally and external ears normal General nose exam: Normal external nose present, no nasal discharge noted and no epistaxis Face and sinus: Yes normal facial exam, No abrasion and No laceration Mouth: Normal oral and palatal mucosa present, no drooling and no muffled voice Eyes: General: appearance normal, both eyes and all related structures Periorbital: periorbital findings normal Eyelids: Yes eyelids normal Conjunctivae: conjunctivae normal Pupils: Equal, round and reactive pupils present EOM: EOMs intact bilaterally Neck: Neck: Yes normal visual inspection, Yes full ROM and Yes no lymphadenopathy Chest: Chest palpation & inspection: normal inspection of the chest Resp: Effort & Inspection: normal respiratory effort and able to speak in c omplete sentences Auscultation: clear to auscultation bilaterally Cardio: Rate: regular rate Rhythm: regular rhythm GI: Inspection: Yes normal to inspection Neuro: General: patient oriented x3 and moves all extremities Cranial nerves: Yes Equal, round and reactive pupils present Cognition (Neuro): normal cognition Motor exam (neuro): 5/5 motor strength present throughout Sensory Exam: Normal double simultaneous stimulation for sensation Coordination: [id number] test normal Extrem: General: Yes normal to inspection, Yes full ROM and Yes capillary refill normal Psych: Appearance: grossly normal Mental Status: mental status grossly normal Affect: normal affect Attitude: cooperative Thought process: Normal thought process present Thought content: Normal thought content present Insight: Good insight present (Psych) MDM - Chest Pain MDM Narrative Medical decision making narrative: Patient is an 81 year old male presenting to the emergency department today with chest pain. Patient's physical exam was unremarkable. Patient's blood work was unremarkable. Patient's EKG was unremarkable. Patient's chest x-ray showed no acute process. I explained my physical exam findings as well as all test results to the patient. I answered all questions asked by the patient. I stressed the importance of the patient taking his medication as prescribed. I stressed the importance of the patient following up with his primary care provider and sales agent insurance. I stressed the importance of the patient returning to the emergency department immediately if his symptoms were to worsen or if he were to develop any dizziness, shortness of breath, difficulty breathing, chest pain, blurry vision, loss of vision, nausea, vomiting, abdominal pain, fever, chills, back pain, or any other complaints. Patient verbalized agreement and understanding with this treatment plan and discharge. Differential Diagnosis Differential diagnosis: Likely atypical chest pain Medical Records Data Attestation: I reviewed the patient's medical records. Lab Data Attestation: I reviewed the patient's lab results. Result diagrams: 08/20/22 15:11 08/20/22 15:11 Labs: Lab Results 08/20/22 08/20/22 08/20/22 Range/Units 15:11 15:11 15:11 WBC 6.1 (4.8-10.8) X10*3/uL RBC 4.21 L (4.60-5.80) X10*6/uL Hgb 13.1 L (14.0-18.0) g/dl Hct 38.1 L (42.0-52.0) % MCV 90.5 (80.0-98.0) fL MCH 31.1 (27.0-33.0) pg MCHC 34.4 (31.0-36.0) g/dl RDW 12.8 (11.0-16.0) % Plt Count 91 L D (160-400) X10*3/uL MPV 11.1 (9.4-12.4) fL Immature Gran % (Auto) 0.5 H (0.0-0.4) % Neut % (Auto) 33.0 L (45-73) % Lymph % (Auto) 25.2 (20-40) % Colbert % (Auto) 40.1 H (2-11) % Eos % (Auto) 1.0 (0-4) % Baso % (Auto) 0.2 (0-2) % Lymph # (Auto) 1.5 (1.2-4.9) X10*3/uL Colbert # (Auto) 2.4 H (0.1-1.2) X10*3/uL Eos # (Auto) 0.1 (0.0-0.4) X10*3/uL Baso # (Auto) 0.0 (0.0-0.2) X10*3/uL Abs Immat Gran (auto) 0.03 (0.00-0.03) X10*3/uL Absolute Neuts (auto) 2.0 (2.0-8.3) x10*3/uL Absolute Nucleated RBC 0.000 (0.0-0.012) X10*3/uL Nucleated RBC % (auto) 0.0 (0.0-0.2) /100WBC Smear Tech's Comments VERIFIED Sodium 139 (135-145) mmol/L Potassium 3.9 (3.3-5.1) mmol/L Chloride 101 (96-108) mmol/L Carbon Dioxide 25 (22-29) mmol/L Anion Gap 17 (12-20) BUN 15 (9-16) mg/dL Creatinine 1.08 (0.5-1.4) mg/dL Estim Creat Clear Calc 51.8 Estimated GFR > 60 Random Glucose 235 H (60-115) mg/dL Calcium 9.5 (8.4-10.2) mg/dL Magnesium 1.8 (1.6-2.6) mg/dL Total Bilirubin 0.4 (0.0-1.0) mg/dL AST 22 (5-37) U/L ALT 20 (0-40) U/L Alkaline Phosphatase 69 D (39-117) U/L Troponin I High Sens 11.2 D (<3.5-35.0) ng/L B-Natriuretic Peptide (<100) pg/mL Total Protein 7.5 (6.5-8.0) g/dL Albumin 4.3 (3.5-5.0) g/dL COVID-19 ([facility]) (Negative) COVID-19 Clin Com 08/20/22 08/20/22 08/20/22 Range/Units 15:11 15:11 17:35 WBC (4.8-10.8) X10*3/uL RBC (4.60-5.80) X10*6/uL Hgb (14.0-18.0) g/dl Hct (42.0-52.0) % MCV (80.0-98.0) fL MCH (27.0-33.0) pg MCHC (31.0-36.0) g/dl RDW (11.0-16.0) % Plt Count (160-400) X10*3/uL MPV (9.4-12.4) fL Immature Gran % (Auto) (0.0-0.4) % Neut % (Auto) (45-73) % Lymph % (Auto) (20-40) % Colbert % (Auto) (2-11) % Eos % (Auto) (0-4) % Baso % (Auto) (0-2) % Lymph # (Auto) (1.2-4.9) X10*3/uL Colbert # (Auto) (0.1-1.2) X10*3/uL Eos # (Auto) (0.0-0.4) X10*3/uL Baso # (Auto) (0.0-0.2) X10*3/uL Abs Immat Gran (auto) (0.00-0.03) X10*3/uL Absolute Neuts (auto) (2.0-8.3) x10*3/uL Absolute Nucleated RBC (0.0-0.012) X10*3/uL Nucleated RBC % (auto) (0.0-0.2) /100WBC Smear Tech's Comments Sodium (135-145) mmol/L Potassium (3.3-5.1) mmol/L Chloride (96-108) mmol/L Carbon Dioxide (22-29) mmol/L Anion Gap (12-20) BUN (9-16) mg/dL Creatinine (0.5-1.4) mg/dL Estim Creat Clear Calc Estimated GFR Random Glucose (60-115) mg/dL Calcium (8.4-10.2) mg/dL Magnesium (1.6-2.6) mg/dL Total Bilirubin (0.0-1.0) mg/dL AST (5-37) U/L ALT (0-40) U/L Alkaline Phosphatase (39-117) U/L Troponin I High Sens 12.9 (<3.5-35.0) ng/L B-Natriuretic Peptide 76 (<100) pg/mL Total Protein (6.5-8.0) g/dL Albumin (3.5-5.0) g/dL COVID-19 ([facility]) Negative (Negative) COVID-19 Clin Com See Note Imaging Data Chest x-ray: Attestation: I personally reviewed and interpreted this imaging study as follows: My impression: No acute process. Radiologist's impression: EXAMINATION: XR CHEST CLINICAL INFORMATION: Chest pain COMPARISON: Chest x-ray and left rib radiographs 05/25/2022 TECHNIQUE: 2 views of the chest were obtained. FINDINGS: Minimal streaky linear subsegmental atelectasis or scarring in the lateral costophrenic sulci, unchanged. Lungs are otherwise clear. No airspace consolidation, pleural effusion, or pneumothorax. Unchanged cardiomediastinal silhouette. Prominence of the hilar vascular structures, unchanged. No evidence pulmonary edema. Aortic vascular calcifications noted. No acute osseous injury. 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 XR/XR chest 2V IMPRESSION: No acute pulmonary process. Dictated By: Stephane Esposito Signed By: Electronically signed by Stephane?Vaibhav 08/20/22 1641 ECG Data ECG #1: Attestation: I personally reviewed and interpreted this ECG as follows: ECG interpretation date: 08/20/22 ECG interpretation time: 14:52 Prior ECG tracings: available for review Interpretation: Vent. Rate: 086 BPM ? ? Atrial Rate: 086 BPM P-R Int: 152 ms? QRS Dur: 076 ms QT Int: 360 ms ? ? ? P-R-T Axes: 051 014 071 degrees QTc Int: 430 ms ? Normal sinus rhythm Septal infarct (cited on or before 20-AUG-2022) Abnormal ECG When compared with ECG of 11-MAY-2022 06:55, No significant change was found DD/ 1452 Discharge Plan Discharge Clinical Impression: Chest pain Patient Disposition: Home, Self-Care Instructions: Chest Pain (DC) Additional Instructions: Follow up with your primary care provider and your sales agent insurance. Return to the emergency department immediately if your symptoms worsen or if you develop any dizziness, shortness of breath, difficulty breathing, chest pain, blurry vision, loss of vision, nausea, vomiting, abdominal pain, fever, chills, back pain, or any other complaints. Prescriptions: No Action albuterol sulfate 90 mcg/actuation HFA aerosol inhaler 2 puff PO Q4-6H PRN (Reason: shortness of breath or wheezing) Qty: 8.5 6RF atorvastatin 80 mg tablet 80 mg PO DAILY omega-3 fatty acids 1,000 mg capsule 1,000 mg PO DAILY oxybutynin chloride 5 mg tablet extended release 24 hr 5 mg PO DAILY carvedilol 3.125 mg tablet 3.125 mg PO BID Rx Instructions: must administer with a meal/food furosemide 40 mg tablet 40 mg PO DAILY isosorbide mononitrate 30 mg tablet extended release 24 hr 30 mg PO DAILY Qty: 90 3RF losartan 25 mg tablet 25 mg PO DAILY Qty: 90 1RF oxycodone-acetaminophen 5-325 mg tablet 1 tab PO Q8H PRN (Reason: severe pain) oxybutynin chloride 5 mg tablet extended release 24hr 1 tab PO DAILY Levemir FlexTouch U-100 Insuln 100 unit/mL (3 mL) insulin pen 14 unit subcut DAILY cetirizine 10 mg tablet 10 mg PO DAILY PRN (Reason: Allergy Symptoms) glipizide 5 mg tablet extended release 24 hr 10 mg PO DAILY tamsulosin 0.4 mg capsule 0.4 mg PO DAILY@1700 ipratropium-albuterol 0.5 mg-3 mg(2.5 mg base)/3 mL solution for nebulization 3 ml INHALATION QID metformin 500 mg tablet extended release 24 hr 500 mg PO BID Fish Oil 340-1,000 mg capsule 1 cap PO TID multivitamin with folic acid [Daily-Tejinder (with folic acid)] 400 mcg tablet 1 tab PO DAILY Trelegy Ellipta 200-62.5-25 mcg blister with device 1 inh INHALATION DAILY aspirin 81 mg tablet,delayed release (DR/EC) 81 mg PO DAILY Qty: 90 3RF Brilinta 90 mg tablet 90 mg PO BID Qty: 180 3RF Referrals: [facility] [place] [facility] [Provider Group] (Call to establish and follow up with a sales agent insurance. If you already have a sales agent insurance, please follow up with them. ) [facility] [place]Provider Group] (Call to establish and follow up with a primary care provider. If you already have a primary care provider, please follow up with them. ) [facility] [place] [facility], [place] [Provider Group] (Call to establish and follow up with a primary care provider. If you already have a primary care provider, please follow up with them. ) [facility] [place] [facility] [Provider Group] (Call to establish and follow up with a primary care provider. If you already have a primary care provider, please follow up with them. ) Interventions: ED Discharge Assessment Last Done: 08/20/22 19:17 Discharge Date/Time: 08/20/22 19:18 Print Language: Ethiopian
--- NOTE | 2022-08-20 14:45 | ECG_ITS ---
Test Reason : CP Blood Pressure : / mmHG Vent. Rate : 086 BPM Atrial Rate : 086 BPM P-R Int : 152 ms QRS Dur : 076 ms QT Int : 360 ms P-R-T Axes : 051 014 071 degrees QTc Int : 430 ms Normal sinus rhythm Nonspecific T wave abnormality Septal infarct (cited on or before 20-AUG-2022) Abnormal ECG When compared with ECG of 11-MAY-2022 06:55, No significant change was found Referred By: Ines Dowell Electronically Signed By:ERICA BRIZUELA
[2022-08-20 15:15] VITALS: BP 105/64; PULSE 85; RESP 22; O2SAT 96
[2022-08-20 15:33] LABS: COVID-19 Test Negative (Negative); IDNOW Serial# 9DB6401D
[2022-08-20 15:36] LABS: Alanine Aminotransferase 20 U/L (0-40); Albumin Level 4.3 g/dL (3.5-5.0); Alkaline Phosphatase 69 U/L (39-117); Anion Gap 17 (12-20); Aspartate Amino Transferase 22 U/L (5-37); Bilirubin Total 0.4 mg/dL (0.0-1.0); Blood Urea Nitrogen 15 mg/dL (9-16); Calcium 9.5 mg/dL (8.4-10.2); Carbon Dioxide 25 mmol/L (22-29); Chloride 101 mmol/L (96-108); Creatinine Clr Calc Pharmacy 51.8; Estimated Glomerular Filt Rate > 60; Glucose Random 235 mg/dL (60-115); Potassium 3.9 mmol/L (3.3-5.1); Sodium 139 mmol/L (135-145); Total Protein 7.5 g/dL (6.5-8.0)
[2022-08-20 15:37] LABS: Magnesium 1.8 mg/dL (1.6-2.6)
[2022-08-20 15:39] LABS: Basophils Percent Auto 0.2 % (0-2); Eosinophils Absolute Auto 0.1 X10*3/uL (0.0-0.4); Hematocrit 38.1 % (42.0-52.0); Hemoglobin 13.1 g/dl (14.0-18.0); Imm Gran Abs Auto 0.03 X10*3/uL (0.00-0.03); Imm Gran Pct Auto 0.5 % (0.0-0.4); Lymphocytes Absolute Auto 1.5 X10*3/uL (1.2-4.9); Lymphocytes Percent Auto 25.2 % (20-40); MANUAL DIFF FLAG SCAN; Mean Corpuscular HGB Conc 34.4 g/dl (31.0-36.0); Mean Corpuscular Hemoglobin 31.1 pg (27.0-33.0); Mean Corpuscular Volume 90.5 fL (80.0-98.0); Mean Platelet Volume 11.1 fL (9.4-12.4); Monocytes Absolute Auto 2.4 X10*3/uL (0.1-1.2); Monocytes Percent Auto 40.1 % (2-11); Red Blood Count 4.21 X10*6/uL (4.60-5.80); Red Cell Distribution Width 12.8 % (11.0-16.0); SCAN SMEAR FLAG 1; White Blood Count 6.1 X10*3/uL (4.8-10.8)
[2022-08-20 15:40] LABS: Platelet Count 91 X10*3/uL (160-400)
[2022-08-20 15:41] LABS: B Type Natriuretic Peptide 76 pg/mL (<100); Troponin-I High Sensitivity 11.2 ng/L (<3.5-35.0)
[2022-08-20 16:05] LABS: SLIDE REVIEW VERIFIED
[2022-08-20 17:59] LABS: Troponin-I High Sensitivity 12.9 ng/L (<3.5-35.0)
== END 2022-08-20 19:18 | disposition home or self-care (01) ==
PROVIDERS: Physician Assistant Medical; Emergency Provider Internal Medicine
DX: R07.89 Other chest pain (principal); R06.02 Shortness of breath; Z20.822 Contact with and (suspected) exposure to COVID-19; Z87.891 Personal history of nicotine dependence; Z79.899 Other long term (current) drug therapy
CPT/HCPCS: 36415; 71046; 80053; 83735; 83880; 84484; 85025; 87635; 93005; 99284

== ENCOUNTER 2022-08-27 22:45 | Emergency (ER) | payer OTHER, SELFPAY ==
--- NOTE | ~2022-08-27 | XR_ITS ---
EXAMINATION: XR CHEST CLINICAL INFORMATION: Chest pain COMPARISON: None TECHNIQUE: Frontal view of the chest was obtained. FINDINGS: No significant abnormality is noted involving the heart, lungs, mediastinum, bony thorax or soft tissues. XR/XR chest 1V IMPRESSION: Unremarkable examination.
--- NOTE | 2022-08-27 22:51 | ECG_ITS ---
Test Reason : CHEST PAIN Blood Pressure : / mmHG Vent. Rate : 074 BPM Atrial Rate : 074 BPM P-R Int : 152 ms QRS Dur : 080 ms QT Int : 356 ms P-R-T Axes : 050 018 066 degrees QTc Int : 395 ms Normal sinus rhythm Nonspecific T wave abnormality Abnormal ECG When compared with ECG of 20-AUG-2022 14:52, Criteria for Septal infarct are no longer Present Referred By: Anuradha Watson Electronically Signed By:ERICA BRIZUELA
[2022-08-27 22:57] VITALS: BP 115/66; PULSE 75; RESP 18; TEMP 36.3; O2SAT 98; O2SAT 99; BMI 38.6
--- NOTE | 2022-08-27 23:15 | ED.CHESTPAIN ---
HPI - Chest Pain General Chief Complaint: Chest Pain Stated Complaint: CP for 3 days Time Seen by Provider: 08/27/22 22:51 Source: patient and spanish interpreter Mode of arrival: ambulatory Limitations: no limitations History of Present Illness HPI narrative: 81-year-old male only German-speaking spanish interpreter used to obtain history from the patient. history of coronary artery disease and NSTEMI came in with left-sided chest pain that has been constant for the past 5 days pain is localized to the left side of the chest with no radiation to the shoulder or the jaw, pain is worse when twisting his body from right to left, described as a stabbing pain, pain is relieved when his stay still aggravated by movement. Patient had similar symptoms 6 months ago when he ruled in NSTEMI patient had angiogram at [facility] as per patient they put stent (official report is not available). Patient declined shortness of breath, described very mild lightheadedness but no syncope. Related Data Home Medications Medication Instructions Recorded Confirmed insulin detemir U-100 100 unit/mL 14 unit subcut DAILY 12/17/21 05/26/22 (3 mL) subcutaneous pen (Levemir FlexTouch U-100 Insulin) oxybutynin chloride 5 mg 1 tab PO DAILY 12/17/21 05/26/22 tablet,extended release 24 hr oxycodone-acetaminophen 5 mg-325 1 tab PO Q8H PRN severe pain 12/17/21 05/26/22 mg tablet fluticasone fur. 200 mcg-umeclid 1 inh inhalation DAILY 05/11/22 05/26/22 62.5 mcg-vilant 25 mcg inhalat.powder (Trelegy Ellipta) ipratropium 0.5 mg-albuterol 3 mg 3 ml inhalation QID 05/11/22 05/26/22 (2.5 mg base)/3 mL nebulization soln metformin 500 mg tablet,extended 500 mg PO BID 05/11/22 05/26/22 release 24 hr multivitamin with folic acid 400 1 tab PO DAILY 05/11/22 05/26/22 mcg tablet (Daily-Tejinder (with folic acid)) omega-3 fatty acids-fish oil 340 1 cap PO TID 05/11/22 05/26/22 mg-1,000 mg capsule (Fish Oil) cetirizine 10 mg tablet 10 mg PO DAILY PRN Allergy Symptoms 05/25/22 05/26/22 glipizide 5 mg tablet, extended 10 mg PO DAILY 05/25/22 05/26/22 release 24 hr tamsulosin 0.4 mg capsule 0.4 mg PO DAILY@1700 05/25/22 05/26/22 atorvastatin 80 mg tablet 80 mg PO DAILY 05/30/22 carvedilol 3.125 mg tablet 3.125 mg PO BID 05/30/22 furosemide 40 mg tablet 40 mg PO DAILY 05/30/22 omega-3 fatty acids 1,000 mg 1,000 mg PO DAILY 05/30/22 capsule oxybutynin chloride 5 mg 5 mg PO DAILY 05/30/22 tablet,extended release 24 hr Previous Rx's Medication Instructions Recorded albuterol sulfate 90 mcg/actuation 2 puff PO Q4-6H PRN shortness of 05/02/22 aerosol inhaler breath or wheezing #8.5 grams aspirin 81 mg tablet,delayed 81 mg PO DAILY #90 tabs 05/26/22 release ticagrelor 90 mg tablet (Brilinta) 90 mg PO BID #180 tabs 05/26/22 isosorbide mononitrate 30 mg 30 mg PO DAILY #90 tabs 06/14/22 tablet,extended release 24 hr losartan 25 mg tablet 25 mg PO DAILY #90 tabs 07/27/22 Allergies Allergy/AdvReac Type Severity Reaction Status Date / Time Penicillins Allergy Unknown UNKNOWN Verified 05/25/22 13:05 Review of Systems Review of Systems: All other systems are reviewed and are negative Constitutional: Reports as per HPI and Reports no additional constitutional complaints Eyes: Reports as per HPI and Reports no additional eye complaints Reports system reviewed and no additional complaints, except as documented Cardiovascular: Reports as per HPI and Reports no additional cardiovascular complaints Respiratory: Reports as per HPI and Reports no additional respiratory complaints Gastrointestinal: Reports as per HPI and Reports no additional gastrointestinal complaints Genitourinary: Reports no additional female genitourinary complaints Musculoskeletal: Reports no additional musculoskeletal complaints Skin/Breast: Reports system reviewed and no additional complaints, except as docu Psychiatric: Reports no additional psychiatric complaints Endocrine: Reports no additional endocrine complaints Hematologic/Lymphatic: Reports no additional hematologic/lymphatic complaints Allergic/Immunologic: Reports no additional allergic/immunologic complaints Reports system reviewed and no additional complaints, except as documented and Reports Abnormal speech present [facility] Past Medical History Medical History Asthma Asthma-COPD overlap syndrome COPD with asthma COVID-19 Diabetes Diabetes Dyspnea on exertion Hyperlipidemia Hypertension Thrombocytopenia Surgical History H/O lithotripsy Social History Social History Household Members: None Housing: Apartment Do you presently have visiting nurse or other home services: Yes ([employer] 7 hrs a week) Alcohol intake: current Alcohol intake frequency: 3 or more drinks per day Patient Tobacco Use Status: Former Tobacco user Advance Directives: No service: No Current occupational status: disabled Physical Exam Vital Signs: Vital Signs: Last Vital Signs Temp 97.4 F 08/28/22 03:49 Pulse 80 08/28/22 03:49 Resp 13 08/28/22 03:49 BP 132/66 08/28/22 03:49 Pulse Ox 96 08/28/22 03:49 O2 Del Method 08/28/22 03:49 BMI result Body Mass Index 38.6 Vital signs have been reviewed as appeared to be correct. Blood pressure normal. Heart rate normal. Respiration rate normal. Temperature normal. Oxygen saturation normal. Appearance: Alert. Oriented X3. No acute distress. Head: Normal external exam. Normocephalic. Atraumatic. No Burgess signs noted. No raccoon eyes noted Eyes: PERRLA. EOMI. Conjunctiva and sclera normal. Eyelids normal. ENT: TM's Normal. Pharynx normal. Uvula midline. Moist mucous membranes. No trismus noted. No drooling noted. No muffled voice noted. Neck: Normal inspection. Neck supple. FROM. No adenopathy. Thyroid Normal. No meningeal signs. No neck mass noted. CVS: Normal heart rate and rhythm. Heart sound normal. No murmurs noted. Pulses normal throughout. Respiratory: No respiratory distress. Painless inspiration. Breath sounds normal. No wheezes/rales/rhonchi noted. Chest reproducible tenderness to the left side chest wall with palpation. No accessory muscle usage noted or decreased air movement noted. Abdomen: Soft and nontender. Bowel sounds normal in all 4 quadrants. No distention noted. No organomegaly noted. No visible injury noted. Back: No CVA tenderness. Full range of motion noted. Skin: Skin warm and dry. Normal skin color. Normal skin turgor. No rashes/lesions/lacerations noted. Extremities: No lower extremity edema. Extremities exhibit normal range of motion. Extremities nontender. Neuro: Oriented X 3. Cranial nerve exam: II-XII are grossly intact No motor deficit. No sensory deficit. Reflexes normal. Course Course Course Narrative: 81-year-old male came in with chest pain, patient is well known to have coronary artery disease and previously had NSTEMI, left chest pain that has been constant for the past 5 days, patient unchanged EKG, troponin x2 is negative. Patient is chest pain-free after morphine. Left-sided chest pain that does not appear to be cardiac in origin we will discharge the patient and follow-up with PCP. [facility] - Chest Pain Medical Records Data Attestation: I reviewed the patient's medical records. Lab Data Attestation: I reviewed the patient's lab results. Result diagrams: 08/27/22 23:25 08/28/22 00:07 Labs: Lab Results 08/27/22 08/27/22 08/27/22 Range/Units 23:25 23:25 23:25 WBC 8.3 (4.8-10.8) X10*3/uL RBC 4.48 L (4.60-5.80) X10*6/uL Hgb 13.6 L (14.0-18.0) g/dl Hct 39.7 L (42.0-52.0) % MCV 88.6 (80.0-98.0) fL MCH 30.4 (27.0-33.0) pg MCHC 34.3 (31.0-36.0) g/dl RDW 12.6 (11.0-16.0) % Plt Count 110 L (160-400) X10*3/uL MPV 11.0 (9.4-12.4) fL Immature Gran % (Auto) 0.6 H (0.0-0.4) % Neut % (Auto) 40.2 L (45-73) % Lymph % (Auto) 18.3 L (20-40) % Mckean % (Auto) 40.4 H (2-11) % Eos % (Auto) 0.4 (0-4) % Baso % (Auto) 0.1 (0-2) % Lymph # (Auto) 1.5 (1.2-4.9) X10*3/uL Mckean # (Auto) 3.3 H (0.1-1.2) X10*3/uL Eos # (Auto) 0.0 (0.0-0.4) X10*3/uL Baso # (Auto) 0.0 (0.0-0.2) X10*3/uL Abs Immat Gran (auto) 0.05 H (0.00-0.03) X10*3/uL Absolute Neuts (auto) 3.3 (2.0-8.3) x10*3/uL Absolute Nucleated RBC 0.000 (0.0-0.012) X10*3/uL Nucleated RBC % (auto) 0.0 (0.0-0.2) /100WBC Smear Tech's Comments VERIFIED Sodium (135-145) mmol/L Potassium (3.3-5.1) mmol/L Chloride (96-108) mmol/L Carbon Dioxide (22-29) mmol/L Anion Gap (12-20) BUN (9-16) mg/dL Creatinine (0.5-1.4) mg/dL Estim Creat Clear Calc Estimated GFR Random Glucose (60-115) mg/dL Calcium (8.4-10.2) mg/dL Total Bilirubin (0.0-1.0) mg/dL Direct Bilirubin (0.0-0.5) mg/dL AST (5-37) U/L ALT (0-40) U/L Alkaline Phosphatase (39-117) U/L Troponin I High Sens 10.2 (<3.5-35.0) ng/L B-Natriuretic Peptide 58 (<100) pg/mL Total Protein (6.5-8.0) g/dL Albumin (3.5-5.0) g/dL Lipase (8-78) U/L COVID-19 (BLANCO) (Negative) COVID-19 Clin Com 08/27/22 08/28/22 08/28/22 Range/Units 23:25 00:07 02:31 WBC (4.8-10.8) X10*3/uL RBC (4.60-5.80) X10*6/uL Hgb (14.0-18.0) g/dl Hct (42.0-52.0) % MCV (80.0-98.0) fL MCH (27.0-33.0) pg MCHC (31.0-36.0) g/dl RDW (11.0-16.0) % Plt Count (160-400) X10*3/uL MPV (9.4-12.4) fL Immature Gran % (Auto) (0.0-0.4) % Neut % (Auto) (45-73) % Lymph % (Auto) (20-40) % Mckean % (Auto) (2-11) % Eos % (Auto) (0-4) % Baso % (Auto) (0-2) % Lymph # (Auto) (1.2-4.9) X10*3/uL Mckean # (Auto) (0.1-1.2) X10*3/uL Eos # (Auto) (0.0-0.4) X10*3/uL Baso # (Auto) (0.0-0.2) X10*3/uL Abs Immat Gran (auto) (0.00-0.03) X10*3/uL Absolute Neuts (auto) (2.0-8.3) x10*3/uL Absolute Nucleated RBC (0.0-0.012) X10*3/uL Nucleated RBC % (auto) (0.0-0.2) /100WBC Smear Tech's Comments Sodium 137 (135-145) mmol/L Potassium 4.3 (3.3-5.1) mmol/L Chloride 98 (96-108) mmol/L Carbon Dioxide 23 (22-29) mmol/L Anion Gap 20 (12-20) BUN 14 (9-16) mg/dL Creatinine 0.95 (0.5-1.4) mg/dL Estim Creat Clear Calc 59.0 Estimated GFR > 60 Random Glucose 179 H (60-115) mg/dL Calcium 9.6 (8.4-10.2) mg/dL Total Bilirubin 0.6 (0.0-1.0) mg/dL Direct Bilirubin 0.3 (0.0-0.5) mg/dL AST 21 (5-37) U/L ALT 16 (0-40) U/L Alkaline Phosphatase 74 (39-117) U/L Troponin I High Sens 8.1 (<3.5-35.0) ng/L B-Natriuretic Peptide (<100) pg/mL Total Protein 7.8 (6.5-8.0) g/dL Albumin 4.3 (3.5-5.0) g/dL Lipase 23 (8-78) U/L COVID-19 ([facility]ANCO) Negative (Negative) COVID-19 Clin Com See Note Imaging Data Chest x-ray: Attestation: I personally reviewed and interpreted this imaging study as follows: Radiologist's impression: Unremarkable examination ECG Data ECG #1: Attestation: I personally reviewed and interpreted this ECG as follows: Interpretation: Normal sinus rhythm at 74 beats per minute, normal axis deviation, normal intervals, flattening of T-wave. Discharge Plan Discharge Clinical Impression: Non-cardiac chest pain Patient Disposition: Home, Self-Care Instructions: Chest Wall Pain (ED) Prescriptions: No Action albuterol sulfate 90 mcg/actuation HFA aerosol inhaler 2 puff PO Q4-6H PRN (Reason: shortness of breath or wheezing) Qty: 8.5 6RF atorvastatin 80 mg tablet 80 mg PO DAILY omega-3 fatty acids 1,000 mg capsule 1,000 mg PO DAILY oxybutynin chloride 5 mg tablet extended release 24 hr 5 mg PO DAILY carvedilol 3.125 mg tablet 3.125 mg PO BID Rx Instructions: must administer with a meal/food furosemide 40 mg tablet 40 mg PO DAILY isosorbide mononitrate 30 mg tablet extended release 24 hr 30 mg PO DAILY Qty: 90 3RF losartan 25 mg tablet 25 mg PO DAILY Qty: 90 1RF oxycodone-acetaminophen 5-325 mg tablet 1 tab PO Q8H PRN (Reason: severe pain) oxybutynin chloride 5 mg tablet extended release 24hr 1 tab PO DAILY Levemir FlexTouch U-100 Insuln 100 unit/mL (3 mL) insulin pen 14 unit subcut DAILY cetirizine 10 mg tablet 10 mg PO DAILY PRN (Reason: Allergy Symptoms) glipizide 5 mg tablet extended release 24 hr 10 mg PO DAILY tamsulosin 0.4 mg capsule 0.4 mg PO DAILY@1700 ipratropium-albuterol 0.5 mg-3 mg(2.5 mg base)/3 mL solution for nebulization 3 ml INHALATION QID metformin 500 mg tablet extended release 24 hr 500 mg PO BID Fish Oil 340-1,000 mg capsule 1 cap PO TID multivitamin with folic acid [Daily-Tejinder (with folic acid)] 400 mcg tablet 1 tab PO DAILY Trelegy Ellipta 200-62.5-25 mcg blister with device 1 inh INHALATION DAILY aspirin 81 mg tablet,delayed release (DR/EC) 81 mg PO DAILY Qty: 90 3RF Brilinta 90 mg tablet 90 mg PO BID Qty: 180 3RF Referrals: Sarah Caal MD [Primary Care Provider] -
[2022-08-27 23:30] LABS: Basophils Percent Auto 0.1 % (0-2); PLT CLUMP 1; SCAN SMEAR FLAG 1
[2022-08-27 23:32] LABS: Eosinophils Percent Auto 0.4 % (0-4); Hematocrit 39.7 % (42.0-52.0); Hemoglobin 13.6 g/dl (14.0-18.0); Imm Gran Abs Auto 0.05 X10*3/uL (0.00-0.03); Imm Gran Pct Auto 0.6 % (0.0-0.4); Lymphocytes Absolute Auto 1.5 X10*3/uL (1.2-4.9); Lymphocytes Percent Auto 18.3 % (20-40); Mean Corpuscular HGB Conc 34.3 g/dl (31.0-36.0); Mean Corpuscular Hemoglobin 30.4 pg (27.0-33.0); Mean Corpuscular Volume 88.6 fL (80.0-98.0); Monocytes Absolute Auto 3.3 X10*3/uL (0.1-1.2); Monocytes Percent Auto 40.4 % (2-11); Neutrophils Absolute Auto 3.3 x10*3/uL (2.0-8.3); Neutrophils Percent Auto 40.2 % (45-73); Red Blood Count 4.48 X10*6/uL (4.60-5.80); Red Cell Distribution Width 12.6 % (11.0-16.0)
[2022-08-27 23:33] LABS: MANUAL DIFF FLAG SCAN; Platelet Count 110 X10*3/uL (160-400); White Blood Count 8.3 X10*3/uL (4.8-10.8)
--- OUTSIDE RECORDS SUMMARY | 2022-08-27 23:50 | XMS_ITS | Continuity of Care Document ---
:1940 Author Organization [facility] Address [address] [place] [address]- Care Team Providers Name Role Phone Nona Hopper MD, Sarah Bunn Primary Care Physician Encounter [facility] Date(s[facility] 05/18/22 - 06/17/22 [facility] [address], [place] [address] Attending Physician: Kamari Aquion Admitting Physician: AdmKamari loco Referring Physician: AdmtrKamari Allergies, Adverse Reactions, Alerts Substance Reaction Severity Status penicillin face swells throat closes knees lock Active Immunizations Not Given Vaccine Date Status Refusal Reason pneumococcal 13-valent vaccine 03/08/18 Not Given P atient Refuses influenza virus vaccine, inactivated 03/08/18 Not Given Patient Refuses Medications acetaminophen 325 mg oral tablet 650 mg, By Mouth, Every 6 hours, PRN, not to exceed 4000 mg/day, # 30 tablet, Refills 0, Tot. Refills 0, Maintenance, Pain , Mild, 05/18/22 9:32:00 EDT, Route to Pharmacy Electronically, [facility], Partial fill upon patient reques... Start Date: 05/18/22 Status: Orderedaspirin 81 mg oral delayed release tablet = 81 mg, By Mouth, Daily, # 30 tablet, 2 Refills, Maintenance, 05/18/22 9:32:00 EDT, EC Tablet, [facility], Partial fill upon patient request if the prescription is for a schedule II opioid drug., 154, cm, 05/18/22 7:23:00 EDT, Hei... Start Date: 05/18/22 Status: Orderedatorvastatin 80 mg oral tablet 1 tablet = 80 mg, By Mouth, Daily at bedtime, # 30 tablet, 2 Refills, Maintenance, 05/18/22 9:33:00 EDT, Tablet, [facility], Partial fill upon patient request if the prescription isfor a schedule II opioid drug., 154, cm, 05/18/22... Start Date: 05/18/22 Status: Orderedcetirizine 10 mg oral tablet 1 tablet = 10 mg, By Mouth, Daily, # 30 tablet, 0 Refills, Maintenance, 03/07/18 4:35:04 EDT, Tablet Start Date: 03/07/18 Status: OrderedColace sodium 100 mg oral capsule 100 mg, 1, capsule, By Mouth, 2 times a day, PRN, # 20 capsule, Refills 0, Tot. Refills 0, Maintenance, for constipation, 08/22/19 12:51:57 EDT, Print Requisition Start Date: 08/22/19 Status: OrderedCoreg 3.125 mg oral tablet 3.125 mg, 1, tablet, By Mouth, 2 times a day, # 60 tablet, Refills 2, Tot. Refills 2, Maintenance, 05/18/22 9:33:00 EDT, Route to Pharmacy Electronically, [facility], Partial fill upon patient request if the prescription is for a s... Start Date: 05/18/22 Status: OrderedFish Oil 1000 mg oral capsule 1 capsule = 1,000 mg, By Mouth, Daily in AM, 0 Refills, Maintenance, 12/22/11 8:58:17 EST Start Date: 12/22/11 Status: Orderedfolic acid 1 mg oral tablet 1 mg, 1, tablet, By Mouth, Daily, # 30 tablet, Refills 1, Tot. Refills 1, Maintenance, 05/18/22 9:33:00 EDT, Route to Pharmacy Electronically, [facility], Partial fill upon patient request if the prescription is for a schedule II o... Start Date: 05/18/22 Status: OrderedGlipiZIDE XL 10 mg oral tablet, extended release 1 tablet = 10 mg, By Mouth, Daily in AM, # 30 tablet, 0 Refills, Maintenance, 03/07/18 4:33:45 EDT, ER Tablet Start Date: 03/07/18 Status: Orderedisosorbide mononitrate 30 mg oral tablet, extended release 1 tablet = 30 mg, By Mouth, Daily, # 30 tablet, 0 Refills, Maintenance, 05/18/22 9:34:00 EDT, ER Tablet, [facility], Partial fill upon patient request if the prescription is for a schedule II opioid drug., 154, cm, 05/18/22 7:23:00... Start Date: 05/18/22 Status: OrderedLasix 40 mg oral tablet 40 mg, 1, tablet, By Mouth, Daily, # 30 tablet, Refills 1, Tot. Refills 1, Maintenance, 05/18/22 9:33:00 EDT, Route to Pharmacy Electronically, [facility], Partial fill upon patientrequest if the prescription is for a schedule II... Start Date: 05/18/22 Status: Orderedlosartan 25 mg oral tablet 25 mg, 1, tablet, By Mouth, Daily, # 30 tablet, Refills 0, Tot. Refills 0, Maintenance, 05/18/22 9:31:00 EDT, Route to Pharmacy Electronically, [facility], Partial fill upon patientrequest if the prescription is for a schedule II... Start Date: 05/18/22 Status: Orderedmetformin 500 mg oral tablet 1 tablet = 500 mg, By Mouth, Daily in AM, 0 Refills, Maintenance, 12/22/11 8:58:28 EST Start Date: 12/22/11 Status: OrderedMultivitamin By Mouth, Daily in AM, 0 Refills, Maintenance, 12/22/11 8:59:17 EST Start Date: 12/22/11 Status: OrderedOxybutynin 5 mg tablet, By Mouth, Daily in AM, 0 Refills, Maintenance, 08/08/19 9:14:24 EDT Start Date: 08/08/19 Status: OrderedPercocet-5/325 325 mg-5 mg oral tablet 1 tablet, By Mouth, Every 4 hours, PRN Pain, # 16 tablet, 0 Refills, Maintenance, Tablet Start Date: 06/21/10 Status: OrderedProventil HFA 90 mcg/inh inhalation aerosol with adapter 2 puffs, Inhalation, 4 times a day, 0 Refills, Maintenance Start Date: 12/22/11 Status: Orderedtamsulosin 0.4 mg oral capsule 0.4 mg, 1, capsule, By Mouth, Daily in AM, # 30 capsule, Refills 0, Maintenance, 03/07/18 4:34:24 EDT Start Date: 03/07/18 Status: Orderedthiamine 100 mg oral tablet 100 mg, 1, tablet, By Mouth, 2 times a day, # 30 tablet, Refills 1, Tot. Refills 1, Maintenance, 05/18/22 9:34:00 EDT, Route to Pharmacy Electronically, [facility], Partial fill upon patient request if the prescription is for a navneet... Start Date: 05/18/22 Status: Orderedticagrelor 90 mg oral tablet 1 tablet = 90 mg, By Mouth, 2 times a day, # 60 tablet, 2 Refills, Maintenance, 05/18/22 9:34:00 EDT, Tablet, [facility], Partial fill upon patient request if the prescription is for a schedule II opioid drug., 154, cm, 05/18/22 7:... Start Date: 05/18/22 Status: OrderedVentolin HFA 108 mcg/inh inhalation aerosol with adapter 1 puffs, Inhalation, 4 times a day, PRN for wheezing, # 18 Gm, 0 Refills, Maintenance, 03/07/18 4:32:40 EDT, Aerosol Start Date: 03/07/18 Status: Ordered Problem List Condition Effective Dates Status Health Status Informant Acute non-Q wave non-ST elevation Active myocardial infarction (NSTEMI)(Confirmed) Diabetes mellitus - adult Active onset(Confirmed) Hypertension(Confirmed) Active Tubular adenoma of colon(Confirmed)1, 05/18/15 Active 2 1serrated polyp of colon in 2018, would consider repeat colonoscopy in 2022 depending on clinical status and PCP, typically would not recommend screening colonoscopy after age 89Needs reminder for repeat colonoscopy in 2018
--- OUTSIDE RECORDS SUMMARY | 2022-08-27 23:50 | XMS_ITS | Continuity of Care Document ---
:1940 Author Organization [facility] Address [address] [place] [id number]- Care Team Providers Name Role Phone Gabe GAXIOLA, Temitope Mallory Primary Care Physician Encounter [facility] [place] Date(s): 09/12/21 - 10/12/21 [facility] [address] [place] [id number] [place] Allergies, Adverse Reactions, Alerts Substance Reaction Severity Status penicillin face swells throat closes knees lock Active Immunizations Not Given Vaccine Date Status Refusal Reason pneumococcal 13-valent vaccine 03/08/18 Not Given P atient Refuses influenza virus vaccine, inactivated 03/08/18 Not Given Patient Refuses Medications cetirizine 10 mg oral tablet 1 tablet = 10 mg, By Mouth, Daily, # 30 tablet, 0 Refills, Maintenance, 03/07/18 4:35:04 EDT, Tablet Start Date: 03/07/18 Status: OrderedColace sodium 100 mg oral capsule 100 mg, 1, capsule, By Mouth, 2 times a day, PRN, # 20 capsule, Refills 0, Tot. Refills 0, Maintenance, for constipation, 08/22/19 12:51:57 EDT, Print Requisition Start Date: 08/22/19 Status: OrderedFish Oil 1000 mg oral capsule 1 capsule = 1,000 mg, By Mouth, Daily in AM, 0 Refills, Maintenance, 12/22/11 8:58:17 EST Start Date: 12/22/11 Status: OrderedGlipiZIDE XL 10 mg oral tablet, extended release 1 tablet = 10 mg, By Mouth, Daily in AM, # 30 tablet, 0 Refills, Maintenance, 03/07/18 4:33:45 EDT, ER Tablet Start Date: 03/07/18 Status: Orderedlosartan 25 mg oral tablet 25 mg, 1, tablet, By Mouth, Daily, # 30 tablet, Refills 0, Maintenance, 03/07/18 4:31:53 EDT Start Date: 03/07/18 Status: Orderedmetformin 500 mg oral tablet 1 [...] 03/07/18 4:34:24 EDT Start Date: 03/07/18 Status: OrderedVentolin HFA 108 mcg/inh inhalation aerosol with adapter 1 puffs, Inhalation, 4 times a day, PRN for wheezing, # 18 Gm, 0 Refills, Maintenance, 03/07/18 4:32:40 EDT, Aerosol Start Date: 03/07/18 Status: Ordered Problem List Condition Effective Dates Status Health Status Informant Diabetes mellitus - adult Active onset(Confirmed) Hypertension(Confirmed) Active Tubular adenoma of colon(Confirmed)1, 05/18/15 Active 2 1serrated polyp of colon in 2018, would consider repeat colonoscopy in 2022 depending on clinical status and PCP, typically would not recommend screening colonoscopy after age 802Needs reminder for repeat colonoscopy in 2018
--- OUTSIDE RECORDS SUMMARY | 2022-08-27 23:50 | XMS_ITS | Continuity of Care Document ---
:1940 Author Organization [facility] Address [address] [place] [address]- Care Team Providers Name Role Phone Nona Hopper MD, Sarah Bunn Primary Care Phys[place] [facility] [place] - 05/18/[address] [address] Discharge Disposition: A-Transfer VNA/Home Health Attending Physician: Jay Reese MD Admitting Physician: Martina Cao MD Referring Physician: Not on Staff, Referring MD Allergies, Adverse Reactions, Alerts Substance Reaction Severity [...] 05/18/22 9:32:00 EDT, Route to Pharmacy Electronically, [facility], Partial fill upon patient reques... Start Date: 05/18/22 Status: Orderedaspirin 81 mg oral delayed release tablet = 81 mg, By Mouth, Daily, # 30 tablet, 2 Refills, Maintenance, 05/18/22 9:32:00 EDT, EC Tablet, [facility], Partial fill upon patient request if the prescription is for a schedule II opioid drug., 154, cm, 05/18/22 7:23:00 EDT, Hei... Start Date: 05/18/22 Status: Orderedatorvastatin 80 mg oral tablet 1 tablet = 80 mg, By Mouth, Daily at bedtime, # 30 tablet, 2 Refills, Maintenance, 05/18/22 9:33:00 EDT, Tablet, [facility], Partial fill upon patient request if [...] OrderedCoreg 3.125 mg oral tablet 3.125 mg, Tablet, By Mouth, Hold for: SBP LESS THAN 100 OR HR LESS THAN 55, 05/18/22 9:00:00 EDT Start Date: 05/18/22 Stop Date: 05/18/22 Status: CompletedCoreg 3.125 mg oral tablet 3.125 mg, 1, tablet, By Mouth, 2 times a day, # 60 tablet, Refills 2, Tot. Refills 2, Maintenance, 05/18/22 9:33:00 EDT, Route to Pharmacy Electronically, [facility], Partial fill upon patient request if [...] 05/18/22 9:33:00 EDT, Route to Pharmacy Electronically, [facility], Partial fill upon patient request if [...] Refills, Maintenance, 05/18/22 9:34:00 EDT, ER Tablet, [facility], Partial fill upon patient request if the prescription is for a schedule II opioid drug., 154, cm, 05/18/22 7:23:00... Start Date: 05/18/22 Status: OrderedLasix 40 mg oral tablet 40 mg, 1, tablet, By Mouth, Daily, # 30 tablet, Refills 1, Tot. Refills 1, Maintenance, 05/18/22 9:33:00 EDT, Route to Pharmacy Electronically, [facility], Partial fill upon patientrequest if the prescription is for a schedule II... Start Date: 05/18/22 Status: Orderedlosartan 25 mg oral tablet 25 mg, 1, tablet, By Mouth, Daily, # 30 tablet, Refills 0, Tot. Refills 0, Maintenance, 05/18/22 9:31:00 EDT, Route to Pharmacy Electronically, [facility], Partial fill upon patientrequest if the [...] 05/18/22 9:34:00 EDT, Route to Pharmacy Electronically, [facility], Partial fill upon patient request if the prescription is for a navneet... Start Date: 05/18/22 Status: Orderedticagrelor 90 mg oral tablet 1 tablet = 90 mg, By Mouth, 2 times a day, # 60 tablet, 2 Refills, Maintenance, 05/18/22 9:34:00 EDT, Tablet, [facility], Partial fill upon patient request if [...] 802Needs reminder for repeat colonoscopy in 2018 Vital Signs Most recent to oldest 1 2 3 [Reference Range]: Height 154 cm 154 cm 154 cm (05/18/22 7:23 AM) (05/18/22 2:00 AM) (05/17/22 7:4 8 PM) Weight 91.1 kg 91.7 kg 91.7 kg (05/18/22 5:46 AM) (05/17/22 2:25 AM) (05/17/22 2:2 4 AM) Oxygen Saturation [94-100 100 % 98 % 96 % %] (05/18/22 7:23 AM) (05/18/22 2:00 AM) (05/17/22 7:4 8 PM) Pulse Rate [55-90 bpm] 81 bpm 81 bpm 87 bpm (05/18/22 8:05 AM) (05/18/22 7:23 AM) (05/18/22 2:0 0 AM) Blood Pressure 132/74 mm Hg 132/74 mm Hg 106/58 mm Hg [90-138/55-84 mm Hg] (05/18/22 8:05 AM) (05/18/22 7:23 AM) ( 2 2:00 AM) Respiratory Rate [16-30 18 br/min 16 br/min 16 br/mi n br/min] (05/18/22 7:23 AM) (05/18/22 2:00 AM) (05/17/22 7:4 8 PM) Temperature [96.8-100.4 97.6 DegF 97.2 DegF 97.9 Deg F DegF] (05/18/22 7:23 AM) (05/18/22 2:00 AM) (05/17/22 7:4 8 PM) Liters per Minute 3 L/min 3 L/min 4 L/min (05/13/22 3:15 AM) (05/12/22 8:11 PM) (05/11/22 12: 34 PM) Mode of Delivery (Oxygen) Room air Room air Room a ir (05/18/22 7:23 AM) (05/18/22 2:00 AM) (05/17/22 7:4 8 PM) Blood pressure sites Arm, left Arm, left Arm, left (05/18/22 7:23 AM) (05/18/22 2:00 AM) (05/17/22 7:4 8 PM) Temperature Route Temporal Temporal Temporal (05/18/22 7:23 AM) (05/18/22 2:00 AM) (05/17/22 7:4 8 PM) Dry Weight 96.5 kg (05/11/22 12:34 PM) Weight Obtained Via Bed scale Bed scale Bed scale (05/17/22 2:24 AM) (05/16/22 6:43 AM) (05/15/22 6:3 0 AM) Dry Weight Obtained Via Patient/family stated (05/11/22 12:34 PM)
[2022-08-27 23:51] LABS: B Type Natriuretic Peptide 58 pg/mL (<100); Troponin-I High Sensitivity 10.2 ng/L (<3.5-35.0)
[2022-08-27 23:53] LABS: COVID-19 Test Negative (Negative); IDNOW Serial# 16C4AD1C
[2022-08-27 23:58] LABS: SLIDE REVIEW VERIFIED
[2022-08-28 00:32] LABS: Alanine Aminotransferase 16 U/L (0-40); Albumin Level 4.3 g/dL (3.5-5.0); Alkaline Phosphatase 74 U/L (39-117); Anion Gap 20 (12-20); Aspartate Amino Transferase 21 U/L (5-37); Bilirubin Direct 0.3 mg/dL (0.0-0.5); Bilirubin Total 0.6 mg/dL (0.0-1.0); Blood Urea Nitrogen 14 mg/dL (9-16); Calcium 9.6 mg/dL (8.4-10.2); Carbon Dioxide 23 mmol/L (22-29); Chloride 98 mmol/L (96-108); Estimated Glomerular Filt Rate > 60; Glucose Random 179 mg/dL (60-115); Lipase 23 U/L (8-78); Potassium 4.3 mmol/L (3.3-5.1); Sodium 137 mmol/L (135-145); Total Protein 7.8 g/dL (6.5-8.0)
[2022-08-28 00:34] VITALS: PULSE 18
[2022-08-28] MEDS: Nitroglycerin 2 % Oint 1 GM Packet 0.5 INCH TRANSDERMA (00:34)
[2022-08-28 00:37] VITALS: RESP 17
[2022-08-28] MEDS: Morphine Sulfate 2 MG/ML CARTRIDGE 1 MG IVPUSH (00:37)
[2022-08-28 02:00] VITALS: BP 118/70; PULSE 78; RESP 16; TEMP 36.8; O2SAT 99
[2022-08-28 02:59] LABS: Troponin-I High Sensitivity 8.1 ng/L (<3.5-35.0)
[2022-08-28 03:49] VITALS: BP 132/66; PULSE 80; RESP 13; TEMP 36.3; O2SAT 96
[2022-08-28 04:38] VITALS: BP 127/68; PULSE 82; RESP 16; TEMP 36.5; O2SAT 97
== END 2022-08-28 04:39 | disposition home or self-care (01) ==
PROVIDERS: Emergency Provider Emergency Medicine; PCP Internal Medicine
DX: R07.89 Other chest pain (principal); R06.02 Shortness of breath; R42 Dizziness and giddiness; Z20.822 Contact with and (suspected) exposure to COVID-19; Z87.891 Personal history of nicotine dependence; Z79.899 Other long term (current) drug therapy; Z79.4 Long term (current) use of insulin
CPT/HCPCS: 36415; 71045; 80048; 80076; 83690; 83880; 84484; 85025; 87635; 93005; 96374; 99285; J2270

== ENCOUNTER 2022-08-28 14:41 | Emergency (ER) | payer OTHER, SELFPAY ==
--- NOTE | ~2022-08-28 | XR_ITS ---
EXAMINATION: XR CHEST CLINICAL INFORMATION: Chest pain COMPARISON: 08/27/2022 TECHNIQUE: Frontal view of the chest was obtained. FINDINGS: The lungs are well expanded. There is no focal consolidation, edema, or effusion. No pneumothorax. The cardiomediastinal silhouette is within normal limits of size with a calcified aorta. No acute osseous abnormality. Degenerative changes at the right glenohumeral joint with osteophyte formation. XR/XR chest 1V IMPRESSION: No acute pulmonary finding.
[2022-08-28 15:04] VITALS: BP 143/72; PULSE 86; RESP 18; TEMP 36.8; O2SAT 95; BMI 39.4
--- NOTE | 2022-08-28 15:05 | ECG_ITS ---
Test Reason : chest pain Blood Pressure : / mmHG Vent. Rate : 087 BPM Atrial Rate : 087 BPM P-R Int : 150 ms QRS Dur : 078 ms QT Int : 344 ms P-R-T Axes : 048 017 061 degrees QTc Int : 413 ms Poor data quality, interpretation may be adversely affected Normal sinus rhythm Nonspecific T wave abnormality Abnormal ECG When compared with ECG of 27-AUG-2022 23:13, No significant change was found Referred By: Generic ED Physician Electronically Signed By:ERICA BRIZUELA
[2022-08-28 16:18] LABS: MANUAL DIFF FLAG NO
[2022-08-28 16:23] LABS: Basophils Percent Auto 0.1 % (0-2); Lymphocytes Absolute Auto 1.1 X10*3/uL (1.2-4.9); PLT CLUMP 1; Red Blood Count 4.53 X10*6/uL (4.60-5.80); SCAN SMEAR FLAG 1
[2022-08-28 16:24] LABS: Eosinophils Absolute Auto 0.1 X10*3/uL (0.0-0.4); Eosinophils Percent Auto 0.8 % (0-4); Hematocrit 40.4 % (42.0-52.0); Hemoglobin 13.9 g/dl (14.0-18.0); Imm Gran Abs Auto 0.03 X10*3/uL (0.00-0.03); Imm Gran Pct Auto 0.3 % (0.0-0.4); Lymphocytes Percent Auto 12.4 % (20-40); Mean Corpuscular HGB Conc 34.4 g/dl (31.0-36.0); Mean Corpuscular Hemoglobin 30.7 pg (27.0-33.0); Mean Corpuscular Volume 89.2 fL (80.0-98.0); Mean Platelet Volume 10.7 fL (9.4-12.4); Monocytes Absolute Auto 3.1 X10*3/uL (0.1-1.2); Monocytes Percent Auto 34.3 % (2-11); Neutrophils Absolute Auto 4.7 x10*3/uL (2.0-8.3); Neutrophils Percent Auto 52.1 % (45-73); Red Cell Distribution Width 12.5 % (11.0-16.0)
[2022-08-28 16:26] LABS: Platelet Count 118 X10*3/uL (160-400); White Blood Count 9.1 X10*3/uL (4.8-10.8)
[2022-08-28 16:39] LABS: Anion Gap 17 (12-20); Blood Urea Nitrogen 13 mg/dL (9-16); Carbon Dioxide 26 mmol/L (22-29); Chloride 99 mmol/L (96-108); Creatinine Clr Calc Pharmacy 60.2; Estimated Glomerular Filt Rate > 60; Glucose Random 203 mg/dL (60-115); Potassium 3.9 mmol/L (3.3-5.1); Sodium 138 mmol/L (135-145)
[2022-08-28 16:48] LABS: Troponin-I High Sensitivity 9.7 ng/L (<3.5-35.0)
== END 2022-08-28 22:37 | disposition left against medical advice (07) ==
PROVIDERS: Emergency Provider Emergency Medicine; PCP Internal Medicine
DX: R07.9 Chest pain, unspecified (principal); E11.9 Type 2 diabetes mellitus without complications; I10 Essential (primary) hypertension; E78.5 Hyperlipidemia, unspecified
CPT/HCPCS: 36415; 71045; 80048; 84484; 85025; 93005; 99283; 99284

== ENCOUNTER 2022-09-09 17:26 | Inpatient (IN) | payer OTHER, SELFPAY ==
--- NOTE | ~2022-09-09 | CT_ITS ---
PROCEDURE: CT GUIDED BIOPSY, ABDOMINAL MASS CLINICAL INFORMATION: Upper retroperitoneal large confluent mass/lymph node. COMPARISON: CT abdomen and pelvis 09/09/2022 TECHNIQUE: Following explaining CT fluoroscopy-guided retroperitoneal mass/lymph node biopsy procedure, benefits and risks through a project drilling engineer, a written consent was obtained. Patient was placed in left lateral decubitus position and subsequently in prone position and CT imaging was obtained. In prone position lead markers were placed along the right para midline posterior upper abdomen and repeat CT imaging was performed. An optimal marker was selected and marked on the skin. The site was cleaned and draped in usual sterile manner. 1% lidocaine was injected at puncture site. Through a small skin incision a 20-gauge long biopsy guide needle was advanced from the skin to the peripheral border of retroperitoneal mass. Coaxially a 20-gauge biopsy gun was advanced and a 6 pass biopsy specimens were obtained. Specimen collected was sent in RPM and formalin solutions. Postprocedure guide was removed and complete hemostasis achieved at puncture site. Simple Band-Aid applied at puncture site. Patient tolerated procedure extremely well. IV conscious sedation was administered and patient monitored for 25 minutes by IR nurse and the performing physician. Sterile barrier was utilized with mask, cap, gown, gloves and sterile drape during the entire procedure. This CT examination was performed using dose optimization techniques as appropriate, variously including the following: *Automated exposure control *Adjustment of mA and/or kV according to patient size (this includes techniques or standardized protocols for targeted exams where dose is matched to indication/reason for exam; i.e. extremities or head) *Use of iterative reconstruction technique DLP: 590 mGy-cm FINDINGS: On previous CT imaging there is a large upper retroperitoneal confluent mass/lymphadenopathy. CT fluoroscopy-guided a 20-gauge guide needle was advanced close to the retroperitoneal mass. Coaxial biopsies performed with 20-gauge biopsy gun. Sample collected was sent to lab in formalin and RPM for lymphoma evaluation. Adequate tissue was collected. Patient tolerated procedure extremely well. CT/CT biopsy abdomen percutaneous IMPRESSION: Successful ultrasound and fluoroscopy-guided retroperitoneal mass biopsy performed without immediate complications.
--- NOTE | ~2022-09-09 | CT_ITS ---
EXAMINATION: CT ABDOMEN AND PELVIS WITH CONTRAST CLINICAL INFORMATION: Epigastric pain radiating to the back. COMPARISON: 12/17/2021 TECHNIQUE: Multidetector volumetric images were obtained from the superior aspect of the liver through the pubic symphysis following administration 85 mL of Omnipaque 350 intravenous contrast. Sagittal and coronal reformatted images were obtained on the technologist's workstation. Oral contrast: No This CT examination was performed using dose optimization techniques as appropriate, variously including the following: *Automated exposure control *Adjustment of mA and/or kV according to patient size (this includes techniques or standardized protocols for targeted exams where dose is matched to indication/reason for exam; i.e. extremities or head) *Use of iterative reconstruction technique DLP: 665 mGy-cm FINDINGS: LUNG BASES: Trace right pleural effusion with accompanying atelectasis. Triple vessel coronary calcifications. LIVER, GALLBLADDER, AND BILIARY TREE: The liver is normal in size, shape, and attenuation. No focal hepatic lesion or biliary ductal dilatation is present. Gallbladder unremarkable. PANCREAS: There are a few coarse calcifications within the pancreatic head indicative of sequela of previous episodes of pancreatitis. SPLEEN: Multiple hypodense masses are scattered throughout the spleen measuring up to 2.5 cm. Spleen is within normal limits in terms of size. There is capsular retraction within the inferior spleen which may represent an incidental new age-indeterminate splenic infarct, or possibly changes related to the adjacent splenic masses. ADRENAL GLANDS: Unremarkable. KIDNEYS AND URETERS: The kidneys are normal in size, shape, and attenuation. No hydronephrosis, hydroureter, or calculi seen. No perinephric stranding. BLADDER: Unremarkable. GASTROINTESTINAL TRACT: The small and large bowel are unremarkable. The appendix is unremarkable. ABDOMINAL WALL: No significant hernia is appreciated. LYMPH NODES: There is a ill-defined mass in the upper abdomen, intimately associated with the diaphragmatic crura, anterior to the aorta and displacing the intrahepatic IVC rightward and caudate lobe anteriorly. The largest conglomerate mass measures 7.8 x 5.2 x 8.0 cm. There are adjacent pathologically enlarged upper abdominal and retroperitoneal lymph nodes. VASCULAR: Aorta is atherosclerotic but normal caliber. The celiac axis courses immediately inferior to the above-described mass with obliteration of the fat plane about the superior aspect of the celiac axis as well as the left gastric artery. These vascular structures, however, remain patent. PELVIC VISCERA: Mild prostatomegaly. TURP defect. Right lower quadrant penile reservoir. OSSEOUS STRUCTURES: No acute or suspicious osseous abnormalities. CT/CT abdomen pelvis w IV con IMPRESSION: * There is an 8 cm mass in the upper abdomen, just above the celiac axis with adjacent pathologically enlarged lymph nodes most suspicious for lymphoma. 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 * There are a few coarse calcifications within the pancreatic indicative of sequela of remote pancreatitis. * Small right pleural effusion with accompanying atelectasis.
--- NOTE | ~2022-09-09 | XR_ITS ---
EXAMINATION: XR CHEST CLINICAL INFORMATION: Shortness of breath COMPARISON: 08/28/2022 TECHNIQUE: Frontal view of the chest was obtained. FINDINGS: Normal symmetric lung volumes. No parenchymal consolidation. No pleural effusion. No pneumothorax. Cardiomediastinal silhouette and pulmonary vascularity are within normal limits. Aorta is atherosclerotic. No acute osseous abnormalities. XR/XR chest 1V IMPRESSION: No acute findings
--- NOTE | ~2022-09-09 | XR_ITS ---
EXAMINATION: XR KUB CLINICAL INDICATION: Reason for Exam abd pain COMPARISON: None TECHNIQUE: AP view of the abdomen. XR/XR KUB FINDINGS/IMPRESSION: Lines or devices: None. Multiple gas-filled loops of bowel. With areas of small bowel measuring up to 3 cm. This may reflect ileus versus evolving obstruction. No significant stool burden. Supine technique limits evaluation for extraluminal air although no secondary findings are appreciated. No abnormal calcifications. Visualized portions of the lung bases appear clear.
--- NOTE | ~2022-09-09 | CT_ITS ---
EXAMINATION: CT ABDOMEN AND PELVIS WITHOUT CONTRAST CLINICAL INFORMATION: Retroperitoneal mass. Question SBO versus ileus. COMPARISON: None TECHNIQUE: Multidetector volumetric imaging was performed from the superior aspect of the liver through the pubic symphysis. Sagittal and coronal reformatted images were obtained on the technologist's workstation. This CT examination was performed using dose optimization techniques as appropriate, variously including the following: *Automated exposure control *Adjustment of mA and/or kV according to patient size (this includes techniques or standardized protocols for targeted exams where dose is matched to indication/reason for exam; i.e. extremities or head) *Use of iterative reconstruction technique DLP: 592 mGy-cm FINDINGS: LUNG BASES: There are small bilateral pleural effusions, minimally greater on the right, with bibasilar atelectasis, compressive on the right. Heart size is normal. There are coronary artery calcifications. LIVER, GALLBLADDER, AND BILIARY TREE: The liver is normal in size, shape, and attenuation. No focal hepatic lesion or biliary ductal dilatation is present. The gallbladder is unremarkable with no evidence of radiopaque gallstones, gallbladder wall thickening, or obvious pericholecystic inflammatory changes. PANCREAS: Unremarkable. SPLEEN: On noncontrast study the spleen is unremarkable. Multiple hypodense masses are seen in the spleen on the contrast-enhanced CT 09/09/2022. ADRENAL GLANDS: Unremarkable. KIDNEYS AND URETERS: The kidneys are normal in size, shape, and attenuation. No hydronephrosis, hydroureter, or calculi seen. There is mild bilateral perinephric stranding. BLADDER: Unremarkable. GASTROINTESTINAL TRACT: There is scattered stool in the colon without distention. Oral contrast and gas and small-bowel loops appear unremarkable. There is no colonic distention. There is fatty lipomatosis. Appendix is not visualized. There is mild peritoneal stranding likely secondary to congestion. ABDOMINAL WALL: Unremarkable. LYMPH NODES: There is a known retroperitoneal upper abdominal mass which was recently biopsied. There are several abnormal lymph nodes seen in the mid retroperitoneal region. VASCULAR: Unremarkable. PELVIC VISCERA: There is no free fluid. No mass seen. OSSEOUS STRUCTURES: Unremarkable. CT/CT abdomen pelvis wo IV con IMPRESSION: There is no significant change in the large retroperitoneal mass. There is no bowel obstruction seen at this time. Mild mesenteric congestion is stable. Small bilateral pleural effusions with underlying atelectasis is stable. Fleischner guidelines were followed.
--- NOTE | ~2022-09-09 | XR_ITS ---
EXAMINATION: XR chest 1V CLINICAL INFORMATION: Reason for Exam fever COMPARISON: Chest radiograph 09/09/2022 TECHNIQUE: One view of the chest XR/XR chest 1V FINDINGS/IMPRESSION: Low lung volumes. Mild diffuse peribronchial vascular opacities may reflect edema or atypical infection. No pneumothorax. No pleural effusion. Unchanged cardiomediastinal silhouette.
--- NOTE | ~2022-09-09 | CT_ITS ---
EXAMINATION: CT head/brain wo IV con CLINICAL INFORMATION: Reason for Exam abdominal mass.?mets COMPARISON: CT brain 05/24/2019 TECHNIQUE: Contiguous axial imaging was performed from the skull base to vertex without intravenous contrast. Sagittal and coronal reformatted images were obtained. This CT examination was performed using dose optimization techniques as appropriate, variously including the following: * Automated exposure control * Adjustment of mA and/or kV according to patient size (this includes techniques or standardized protocols for targeted exams where dose is matched to indication/reason for exam; i.e. extremities or head) Use of iterative reconstruction technique DLP: 784 mGy-cm FINDINGS: No acute osseous or soft tissue abnormality. Dense opacification of the left frontal sinus with patchy mucosal thickening involving the maxillary sinuses and ethmoid air cells with chronic mucoperiosteal thickening, with chronic soft tissue fullness in the left nasal cavity which could be related to sinonasal polyposis. Status post bilateral lens replacements. There is no evidence of acute intracranial hemorrhage or territorial infarction. No abnormal mass effect or midline shift is seen. Carey to white matter differentiation is well preserved. No extra-axial fluid collections are identified. No hydrocephalus. Proportional prominence of the ventricles and sulcal spaces is consistent with mild volume loss. CT/CT head/brain wo IV con IMPRESSION: 1. No acute intracranial abnormality. If clinical concern for intracranial metastasis, contrast-enhanced MR brain would be required for evaluation. 2. Dense opacification of the left frontal sinus with patchy mucosal thickening involving the maxillary sinuses and ethmoid air cells with chronic mucoperiosteal thickening, with chronic soft tissue fullness in the left nasal cavity which could be related to sinonasal polyposis, consider correlation with direct visualization.
--- NOTE | ~2022-09-09 | CT_ITS ---
EXAMINATION: CT CHEST WITH CONTRAST CLINICAL INFORMATION: Abdominal mass, question metastases COMPARISON: CT abdomen pelvis 09/09/2022 and CTA chest 05/27/2009 TECHNIQUE: Multidetector volumetric CT imaging of the chest was obtained after the administration of 65 mL of Omnipaque 350 intravenous contrast without immediate adverse reactions. Axial MIP volume rendering provided. Sagittal and coronal reformatted images were obtained. This CT examination was performed using dose optimization techniques as appropriate, variously including the following: *Automated exposure control *Adjustment of mA and/or kV according to patient size (this includes techniques or standardized protocols for targeted exams where dose is matched to indication/reason for exam; i.e. extremities or head) *Use of iterative reconstruction technique DLP: 338 mGy-cm FINDINGS: CHEST WALL/AXILLA: No axillary lymphadenopathy. LUNGS: Motion degradation limits evaluation of the pulmonary parenchyma. Tiny 3 mm solid left lower lobe pulmonary nodule, 5:262 is unchanged from 2008 therefore likely benign. No new suspicious or enlarging pulmonary nodule within limitations of motion. Lingular atelectasis. Right basilar atelectasis. MEDIASTINUM: Heart is normal in size. No mediastinal lymphadenopathy. No hilar lymphadenopathy. Mitral annular calcifications. CORONARY ARTERY CALCIFICATION: High attenuation along the course of the coronary arteries may reflect a combination of coronary artery calcification and coronary artery stents. PLEURA: Trace right pleural effusion. UPPER ABDOMEN: Partially imaged is a ill-defined soft tissue mass in the upper abdomen associated with the diaphragmatic crura, adjacent lymphadenopathy and multiple hypoattenuating splenic mass is similar to recent prior dedicated CT abdomen. OSSEOUS STRUCTURES: Unremarkable. CT/CT chest w IV con IMPRESSION: Motion degradation limits evaluation of the pulmonary parenchyma. Tiny 3 mm solid left lower lobe pulmonary nodule is unchanged from 2009 therefore likely benign. No new suspicious or enlarging pulmonary nodule within limitations of motion. Trace right pleural effusion. Partially imaged is a ill-defined soft tissue mass in the upper abdomen associated with the diaphragmatic crura which remain suspicious for lymphoma, adjacent lymphadenopathy and multiple hypoattenuating splenic mass is similar to recent prior dedicated CT abdomen pelvis.
--- NOTE | 2022-09-09 17:29 | ECG_ITS ---
Test Reason : ABDOMINAL PAIN Blood Pressure : / mmHG Vent. Rate : 081 BPM Atrial Rate : 081 BPM P-R Int : 154 ms QRS Dur : 076 ms QT Int : 364 ms P-R-T Axes : 037 009 015 degrees QTc Int : 422 ms Normal sinus rhythm Normal ECG When compared with ECG of 28-AUG-2022 15:22, Nonspecific T wave abnormality no longer evident in Lateral leads Referred By: Yaz Hartmann Electronically Signed By:TIERRA BALLARD MD
--- NOTE | 2022-09-09 17:30 | ED_ITS ---
HPI - Abdominal Pain General Chief Complaint: Abdominal Pain Stated Complaint: ABD PAIN Time Seen by Provider: 09/09/22 17:43 Source: patient and EMS Mode of arrival: EMS Limitations: no limitations History of Present Illness HPI narrative: 81-year-old male history of diabetes, hyperlipidemia, hypertension, CAD , CHF, NSTEMI he is presenting to the emergency department via ems with complaints of epigastric pain, and nausea X3 days. Patient reports that he feels like he has to vomit however is unable to he constantly has the urge to vomit. This has never happened to him before. He reports that the pain flucuates between a stabbing sensation and burning sensation. Pain at times radiates to back however not always. At times food makes it worse. Denies fevers, chills, chest pain, sob, headache, dizziness, vision changes, changes in urination, changes in bowel habits. Related Data Home Medications Medication Instructions Recorded Confirmed insulin detemir U-100 100 unit/mL 14 unit subcut DAILY 12/17/21 05/26/22 (3 mL) subcutaneous pen (Levemir FlexTouch U-100 Insulin) oxybutynin chloride 5 mg 1 tab PO DAILY 12/17/21 05/26/22 tablet,extended release 24 hr oxycodone-acetaminophen 5 mg-325 1 tab PO Q8H PRN severe pain 12/17/21 05/26/22 mg tablet fluticasone fur. 200 mcg-umeclid 1 inh inhalation DAILY 05/11/22 05/26/22 62.5 mcg-vilant 25 mcg inhalat.powder (Trelegy Ellipta) ipratropium 0.5 mg-albuterol 3 mg 3 ml inhalation QID 05/11/22 05/26/22 (2.5 mg base)/3 mL nebulization soln metformin 500 mg tablet,extended 500 mg PO BID 05/11/22 05/26/22 release 24 hr multivitamin with folic acid 400 1 tab PO DAILY 05/11/22 05/26/22 mcg tablet (Daily-Tejinder (with folic acid)) omega-3 fatty acids-fish oil 340 1 cap PO TID 05/11/22 05/26/22 mg-1,000 mg capsule (Fish Oil) cetirizine 10 mg tablet 10 mg PO DAILY PRN Allergy Symptoms 05/25/22 05/26/22 glipizide 5 mg tablet, extended 10 mg PO DAILY 05/25/22 05/26/22 release 24 hr tamsulosin 0.4 mg capsule 0.4 mg PO DAILY@1700 05/25/22 05/26/22 atorvastatin 80 mg tablet 80 mg PO DAILY 05/30/22 carvedilol 3.125 mg tablet 3.125 mg PO BID 05/30/22 furosemide 40 mg tablet 40 mg PO DAILY 05/30/22 omega-3 fatty acids 1,000 mg 1,000 mg PO DAILY 05/30/22 capsule oxybutynin chloride 5 mg 5 mg PO DAILY 05/30/22 tablet,extended release 24 hr Previous Rx's Medication Instructions Recorded albuterol sulfate 90 mcg/actuation 2 puff PO Q4-6H PRN shortness of 05/02/22 aerosol inhaler breath or wheezing #8.5 grams aspirin 81 mg tablet,delayed 81 mg PO DAILY #90 tabs 05/26/22 release ticagrelor 90 mg tablet (Brilinta) 90 mg PO BID #180 tabs 05/26/22 isosorbide mononitrate 30 mg 30 mg PO DAILY #90 tabs 06/14/22 tablet,extended release 24 hr losartan 25 mg tablet 25 mg PO DAILY #90 tabs 07/27/22 Allergies Allergy/AdvReac Type Severity Reaction Status Date / Time Penicillins Allergy Intermediate Swelling Verified 09/09/22 17:38 Review of Systems Review of Systems Constitutional : No Weight loss, No Fever, No Chills, No Fatigue, No Malaise ENT/Mouth : No sore throat, No Rhinorrhea Eyes: No Eye Pain, No Swelling, No Redness Cardiovascular : No Chest Pain, No SOB, No Dyspnea on Exertion, No Orthopnea, No Edema, No Palpitations Respiratory : No Cough, No Sputum, No Wheezing Gastrointestinal : + Nausea, No Vomiting, No Diarrhea, No Constipation, + abdominal Pain, No Hematochezia, No Melena Genitourinary : No Dysuria, No Urinary Frequency, No Hematuria, Musculoskeletal : No joint pain, No Myalgias, No Joint Swelling Skin : No Skin Lesions, No rash Neuro : No Weakness, No Numbness, No Dizziness, No Headache Psych : No Anxiety/Panic, No Depression All other systems reviewed and are negative Yes all other systems are reviewed and are negative PMFSH Past Medical History Attestation statement: The following information was validated with the patient. Source: old records reviewed and nursing notes reviewed Medical History Asthma Asthma-COPD overlap syndrome COPD with asthma COVID-19 Diabetes Diabetes Dyspnea on exertion Hyperlipidemia Hypertension Thrombocytopenia Surgical History H/O lithotripsy Social History Social History Household Members: None Housing: Apartment Do you presently have visiting nurse or other home services: Yes ([employer] 7 hrs a week) Alcohol intake: current Alcohol intake frequency: 3 or more drinks per day Patient Tobacco Use Status: Former Tobacco user Advance Directives: No Advance Directives Information Provided: No service: No Current occupational status: disabled Physical Exam ED Vital Signs: Vital Signs - 24 hr 09/09/22 17:34 09/09/22 21:06 09/09/22 23:11 Temperature 98.3 F 98.3 F Pulse Rate 79 89 77 Respiratory Rate 16 16 18 Blood Pressure 148/72 H 134/78 140/70 H Pulse Oximetry 96 94 96 Oxygen Delivery Method Room Air Room Air Room Air BMI result Body Mass Index 35.3 vss Appearance: Alert.? Oriented X3.? No acute distress.?Patient appears comfortable Head: Normocephalic, atraumatic, no step-offs or deformities Eyes: Pupils equal, round and reactive to light.? ENT: Pharynx normal.??External ears normal, TMs normal bilaterally and EAC's normal. No pain with manipulation of external ears bilaterally. No mastoid tenderness. Neck: Normal inspection.? Neck supple.? CVS: Normal heart rate and rhythm.? Pulses normal.? Respiratory: No respiratory distress.? Breath sounds normal.? Abdomen: Soft and + tenderness throughout worse in epigastric region + BS .? Skin: Skin warm and dry.? Normal skin color.? Normal skin turgor.? Extremities: No lower extremity edema.? No calf ttp. 5/5 strength to bilateral upper and lower extremities Neuro: Oriented X 3.? No motor deficit.? No sensory deficit. CN 2-12 intact Course Reevaluation(s) Reevaluation #1: CBC appears to be around patient's baseline, low platelets noted however this is patient's baseline. Chemistry with no acute findings. Troponin negative, EKG nonischemic unlikely ACS. Chest x-ray with no acute findings. COVID negative. 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 Patient continues to report severe abdominal pain in epigastric region. Non resolving despite morphine. Reports he is having difficulty keeping food down. I explained CT scan results with patient, he verbalizes understanding. He endorses malaise and fatigue however denies weight loss, night sweats. No history of malignancy that he knows of. Time: 23:28 Reevaluation #2: This case with my attending and hospitalist who will admit patient for further evaluation and treatment. Time: 23:29 MDM - Abdominal Pain MDM Narrative Medical decision making narrative: [id number] 81-year-old male presents with epigastric pain and nausea, x3 days. Patient also tells me feels like he needs to vomit however unable to. Never had pain like this before. Physical examination with diffuse tenderness, worse in the epigastrium, abdomen soft nondistended. Normoactive bowel sounds. Patient appears well with stable vitals. Regular rate and rhythm, lungs clear. Neuro nonfocal Likely gastritis or GERD. Will rule out cholecystitis, intra-abdominal etiologies. I do not suspect AAA on this patient. Will also rule out bowel obstruction. Plan at this time is basic labs, urine, EKG, troponin due to patient's history chest x-ray, CT of the abdomen and pelvis. Will give a GI cocktail. Medical Records Attestation: I reviewed the patient's medical records. Lab Data Attestation: I reviewed the patient's lab results. Result diagrams: 09/09/22 18:28 09/09/22 18:28 Labs: Lab Results 09/09/22 09/09/22 09/09/22 Range/Units 18:28 18:28 18:28 WBC 7.5 (4.8-10.8) X10*3/uL RBC 4.09 L (4.60-5.80) X10*6/uL Hgb 12.5 L (14.0-18.0) g/dl Hct 36.5 L (42.0-52.0) % MCV 89.2 (80.0-98.0) fL MCH 30.6 (27.0-33.0) pg MCHC 34.2 (31.0-36.0) g/dl RDW 12.2 (11.0-16.0) % Plt Count 125 L (160-400) X10*3/uL MPV 9.7 (9.4-12.4) fL Immature Gran % (Auto) 1.3 H (0.0-0.4) % Neut % (Auto) 41.6 L (45-73) % Lymph % (Auto) 19.5 L (20-40) % Douglas % (Auto) 37.2 H (2-11) % Eos % (Auto) 0.3 (0-4) % Baso % (Auto) 0.1 (0-2) % Lymph # (Auto) 1.5 (1.2-4.9) X10*3/uL Douglas # (Auto) 2.8 H (0.1-1.2) X10*3/uL Eos # (Auto) 0.0 (0.0-0.4) X10*3/uL Baso # (Auto) 0.0 (0.0-0.2) X10*3/uL Abs Immat Gran (auto) 0.10 H (0.00-0.03) X10*3/uL Absolute Neuts (auto) 3.1 (2.0-8.3) x10*3/uL Absolute Nucleated RBC 0.000 (0.0-0.012) X10*3/uL Nucleated RBC % (auto) 0.0 (0.0-0.2) /100WBC Smear Tech's Comments VERIFIED Sodium 138 (135-145) mmol/L Potassium 3.9 (3.3-5.1) mmol/L Chloride 96 (96-108) mmol/L Carbon Dioxide 30 H (22-29) mmol/L Anion Gap 16 (12-20) BUN 10 (9-16) mg/dL Creatinine 0.82 (0.5-1.4) mg/dL Estim Creat Clear Calc 72.7 Estimated GFR > 60 Random Glucose 190 H (60-115) mg/dL Calcium 9.5 (8.4-10.2) mg/dL Magnesium 1.9 (1.6-2.6) mg/dL Total Bilirubin 0.7 (0.0-1.0) mg/dL AST 20 (5-37) U/L ALT 22 (0-40) U/L Alkaline Phosphatase 82 (39-117) U/L Troponin I High Sens (<3.5-35.0) ng/L B-Natriuretic Peptide 154 H (<100) pg/mL Total Protein 7.3 (6.5-8.0) g/dL Albumin 3.8 (3.5-5.0) g/dL Lipase 16 (8-78) U/L COVID-19 ([facility]) (Negative) COVID-19 Clin Com 09/09/22 09/09/22 Range/Units 18:28 18:28 WBC (4.8-10.8) X10*3/uL RBC (4.60-5.80) X10*6/uL Hgb (14.0-18.0) g/dl Hct (42.0-52.0) % MCV (80.0-98.0) fL MCH (27.0-33.0) pg MCHC (31.0-36.0) g/dl RDW (11.0-16.0) % Plt Count (160-400) X10*3/uL MPV (9.4-12.4) fL Immature Gran % (Auto) (0.0-0.4) % Neut % (Auto) (45-73) % Lymph % (Auto) (20-40) % Douglas % (Auto) (2-11) % Eos % (Auto) (0-4) % Baso % (Auto) (0-2) % Lymph # (Auto) (1.2-4.9) X10*3/uL Douglas # (Auto) (0.1-1.2) X10*3/uL Eos # (Auto) (0.0-0.4) X10*3/uL Baso # (Auto) (0.0-0.2) X10*3/uL Abs Immat Gran (auto) (0.00-0.03) X10*3/uL Absolute Neuts (auto) (2.0-8.3) x10*3/uL Absolute Nucleated RBC (0.0-0.012) X10*3/uL Nucleated RBC % (auto) (0.0-0.2) /100WBC Smear Tech's Comments Sodium (135-145) mmol/L Potassium (3.3-5.1) mmol/L Chloride (96-108) mmol/L Carbon Dioxide (22-29) mmol/L Anion Gap (12-20) BUN (9-16) mg/dL Creatinine (0.5-1.4) mg/dL Estim Creat Clear Calc Estimated GFR Random Glucose (60-115) mg/dL Calcium (8.4-10.2) mg/dL Magnesium (1.6-2.6) mg/dL Total Bilirubin (0.0-1.0) mg/dL AST (5-37) U/L ALT (0-40) U/L Alkaline Phosphatase (39-117) U/L Troponin I High Sens 7.7 (<3.5-35.0) ng/L B-Natriuretic Peptide (<100) pg/mL Total Protein (6.5-8.0) g/dL Albumin (3.5-5.0) g/dL Lipase (8-78) U/L COVID-19 ([facility]) Negative (Negative) COVID-19 Clin Com See Note Discharge Plan Discharge Clinical Impression: Abdominal mass, Weakness, Fatigue, Intractable abdominal pain Patient Disposition: Admitted As Inpatient Prescriptions: No Action albuterol sulfate 90 mcg/actuation HFA aerosol inhaler 2 puff PO Q4-6H PRN (Reason: shortness of breath or wheezing) Qty: 8.5 6RF atorvastatin 80 mg tablet 80 mg PO DAILY omega-3 fatty acids 1,000 mg capsule 1,000 mg PO DAILY oxybutynin chloride 5 mg tablet extended release 24 hr 5 mg PO DAILY carvedilol 3.125 mg tablet 3.125 mg PO BID Rx Instructions: must administer with a meal/food furosemide 40 mg tablet 40 mg PO DAILY isosorbide mononitrate 30 mg tablet extended release 24 hr 30 mg PO DAILY Qty: 90 3RF losartan 25 mg tablet 25 mg PO DAILY Qty: 90 1RF oxycodone-acetaminophen 5-325 mg tablet 1 tab PO Q8H PRN (Reason: severe pain) oxybutynin chloride 5 mg tablet extended release 24hr 1 tab PO DAILY Levemir FlexTouch U-100 Insuln 100 unit/mL (3 mL) insulin pen 14 unit subcut DAILY cetirizine 10 mg tablet 10 mg PO DAILY PRN (Reason: Allergy Symptoms) glipizide 5 mg tablet extended release 24 hr 10 mg PO DAILY tamsulosin 0.4 mg capsule 0.4 mg PO DAILY@1700 ipratropium-albuterol 0.5 mg-3 mg(2.5 mg base)/3 mL solution for nebulization 3 ml INHALATION QID metformin 500 mg tablet extended release 24 hr 500 mg PO BID Fish Oil 340-1,000 mg capsule 1 cap PO TID multivitamin with folic acid [Daily-Tejinder (with folic acid)] 400 mcg tablet 1 tab PO DAILY Trelegy Ellipta 200-62.5-25 mcg blister with device 1 inh INHALATION DAILY aspirin 81 mg tablet,delayed release (DR/EC) 81 mg PO DAILY Qty: 90 3RF Brilinta 90 mg tablet 90 mg PO BID Qty: 180 3RF
[2022-09-09 17:34] VITALS: BP 136/76; BP 148/72; PULSE 79; PULSE 80; RESP 16; TEMP 36.8; O2SAT 96; O2SAT 98; BMI 35.3
[2022-09-09] MEDS: Magnesium Hydrox/Alum Hydrox 30 ML ORAL.SUSP PO (17:48)
[2022-09-09] MEDS: ondansetron HCL 4 MG/2 ML VIAL IVPUSH (17:48)
[2022-09-09 18:39] LABS: Eosinophils Percent Auto 0.3 % (0-4); Mean Platelet Volume 9.7 fL (9.4-12.4); PLT CLUMP 1; Red Cell Distribution Width 12.2 % (11.0-16.0); SCAN SMEAR FLAG 1
[2022-09-09 18:41] LABS: Basophils Percent Auto 0.1 % (0-2); Hematocrit 36.5 % (42.0-52.0); Hemoglobin 12.5 g/dl (14.0-18.0); Imm Gran Pct Auto 1.3 % (0.0-0.4); Lymphocytes Absolute Auto 1.5 X10*3/uL (1.2-4.9); Lymphocytes Percent Auto 19.5 % (20-40); MANUAL DIFF FLAG SCAN; Mean Corpuscular HGB Conc 34.2 g/dl (31.0-36.0); Mean Corpuscular Hemoglobin 30.6 pg (27.0-33.0); Mean Corpuscular Volume 89.2 fL (80.0-98.0); Monocytes Absolute Auto 2.8 X10*3/uL (0.1-1.2); Monocytes Percent Auto 37.2 % (2-11); Neutrophils Absolute Auto 3.1 x10*3/uL (2.0-8.3); Neutrophils Percent Auto 41.6 % (45-73); Red Blood Count 4.09 X10*6/uL (4.60-5.80)
[2022-09-09 18:54] LABS: Alanine Aminotransferase 22 U/L (0-40); Albumin Level 3.8 g/dL (3.5-5.0); Alkaline Phosphatase 82 U/L (39-117); Anion Gap 16 (12-20); Aspartate Amino Transferase 20 U/L (5-37); Bilirubin Total 0.7 mg/dL (0.0-1.0); Blood Urea Nitrogen 10 mg/dL (9-16); Calcium 9.5 mg/dL (8.4-10.2); Carbon Dioxide 30 mmol/L (22-29); Chloride 96 mmol/L (96-108); Creatinine Clr Calc Pharmacy 72.7; Estimated Glomerular Filt Rate > 60; Glucose Random 190 mg/dL (60-115); Lipase 16 U/L (8-78); Magnesium 1.9 mg/dL (1.6-2.6); Potassium 3.9 mmol/L (3.3-5.1); Sodium 138 mmol/L (135-145); Total Protein 7.3 g/dL (6.5-8.0)
[2022-09-09 18:58] LABS: COVID-19 Test Negative (Negative)
[2022-09-09 18:59] LABS: Platelet Count 125 X10*3/uL (160-400); White Blood Count 7.5 X10*3/uL (4.8-10.8)
[2022-09-09 19:00] LABS: SLIDE REVIEW VERIFIED; Troponin-I High Sensitivity 7.7 ng/L (<3.5-35.0)
[2022-09-09 19:01] LABS: B Type Natriuretic Peptide 154 pg/mL (<100)
[2022-09-09] MEDS: iohexoL 350 MG/ML 100 ML INFUS..BTL IV (20:43)
[2022-09-09] MEDS: Morphine Sulfate 4 MG/ML CARTRIDGE IVPUSH ×2 (21:00→23:51)
[2022-09-09 21:06] VITALS: BP 134/78; PULSE 89; RESP 16; O2SAT 94
[2022-09-09 23:11] VITALS: BP 140/70; PULSE 77; RESP 18; TEMP 36.8; O2SAT 96
--- NOTE | 2022-09-09 23:49 | PM.IMHP ---
[facility] Medical History Asthma Asthma-COPD overlap syndrome COPD with asthma COVID-19 Diabetes Diabetes Dyspnea on exertion Hyperlipidemia Hypertension Thrombocytopenia Surgical History H/O lithotripsy Social History Household Members: None Housing: Apartment Do you presently have visiting nurse or other home services: Yes (COMPUT[employer]GRAM[employer]IE[employer] 7 hrs a week) Alcohol intake: current Alcohol intake frequency: 3 or more drinks per day Patient Tobacco Use Status: Former Tobacco user Advance Directives: No Advance Directives Information Provided: No service: No Current occupational status: disabled Meds Allergies Allergy/AdvReac Type Severity Reaction Status Date / Time Penicillins Allergy Intermediate Swelling Verified 09/09/22 17:38 Active Medications: Current Medications Acetaminophen (Acetaminophen 325 Mg Tablet) 650 mg PO Q6H PRN PRN Reason: Pain, Mild (Pain Scale 1-3) Melatonin (Melatonin 3 Mg Tablet) 6 mg PO BEDTIME PRN PRN Reason: Insomnia Morphine Sulfate (Morphine Sulfate 4 Mg/Ml Cartridge) 4 mg IVPUSH Q4H PRN; Protocol PRN Reason: Pain, Severe (Pain Scale 7-10) Ondansetron HCl (Ondansetron Hcl 4 Mg/2 Ml Vial) 4 mg IVPUSH Q8H PRN PRN Reason: Nausea and Vomiting Pharmacy Consult (Consult Rx Perform Med Rec) 1 each MISCELLANE ONCE STA Stop: 09/09/22 23:30 Sodium Chloride (0.9 % Sodium Chloride Flush 3 Ml Syringe) 3 ml IVFLUSH [facility] Home Medications Medication Instructions Recorded Confirmed Last Taken Type insulin detemir U-100 100 unit/mL 14 unit subcut DAILY 12/17/21 05/26/22 12/15/21 History (3 mL) subcutaneous pen (Levemir FlexTouch U-100 Insulin) oxybutynin chloride 5 mg 1 tab PO DAILY 12/17/21 05/26/22 12/15/21 History tablet,extended release 24 hr oxycodone-acetaminophen 5 mg-325 1 tab PO Q8H PRN severe pain 12/17/21 05/26/22 12/15/21 History mg tablet fluticasone fur. 200 mcg-umeclid 1 inh inhalation DAILY 05/11/22 05/26/22 Unknown History 62.5 mcg-vilant 25 mcg inhalat.powder (Trelegy Ellipta) ipratropium 0.5 mg-albuterol 3 mg 3 ml inhalation QID 05/11/22 05/26/22 Unknown History (2.5 mg base)/3 mL nebulization soln metformin 500 mg tablet,extended 500 mg PO BID 05/11/22 05/26/22 Unknown History release 24 hr multivitamin with folic acid 400 1 tab PO DAILY 05/11/22 05/26/22 Unknown History mcg tablet (Daily-Tejinder (with folic acid)) omega-3 fatty acids-fish oil 340 1 cap PO TID 05/11/22 05/26/22 Unknown History mg-1,000 mg capsule (Fish Oil) cetirizine 10 mg tablet 10 mg PO DAILY PRN Allergy Symptoms 05/25/22 05/26/22 Unknown History glipizide 5 mg tablet, extended 10 mg PO DAILY 05/25/22 05/26/22 Unknown History release 24 hr tamsulosin 0.4 mg capsule 0.4 mg PO DAILY@1700 05/25/22 05/26/22 Unknown History atorvastatin 80 mg tablet 80 mg PO DAILY 05/30/22 Unknown History carvedilol 3.125 mg tablet 3.125 mg PO BID 05/30/22 Unknown History furosemide 40 mg tablet 40 mg PO DAILY 05/30/22 Unknown History omega-3 fatty acids 1,000 mg 1,000 mg PO DAILY 05/30/22 Unknown History capsule oxybutynin chloride 5 mg 5 mg PO DAILY 05/30/22 Unknown History tablet,extended release 24 hr Physical Exam Vital Signs and Narrative: Vital Signs: Last Vital Signs Temp 98.3 F 09/09/22 23:11 Pulse 77 09/09/22 23:11 Resp 18 09/09/22 23:11 BP 140/70 H 09/09/22 23:11 Pulse Ox 96 09/09/22 23:11 O2 Del Method 09/09/22 23:11 BMI result Body Mass Index 35.3 Results Labs CBC and Chem 7: 09/09/22 18:28 09/09/22 18:28 Labs: Laboratory Results - last 24 hr 09/09/22 09/09/22 09/09/22 18:28 18:28 18:28 MCV 89.2 MCH 30.6 MCHC 34.2 RDW 12.2 Plt Count 125 L MPV 9.7 Immature Gran % (Auto) 1.3 H Neut % (Auto) 41.6 L Lymph % (Auto) 19.5 L [place] % (Auto) 37.2 H Eos % (Auto) 0.3 Baso % (Auto) 0.1 Lymph # (Auto) 1.5 [place] # (Auto) 2.8 H Eos # (Auto) 0.0 Baso # (Auto) 0.0 Abs Immat Gran (auto) 0.10 H Absolute Neuts (auto) 3.1 Absolute Nucleated RBC 0.000 Nucleated RBC % (auto) 0.0 Smear Tech's Comments VERIFIED Anion Gap 16 Estim Creat Clear Calc 72.7 Estimated GFR > 60 Random Glucose 190 H Calcium 9.5 Magnesium 1.9 Total Bilirubin 0.7 AST 20 ALT 22 Alkaline Phosphatase 82 Troponin I High Sens B-Natriuretic Peptide 154 H Total Protein 7.3 Albumin 3.8 Lipase 16 COVID-19 ([facility]ANCO) COVID-[employer] Clin Com 09/09/22 09/09/22 18:28 18:28 MCV MCH MCHC RDW Plt Count MPV Immature Gran % (Auto) Neut % (Auto) Lymph % (Auto) [place] % (Auto) Eos % (Auto) Baso % (Auto) Lymph # (Auto) [place] # (Auto) Eos # (Auto) Baso # (Auto) Abs Immat Gran (auto) Absolute Neuts (auto) Absolute Nucleated RBC Nucleated RBC % (auto) Smear Tech's Comments Anion Gap Estim Creat Clear Calc Estimated GFR Random Glucose Calcium Magnesium Total Bilirubin AST ALT Alkaline Phosphatase Troponin I High Sens 7.7 B-Natriuretic Peptide Total Protein Albumin Lipase COVID-19 ([facility]ANCO) Negative COVID-19 Clin Com See Note Imaging Radiologist's Impressions: Impressions Chest X-Ray 09/09/22 17:53 IMPRESSION: No acute findings Abdomen/Pelvis CT 09/09/22 21:07 IMPRESSION: * There is an 8 cm mass in the upper abdomen, just above the celiac axis with adjacent pathologically enlarged lymph nodes most suspicious for lymphoma. 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 * There are a few coarse calcifications within the pancreatic indicative of sequela of remote pancreatitis. * Small right pleural effusion with accompanying atelectasis. Quality VTE VTE Risk Level:: Medical - moderate - high VTE Device Contraindication: Treatment Not Indicated VTE Drug Contraindication: N/A - Med Ordered
[2022-09-09] MEDS: 0.9 % Sodium Chloride Flush 3 ML SYRINGE IVFLUSH (23:52)
--- NOTE | 2022-09-09 23:59 | PM.IMHP ---
[facility] Medical History Asthma Asthma-COPD overlap syndrome COPD with asthma COVID-19 Diabetes Diabetes Dyspnea on exertion Hyperlipidemia Hypertension Thrombocytopenia Surgical History H/O lithotripsy Social History Household Members: None Housing: Apartment Do you presently have visiting nurse or other home services: Yes ([employer] 7 hrs a week) Alcohol intake: current Alcohol intake frequency: 3 or more drinks per day Patient Tobacco Use Status: Former Tobacco user Advance Directives: No Advance Directives Information Provided: No service: No Current occupational status: disabled Meds Allergies Allergy/AdvReac Type Severity Reaction Status Date / Time Penicillins Allergy Intermediate Swelling Verified 09/09/22 17:38 Active Medications: Current Medications Acetaminophen (Acetaminophen 325 Mg Tablet) 650 mg PO Q6H PRN PRN Reason: Pain, Mild (Pain Scale 1-3) Melatonin (Melatonin 3 Mg Tablet) 6 mg PO BEDTIME PRN PRN Reason: Insomnia Morphine Sulfate (Morphine Sulfate 4 Mg/Ml Cartridge) 4 mg IVPUSH Q4H PRN; Protocol PRN Reason: Pain, Severe (Pain Scale 7-10) Ondansetron HCl (Ondansetron Hcl 4 Mg/2 Ml Vial) 4 mg IVPUSH Q8H PRN PRN Reason: Nausea and Vomiting Pharmacy Consult (Consult Rx Perform Med Rec) 1 each MISCELLANE ONCE STA Stop: 09/09/22 23:30 Sodium Chloride (0.9 % Sodium Chloride Flush 3 Ml Syringe) [facility] Last Admin: 09/09/22 23:52 Dose: 3 ml Home Medications Medication Instructions Recorded Confirmed Last Taken Type insulin detemir U-100 100 unit/mL 14 unit subcut DAILY 12/17/21 05/26/22 12/15/21 History (3 mL) subcutaneous pen (Levemir FlexTouch U-100 Insulin) oxybutynin chloride 5 mg 1 tab PO DAILY 12/17/21 05/26/22 12/15/21 History tablet,extended release 24 hr oxycodone-acetaminophen 5 mg-325 1 tab PO Q8H PRN severe pain 12/17/21 05/26/22 12/15/21 History mg tablet fluticasone fur. 200 mcg-umeclid 1 inh inhalation DAILY 05/11/22 05/26/22 Unknown History 62.5 mcg-vilant 25 mcg inhalat.powder (Trelegy Ellipta) ipratropium 0.5 mg-albuterol 3 mg 3 ml inhalation QID 05/11/22 05/26/22 Unknown History (2.5 mg base)/3 mL nebulization soln metformin 500 mg tablet,extended 500 mg PO BID 05/11/22 05/26/22 Unknown History release 24 hr multivitamin with folic acid 400 1 tab PO DAILY 05/11/22 05/26/22 Unknown History mcg tablet (Daily-Tejinder (with folic acid)) omega-3 fatty acids-fish oil 340 1 cap PO TID 05/11/22 05/26/22 Unknown History mg-1,000 mg capsule (Fish Oil) cetirizine 10 mg tablet 10 mg PO DAILY PRN Allergy Symptoms 05/25/22 05/26/22 Unknown History glipizide 5 mg tablet, extended 10 mg PO DAILY 05/25/22 05/26/22 Unknown History release 24 hr tamsulosin 0.4 mg capsule 0.4 mg PO DAILY@1700 05/25/22 05/26/22 Unknown History atorvastatin 80 mg tablet 80 mg PO DAILY 05/30/22 Unknown History carvedilol 3.125 mg tablet 3.125 mg PO BID 05/30/22 Unknown History furosemide 40 mg tablet 40 mg PO DAILY 05/30/22 Unknown History omega-3 fatty acids 1,000 mg 1,000 mg PO DAILY 05/30/22 Unknown History capsule oxybutynin chloride 5 mg 5 mg PO DAILY 05/30/22 Unknown History tablet,extended release 24 hr Physical Exam Vital Signs and Narrative: Vital Signs: Last Vital Signs Temp 98.3 F 09/09/22 23:11 Pulse 77 09/09/22 23:11 Resp 18 09/09/22 23:11 BP 140/70 H 09/09/22 23:11 Pulse Ox 96 09/09/22 23:11 O2 Del Method 09/09/22 23:11 BMI result Body Mass Index 35.3 Results Labs CBC and Chem 7: 09/09/22 18:28 09/09/22 18:28 Labs: Laboratory Results - last 24 hr 09/09/22 09/09/22 09/09/22 18:28 18:28 18:28 MCV 89.2 MCH 30.6 MCHC 34.2 RDW 12.2 Plt Count 125 L MPV 9.7 Immature Gran % (Auto) 1.3 H Neut % (Auto) 41.6 L Lymph % (Auto) 19.5 L [place] % (Auto) 37.2 H Eos % (Auto) 0.3 Baso % (Auto) 0.1 Lymph # (Auto) 1.5 [place] # (Auto) 2.8 H Eos # (Auto) 0.0 Baso # (Auto) 0.0 Abs Immat Gran (auto) 0.10 H Absolute Neuts (auto) 3.1 Absolute Nucleated RBC 0.000 Nucleated RBC % (auto) 0.0 Smear Tech's Comments VERIFIED Anion Gap 16 Estim Creat Clear Calc 72.7 Estimated GFR > 60 Random Glucose 190 H Calcium 9.5 Magnesium 1.9 Total Bilirubin 0.7 AST 20 ALT 22 Alkaline Phosphatase 82 Troponin I High Sens B-Natriuretic Peptide 154 H Total Protein 7.3 Albumin 3.8 Lipase 16 COVID-19 ([facility]) COVID-19 Clin Com 09/09/22 09/09/22 18:28 18:28 MCV MCH MCHC RDW Plt Count MPV Immature Gran % (Auto) Neut % (Auto) Lymph % (Auto) [place] % (Auto) Eos % (Auto) Baso % (Auto) Lymph # (Auto) [place] # (Auto) Eos # (Auto) Baso # (Auto) Abs Immat Gran (auto) Absolute Neuts (auto) Absolute Nucleated RBC Nucleated RBC % (auto) Smear Tech's Comments Anion Gap Estim Creat Clear Calc Estimated GFR Random Glucose Calcium Magnesium Total Bilirubin AST ALT Alkaline Phosphatase Troponin I High Sens 7.7 B-Natriuretic Peptide Total Protein Albumin Lipase COVID-19 ([facility]) Negative COVID-19 Clin Com See Note Imaging Radiologist's Impressions: Impressions Chest X-Ray 09/09/22 17:53 IMPRESSION: No acute findings Abdomen/Pelvis CT 09/09/22 21:07 IMPRESSION: * There is an 8 cm mass in the upper abdomen, just above the celiac axis with adjacent pathologically enlarged lymph nodes most suspicious for lymphoma. 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 * There are a few coarse calcifications within the pancreatic indicative of sequela of remote pancreatitis. * Small right pleural effusion with accompanying atelectasis. Quality VTE VTE Risk Level:: Medical - moderate - high VTE Device Contraindication: Treatment Not Indicated VTE Drug Contraindication: N/A - Med Ordered
--- NOTE | 2022-09-10 00:01 | PM.IMHP ---
History of Present Illness Date of Service: 09/10/22 Chief Complaint: Abdominal Pain This is a 81-year-old male with a pertinent history of congestive heart failure with preserved ejection fraction, xph-eggqyrg-kxrwvpfej diabetes mellitus, essential hypertension, alcohol use disorder, COPD-asthma overlap syndrome who presents to the emergency department for evaluation of abdominal pain. Patient is Barbadian speaking and history was obtained with the use of an tree trimmer helper. He is a vague historian, states that he has been having ongoing epigastric pain for the last 5 days. It has been constant, progressive and radiating to the back. It is associated with nausea. Patient is with poor p.o. intake for the last 2 days decreased decreased appetite and epigastric pain. Denies any changes in bowel habits. No fever, chills, chest pain, shortness of breath, palpitations, changes in urinary habits. Patient does have a history of smoking and states he quit 20 years ago. No personal history of cancer. In the emergency department, CT of the abdomen was concerning for 8 cm mass in the upper abdomen suspicious for lymphoma. Review of Systems Review of Systems: All 13 review of systems are negative except as noted in HPI [facility] Medical History Asthma Asthma-COPD overlap syndrome COPD with asthma COVID-19 Diabetes Diabetes Dyspnea on exertion Hyperlipidemia Hypertension Thrombocytopenia Surgical History H/O lithotripsy Social History Household Members: None Housing: Apartment Do you presently have visiting nurse or other home services: Yes ([employer] 7 hrs a week) Alcohol intake: current Alcohol intake frequency: 3 or more drinks per day Patient Tobacco Use Status: Former Tobacco user Advance Directives: No Advance Directives Information Provided: No service: No Current occupational status: disabled Meds Allergies Allergy/AdvReac Type Severity Reaction Status Date / Time Penicillins Allergy Intermediate Swelling Verified 09/09/22 17:38 Active Medications: Current Medications Acetaminophen (Acetaminophen 325 Mg Tablet) 650 mg PO Q6H PRN PRN Reason: Pain, Mild (Pain Scale 1-3) Melatonin (Melatonin 3 Mg Tablet) 6 mg PO BEDTIME PRN PRN Reason: Insomnia Morphine Sulfate (Morphine Sulfate 4 Mg/Ml Cartridge) 4 mg IVPUSH Q4H PRN; Protocol PRN Reason: Pain, Severe (Pain Scale 7-10) Ondansetron HCl (Ondansetron Hcl 4 Mg/2 Ml Vial) 4 mg IVPUSH Q8H PRN PRN Reason: Nausea and Vomiting Pharmacy Consult (Consult Rx Perform Med Rec) 1 each MISCELLANE ONCE STA Stop: 09/09/22 23:30 Sodium Chloride (0.9 % Sodium Chloride Flush 3 Ml Syringe) 3 ml IVFLUSH QSHIFT [facility] Last Admin: 09/09/22 23:52 Dose: 3 ml Home Medications Medication Instructions Recorded Confirmed Last Taken Type insulin detemir U-100 100 unit/mL 14 unit subcut DAILY 12/17/21 05/26/22 12/15/21 History (3 mL) subcutaneous pen (Levemir FlexTouch U-100 Insulin) oxybutynin chloride 5 mg 1 tab PO DAILY 12/17/21 05/26/22 12/15/21 History tablet,extended release 24 hr oxycodone-acetaminophen 5 mg-325 1 tab PO Q8H PRN severe pain 12/17/21 05/26/22 12/15/21 History mg tablet fluticasone fur. 200 mcg-umeclid 1 inh inhalation DAILY 05/11/22 05/26/22 Unknown History 62.5 mcg-vilant 25 mcg inhalat.powder (Trelegy Ellipta) ipratropium 0.5 mg-albuterol 3 mg 3 ml inhalation QID 05/11/22 05/26/22 Unknown History (2.5 mg base)/3 mL nebulization soln metformin 500 mg tablet,extended 500 mg PO BID 05/11/22 05/26/22 Unknown History release 24 hr multivitamin with folic acid 400 1 tab PO DAILY 05/11/22 05/26/22 Unknown History mcg tablet (Daily-Tejinder (with folic acid)) omega-3 fatty acids-fish oil 340 1 cap PO TID 05/11/22 05/26/22 Unknown History mg-1,000 mg capsule (Fish Oil) cetirizine 10 mg tablet 10 mg PO DAILY PRN Allergy Symptoms 05/25/22 05/26/22 Unknown History glipizide 5 mg tablet, extended 10 mg PO DAILY 05/25/22 05/26/22 Unknown History release 24 hr tamsulosin 0.4 mg capsule 0.4 mg PO DAILY@1700 05/25/22 05/26/22 Unknown History atorvastatin 80 mg tablet 80 mg PO DAILY 05/30/22 Unknown History carvedilol 3.125 mg tablet 3.125 mg PO BID 05/30/22 Unknown History furosemide 40 mg tablet 40 mg PO DAILY 05/30/22 Unknown History omega-3 fatty acids 1,000 mg 1,000 mg PO DAILY 05/30/22 Unknown History capsule oxybutynin chloride 5 mg 5 mg PO DAILY 05/30/22 Unknown History tablet,extended release 24 hr Physical Exam Vital Signs and Narrative: Vital Signs: Last Vital Signs Temp 98.3 F 09/09/22 23:11 Pulse 77 09/09/22 23:11 Resp 18 09/09/22 23:11 BP 140/70 H 09/09/22 23:11 Pulse Ox 96 09/09/22 23:11 O2 Del Method 09/09/22 23:11 BMI result Body Mass Index 35.3 Elderly male lying in bed in no distress Neck supple, no JVD Regular rate and rhythm, S1-S2 heard Decreased breath sound at bases Abdomen with epigastric tenderness, no rebound tenderness, no guarding, no rigidity Patient is awake, alert and oriented to self, place, time and person ; no focal motor deficit Psych: Normal mood No pedal edema Results Labs CBC and Chem 7: 09/09/22 18:28 09/09/22 18:28 Labs: Laboratory Results - last 24 hr 09/09/22 09/09/22 09/09/22 18:28 18:28 18:28 MCV 89.2 MCH 30.6 MCHC 34.2 RDW 12.2 Plt Count 125 L MPV 9.7 Immature Gran % (Auto) 1.3 H Neut % (Auto) 41.6 L Lymph % (Auto) 19.5 L [place] % (Auto) 37.2 H Eos % (Auto) 0.3 Baso % (Auto) 0.1 Lymph # (Auto) 1.5 [place] # (Auto) 2.8 H Eos # (Auto) 0.0 Baso # (Auto) 0.0 Abs Immat Gran (auto) 0.10 H Absolute Neuts (auto) 3.1 Absolute Nucleated RBC 0.000 Nucleated RBC % (auto) 0.0 Smear Tech's Comments VERIFIED Anion Gap 16 Estim Creat Clear Calc 72.7 Estimated GFR > 60 Random Glucose 190 H Calcium 9.5 Magnesium 1.9 Total Bilirubin 0.7 AST 20 ALT 22 Alkaline Phosphatase 82 Troponin I High Sens B-Natriuretic Peptide 154 H Total Protein 7.3 Albumin 3.8 Lipase 16 COVID-19 ([facility]ANCO) COVID-19 Clin Com 09/09/22 09/09/22 18:28 18:28 MCV MCH MCHC RDW Plt Count MPV Immature Gran % (Auto) Neut % (Auto) Lymph % (Auto) [place] % (Auto) Eos % (Auto) Baso % (Auto) Lymph # (Auto) [place] # (Auto) Eos # (Auto) Baso # (Auto) Abs Immat Gran (auto) Absolute Neuts (auto) Absolute Nucleated RBC Nucleated RBC % (auto) Smear Tech's Comments Anion Gap Estim Creat Clear Calc Estimated GFR Random Glucose Calcium Magnesium Total Bilirubin AST ALT Alkaline Phosphatase Troponin I High Sens 7.7 B-Natriuretic Peptide Total Protein Albumin Lipase COVID-19 ([facility]ANCO) Negative COVID-19 Clin Com See Note Imaging Radiologist's Impressions: Impressions Chest X-Ray 09/09/22 17:53 IMPRESSION: No acute findings Abdomen/Pelvis CT 09/09/22 21:07 IMPRESSION: * There is an 8 cm mass in the upper abdomen, just above the celiac axis with adjacent pathologically enlarged lymph nodes most suspicious for lymphoma. 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 * There are a few coarse calcifications within the pancreatic indicative of sequela of remote pancreatitis. * Small right pleural effusion with accompanying atelectasis. Assessment and Plan (1) Abdominal mass: Status: Acute (2) Fatigue: Status: Acute (3) Intractable abdominal pain: Status: Acute (4) Diabetes: Status: Acute (5) Hypertension: Status: Acute (6) Hyperlipidemia: Status: Acute (7) Diastolic CHF: Status: Acute Plan This is a 81-year-old male with a pertinent history of congestive heart failure with preserved ejection fraction, zqy-cywhggm-jfrfvuzif diabetes mellitus, essential hypertension, alcohol use disorder, COPD-asthma overlap syndrome who presents to the emergency department for evaluation of abdominal pain. #. Intractable abdominal pain due to upper abdominal mass suspicious for lymphoma -will admit patient and initiate IV opioids p.r.n. and IV Zofran p.r.n. for symptomatic management. Consulted Oncology and obtaining CT scan of the chest and head to complete workup. #. Congestive heart failure with preserved ejection fraction -currently compensated. On Lasix #. Mjg-gfwuqut-vsfvbdbbx diabetes mellitus with hyperglycemia -hold oral antihyperglycemics. Initiating Accu-Cheks with sliding scale insulin before meals and at bedtime. #. Essential hypertension -continue p.o. meds #. COPD-asthma overlap syndrome -continue home inhaler. Currently not in exacerbation #. Thrombocytopenia, chronic -due to alcohol use disorder DVT prophylaxis: Mechanical. Holding Lovenox until oncology evaluation Diet: Diabetic diet Full code Patient will require two night minimum hospital stay for evaluation and management of 8 cm abdominal mass. Quality Stroke Does the patient have a stroke diagnosis?: No VTE Prior VTE?: No VTE Risk Level:: Medical - moderate - high VTE Device Contraindication: Treatment Not Indicated VTE Drug Contraindication: Treatment Not Indicated
--- NOTE | 2022-09-10 00:04 | PC.NURSE ---
pt ambulated to the bathroom with a steady gait.
[2022-09-10 01:33] LABS: Glucose, Whole Blood 118 mg/dL (60-115)
--- NOTE | 2022-09-10 01:34 | PC.NURSE ---
Gave report to ALFONZO Gregg and notified ALFONZO Mason. Pt being transferred by wheel chair by PCT Vladimir
[2022-09-10 02:43] VITALS: BP 156/73; PULSE 78; RESP 18; TEMP 36.3; O2SAT 95
[2022-09-10] MEDS: Acetaminophen 325 MG TABLET 650 MG PO (06:34)
[2022-09-10 07:23] LABS: Estimated Average Glucose 206 mg/dL; Hemoglobin A1c % 8.8 %
[2022-09-10 07:31] LABS: Eosinophils Percent Auto 0.3 % (0-4); Hematocrit 38.4 % (42.0-52.0); Mean Corpuscular HGB Conc 33.9 g/dl (31.0-36.0); Neutrophils Absolute Auto 2.8 x10*3/uL (2.0-8.3); PLT CLUMP 1; Red Cell Distribution Width 12.2 % (11.0-16.0); SCAN SMEAR FLAG 1
[2022-09-10 07:32] LABS: Basophils Percent Auto 0.3 % (0-2); Imm Gran Abs Auto 0.11 X10*3/uL (0.00-0.03); Imm Gran Pct Auto 1.5 % (0.0-0.4); Lymphocytes Absolute Auto 1.4 X10*3/uL (1.2-4.9); Lymphocytes Percent Auto 19.9 % (20-40); Mean Corpuscular Hemoglobin 30.4 pg (27.0-33.0); Mean Corpuscular Volume 89.9 fL (80.0-98.0); Mean Platelet Volume 9.5 fL (9.4-12.4); Monocytes Absolute Auto 2.9 X10*3/uL (0.1-1.2); Neutrophils Percent Auto 38.4 % (45-73); Red Blood Count 4.27 X10*6/uL (4.60-5.80)
[2022-09-10 07:36] LABS: Glucose, Whole Blood 111 mg/dL (60-115)
[2022-09-10 07:46] LABS: Anion Gap 15 (12-20); Blood Urea Nitrogen 8 mg/dL (9-16); Calcium 9.3 mg/dL (8.4-10.2); Carbon Dioxide 29 mmol/L (22-29); Chloride 97 mmol/L (96-108); Estimated Glomerular Filt Rate > 60; Glucose Random 108 mg/dL (60-115); Potassium 4.1 mmol/L (3.3-5.1); Sodium 137 mmol/L (135-145)
[2022-09-10 08:00] VITALS: BP 167/76; PULSE 80; RESP 17; TEMP 36.3; O2SAT 94
[2022-09-10 08:00] LABS: Platelet Count 122 X10*3/uL (160-400); White Blood Count 7.2 X10*3/uL (4.8-10.8)
[2022-09-10 08:01] LABS: MANUAL DIFF FLAG NO; Monocytes Percent Auto 39.6 % (2-11)
[2022-09-10] MEDS: Morphine Sulfate 4 MG/ML CARTRIDGE IVPUSH ×3 (09:23→22:26)
[2022-09-10 09:25] LABS: INTERNATIONAL NORM RATIO 1.3 (0.9-1.1); Prothrombin Time 15.1 SEC (10.0-13.1)
[2022-09-10] MEDS: 0.9 % Sodium Chloride Flush 3 ML SYRINGE IVFLUSH ×2 (09:26→21:29)
[2022-09-10 09:27] LABS: Partial Thromboplastin Time 34.5 SEC (26.0-36.4)
[2022-09-10 09:38] LABS: Lactate Dehydrogenase 312 U/L (118-273)
--- NOTE | 2022-09-10 10:56 | MHC.CM.PN ---
PT REPORTS HE LIVES WITH A ROOMMATE AND IS INDEPENDENT WITH ALL CARE PT REPORTS HE DOES HAVE A CM FROM [facility] THAT VISITS PERIODICALLY, BUT NO OTHER SERVICES PT DENIES USING DME PT IS NOT COVID VACCINATED AND DECLINES TO COMPLETE A HCP PCP: BROOKLYNN WIGGINS IMM DELIVERED, COPY SENT TO [facility] PTS CHART WAS UNAVAILABLE DCP: HOME NO SERVICES ROOMMATE TO TRANSPORT
[2022-09-10] MEDS: iohexoL 350 MG/ML 100 ML INFUS..BTL 65 ML IV (11:30)
[2022-09-10 11:40] LABS: Glucose, Whole Blood 193 mg/dL (60-115)
[2022-09-10] MEDS: iohexoL 350 MG/ML 100 ML INFUS..BTL IV (11:45)
[2022-09-10 11:53] LABS: Appearance Urine Clear; Color Urine Dark Yellow; Glucose Urine UA 250 mg/dL (Negative); Leukocyte Esterase Urine Trace (Negative); Nitrite Urine Negative (Negative); PH 7.5 (5.0-9.0); Specific Gravity - Urine >= 1.030 (1.005-1.025); UMIC TRIGGER UACC YES; Urine Blood Negative (Negative); Urine Ketones Trace mg/dL (Negative); Urine Protein 30 (1+) mg/dL (Neg-Trace)
[2022-09-10 11:58] LABS: Bacteria Urine None Seen (None Seen); Hyaline Casts Urine 0-2 /LPF (0-2); RBC Urine 0-2 /HPF (0-2); Squamous Epithelial Cell Urine 0-2 /HPF (0-2); UACC Culture Trigger YES
[2022-09-10] MEDS: Insulin Lispro 100 UNIT/ML 3 ML VIAL SUBCUT ×2 (12:10→21:28)
--- NOTE | 2022-09-10 12:26 | PC.NURSE ---
Pt received flu shot in right deltoid at 1122, tolerated well
--- NOTE | 2022-09-10 12:51 | P.PNIM_ITS ---
Subjective Subjective Date of Service: 09/10/22 Interval History: This history was taken in [place] Sor[place] from the patient. Physical Exam Vital Signs: Vital Signs: Last Vital Signs Temp 97.4 F 09/10/22 08:00 Pulse 80 09/10/22 08:00 Resp 17 09/10/22 08:00 BP 167/76 H 09/10/22 08:00 Pulse Ox 94 09/10/22 08:00 O2 Del Method 09/10/22 08:00 BMI result Body Mass Index 35.3 Objective Data Active Medications Acetaminophen (Acetaminophen 325 Mg Tablet) 650 mg PO Q6H PRN PRN Reason: Pain, Mild (Pain Scale 1-3) Last Admin: 09/10/22 06:34 Dose: 650 mg Documented By: TATIANA Albuterol/Ipratropium (Albuterol/Iprat 2.5/0.5mg 3 Ml Ampul.Neb) 3 ml INHALE Q4H PRN PRN Reason: Wheezing Dextrose (Dextrose 50 % 25 Gm/50 Ml Syringe) 25 gm IVPUSH Q15M PRN; Protocol PRN Reason: per Hypoglycemia Standing Ord. Glucose (Glucose Gel 15 Gm Gel..Gram.) 15 gm PO Q15M PRN; Protocol PRN Reason: per Hypoglycemia Standing Ord. Insulin Human Lispro (Insulin Lispro 100 Unit/Ml 3 Ml Vial) 0 unit SUBCUT [facility]; Protocol Stop: 09/11/22 00:09 Last Admin: 09/10/22 12:10 Dose: 2 unit Documented By: JOAO Melatonin (Melatonin 3 Mg Tablet) 6 mg PO BEDTIME PRN PRN Reason: Insomnia Morphine Sulfate (Morphine Sulfate 4 Mg/Ml Cartridge) 4 mg IVPUSH Q4H PRN; Protocol PRN Reason: Pain, Severe (Pain Scale 7-10) Last Admin: 09/10/22 09:23 Dose: 4 mg Documented By: JOAO Ondansetron HCl (Ondansetron Hcl 4 Mg/2 Ml Vial) 4 mg IVPUSH Q8H PRN PRN Reason: Nausea and Vomiting Pharmacy Consult (Consult Rx Perform Med Rec) 1 each MISCELLANE STAT STA Stop: 09/10/22 08:36 Sodium Chloride (0.9 % Sodium Chloride Flush 3 Ml Syringe) 3 ml IVFLUSH [facility] Last Admin: 09/10/22 09:26 Dose: 3 ml Documented By: JOAO Labs CBC & Chem 7: 09/10/22 06:34 09/10/22 06:34 Labs: Laboratory Results - last 24 hr 09/09/22 09/09/22 09/09/22 18:28 18:28 18:28 MCV 89.2 MCH 30.6 MCHC 34.2 RDW 12.2 Plt Count 125 L MPV 9.7 Immature Gran % (Auto) 1.3 H Neut % (Auto) 41.6 L Lymph % (Auto) 19.5 L [place] % (Auto) 37.2 H Eos % (Auto) 0.3 Baso % (Auto) 0.1 Lymph # (Auto) 1.5 [place] # (Auto) 2.8 H Eos # (Auto) 0.0 Baso # (Auto) 0.0 Abs Immat Gran (auto) 0.10 H Absolute Neuts (auto) 3.1 Absolute Nucleated RBC 0.000 Nucleated RBC % (auto) 0.0 Smear Tech's Comments VERIFIED PT INR APTT Anion Gap 16 Estim Creat Clear Calc 72.7 Estimated GFR > 60 POC Glucose Random Glucose 190 H Estimat Average Glucose Hemoglobin A1c % Calcium 9.5 Magnesium 1.9 Total Bilirubin 0.7 AST 20 ALT 22 Alkaline Phosphatase 82 Lactate Dehydrogenase Troponin I High Sens B-Natriuretic Peptide 154 H Total Protein 7.3 Albumin 3.8 Lipase 16 Urine Color Urine Appearance Urine pH Ur Specific [place] Urine Protein Urine Glucose (UA) Urine Ketones Urine Blood Urine Nitrite Ur Leukocyte Esterase Urine RBC Urine WBC Ur Squamous Epith Cells Urine Bacteria Hyaline Casts COVID-19 ([facility]ANCO) COVID-19 Clin Com 09/09/22 09/09/22 09/10/22 18:28 18:28 01:15 MCV MCH MCHC RDW Plt Count MPV Immature Gran % (Auto) Neut % (Auto) Lymph % (Auto) [place] % (Auto) Eos % (Auto) Baso % (Auto) Lymph # (Auto) [place] # (Auto) Eos # (Auto) Baso # (Auto) Abs Immat Gran (auto) Absolute Neuts (auto) Absolute Nucleated RBC Nucleated RBC % (auto) Smear Tech's Comments PT INR APTT Anion Gap Estim Creat Clear Calc Estimated GFR POC Glucose Random Glucose Estimat Average Glucose 206 Hemoglobin A1c % 8.8 Calcium Magnesium Total Bilirubin AST ALT Alkaline Phosphatase Lactate Dehydrogenase Troponin I High Sens 7.7 B-Natriuretic Peptide Total Protein Albumin Lipase Urine Color Urine Appearance Urine pH Ur Specific [place] Urine Protein Urine Glucose (UA) Urine Ketones Urine Blood Urine Nitrite Ur Leukocyte Esterase Urine RBC Urine WBC Ur Squamous Epith Cells Urine Bacteria Hyaline Casts COVID-19 ([facility]ANCO) Negative COVID-19 Clin Com See Note 09/10/22 09/10/22 09/10/22 01:29 06:34 06:34 MCV 89.9 MCH 30.4 MCHC 33.9 RDW 12.2 Plt Count 122 L MPV 9.5 Immature Gran % (Auto) 1.5 H Neut % (Auto) 38.4 L Lymph % (Auto) 19.9 L [place] % (Auto) 39.6 H Eos % (Auto) 0.3 Baso % (Auto) 0.3 Lymph # (Auto) 1.4 [place] # (Auto) 2.9 H Eos # (Auto) 0.0 Baso # (Auto) 0.0 Abs Immat Gran (auto) 0.11 H Absolute Neuts (auto) 2.8 Absolute Nucleated RBC 0.000 Nucleated RBC % (auto) 0.0 Smear Tech's Comments PT INR APTT Anion Gap 15 Estim Creat Clear Calc 84.0 Estimated GFR > 60 POC Glucose 118 H Random Glucose 108 D Estimat Average Glucose Hemoglobin A1c % Calcium 9.3 Magnesium Total Bilirubin AST ALT Alkaline Phosphatase Lactate Dehydrogenase Troponin I High Sens B-Natriuretic Peptide Total Protein Albumin Lipase Urine Color Urine Appearance Urine pH Ur Specific [place] Urine Protein Urine Glucose (UA) Urine Ketones Urine Blood Urine Nitrite Ur Leukocyte Esterase Urine RBC Urine WBC Ur Squamous Epith Cells Urine Bacteria Hyaline Casts COVID-19 ([facility]ANCO) COVID-19 Clin Com 09/10/22 09/10/22 09/10/22 07:31 09:06 09:06 MCV MCH MCHC RDW Plt Count MPV Immature Gran % (Auto) Neut % (Auto) Lymph % (Auto) [place] % (Auto) Eos % (Auto) Baso % (Auto) Lymph # (Auto) [place] # (Auto) Eos # (Auto) Baso # (Auto) Abs Immat Gran (auto) Absolute Neuts (auto) Absolute Nucleated RBC Nucleated RBC % (auto) Smear Tech's Comments PT INR APTT 34.5 Anion Gap Estim Creat Clear Calc Estimated GFR POC Glucose 111 Random Glucose Estimat Average Glucose Hemoglobin A1c % Calcium Magnesium Total Bilirubin AST ALT Alkaline Phosphatase Lactate Dehydrogenase 312 H Troponin I High Sens B-Natriuretic Peptide Total Protein Albumin Lipase Urine Color Urine Appearance Urine pH Ur Specific [place] Urine Protein Urine Glucose (UA) Urine Ketones Urine Blood Urine Nitrite Ur Leukocyte Esterase Urine RBC Urine WBC Ur Squamous Epith Cells Urine Bacteria Hyaline Casts COVID-19 ([facility]ANCO) COVID-19 Clin Com 09/10/22 09/10/22 09/10/22 09:06 11:36 Unknown MCV MCH MCHC RDW Plt Count MPV Immature Gran % (Auto) Neut % (Auto) Lymph % (Auto) [place] % (Auto) Eos % (Auto) Baso % (Auto) Lymph # (Auto) [place] # (Auto) Eos # (Auto) Baso # (Auto) Abs Immat Gran (auto) Absolute Neuts (auto) Absolute Nucleated RBC Nucleated RBC % (auto) Smear Tech's Comments PT 15.1 H INR 1.3 H APTT Anion Gap Estim Creat Clear Calc Estimated GFR POC Glucose 193 H Random Glucose Estimat Average Glucose Hemoglobin A1c % Calcium Magnesium Total Bilirubin AST ALT Alkaline Phosphatase Lactate Dehydrogenase Troponin I High Sens B-Natriuretic Peptide Total Protein Albumin Lipase Urine Color Dark Yellow Urine Appearance Clear Urine pH 7.5 Ur Specific [place] >= 1.030 H Urine Protein 30 (1+) H Urine Glucose (UA) 250 H Urine Ketones Trace Urine Blood Negative Urine Nitrite Negative Ur Leukocyte Esterase Trace H Urine RBC 0-2 Urine WBC 6-10 H Ur Squamous Epith Cells 0-2 Urine Bacteria None Seen Hyaline Casts 0-2 COVID-19 ([facility]AN[facility]) COVID-19 Clin Com Quality Stroke Does the patient have a stroke diagnosis?: No VTE Prior VTE?: No VTE Risk Level:: Medical - moderate - high VTE Device Contraindication: Treatment Not Indicated VTE Drug Contraindication: Treatment Not Indicated
--- NOTE | 2022-09-10 13:17 | PM.EVENT ---
Event Note Date of Service: 09/10/22 Event Note: day hospitalist update S This history was taken in [place] from the patient. Upper abd discomfort. No fever/chills/night sweats/weight loss O Temp Pulse Resp BP Pulse Ox O2 Del Method 97.4 F 80 17 167/76 H 94 09/10/22 08:00 09/10/22 08:00 09/10/22 08:00 09/10/22 08:00 09/10/22 08:00 09/10/22 08:00 gen- NAD neck- no palpable adenopathy lungs- CTAB CV- RRR no m/r/g abd- soft, obese, NT ext- no edema neuro- nonfocal labs- LDH 312 A/P d#1 81yo M with 3v CAD s/p LM + LAD stents, HFpEF, DM2, HTN, AUD, COPD/asthma presenting with abd pain and found to have upper abd mass suspicious for lymphoma # upper abd pain suspicious for lymphoma - Oncology consult, NPO for CT-guided biopsy in AM # chronic HFpEF # HTN # CAD - continue furosemide - continue Imdur, statin, carvedilol, Entresto - hold ASA + ticagrelor # DM2 - hold oral OHGs, give correction-dose lispro # asthma/COPD overlap not in acute exac - prn nebs # AUD - monitor for withdrawal # VTE ppx: SCDs In my clinical judgment, the patient requires continued hospitalization for the following reasons: biopsy
--- NOTE | 2022-09-10 13:32 | PHA.MEDREC ---
Pharmacy Consult ? Medication Reconciliation Pharmacy has completed the medication reconciliation. Spoke to patient's ENGINEERING MECHANIC (Arleen - [phone]) who handles his meds and confirmed meds. ENGINEERING MECHANIC stated they wanted to get patient on nitroglycerin SL, but MD have not acted on it. Stated all inhalers are PRN.
[2022-09-10] MEDS: ondansetron HCL 4 MG/2 ML VIAL IVPUSH (15:19)
[2022-09-10 15:48] VITALS: BP 162/94; PULSE 72; RESP 19; TEMP 36.4; O2SAT 96
[2022-09-10 16:46] LABS: Glucose, Whole Blood 139 mg/dL (60-115)
[2022-09-10] MEDS: Loratadine 10 MG TABLET PO (19:37)
[2022-09-10 19:49] VITALS: BP 181/92; PULSE 78; RESP 17; TEMP 36.3; O2SAT 96
[2022-09-10 20:09] LABS: Glucose, Whole Blood 153 mg/dL (60-115)
[2022-09-10] MEDS: Ascorbic Acid 500 MG TABLET PO (21:29)
[2022-09-10] MEDS: carvediloL 6.25 MG TABLET PO (21:29)
[2022-09-10] MEDS: Sacubitril/Valsartan 24/26 1 TAB TABLET PO (21:29)
[2022-09-11] VITALS (7 sets, daily range): BP systolic 104–181; BP diastolic 48–93; PULSE 80–89; RESP 16–22; TEMP 36–36.8; O2SAT 94–98
[2022-09-11] MEDS: ondansetron HCL 4 MG/2 ML VIAL IVPUSH ×2 (00:20→13:13)
[2022-09-11] MEDS: Morphine Sulfate 4 MG/ML CARTRIDGE IVPUSH ×3 (01:02→13:13)
[2022-09-11 07:16] LABS: Glucose, Whole Blood 153 mg/dL (60-115)
[2022-09-11 08:15] LABS: HIV AB/AG Nonreactive (Nonreactive); HIV Num 1 0.07 S/CO (0.00-0.99)
[2022-09-11] MEDS: Isosorbide Mononitrate 30 MG TAB.ER.24H PO (08:47)
[2022-09-11] MEDS: Furosemide 40 MG TABLET PO (08:47)
[2022-09-11] MEDS: Multivitamin TABLET 1 TAB PO (08:47)
[2022-09-11] MEDS: carvediloL 6.25 MG TABLET PO ×2 (08:47→20:19)
[2022-09-11] MEDS: Ascorbic Acid 500 MG TABLET PO ×2 (08:47→20:19)
[2022-09-11] MEDS: Tamsulosin HCL 0.4 MG CAPSULE PO (08:48)
[2022-09-11] MEDS: 0.9 % Sodium Chloride Flush 3 ML SYRINGE IVFLUSH ×2 (08:48→20:20)
[2022-09-11] MEDS: Cholecalciferol (Vitamin D3) 25 MCG TABLET 50 MCG PO (08:48)
[2022-09-11] MEDS: Atorvastatin Calcium 80 MG TABLET PO (08:48)
[2022-09-11] MEDS: Folic Acid 1 MG TABLET PO (08:48)
[2022-09-11] MEDS: Sacubitril/Valsartan 24/26 1 TAB TABLET PO ×2 (08:48→20:19)
[2022-09-11] MEDS: Omeprazole 40 MG CAPSULE.DR PO (10:33)
[2022-09-11 11:28] LABS: Glucose, Whole Blood 175 mg/dL (60-115)
--- NOTE | 2022-09-11 12:53 | MHC.CM.PN ---
Per MD rounds, patient is pending biopsy and will be ready for discharge after complete. CM will continue to follow for d/c planning needs.
--- NOTE | 2022-09-11 13:15 | HO.PM.IMPN ---
Subjective Subjective Date of Service: 09/11/22 Interval History: This history was taken in Khmer from the patient. c/o epigastric burning pain no chest pain no dyspnea no fever NPO for biopsy Review of Systems Review of Systems: Yes all other systems are reviewed and are negative Physical Exam Vital Signs: Vital Signs: Last Vital Signs Temp 96.8 F 09/11/22 07:07 Pulse 87 09/11/22 07:07 Resp 19 09/11/22 07:07 BP 180/90 H 09/11/22 07:07 Pulse Ox 97 09/11/22 07:07 O2 Del Method 09/11/22 07:07 BMI result Body Mass Index 35.3 Gen: in no acute distress HEENT: sclera anicteric, moist mucus membranes Neck: supple, no adenopathy Lungs: clear to auscultation bilaterally Heart: regular rate and rhythm, no murmurs Abd: soft, non-tender, non-distended, obese Ext: no edema Skin: warm/well-perfused Neuro: alert and oriented x3, no focal findings Psych: appropriate affect Objective Data Active Medications Acetaminophen (Acetaminophen 325 Mg Tablet) 650 mg PO Q6H PRN PRN Reason: Pain, Mild (Pain Scale 1-3) Last Admin: 09/10/22 06:34 Dose: 650 mg Documented By: TATIANA Albuterol Sulfate (Albuterol Sulfate 90 Mcg 8 Gm Inhaler) 2 puff INHALE Q4H PRN PRN Reason: shortness of breath or wheezing Albuterol/Ipratropium (Albuterol/Iprat 2.5/0.5mg 3 Ml Ampul.Neb) 3 ml INHALE Q4H PRN PRN Reason: Wheezing Ascorbic Acid (Ascorbic Acid 500 Mg Tablet) 500 mg PO BID [facility] Last Admin: 09/11/22 08:47 Dose: 500 mg Documented By: KIRSTEN Atorvastatin Calcium (Atorvastatin Calcium 80 Mg Tablet) 80 mg PO DAILY [facility] Last Admin: 09/11/22 08:48 Dose: 80 mg Documented By: KIRSTEN Carvedilol (Carvedilol 6.25 Mg Tablet) 6.25 mg PO BID [facility]; Protocol Last Admin: 09/11/22 08:47 Dose: 6.25 mg Documented By: KIRSTEN Dextrose (Dextrose 50 % 25 Gm/50 Ml Syringe) 25 gm IVPUSH Q15M PRN; Protocol PRN Reason: per Hypoglycemia Standing Ord. Fluticasone/Vilanterol (Fluticasone/Vilanterol 200/25 Blst.W.Dev) 1 puff INHALE RDAILY [facility] Last Admin: 09/11/22 10:05 Dose: Not Given Documented By: MARLON Non-Admin Reason: Med Not Available Folic Acid (Folic Acid 1 Mg Tablet) 1 mg PO DAILY [facility] Last Admin: 09/11/22 08:48 Dose: 1 mg Documented By: KIRSTEN Furosemide (Furosemide 40 Mg Tablet) 40 mg PO DAILY [facility]; Protocol Last Admin: 09/11/22 08:47 Dose: 40 mg Documented By: KIRSTEN Glucose (Glucose Gel 15 Gm Gel..Gram.) 15 gm PO Q15M PRN; Protocol PRN Reason: per Hypoglycemia Standing Ord. Isosorbide Mononitrate (Isosorbide Mononitrate 30 Mg Tab.Er.24h) 30 mg PO DAILY [facility]; Protocol Last Admin: 09/11/22 08:47 Dose: 30 mg Documented By: KIRSTEN Loratadine (Loratadine 10 Mg Tablet) 10 mg PO DAILY PRN PRN Reason: Allergy Symptoms Last Admin: 09/10/22 19:37 Dose: 10 mg Documented By: TATIANA Melatonin (Melatonin 3 Mg Tablet) 6 mg PO BEDTIME PRN PRN Reason: Insomnia Morphine Sulfate (Morphine Sulfate 4 Mg/Ml Cartridge) 4 mg IVPUSH Q4H PRN; Protocol PRN Reason: Pain, Severe (Pain Scale 7-10) Last Admin: 09/11/22 13:13 Dose: 4 mg Documented By: KIRSTEN Multivitamins/Vitamin C (Multivitamin Tablet) 1 tab PO DAILY [facility] Last Admin: 09/11/22 08:47 Dose: 1 tab Documented By: KIRSTEN Omeprazole (Omeprazole 40 Mg Capsule.) 40 mg PO DAILY@0630 [facility] Last Admin: 09/11/22 10:33 Dose: 40 mg Documented By: KIRSTEN Ondansetron HCl (Ondansetron Hcl 4 Mg/2 Ml Vial) 4 mg IVPUSH Q8H PRN PRN Reason: Nausea and Vomiting Last Admin: 09/11/22 13:13 Dose: 4 mg Documented By: KIRSTEN Oxybutynin Chloride (Oxybutynin Chloride Er 5 Mg Tab.Er.24) 5 mg PO DAILY [facility] Last Admin: 09/11/22 08:48 Dose: 5 mg Documented By: KIRSTEN Sacubitril/Valsartan (Sacubitril/Valsartan 1 Tab Tablet) 1 tab PO BID [facility]; Protocol Last Admin: 09/11/22 08:48 Dose: 1 tab Documented By: KIRSTEN Sodium Chloride (0.9 % Sodium Chloride Flush 3 Ml Syringe) 3 ml IVFLUSH QSHIFT [facility] Last Admin: 09/11/22 08:48 Dose: 3 ml Documented By: KIRSTEN Tamsulosin HCl (Tamsulosin Hcl 0.4 Mg Capsule) 0.4 mg PO DAILY [facility] Last Admin: 09/11/22 08:48 Dose: 0.4 mg Documented By: KIRSTEN Tiotropium [place] (Tiotropium [place] 18 Mcg Cap.W.Dev) 1 puff INHALE RDAILY [facility] Last Admin: 09/11/22 10:05 Dose: Not Given Documented By: MARLON Non-Admin Reason: Med Not Available Vitamin D (Cholecalciferol (Vitamin D3) 25 Mcg Tablet) 50 mcg PO DAILY [facility] Last Admin: 09/11/22 08:48 Dose: 50 mcg Documented By: KIRSTEN Labs CBC & Chem 7: 09/10/22 06:34 09/10/22 06:34 Labs: Laboratory Results - last 24 hr 09/10/22 09/10/22 09/10/22 09:06 16:01 19:52 POC Glucose 139 H 153 H HIV 1&2 Ab/P24 Ag 4thGn Nonreactive 09/11/22 09/11/22 07:07 11:23 POC Glucose 153 H 175 H HIV 1&2 Ab/P24 Ag 4thGn ITS Impressions Chest X-Ray 09/09/22 17:53 IMPRESSION: No acute findings Abdomen/Pelvis CT 09/09/22 21:07 IMPRESSION: * There is an 8 cm mass in the upper abdomen, just above the celiac axis with adjacent pathologically enlarged lymph nodes most suspicious for lymphoma. 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 * There are a few coarse calcifications within the pancreatic indicative of sequela of remote pancreatitis. * Small right pleural effusion with accompanying atelectasis. Chest CT 09/10/22 11:44 IMPRESSION: Motion degradation limits evaluation of the pulmonary parenchyma. Tiny 3 mm solid left lower lobe pulmonary nodule is unchanged from 2009 therefore likely benign. No new suspicious or enlarging pulmonary nodule within limitations of motion. Trace right pleural effusion. Partially imaged is a ill-defined soft tissue mass in the upper abdomen associated with the diaphragmatic crura which remain suspicious for lymphoma, adjacent lymphadenopathy and multiple hypoattenuating splenic mass is similar to recent prior dedicated CT abdomen pelvis. Head CT 09/10/22 11:45 IMPRESSION: 1. No acute intracranial abnormality. If clinical concern for intracranial metastasis, contrast-enhanced MR brain would be required for evaluation. 2. Dense opacification of the left frontal sinus with patchy mucosal thickening involving the maxillary sinuses and ethmoid air cells with chronic mucoperiosteal thickening, with chronic soft tissue fullness in the left nasal cavity which could be related to sinonasal polyposis, consider correlation with direct visualization. Microbiology Microbiology Results: Microbiology 09/10/22 Unknown Urine Culture - Final Urine clean catch - Urine [place] top No growth. Assessment and Plan (1) Abdominal mass: Status: Acute Plan d#2 81yo M with 3v CAD s/p LM + LAD stents, HFpEF, DM2, HTN, AUD, COPD/asthma presenting with abd pain and found to have upper abd mass suspicious for lymphoma # upper abd pain suspicious for lymphoma - Oncology consult, NPO for CT-guided biopsy # chronic HFpEF # HTN # CAD - continue furosemide - continue Imdur, statin, carvedilol, Entresto - hold ASA + ticagrelor # DM2 - hold oral OHGs, give correction-dose lispro # asthma/COPD overlap not in acute exac - prn nebs # AUD - monitor for withdrawal # VTE ppx: SCDs In my clinical judgment, the patient requires continued hospitalization for the following reasons: biopsy Quality Stroke Does the patient have a stroke diagnosis?: No VTE Prior VTE?: No VTE Risk Level:: Medical - moderate - high VTE Device Contraindication: Treatment Not Indicated VTE Drug Contraindication: Treatment Not Indicated
--- NOTE | 2022-09-11 15:08 | PM.HEMONCCN ---
Subjective - Subjective Chief complaint: Abdominal pain Patient: new to practice Consult date: 09/12/22 Primary Care Provider: Sarah Hopper MD HPI - Consult Narrative Reason for consult: Abdominal lymphadenopathy Narrative: Santiago Almanza is a 81 year old male who presented with complaints of abdominal pain and was found to have mass in the abdomen on imaging. Patient has longstanding history of heart disease, congestive heart failure, hypertension and [id number] diabetes. He also was diagnosed with thrombocytopenia related to medication in the past, history of alcohol abuse in the past, patient says he has not consumed alcohol since he has a cardiac procedure at [facility] this year. He denies any complaints of fever, chills, night sweats or unexplained weight loss. His appetite has been down only in the last 1 week. No change in bowel habits. He says he is up-to-date with colonoscopy. Review of Systems - Constitutional Reports as per HPI, Reports no additional constitutional complaints - Cardiovascular Denies chest pain, Denies foot swelling - Respiratory Denies cough PMFSH Medical History: Medical History (Last Reviewed 09/10/22 @ 00:04 by Jair Lechuga MD) Asthma Asthma-COPD overlap syndrome COPD with asthma COVID-19 Diabetes Diabetes Dyspnea on exertion Hyperlipidemia Hypertension Thrombocytopenia Surgical History: Surgical History (Last Reviewed 09/10/22 @ 00:04 by Jair Lechuga MD) H/O lithotripsy Social History: Social History (Last Reviewed 09/10/22 @ 00:04 by Jair Lechuga MD) Living Situation History: Household Members: None Housing: Apartment Do you presently have visiting nurse or other home services: Yes Do you presently have visiting nurse or other home services comment: visiting nurse at times Alcohol History Details: 1. How often do you have a drink containing alcohol?: a. Never AUDIT-C Alcohol total score: 0 Currently Displaying Signs/Symptoms of Alcohol Withdrawal: No Tobacco History: Patient Tobacco Use Status: Former Tobacco user Substance Use History: Use of substances other than those prescribed or required for medical reasons: No Currently Displaying Signs/Symptoms of Drug Intoxication Withdrawal: No Domestic Abuse History: Have you been hit, kicked, punched, or otherwise hurt by someone within the past year? If so, by whom?: No Do you feel safe in your current relationship?: Yes Is there a partner from a previous relationship who is making you feel unsafe now?: No Are you made to feel afraid or neglected: No Advance Directives: Advance Directives: No Advance Directives Information Provided: No Homicidal Assessment: Do you have thoughts of harming others: None Do you have a plan to hurt others: No Plan Nutrition Assessment: Recently lost weight without trying: No How much weight loss: Not applicable Eating poorly because of decreased appetite: No Nutrition screen score: 0 Nutrition Risks: No Nutritional Risk Poor oral hygiene: No Occupation Assessmet: service: No Current occupational status: retired Current occupational status: disabled Home Medications and Allergies Current Medications: Current Medications Acetaminophen (Acetaminophen 325 Mg Tablet) 650 mg PO Q6H PRN PRN Reason: Pain, Mild (Pain Scale 1-3) Last Admin: 09/10/22 06:34 Dose: 650 mg Albuterol Sulfate (Albuterol Sulfate 90 Mcg 8 Gm Inhaler) 2 puff INHALE Q4H PRN PRN Reason: shortness of breath or wheezing Albuterol/Ipratropium (Albuterol/Iprat 2.5/0.5mg 3 Ml Ampul.Neb) 3 ml INHALE Q4H PRN PRN Reason: Wheezing Ascorbic Acid (Ascorbic Acid 500 Mg Tablet) 500 mg PO BID [facility] Last Admin: 09/11/22 08:47 Dose: 500 mg Atorvastatin Calcium (Atorvastatin Calcium 80 Mg Tablet) 80 mg PO DAILY [facility] Last Admin: 09/11/22 08:48 Dose: 80 mg Carvedilol (Carvedilol 6.25 Mg Tablet) 6.25 mg PO BID [facility]; Protocol Last Admin: 09/11/22 08:47 Dose: 6.25 mg Dextrose (Dextrose 50 % 25 Gm/50 Ml Syringe) 25 gm IVPUSH Q15M PRN; Protocol PRN Reason: per Hypoglycemia Standing Ord. Fluticasone/Vilanterol (Fluticasone/Vilanterol 200/25 Blst.W.Dev) 1 puff INHALE RDAILY [facility] Last Admin: 09/11/22 10:05 Dose: Not Given Folic Acid (Folic Acid 1 Mg Tablet) 1 mg PO DAILY [facility] Last Admin: 09/11/22 08:48 Dose: 1 mg Furosemide (Furosemide 40 Mg Tablet) 40 mg PO DAILY [facility]; Protocol Last Admin: 09/11/22 08:47 Dose: 40 mg Glucose (Glucose Gel 15 Gm Gel..Gram.) 15 gm PO Q15M PRN; Protocol PRN Reason: per Hypoglycemia Standing Ord. Isosorbide Mononitrate (Isosorbide Mononitrate 30 Mg Tab.Er.24h) 30 mg PO DAILY [facility]; Protocol Last Admin: 09/11/22 08:47 Dose: 30 mg Loratadine (Loratadine 10 Mg Tablet) 10 mg PO DAILY PRN PRN Reason: Allergy Symptoms Last Admin: 09/10/22 19:37 Dose: 10 mg Melatonin (Melatonin 3 Mg Tablet) 6 mg PO BEDTIME PRN PRN Reason: Insomnia Morphine Sulfate (Morphine Sulfate 4 Mg/Ml Cartridge) 4 mg IVPUSH Q4H PRN; Protocol PRN Reason: Pain, Severe (Pain Scale 7-10) Last Admin: 09/11/22 13:13 Dose: 4 mg Multivitamins/Vitamin C (Multivitamin Tablet) 1 tab PO DAILY [facility] Last Admin: 09/11/22 08:47 Dose: 1 tab Omeprazole (Omeprazole 40 Mg Capsule.Dr) 40 mg PO DAILY@0630 [facility] Last Admin: 09/11/22 10:33 Dose: 40 mg Ondansetron HCl (Ondansetron Hcl 4 Mg/2 Ml Vial) 4 mg IVPUSH Q8H PRN PRN Reason: Nausea and Vomiting Last Admin: 09/11/22 13:13 Dose: 4 mg Oxybutynin Chloride (Oxybutynin Chloride Er 5 Mg Tab.Er.24) 5 mg PO DAILY [facility] Last Admin: 09/11/22 08:48 Dose: 5 mg Sacubitril/Valsartan (Sacubitril/Valsartan / 1 Tab Tablet) 1 tab PO BID [facility]; Protocol Last Admin: 09/11/22 08:48 Dose: 1 tab Sodium Chloride (0.9 % Sodium Chloride Flush 3 Ml Syringe) 3 ml IVFLUSH QSHIFT [facility] Last Admin: 09/11/22 08:48 Dose: 3 ml Tamsulosin HCl (Tamsulosin Hcl 0.4 Mg Capsule) 0.4 mg PO DAILY [facility] Last Admin: 09/11/22 08:48 Dose: 0.4 mg Tiotropium [place] (Tiotropium [place] 18 Mcg Cap.W.Dev) 1 puff INHALE RDAILY [facility] Last Admin: 09/11/22 10:05 Dose: Not Given Vitamin D (Cholecalciferol (Vitamin D3) 25 Mcg Tablet) 50 mcg PO DAILY [facility] Last Admin: 09/11/22 08:48 Dose: 50 mcg Home Medications Medication Instructions Recorded Confirmed Type insulin detemir U-100 100 unit/mL 12 unit subcut DAILY 12/17/21 09/10/22 History (3 mL) subcutaneous pen (Levemir FlexTouch U-100 Insulin) oxycodone-acetaminophen 5 mg-325 1 tab PO Q8H PRN severe pain 12/17/21 09/10/22 History mg tablet fluticasone fur. 200 mcg-umeclid 1 inh inhalation DAILY PRN 05/11/22 09/10/22 History 62.5 mcg-vilant 25 mcg Shortness Of Breath inhalat.powder (Trelegy Ellipta) ipratropium 0.5 mg-albuterol 3 mg 3 ml inhalation QID PRN Shortness 05/11/22 09/10/22 History (2.5 mg base)/3 mL nebulization Of Breath soln metformin 500 mg tablet,extended 500 mg PO BID 05/11/22 09/10/22 History release 24 hr multivitamin with folic acid 400 1 tab PO DAILY 05/11/22 09/10/22 History mcg tablet (Daily-Tejinder (with folic acid)) cetirizine 10 mg tablet 10 mg PO DAILY PRN Allergy Symptoms 05/25/22 09/10/22 History tamsulosin 0.4 mg capsule 0.4 mg PO DAILY 05/25/22 09/10/22 History atorvastatin 80 mg tablet 80 mg PO DAILY 05/30/22 09/10/22 History furosemide 40 mg tablet 40 mg PO DAILY 05/30/22 09/10/22 History omega-3 fatty acids 1,000 mg 1,000 mg PO BID 05/30/22 09/10/22 History capsule oxybutynin chloride 5 mg 5 mg PO DAILY 05/30/22 09/10/22 History tablet,extended release 24 hr ascorbic acid (vitamin C) 500 mg 500 mg PO BID 09/10/22 09/10/22 History tablet (Vitamin C) carvedilol 6.25 mg tablet 1 tab PO BID 09/10/22 09/10/22 History cholecalciferol (vitamin D3) 50 50 mcg PO DAILY 09/10/22 09/10/22 History mcg (2,000 unit) tablet (Vitamin D3) folic acid 1 mg tablet 1 tab PO DAILY 09/10/22 09/10/22 History glipizide 10 mg tablet, extended 1 tab PO DAILY 09/10/22 09/10/22 History release 24 hr sacubitril 24 mg-valsartan 26 mg 1 tab PO BID 09/10/22 09/10/22 History tablet (Entresto) Allergies Allergy/AdvReac Type Severity Reaction Status Date / Time Penicillins Allergy Intermediate Swelling Verified 09/09/22 17:38 Physical Exam Vital signs: Vital Signs Temp 96.8 F 09/11/22 07:07 Pulse 87 09/11/22 07:07 Resp 19 09/11/22 07:07 BP 180/90 H 09/11/22 07:07 Pulse Ox 97 09/11/22 07:07 O2 Del Method 09/11/22 07:07 Intake & Output 09/10/22 09/11/22 09/11/22 18:59 06:59 18:59 Intake Total 520 / 1200 680 / 1200 Output Total 100 / 100 Balance 420 / 1100 680 / 1100 Urine Output (Average ml/kg/hr) 0.09 0.09 Intake: Intake, Oral Amount 520 / 1200 680 / 1200 Output: Output, Urine Amount 100 / 100 Other: Meal Refused No NPO No Breakfast % Eaten 100% Lunch % Eaten 100% Dinner % Eaten 100% Number of Unmeasured Voids 2 1 Number of Bowel Movements 0 Urine Urinal Bathroom Urine Color Yellow Weight 93.3 kg - Constitutional Present: mild distress, obese - Routine HEENT Exam Eye: Present: EOMI, normal appearance - Routine Neck Exam Present: supple. Absent: lymphadenopathy - Routine Respiratory Exam Present: CTAB. Absent: accessory muscle use - Routine Cardiovascular Exam Cardiovascular: Present: S1, S2 - Routine Abdominal Exam Present: distended, soft - Routine Extremities Exam Absent: tenderness - Routine Skin Exam Present: intact. Absent: cyanosis - Routine Neurological Exam Present: alert, oriented X3 Hem/Onc Consult Result - Labs CBC & Chem 7: 09/10/22 06:34 09/10/22 06:34 Assessment and Plan Patient Active problem list reviewed?: Yes (1) Abdominal mass Status: Acute Assessment and plan: 1. This is a pleasant 81-year-old male with past medical history of diabetes mellitus, congestive heart failure and asthma presenting with an 8 cm mass in the upper abdomen pathologically enlarged lymph nodes suspicious for lymphoma. Multiple splenic masses representing lymphomatous involvement of the spleen. Work shows mildly elevated LDH, chronic thrombocytopenia and elevated monocytes. He is scheduled to undergo CT-guided biopsy of retroperitoneal lymphadenopathy. I will also submit blood flow cytometry, serum protein electrophoresis immunofixation, vitamin B12 and folate levels. Besides lymphoma, metastatic lymphadenopathy is also possibility. However CT chest and abdomen/ pelvis do not show any other primary lesions. He is requiring significant amount of narcotics for pain control. I thank you for this consultation. Will follow with you. - Time Spent With Patient Time Spent with Patient (in minutes): 15
[2022-09-11 20:09] LABS: Glucose, Whole Blood 169 mg/dL (60-115)
[2022-09-11 20:09] LABS: Glucose, Whole Blood 156 mg/dL (60-115)
[2022-09-11] MEDS: Acetaminophen 325 MG TABLET 650 MG PO (23:58)
--- NOTE | 2022-09-12 | ECG_ITS ---
Test Reason : chest pain Blood Pressure : / mmHG Vent. Rate : 072 BPM Atrial Rate : 072 BPM P-R Int : 150 ms QRS Dur : 078 ms QT Int : 396 ms P-R-T Axes : 063 011 020 degrees QTc Int : 433 ms Normal sinus rhythm Normal ECG When compared with ECG of 09-SEP-2022 18:14, No significant change was found Referred By: David Reeder Electronically Signed By:TIERRA BALLARD MD
[2022-09-12] MEDS: Morphine Sulfate 4 MG/ML CARTRIDGE IVPUSH ×3 (03:40→19:29)
[2022-09-12] MEDS: Omeprazole 40 MG CAPSULE.DR PO (05:49)
[2022-09-12 07:00] VITALS: BP 125/69; PULSE 78; RESP 19; TEMP 36.1; O2SAT 96
[2022-09-12 07:09] LABS: Glucose, Whole Blood 156 mg/dL (60-115)
[2022-09-12] MEDS: Acetaminophen 325 MG TABLET 650 MG PO ×2 (07:40→19:29)
[2022-09-12] MEDS: Furosemide 40 MG TABLET PO (07:41)
[2022-09-12] MEDS: Sacubitril/Valsartan 24/26 1 TAB TABLET PO ×2 (07:41→19:27)
[2022-09-12] MEDS: Multivitamin TABLET 1 TAB PO (07:41)
[2022-09-12] MEDS: Tamsulosin HCL 0.4 MG CAPSULE PO (07:41)
[2022-09-12] MEDS: Folic Acid 1 MG TABLET PO (07:41)
[2022-09-12] MEDS: Cholecalciferol (Vitamin D3) 25 MCG TABLET 50 MCG PO (07:41)
[2022-09-12] MEDS: Ascorbic Acid 500 MG TABLET PO ×2 (07:41→19:29)
[2022-09-12] MEDS: Isosorbide Mononitrate 30 MG TAB.ER.24H PO (07:41)
[2022-09-12] MEDS: carvediloL 6.25 MG TABLET PO ×2 (07:42→19:28)
[2022-09-12] MEDS: 0.9 % Sodium Chloride Flush 3 ML SYRINGE IVFLUSH ×2 (07:42→19:31)
[2022-09-12] MEDS: Atorvastatin Calcium 80 MG TABLET PO (07:42)
[2022-09-12] MEDS: Fluticasone/Vilanterol 200/25 BLST.W.DEV 1 PUFF INHALE (08:02)
[2022-09-12 08:05] VITALS: PULSE 78; RESP 18; O2SAT 95
[2022-09-12] MEDS: oxyCODONE HCl Immed Release 5 MG TABLET PO ×2 (09:59→15:39)
--- NOTE | 2022-09-12 10:26 | PC.NURSE ---
Patient c/o of epigastric pain. MD at bedside. Troponins ordered and EKG. Patient medicated with morphine with no relief. Additional pain medications ordered.
[2022-09-12 10:34] LABS: Troponin-I High Sensitivity 9.2 ng/L (<3.5-35.0)
[2022-09-12 11:12] LABS: Glucose, Whole Blood 220 mg/dL (60-115)
--- NOTE | 2022-09-12 11:18 | P.PNIM_ITS ---
Subjective Subjective Date of Service: 09/12/22 Interval History: This history was taken in Italian from the patient. C/o severe 09/04 upper abd pain, burning Biopsy yesterday, no complications Review of Systems Review of Systems: Yes all other systems are reviewed and are negative Physical Exam Vital Signs: Vital Signs: Last Vital Signs Temp 97 F 09/12/22 07:00 Pulse 78 09/12/22 08:05 Resp 18 09/12/22 08:05 BP 125/69 09/12/22 07:00 Pulse Ox 96 09/12/22 07:00 O2 Del Method 09/12/22 07:00 BMI result Body Mass Index 35.3 Gen: in pain HEENT: sclera anicteric, moist mucus membranes Neck: supple, no adenopathy Lungs: clear to auscultation bilaterally Heart: regular rate and rhythm, no murmurs Abd: soft, non-tender, non-distended, obese Ext: no edema Skin: warm/well-perfused Neuro: alert and oriented x3, no focal findings Psych: appropriate affect Objective Data Active Medications Acetaminophen (Acetaminophen 325 Mg Tablet) 650 mg PO Q6H PRN PRN Reason: Pain, Mild (Pain Scale 1-3) Last Admin: 09/12/22 07:40 Dose: 650 mg Documented By: KIRSTEN Albuterol Sulfate (Albuterol Sulfate 90 Mcg 8 Gm Inhaler) 2 puff INHALE Q4H PRN PRN Reason: shortness of breath or wheezing Albuterol/Ipratropium (Albuterol/Iprat 2.5/0.5mg 3 Ml Ampul.Neb) 3 ml INHALE Q4H PRN PRN Reason: Wheezing Ascorbic Acid (Ascorbic Acid 500 Mg Tablet) 500 mg PO BID [facility] Last Admin: 09/12/22 07:41 Dose: 500 mg Documented By: KIRSTEN Atorvastatin Calcium (Atorvastatin Calcium 80 Mg Tablet) 80 mg PO DAILY [facility] Last Admin: 09/12/22 07:42 Dose: 80 mg Documented By: KIRSTEN Carvedilol (Carvedilol 6.25 Mg Tablet) 6.25 mg PO BID [facility]; Protocol Last Admin: 09/12/22 07:42 Dose: 6.25 mg Documented By: KIRSTEN Dextrose (Dextrose 50 % 25 Gm/50 Ml Syringe) 25 gm IVPUSH Q15M PRN; Protocol PRN Reason: per Hypoglycemia Standing Ord. Fluticasone/Vilanterol (Fluticasone/Vilanterol 200/25 Blst.W.Dev) 1 puff INHALE RDAILY [facility] Last Admin: 09/12/22 08:02 Dose: 1 puff Documented By: LAURA Folic Acid (Folic Acid 1 Mg Tablet) 1 mg PO DAILY [facility] Last Admin: 09/12/22 07:41 Dose: 1 mg Documented By: KIRSTEN Furosemide (Furosemide 40 Mg Tablet) 40 mg PO DAILY [facility]; Protocol Last Admin: 09/12/22 07:41 Dose: 40 mg Documented By: KIRSTEN Glucose (Glucose Gel 15 Gm Gel..Gram.) 15 gm PO Q15M PRN; Protocol PRN Reason: per Hypoglycemia Standing Ord. Isosorbide Mononitrate (Isosorbide Mononitrate 30 Mg Tab.Er.24h) 30 mg PO DAILY [facility]; Protocol Last Admin: 09/12/22 07:41 Dose: 30 mg Documented By: KIRSTEN Loratadine (Loratadine 10 Mg Tablet) 10 mg PO DAILY PRN PRN Reason: Allergy Symptoms Last Admin: 09/10/22 19:37 Dose: 10 mg Documented By: TATIANA Melatonin (Melatonin 3 Mg Tablet) 6 mg PO BEDTIME PRN PRN Reason: Insomnia Morphine Sulfate (Morphine Sulfate 4 Mg/Ml Cartridge) 4 mg IVPUSH Q4H PRN; Protocol PRN Reason: Pain, Severe (Pain Scale 7-10) Last Admin: 09/12/22 07:42 Dose: 4 mg Documented By: KIRSTEN Multivitamins/Vitamin C (Multivitamin Tablet) 1 tab PO DAILY [facility] Last Admin: 09/12/22 07:41 Dose: 1 tab Documented By: KIRSTEN Omeprazole (Omeprazole 40 Mg Capsule.) 40 mg PO DAILY@0630 [facility] Last Admin: 09/12/22 05:49 Dose: 40 mg Documented By: SANTANA Ondansetron HCl (Ondansetron Hcl 4 Mg/2 Ml Vial) 4 mg IVPUSH Q8H PRN PRN Reason: Nausea and Vomiting Last Admin: 09/11/22 13:13 Dose: 4 mg Documented By: KIRSTEN Oxybutynin Chloride (Oxybutynin Chloride Er 5 Mg Tab.Er.24) 5 mg PO DAILY [facility] Last Admin: 09/12/22 07:41 Dose: 5 mg Documented By: KIRSTEN Oxycodone HCl (Oxycodone Hcl Immed Release 5 Mg Tablet) 5 mg PO Q4H PRN PRN Reason: moderate pain Last Admin: 09/12/22 09:59 Dose: 5 mg Documented By: KIRSTEN Sacubitril/Valsartan (Sacubitril/Valsartan 1 Tab Tablet) 1 tab PO BID [facility]; Protocol Last Admin: 09/12/22 07:41 Dose: 1 tab Documented By: KIRSTEN Sodium Chloride (0.9 % Sodium Chloride Flush 3 Ml Syringe) 3 ml IVFLUSH QSHIFT [facility] Last Admin: 09/12/22 07:42 Dose: 3 ml Documented By: KIRSTEN Tamsulosin HCl (Tamsulosin Hcl 0.4 Mg Capsule) 0.4 mg PO DAILY [facility] Last Admin: 09/12/22 07:41 Dose: 0.4 mg Documented By: KIRSTEN Tiotropium [place] (Tiotropium [place] 18 Mcg Cap.W.Dev) 1 puff INHALE RDAILY [facility] Last Admin: 09/12/22 08:02 Dose: 1 puff Documented By: LAURA Vitamin D (Cholecalciferol (Vitamin D3) 25 Mcg Tablet) 50 mcg PO DAILY [facility] Last Admin: 09/12/22 07:41 Dose: 50 mcg Documented By: KIRSTEN Labs CBC & Chem 7: 09/10/22 06:34 09/10/22 06:34 Labs: Laboratory Results - last 24 hr 09/11/22 09/11/22 09/11/22 11:23 17:23 19:47 POC Glucose 175 H 169 H 156 H Troponin I High Sens 09/12/22 09/12/22 09/12/22 07:00 09:57 11:03 POC Glucose 156 H 220 H Troponin I High Sens 9.2 Microbiology Microbiology Results: Microbiology 09/10/22 Unknown Urine Culture - Final Urine clean catch - Urine [place] top No growth. Assessment and Plan (1) Abdominal mass: Status: Acute Plan d#3 81yo M with 3v CAD s/p LM + LAD stents, HFpEF, DM2, HTN, AUD, COPD/asthma presenting with abd pain and found to have 8cm mass in the upper abdomen, just above the celiac axis with adjacent pathologically enlarged lymph nodes most suspicious for lymphoma; multiple splenic masses # abd mass, suspicious for lymphoma - LDH mildly elevated. Oncology consulted. CT-guided biopsy done yesterday. pain control currently requiring IV morphine- will try to change to PO oxycodone. rule out cardiac source of pain given cardiac history- will cycle [id number] x2 + check EKG # chronic HFpEF # HTN # CAD - continue furosemide - continue Imdur, statin, carvedilol, Entresto - hold ASA + ticagrelor # DM2 - hold oral OHGs, give correction-dose lispro # asthma/COPD overlap not in acute exac - prn nebs # history of alcohol abuse - in remission # VTE ppx: SCDs In my clinical judgment, the patient requires continued hospitalization for the following reasons: pain contrl Quality Stroke Does the patient have a stroke diagnosis?: No VTE Prior VTE?: No VTE Risk Level:: Medical - moderate - high VTE Device Contraindication: Treatment Not Indicated VTE Drug Contraindication: Treatment Not Indicated
[2022-09-12] MEDS: ondansetron HCL 4 MG/2 ML VIAL IVPUSH (11:24)
[2022-09-12 13:01] VITALS: BP 93/52; PULSE 74; RESP 16; TEMP 36.2; O2SAT 94
[2022-09-12 13:25] LABS: Troponin-I High Sensitivity 8.6 ng/L (<3.5-35.0)
[2022-09-12] MEDS: 0.9 % Sodium Chloride 1,000 ML 250 ML IVCONT (13:27)
[2022-09-12 14:30] VITALS: BP 132/66; PULSE 77; RESP 18; TEMP 36.3; O2SAT 94
[2022-09-12 15:09] VITALS: BP 131/60; PULSE 81; RESP 18; TEMP 37.2; O2SAT 93
[2022-09-12 15:34] LABS: Glucose, Whole Blood 247 mg/dL (60-115)
[2022-09-12 19:21] VITALS: BP 181/95; PULSE 104; RESP 24; TEMP 38.8; O2SAT 95
[2022-09-12 20:14] LABS: Glucose, Whole Blood 241 mg/dL (60-115)
[2022-09-12 20:45] LABS: Lactic Acid 1.8 mmol/L (0.5-2.0)
[2022-09-13] VITALS (8 sets, daily range): BP systolic 92–122; BP diastolic 46–66; PULSE 85–97; RESP 16–18; TEMP 36–37.2; O2SAT 93–98
[2022-09-13] MEDS: oxyCODONE HCl Immed Release 5 MG TABLET PO ×2 (03:15→11:32)
[2022-09-13] MEDS: Acetaminophen 325 MG TABLET 650 MG PO (03:15)
[2022-09-13] MEDS: Morphine Sulfate 4 MG/ML CARTRIDGE IVPUSH ×2 (04:25→21:08)
[2022-09-13] MEDS: Omeprazole 40 MG CAPSULE.DR PO (05:48)
--- NOTE | 2022-09-13 06:16 | PC.NURSE ---
At 1900 pt c/o severe pain on his right side and RUQ to his back 10/10, chills, noted with vitals BP 181/95 Hr= 104, RR 24 ,gvpk=739.8 temporal, sats high 90s, prn Morphine and tylenol with scheduled Coreg given, additional blankets given, Dr. Sotelo was notified, STAT labs were ordered and drawn, STAT CXR done, stil for UA, pt instructed, pt verbalized relief after, fever subsided when checked.
[2022-09-13 07:37] LABS: Glucose, Whole Blood 198 mg/dL (60-115)
[2022-09-13] MEDS: Sacubitril/Valsartan 24/26 1 TAB TABLET PO ×2 (07:40→21:08)
[2022-09-13] MEDS: Tamsulosin HCL 0.4 MG CAPSULE PO (07:40)
[2022-09-13] MEDS: Folic Acid 1 MG TABLET PO (07:40)
[2022-09-13] MEDS: Cholecalciferol (Vitamin D3) 25 MCG TABLET 50 MCG PO (07:40)
[2022-09-13] MEDS: Ascorbic Acid 500 MG TABLET PO ×2 (07:41→21:08)
[2022-09-13] MEDS: Multivitamin TABLET 1 TAB PO (07:41)
[2022-09-13] MEDS: Atorvastatin Calcium 80 MG TABLET PO (07:41)
[2022-09-13] MEDS: carvediloL 6.25 MG TABLET PO ×2 (07:42→21:08)
[2022-09-13] MEDS: Furosemide 40 MG TABLET PO (07:42)
[2022-09-13] MEDS: Isosorbide Mononitrate 30 MG TAB.ER.24H PO (07:42)
[2022-09-13] MEDS: 0.9 % Sodium Chloride Flush 3 ML SYRINGE IVFLUSH ×2 (07:46→15:59)
[2022-09-13] MEDS: Fluticasone/Vilanterol 200/25 BLST.W.DEV 1 PUFF INHALE (08:30)
[2022-09-13 08:59] LABS: Hematocrit 37.3 % (42.0-52.0); Hemoglobin 12.9 g/dl (14.0-18.0); Mean Corpuscular HGB Conc 34.6 g/dl (31.0-36.0); Mean Corpuscular Hemoglobin 30.9 pg (27.0-33.0); Mean Corpuscular Volume 89.4 fL (80.0-98.0); Mean Platelet Volume 10.1 fL (9.4-12.4); Platelet Count 105 X10*3/uL (160-400); Red Blood Count 4.17 X10*6/uL (4.60-5.80); Red Cell Distribution Width 12.4 % (11.0-16.0); White Blood Count 24.7 X10*3/uL (4.8-10.8)
[2022-09-13 09:32] LABS: Anion Gap 18 (12-20); Blood Urea Nitrogen 15 mg/dL (9-16); Calcium 8.9 mg/dL (8.4-10.2); Carbon Dioxide 24 mmol/L (22-29); Chloride 95 mmol/L (96-108); Creatinine Clr Calc Pharmacy 62.1; Estimated Glomerular Filt Rate > 60; Glucose Random 207 mg/dL (60-115); Magnesium 1.9 mg/dL (1.6-2.6); Sodium 133 mmol/L (135-145)
[2022-09-13 09:46] LABS: Procalcitonin 0.23 ng/mL
[2022-09-13] MEDS: Lactated Ringers 1,000 ML 100 ML IVCONT (09:53)
--- NOTE | 2022-09-13 10:44 | P.PNIM_ITS ---
Subjective Subjective Date of Service: 09/13/22 Interval History: This history was taken in [place] from the patient. Febrile to 101.8 at 19:25 overnight. Not passing gas. C/o abd distension; pain improved. No cough. No dysuria. Review of Systems Review of Systems: Yes all other systems are reviewed and are negative Physical Exam Vital Signs: Vital Signs: Last Vital Signs Temp 98.6 F 09/13/22 07:31 Pulse 89 09/13/22 08:31 Resp 18 09/13/22 08:31 BP 104/55 L 09/13/22 07:31 Pulse Ox 94 09/13/22 07:31 O2 Del Method 09/13/22 07:31 BMI result Body Mass Index 35.3 Gen: NAD, pain improved from yesterday HEENT: sclera anicteric, moist mucus membranes Neck: supple, no adenopathy Lungs: clear to auscultation bilaterally Heart: regular rate and rhythm, no murmurs Abd: soft, non-tender, somewhat distended, obese, no bowel sounds Ext: no edema Skin: warm/well-perfused Neuro: alert and oriented x3, no focal findings Psych: appropriate affect Objective Data Active Medications Acetaminophen (Acetaminophen 325 Mg Tablet) 650 mg PO Q6H PRN PRN Reason: Pain, Mild (Pain Scale 1-3) Last Admin: 09/13/22 03:15 Dose: 650 mg Documented By: SANTANA Albuterol Sulfate (Albuterol Sulfate 90 Mcg 8 Gm Inhaler) 2 puff INHALE Q4H PRN PRN Reason: shortness of breath or wheezing Albuterol/Ipratropium (Albuterol/Iprat 2.5/0.5mg 3 Ml Ampul.Neb) 3 ml INHALE Q4H PRN PRN Reason: Wheezing Ascorbic Acid (Ascorbic Acid 500 Mg Tablet) 500 mg PO BID [facility] Last Admin: 09/13/22 07:41 Dose: 500 mg Documented By: JAYLA Atorvastatin Calcium (Atorvastatin Calcium 80 Mg Tablet) 80 mg PO DAILY [facility] Last Admin: 09/13/22 07:41 Dose: 80 mg Documented By: JAYLA Carvedilol (Carvedilol 6.25 Mg Tablet) 6.25 mg PO BID [facility]; Protocol Last Admin: 09/13/22 07:42 Dose: 6.25 mg Documented By: JAYLA Dextrose (Dextrose 50 % 25 Gm/50 Ml Syringe) 25 gm IVPUSH Q15M PRN; Protocol PRN Reason: per Hypoglycemia Standing Ord. Fluticasone/Vilanterol (Fluticasone/Vilanterol 200/25 Blst.W.Dev) 1 puff INHALE RDAILY [facility] Last Admin: 09/13/22 08:30 Dose: 1 puff Documented By: EMELIA Folic Acid (Folic Acid 1 Mg Tablet) 1 mg PO DAILY [facility] Last Admin: 09/13/22 07:40 Dose: 1 mg Documented By: JAYLA Furosemide (Furosemide 40 Mg Tablet) 40 mg PO DAILY [facility]; Protocol Last Admin: 09/13/22 07:42 Dose: 40 mg Documented By: JAYLA Glucose (Glucose Gel 15 Gm Gel..Gram.) 15 gm PO Q15M PRN; Protocol PRN Reason: per Hypoglycemia Standing Ord. Lactated Ringer's (Lr) 1,000 mls @ 100 mls/hr IVCONT .Q10H [facility] Last Admin: 09/13/22 09:53 Dose: 100 mls/hr Documented By: JAYLA Levofloxacin (Levaquin) 750 mg in 150 mls @ 100 mls/hr IV Q24H [facility] Isosorbide Mononitrate (Isosorbide Mononitrate 30 Mg Tab.Er.24h) 30 mg PO DAILY [facility]; Protocol Last Admin: 09/13/22 07:42 Dose: 30 mg Documented By: JAYLA Loratadine (Loratadine 10 Mg Tablet) 10 mg PO DAILY PRN PRN Reason: Allergy Symptoms Last Admin: 09/10/22 19:37 Dose: 10 mg Documented By: TATIANA Melatonin (Melatonin 3 Mg Tablet) 6 mg PO BEDTIME PRN PRN Reason: Insomnia Morphine Sulfate (Morphine Sulfate 4 Mg/Ml Cartridge) 4 mg IVPUSH Q4H PRN; Protocol PRN Reason: Pain, Severe (Pain Scale 7-10) Last Admin: 09/13/22 04:25 Dose: 4 mg Documented By: SANTANA Multivitamins/Vitamin C (Multivitamin Tablet) 1 tab PO DAILY [facility] Last Admin: 09/13/22 07:41 Dose: 1 tab Documented By: JAYLA Omeprazole (Omeprazole 40 Mg Capsule.Dr) 40 mg PO DAILY@0630 [facility] Last Admin: 09/13/22 05:48 Dose: 40 mg Documented By: SANTANA Ondansetron HCl (Ondansetron Hcl 4 Mg/2 Ml Vial) 4 mg IVPUSH Q8H PRN PRN Reason: Nausea and Vomiting Last Admin: 09/12/22 11:24 Dose: 4 mg Documented By: KIRSTEN Oxybutynin Chloride (Oxybutynin Chloride Er 5 Mg Tab.Er.24) 5 mg PO DAILY [facility] Last Admin: 09/13/22 07:43 Dose: 5 mg Documented By: JAYLA Oxycodone HCl (Oxycodone Hcl Immed Release 5 Mg Tablet) 5 mg PO Q4H PRN PRN Reason: moderate pain Last Admin: 09/13/22 03:15 Dose: 5 mg Documented By: SANTANA Sacubitril/Valsartan (Sacubitril/Valsartan 1 Tab Tablet) 1 tab PO BID [facility]; Protocol Last Admin: 09/13/22 07:40 Dose: 1 tab Documented By: JAYLA Sodium Chloride (0.9 % Sodium Chloride Flush 3 Ml Syringe) 3 ml IVFLUSH QSHIFT [facility] Last Admin: 09/13/22 07:46 Dose: 3 ml Documented By: JAYLA Tamsulosin HCl (Tamsulosin Hcl 0.4 Mg Capsule) 0.4 mg PO DAILY [facility] Last Admin: 09/13/22 07:40 Dose: 0.4 mg Documented By: JAYLA Tiotropium [place] (Tiotropium [place] 18 Mcg Cap.W.Dev) 1 puff INHALE RDAILY [facility] Last Admin: 09/13/22 08:30 Dose: 1 puff Documented By: EMELIA Vitamin D (Cholecalciferol (Vitamin D3) 25 Mcg Tablet) 50 mcg PO DAILY [facility] Last Admin: 09/13/22 07:40 Dose: 50 mcg Documented By: JAYLA Labs CBC & Chem 7: 09/13/22 08:34 09/13/22 08:34 Labs: Laboratory Results - last 24 hr 09/12/22 09/12/22 09/12/22 11:03 12:51 15:11 MCV MCH MCHC RDW Plt Count MPV Absolute Nucleated RBC Nucleated RBC % (auto) Anion Gap Estim Creat Clear Calc Estimated GFR POC Glucose 220 H 247 H Random Glucose Lactic Acid Calcium Magnesium Troponin I High Sens 8.6 Procalcitonin 09/12/22 09/12/22 09/13/22 19:56 20:25 07:29 MCV MCH MCHC RDW Plt Count MPV Absolute Nucleated RBC Nucleated RBC % (auto) Anion Gap Estim Creat Clear Calc Estimated GFR POC Glucose 241 H 198 H Random Glucose Lactic Acid 1.8 Calcium Magnesium Troponin I High Sens Procalcitonin 09/13/22 09/13/22 09/13/22 08:34 08:34 08:34 MCV 89.4 MCH 30.9 MCHC 34.6 RDW 12.4 Plt Count 105 L MPV 10.1 Absolute Nucleated RBC 0.000 Nucleated RBC % (auto) 0.0 Anion Gap 18 Estim Creat Clear Calc 62.1 Estimated GFR > 60 POC Glucose Random Glucose 207 H D Lactic Acid Calcium 8.9 Magnesium 1.9 Troponin I High Sens Procalcitonin 0.23 Assessment and Plan (1) Abdominal mass: Status: Acute Plan d#4 81yo M with 3v CAD s/p LM + LAD stents, HFpEF, DM2, HTN, AUD, COPD/asthma presenting with abd pain and found to have 8cm mass in the upper abdomen, just above the celiac axis with adjacent pathologically enlarged lymph nodes most suspicious for lymphoma; multiple splenic masses; LDH elevated # abd mass - s/p CT-guided biopsy 09/11/22, pathology pending but preliminary consistent with lymphoma # abd pain # SBO vs ileus - concern for lymph node causing obstruction- will make NPO, repeat CT, and consult Surgery # fever - unknown if due to lymphoma or to infection of unknown source. BCx sent; will check UCx and RPP and start empiric levofloxacin d#1 # chronic HFpEF # HTN # CAD - continue furosemide - continue Imdur, statin, carvedilol, Entresto - hold ASA + ticagrelor # DM2 - hold oral OHGs, give correction-dose lispro # asthma/COPD overlap not in acute exac - prn nebs # history of alcohol abuse - in remission # VTE ppx: SCDs In my clinical judgment, the patient requires continued hospitalization for the following reasons: possible SBO Quality Stroke Does the patient have a stroke diagnosis?: No VTE Prior VTE?: No VTE Risk Level:: Medical - moderate - high VTE Device Contraindication: Treatment Not Indicated VTE Drug Contraindication: Treatment Not Indicated
[2022-09-13] MEDS: levoFLOXacin/D5W 750 MG/150 ML PIGGYBACK 100 MG IV (11:15)
[2022-09-13 11:35] LABS: Glucose, Whole Blood 243 mg/dL (60-115)
[2022-09-13] MEDS: 0.9 % Sodium Chloride 1,000 ML 100 ML IVCONT ×2 (11:35→22:43)
[2022-09-13] MEDS: Barium Sulfate Oral (Mocha) 450 ML ORAL.SUSP 900 ML PO (15:28)
[2022-09-13 15:57] LABS: Appearance Urine Clear; Color Urine Dark Yellow; Glucose Urine UA Negative (Negative); Leukocyte Esterase Urine Small (1+) (Negative); Nitrite Urine Negative (Negative); PH 5.5 (5.0-9.0); UMIC TRIGGER UA YES; Urine Blood Negative (Negative); Urine Ketones Trace mg/dL (Negative); Urine Protein 30 (1+) mg/dL (Neg-Trace)
[2022-09-13 16:06] LABS: Glucose, Whole Blood 181 mg/dL (60-115)
[2022-09-13 16:18] LABS: Bacteria Urine 4+ (None Seen); RBC Urine 0-2 /HPF (0-2)
--- NOTE | 2022-09-13 16:30 | PM.CNGS ---
History of Present Illness Consult details Consult date: 09/13/22 Requesting physician: David Reeder Narrative: 81-year-old male patient with history of CHF with preserved ejection fraction, [id number] diabetes mellitus, essential hypertension, COPD/asthma presenting with complaints of abdominal distention abdominal pain. The pain began approximately 5 days prior to admission and was associated with nausea without vomiting, anorexia but without constipation or diarrhea. Workup in the emergency department with CT abdomen and pelvis revealed an 8 cm mass in the upper abdomen which was suspicious for lymphoma. A ultrasound and fluoroscopic guided biopsy was performed yesterday. Following this the patient had marked abdominal distension with constipation but without significant pain. Abdominal x-ray revealed multiple gas-filled loops of small bowel suggestive of either an ileus or small-bowel obstruction. A repeat CT abdomen and pelvis with oral contrast performed today was reviewed. Port is not available at the time of this dictation. Oral contrast is seen to traverse the entire small bowel into the terminal ileum without evidence of obstruction. Review of Systems Review of Systems: Yes all other systems are reviewed and are negative Constitutional: Constitutional: Reports anorexia, Denies chills and Denies fever(s) Gastrointestinal: Gastrointestinal: Reports abdominal pain, Reports bloating, Reports constipation, Reports nausea and Denies vomiting PMFSH Past Medical History Medical History Asthma Asthma-COPD overlap syndrome COPD with asthma COVID-19 Diabetes Diabetes Dyspnea on exertion Hyperlipidemia Hypertension Thrombocytopenia Surgical History Surgical History H/O lithotripsy Social History Social History Household Members: None Housing: Apartment Do you presently have visiting nurse or other home services: Yes (visiting nurse at times) Alcohol intake: current Alcohol intake frequency: 3 or more drinks per day Patient Tobacco Use Status: Former Tobacco user Use of substances other than those prescribed or required for medical reasons: No Currently Displaying Signs/Symptoms of Drug Intoxication Withdrawal: No Have you been hit, kicked, punched, or otherwise hurt by someone within the past year? If so, by whom?: No Do you feel safe in your current relationship?: Yes Is there a partner from a previous relationship who is making you feel unsafe now?: No Are you made to feel afraid or neglected: No Advance Directives: No Advance Directives Information Provided: No Do you have thoughts of harming others: None Do you have a plan to hurt others: No Plan Recently lost weight without trying: No How much weight loss: Not applicable Eating poorly because of decreased appetite: No Nutrition screen score: 0 Nutrition Risks: No Nutritional Risk Poor oral hygiene: No service: No Current occupational status: retired and disabled Meds Allergies Allergy/AdvReac Type Severity Reaction Status Date / Time Penicillins Allergy Intermediate Swelling Verified 09/09/22 17:38 Active Medications: Current Medications Acetaminophen (Acetaminophen 325 Mg Tablet) 650 mg PO Q6H PRN PRN Reason: Pain, Mild (Pain Scale 1-3) Last Admin: 09/13/22 03:15 Dose: 650 mg Albuterol Sulfate (Albuterol Sulfate 90 Mcg 8 Gm Inhaler) 2 puff INHALE Q4H PRN PRN Reason: shortness of breath or wheezing Albuterol/Ipratropium (Albuterol/Iprat 2.5/0.5mg 3 Ml Ampul.Neb) 3 ml INHALE Q4H PRN PRN Reason: Wheezing Ascorbic Acid (Ascorbic Acid 500 Mg Tablet) 500 mg PO BID [facility] Last Admin: 09/13/22 07:41 Dose: 500 mg Atorvastatin Calcium (Atorvastatin Calcium 80 Mg Tablet) 80 mg PO DAILY [facility] Last Admin: 09/13/22 07:41 Dose: 80 mg Carvedilol (Carvedilol 6.25 Mg Tablet) 6.25 mg PO BID [facility]; Protocol Last Admin: 09/13/22 07:42 Dose: 6.25 mg Dextrose (Dextrose 50 % 25 Gm/50 Ml Syringe) 25 gm IVPUSH Q15M PRN; Protocol PRN Reason: per Hypoglycemia Standing Ord. Fluticasone/Vilanterol (Fluticasone/Vilanterol 200/25 Blst.W.Dev) 1 puff INHALE RDAILY [facility] Last Admin: 09/13/22 08:30 Dose: 1 puff Folic Acid (Folic Acid 1 Mg Tablet) 1 mg PO DAILY [facility] Last Admin: 09/13/22 07:40 Dose: 1 mg Glucose (Glucose Gel 15 Gm Gel..Gram.) 15 gm PO Q15M PRN; Protocol PRN Reason: per Hypoglycemia Standing Ord. Levofloxacin (Levaquin) 750 mg in 150 mls @ 100 mls/hr IV Q24H [facility] Last Infusion: 09/13/22 13:09 Dose: Infused Sodium Chloride (Ns) 1,000 mls @ 100 mls/hr IVCONT .Q10H [facility] Last Admin: 09/13/22 11:35 Dose: 100 mls/hr Isosorbide Mononitrate (Isosorbide Mononitrate 30 Mg Tab.Er.24h) 30 mg PO DAILY [facility]; Protocol Last Admin: 09/13/22 07:42 Dose: 30 mg Loratadine (Loratadine 10 Mg Tablet) 10 mg PO DAILY PRN PRN Reason: Allergy Symptoms Last Admin: 09/10/22 19:37 Dose: 10 mg Melatonin (Melatonin 3 Mg Tablet) 6 mg PO BEDTIME PRN PRN Reason: Insomnia Morphine Sulfate (Morphine Sulfate 4 Mg/Ml Cartridge) 4 mg IVPUSH Q4H PRN; Protocol PRN Reason: Pain, Severe (Pain Scale 7-10) Last Admin: 09/13/22 04:25 Dose: 4 mg Multivitamins/Vitamin C (Multivitamin Tablet) 1 tab PO DAILY [facility] Last Admin: 09/13/22 07:41 Dose: 1 tab Omeprazole (Omeprazole 40 Mg Capsule.Dr) 40 mg PO DAILY@0630 [facility] Last Admin: 09/13/22 05:48 Dose: 40 mg Ondansetron HCl (Ondansetron Hcl 4 Mg/2 Ml Vial) 4 mg IVPUSH Q8H PRN PRN Reason: Nausea and Vomiting Last Admin: 09/12/22 11:24 Dose: 4 mg Oxybutynin Chloride (Oxybutynin Chloride Er 5 Mg Tab.Er.24) 5 mg PO DAILY [facility] Last Admin: 09/13/22 07:43 Dose: 5 mg Oxycodone HCl (Oxycodone Hcl Immed Release 5 Mg Tablet) 5 mg PO Q4H PRN PRN Reason: moderate pain Last Admin: 09/13/22 11:32 Dose: 5 mg Sacubitril/Valsartan (Sacubitril/Valsartan / 1 Tab Tablet) 1 tab PO BID [facility]; Protocol Last Admin: 09/13/22 07:40 Dose: 1 tab Sodium Chloride (0.9 % Sodium Chloride Flush 3 Ml Syringe) 3 ml IVFLUSH QSHIFT [facility] Last Admin: 09/13/22 15:59 Dose: 3 ml Tamsulosin HCl (Tamsulosin Hcl 0.4 Mg Capsule) 0.4 mg PO DAILY [facility] Last Admin: 09/13/22 07:40 Dose: 0.4 mg Tiotropium [place] (Tiotropium [place] 18 Mcg Cap.W.Dev) 1 puff INHALE RDAILY [facility] Last Admin: 09/13/22 08:30 Dose: 1 puff Vitamin D (Cholecalciferol (Vitamin D3) 25 Mcg Tablet) 50 mcg PO DAILY [facility] Last Admin: 09/13/22 07:40 Dose: 50 mcg Home Medications Medication Instructions Recorded Confirmed Last Taken Type insulin detemir U-100 100 unit/mL 12 unit subcut DAILY 12/17/21 09/10/22 2 Days Ago History (3 mL) subcutaneous pen (Levemir ~09/08/22 FlexTouch U-100 Insulin) oxycodone-acetaminophen 5 mg-325 1 tab PO Q8H PRN severe pain 12/17/21 09/10/22 12/15/21 History mg tablet fluticasone fur. 200 mcg-umeclid 1 inh inhalation DAILY PRN 05/11/22 09/10/22 Unknown History 62.5 mcg-vilant 25 mcg Shortness Of Breath inhalat.powder (Trelegy Ellipta) ipratropium 0.5 mg-albuterol 3 mg 3 ml inhalation QID PRN Shortness 05/11/22 09/10/22 Unknown History (2.5 mg base)/3 mL nebulization Of Breath soln metformin 500 mg tablet,extended 500 mg PO BID 05/11/22 09/10/22 2 Days Ago History release 24 hr ~09/08/22 multivitamin with folic acid 400 1 tab PO DAILY 05/11/22 09/10/22 2 Days Ago History mcg tablet (Daily-Tejinder (with folic ~09/08/22 acid)) cetirizine 10 mg tablet 10 mg PO DAILY PRN Allergy Symptoms 05/25/22 09/10/22 Unknown History tamsulosin 0.4 mg capsule 0.4 mg PO DAILY 05/25/22 09/10/22 2 Days Ago History ~09/08/22 atorvastatin 80 mg tablet 80 mg PO DAILY 05/30/22 09/10/22 2 Days Ago History ~09/08/22 furosemide 40 mg tablet 40 mg PO DAILY 05/30/22 09/10/22 2 Days Ago History ~09/08/22 omega-3 fatty acids 1,000 mg 1,000 mg PO BID 05/30/22 09/10/22 2 Days Ago History capsule ~09/08/22 oxybutynin chloride 5 mg 5 mg PO DAILY 05/30/22 09/10/22 2 Days Ago History tablet,extended release 24 hr ~09/08/22 ascorbic acid (vitamin C) 500 mg 500 mg PO BID 09/10/22 09/10/22 2 Days Ago History tablet (Vitamin C) ~09/08/22 carvedilol 6.25 mg tablet 1 tab PO BID 09/10/22 09/10/22 2 Days Ago History ~09/08/22 cholecalciferol (vitamin D3) 50 50 mcg PO DAILY 09/10/22 09/10/22 2 Days Ago History mcg (2,000 unit) tablet (Vitamin ~09/08/22 D3) folic acid 1 mg tablet 1 tab PO DAILY 09/10/22 09/10/22 2 Days Ago History ~09/08/22 glipizide 10 mg tablet, extended 1 tab PO DAILY 09/10/22 09/10/22 2 Days Ago History release 24 hr ~09/08/22 sacubitril 24 mg-valsartan 26 mg 1 tab PO BID 09/10/22 09/10/22 2 Days Ago History tablet (Entresto) ~09/08/22 Physical Exam Vital Signs: Vital Signs: Last Vital Signs Temp 97.7 F 09/13/22 11:27 Pulse 86 09/13/22 11:27 Resp 18 09/13/22 11:27 BP 100/57 L 09/13/22 11:27 Pulse Ox 95 09/13/22 11:27 O2 Del Method 09/13/22 11:27 BMI result Body Mass Index 35.3 Const: General: no acute distress and well developed Nutritional Appearance: obese Orientation/consciousness: patient oriented x3 Limitations: no limitations HEENT: Head: Yes normocephalic and Yes atraumatic Ears: hearing grossly normal bilaterally Resp: Effort & Inspection: normal respiratory effort, no audible wheezes and no cough Auscultation: clear to auscultation bilaterally GI: Inspection: Yes distended and Yes Abdominal panniculus present Palpation (GI): Soft to palpation, nontender, no guarding and not rigid Percussion: Yes tympanic to percussion Auscultation: normal bowel sounds Skin: General skin exam: no rashes or lesions noted Neuro: General: patient oriented x3 Extrem: General: Yes no clubbing, cyanosis or edema Results Labs Result diagrams: 09/13/22 08:34 09/13/22 08:34 Labs: Abnormal lab results 09/12/22 09/13/22 09/13/22 Range/Units 19:56 07:29 08:34 WBC 24.7 H (4.8-10.8) X10*3/uL RBC 4.17 L (4.60-5.80) X10*6/uL Hgb 12.9 L (14.0-18.0) g/dl Hct 37.3 L (42.0-52.0) % Plt Count 105 L (160-400) X10*3/uL Sodium (135-145) mmol/L Chloride (96-108) mmol/L POC Glucose 241 H 198 H (60-115) mg/dL Random Glucose (60-115) mg/dL Urine Protein (Neg-Trace) mg/dL Ur Leukocyte Esterase (Negative) Urine WBC (0-5) /HPF 09/13/22 09/13/22 09/13/22 Range/Units 08:34 11:13 15:30 WBC (4.8-10.8) X10*3/uL RBC (4.60-5.80) X10*6/uL Hgb (14.0-18.0) g/dl Hct (42.0-52.0) % Plt Count (160-400) X10*3/uL Sodium 133 L (135-145) mmol/L Chloride 95 L (96-108) mmol/L POC Glucose 243 H (60-115) mg/dL Random Glucose 207 H D (60-115) mg/dL Urine Protein 30 (1+) H (Neg-Trace) mg/dL Ur Leukocyte Esterase Small (1+) H (Negative) Urine WBC 11-20 H (0-5) /HPF 09/13/22 Range/Units 15:59 WBC (4.8-10.8) X10*3/uL RBC (4.60-5.80) X10*6/uL Hgb (14.0-18.0) g/dl Hct (42.0-52.0) % Plt Count (160-400) X10*3/uL Sodium (135-145) mmol/L Chloride (96-108) mmol/L POC Glucose 181 H (60-115) mg/dL Random Glucose (60-115) mg/dL Urine Protein (Neg-Trace) mg/dL Ur Leukocyte Esterase (Negative) Urine WBC (0-5) /HPF Short CBC 09/13/22 Range/Units 08:34 WBC 24.7 H (4.8-10.8) X10*3/uL Hgb 12.9 L (14.0-18.0) g/dl Hct 37.3 L (42.0-52.0) % Plt Count 105 L (160-400) X10*3/uL BMP 09/13/22 08:34 Sodium 133 L Potassium 4.0 Chloride 95 L Carbon Dioxide 24 BUN 15 D Creatinine 0.96 Calcium 8.9 Urine 09/10/22 09/13/22 Range/Units Unknown 15:30 Urine Color Dark Yellow Dark Yellow Urine Appearance Clear Clear Urine pH 7.5 5.5 (5.0-9.0) Ur Specific [place] >= 1.030 H 1.020 (1.005-1.025) Urine Protein 30 (1+) H 30 (1+) H (Neg-Trace) mg/dL Urine Glucose (UA) 250 H Negative (Negative) mg/dL All other labs normal. Assessment and Plan (1) Ileus: Status: Acute (2) Abdominal mass: Status: Acute Plan 81-year-old male patient with multiple medical problems found to have abdominal distension and constipation today. Abdominal x-ray yesterday revealed gas-filled loops of bowel suggestive of either ileus or small-bowel obstruction. A repeat CT abdomen and pelvis with oral contrast today however does seemed indicate contrast getting into the colon. There is gas and stool within the colon. Will await final reading on CT from radiologist. Recommend bowel rest for now pending CT results. Can probably start liquids tomorrow if no nausea or vomiting overnight. Procedures Date of Service Date of Service: 09/13/22
--- NOTE | 2022-09-13 16:35 | MHC.CM.PN ---
PATIENT IS FEBRILE AND OBSTRUCTED. MAY REQUIRE TRANSFER FOR TREATMENT FOR INPATIENT CHEMO. CASE MANAGEMENT FOLLOWING
[2022-09-13 20:20] LABS: Glucose, Whole Blood 160 mg/dL (60-115)
[2022-09-14] VITALS (7 sets, daily range): BP systolic 103–139; BP diastolic 49–86; PULSE 76–99; RESP 16–18; TEMP 36.3–37.2; O2SAT 93–97
[2022-09-14 06:37] LABS: Anion Gap 18 (12-20); Blood Urea Nitrogen 13 mg/dL (9-16); Calcium 8.2 mg/dL (8.4-10.2); Carbon Dioxide 20 mmol/L (22-29); Chloride 98 mmol/L (96-108); Creatinine Clr Calc Pharmacy 82.9; Estimated Glomerular Filt Rate > 60; Glucose Random 182 mg/dL (60-115); Potassium 3.6 mmol/L (3.3-5.1); Sodium 132 mmol/L (135-145)
[2022-09-14 06:55] LABS: Hematocrit 34.1 % (42.0-52.0); Hemoglobin 11.8 g/dl (14.0-18.0); Mean Corpuscular HGB Conc 34.6 g/dl (31.0-36.0); Mean Corpuscular Hemoglobin 30.8 pg (27.0-33.0); Mean Platelet Volume 10.5 fL (9.4-12.4); Red Blood Count 3.83 X10*6/uL (4.60-5.80); Red Cell Distribution Width 12.4 % (11.0-16.0)
[2022-09-14 06:59] LABS: Platelet Count 84 X10*3/uL (160-400)
[2022-09-14] MEDS: Fluticasone/Vilanterol 200/25 BLST.W.DEV 1 PUFF INHALE (07:52)
[2022-09-14 07:55] LABS: Glucose, Whole Blood 174 mg/dL (60-115)
--- NOTE | 2022-09-14 10:11 | HO.PM.IMPN ---
Subjective Subjective Date of Service: 09/14/22 Interval History: abd distended though pain improved passing gas no further fever This history was taken in Arabic from the patient. Review of Systems Review of Systems: Yes all other systems are reviewed and are negative Physical Exam Vital Signs: Vital Signs: Last Vital Signs Temp 99.0 F 09/14/22 08:00 Pulse 97 09/14/22 08:00 Resp 18 09/14/22 08:00 BP 111/57 L 09/14/22 08:00 Pulse Ox 93 09/14/22 08:00 O2 Del Method 09/14/22 08:00 BMI result Body Mass Index 35.3 Gen: NAD HEENT: sclera anicteric, moist mucus membranes Neck: supple, no adenopathy Lungs: clear to auscultation bilaterally Heart: regular rate and rhythm, no murmurs Abd: soft, non-tender, somewhat distended, obese, hypoactive bowel sounds Ext: no edema Skin: warm/well-perfused Neuro: alert and oriented x3, no focal findings Psych: appropriate affect ? Objective Data Active Medications Acetaminophen (Acetaminophen 325 Mg Tablet) 650 mg PO Q6H PRN PRN Reason: Pain, Mild (Pain Scale 1-3) Last Admin: 09/13/22 03:15 Dose: 650 mg Documented By: SANTANA Albuterol Sulfate (Albuterol Sulfate 90 Mcg 8 Gm Inhaler) 2 puff INHALE Q4H PRN PRN Reason: shortness of breath or wheezing Albuterol/Ipratropium (Albuterol/Iprat 2.5/0.5mg 3 Ml Ampul.Neb) 3 ml INHALE Q4H PRN PRN Reason: Wheezing Ascorbic Acid (Ascorbic Acid 500 Mg Tablet) 500 mg PO BID [facility] Last Admin: 09/13/22 21:08 Dose: 500 mg Documented By: KAE Atorvastatin Calcium (Atorvastatin Calcium 80 Mg Tablet) 80 mg PO DAILY [facility] Last Admin: 09/13/22 07:41 Dose: 80 mg Documented By: JAYLA Carvedilol (Carvedilol 6.25 Mg Tablet) 6.25 mg PO BID [facility]; Protocol Last Admin: 09/13/22 21:08 Dose: 6.25 mg Documented By: KAE Dextrose (Dextrose 50 % 25 Gm/50 Ml Syringe) 25 gm IVPUSH Q15M PRN; Protocol PRN Reason: per Hypoglycemia Standing Ord. Fluticasone/Vilanterol (Fluticasone/Vilanterol 200/25 Blst.W.Dev) 1 puff INHALE RDAILY [facility] Last Admin: 09/14/22 07:52 Dose: 1 puff Documented By: MARLON Folic Acid (Folic Acid 1 Mg Tablet) 1 mg PO DAILY [facility] Last Admin: 09/13/22 07:40 Dose: 1 mg Documented By: JAYLA Glucose (Glucose Gel 15 Gm Gel..Gram.) 15 gm PO Q15M PRN; Protocol PRN Reason: per Hypoglycemia Standing Ord. Levofloxacin (Levaquin) 750 mg in 150 mls @ 100 mls/hr IV Q24H [facility] Last Infusion: 09/13/22 13:09 Dose: 0 mls/hr Documented By: JAYLA Sodium Chloride (Ns) 1,000 mls @ 100 mls/hr IVCONT .Q10H [facility] Last Admin: 09/13/22 22:43 Dose: 100 mls/hr Documented By: KAE Isosorbide Mononitrate (Isosorbide Mononitrate 30 Mg Tab.Er.24h) 30 mg PO DAILY [facility]; Protocol Last Admin: 09/13/22 07:42 Dose: 30 mg Documented By: JAYLA Loratadine (Loratadine 10 Mg Tablet) 10 mg PO DAILY PRN PRN Reason: Allergy Symptoms Last Admin: 09/10/22 19:37 Dose: 10 mg Documented By: TATIANA Melatonin (Melatonin 3 Mg Tablet) 6 mg PO BEDTIME PRN PRN Reason: Insomnia Morphine Sulfate (Morphine Sulfate 4 Mg/Ml Cartridge) 4 mg IVPUSH Q4H PRN; Protocol PRN Reason: Pain, Severe (Pain Scale 7-10) Last Admin: 09/13/22 21:08 Dose: 4 mg Documented By: KAE Multivitamins/Vitamin C (Multivitamin Tablet) 1 tab PO DAILY [facility] Last Admin: 09/13/22 07:41 Dose: 1 tab Documented By: JAYLA Omeprazole (Omeprazole 40 Mg Capsule.Dr) 40 mg PO DAILY@0630 [facility] Last Admin: 09/14/22 06:00 Dose: Not Given Documented By: KAE Non-Admin Reason: NPO Ondansetron HCl (Ondansetron Hcl 4 Mg/2 Ml Vial) 4 mg IVPUSH Q8H PRN PRN Reason: Nausea and Vomiting Last Admin: 09/12/22 11:24 Dose: 4 mg Documented By: KIRSTEN Oxybutynin Chloride (Oxybutynin Chloride Er 5 Mg Tab.Er.24) 5 mg PO DAILY [facility] Last Admin: 09/13/22 07:43 Dose: 5 mg Documented By: JAYLA Oxycodone HCl (Oxycodone Hcl Immed Release 5 Mg Tablet) 5 mg PO Q4H PRN PRN Reason: moderate pain Last Admin: 09/13/22 11:32 Dose: 5 mg Documented By: JAYLA Sacubitril/Valsartan (Sacubitril/Valsartan 1 Tab Tablet) 1 tab PO BID [facility]; Protocol Last Admin: 09/13/22 21:08 Dose: 1 tab Documented By: KAE Sodium Chloride (0.9 % Sodium Chloride Flush 3 Ml Syringe) 3 ml IVFLUSH QSHIFT [facility] Last Admin: 09/13/22 22:48 Dose: Not Given Documented By: KAE Non-Admin Reason: IV Running Tamsulosin HCl (Tamsulosin Hcl 0.4 Mg Capsule) 0.4 mg PO DAILY [facility] Last Admin: 09/13/22 07:40 Dose: 0.4 mg Documented By: JAYLA Tiotropium [place] (Tiotropium [place] 18 Mcg Cap.W.Dev) 1 puff INHALE RDAILY [facility] Last Admin: 09/14/22 07:52 Dose: 1 puff Documented By: MARLON Vitamin D (Cholecalciferol (Vitamin D3) 25 Mcg Tablet) 50 mcg PO DAILY [facility] Last Admin: 09/13/22 07:40 Dose: 50 mcg Documented By: JAYLA Labs CBC & Chem 7: 09/14/22 05:16 09/14/22 05:16 Labs: Laboratory Results - last 24 hr 09/13/22 09/13/22 09/13/22 11:13 15:30 15:59 MCV MCH MCHC RDW Plt Count MPV Absolute Nucleated RBC Nucleated RBC % (auto) Anion Gap Estim Creat Clear Calc Estimated GFR POC Glucose 243 H 181 H Random Glucose Calcium Urine Color Dark Yellow Urine Appearance Clear Urine pH 5.5 Ur Specific [place] 1.020 Urine Protein 30 (1+) H Urine Glucose (UA) Negative Urine Ketones Trace Urine Blood Negative Urine Nitrite Negative Ur Leukocyte Esterase Small (1+) H Urine RBC 0-2 Urine WBC 11-20 H Ur Squamous Epith Cells 3-5 Urine Bacteria 4+ Hyaline Casts 6-10 09/13/22 09/14/22 09/14/22 19:13 05:16 05:16 MCV 89.0 MCH 30.8 MCHC 34.6 RDW 12.4 Plt Count 84 L MPV 10.5 Absolute Nucleated RBC 0.000 Nucleated RBC % (auto) 0.0 Anion Gap 18 Estim Creat Clear Calc 82.9 Estimated GFR > 60 POC Glucose 160 H Random Glucose 182 H Calcium 8.2 L D Urine Color Urine Appearance Urine pH Ur Specific [place] Urine Protein Urine Glucose (UA) Urine Ketones Urine Blood Urine Nitrite Ur Leukocyte Esterase Urine RBC Urine WBC Ur Squamous Epith Cells Urine Bacteria Hyaline Casts 09/14/22 07:13 MCV MCH MCHC RDW Plt Count MPV Absolute Nucleated RBC Nucleated RBC % (auto) Anion Gap Estim Creat Clear Calc Estimated GFR POC Glucose 174 H Random Glucose Calcium Urine Color Urine Appearance Urine pH Ur Specific [place] Urine Protein Urine Glucose (UA) Urine Ketones Urine Blood Urine Nitrite Ur Leukocyte Esterase Urine RBC Urine WBC Ur Squamous Epith Cells Urine Bacteria Hyaline Casts Microbiology Microbiology Results: Microbiology 09/12/22 20:24 Blood Culture - Preliminary Blood - Venous No growth after 24 hours. 09/12/22 20:24 Blood Culture - Preliminary Blood - Venous No growth after 24 hours. Assessment and Plan (1) Abdominal mass: Status: Acute Plan d#5 81yo M with 3v CAD s/p LM + LAD stents, HFpEF, DM2, HTN, AUD, COPD/asthma presenting with abd pain and found to have 8cm mass in the upper abdomen, just above the celiac axis with adjacent pathologically enlarged lymph nodes most suspicious for lymphoma; multiple splenic masses; LDH elevated # abd mass - s/p CT-guided biopsy 09/11/22, pathology pending but preliminary consistent with lymphoma # abd pain # ileus - Surgery consulted, CT showed passage of oral contrast into colon, will start clear liquid diet, give MiraLax # fever - unknown if due to lymphoma or to infection of unknown source. BCx NGTD, UCx pending, and RPP; empiric levofloxacin d#2 # thrombocytopenia - likely due to lymphoma; monitor # chronic HFpEF # HTN # CAD - continue furosemide - continue Imdur, statin, carvedilol, Entresto - hold ASA + ticagrelor # DM2 - hold oral OHGs, give correction-dose lispro # asthma/COPD overlap not in acute exac - prn nebs # history of alcohol abuse - in remission # VTE ppx: SCDs In my clinical judgment, the patient requires continued hospitalization for the following reasons: pain control, ileus Quality Stroke Does the patient have a stroke diagnosis?: No VTE Prior VTE?: No VTE Risk Level:: Medical - moderate - high VTE Device Contraindication: Treatment Not Indicated VTE Drug Contraindication: Treatment Not Indicated
[2022-09-14] MEDS: Multivitamin TABLET 1 TAB PO (10:31)
[2022-09-14] MEDS: Atorvastatin Calcium 80 MG TABLET PO (10:31)
[2022-09-14] MEDS: Cholecalciferol (Vitamin D3) 25 MCG TABLET 50 MCG PO (10:31)
[2022-09-14] MEDS: Sacubitril/Valsartan 24/26 1 TAB TABLET PO ×2 (10:31→20:20)
[2022-09-14] MEDS: Folic Acid 1 MG TABLET PO (10:31)
[2022-09-14] MEDS: Isosorbide Mononitrate 30 MG TAB.ER.24H PO (10:31)
[2022-09-14] MEDS: Ascorbic Acid 500 MG TABLET PO ×2 (10:32→20:20)
[2022-09-14] MEDS: Tamsulosin HCL 0.4 MG CAPSULE PO (10:32)
[2022-09-14] MEDS: carvediloL 6.25 MG TABLET PO ×2 (10:32→20:20)
[2022-09-14] MEDS: polyethylene glycoL 3350 17 GM POWD.PACK PO (10:33)
[2022-09-14] MEDS: 0.9 % Sodium Chloride 1,000 ML 100 ML IVCONT (10:33)
[2022-09-14] MEDS: levoFLOXacin/D5W 750 MG/150 ML PIGGYBACK 100 MG IV (10:33)
[2022-09-14 11:30] LABS: Glucose, Whole Blood 206 mg/dL (60-115)
[2022-09-14 12:33] LABS: Adenovirus PCR Not Detected (Not Detect.); Bordetella parapertussis PCR Not Detected (Not Detect.); Bordetella pertussis PCR Not Detected (Not Detect.); Chlamydia pneumoniae PCR Not Detected (Not Detect.); Coronavirus 229E PCR Not Detected (Not Detect.); Coronavirus HKU1 PCR Not Detected (Not Detect.); Coronavirus NL63 PCR Not Detected (Not Detect.); Coronavirus OC43 PCR Not Detected (Not Detect.); Human metapneumovirus PCR Not Detected (Not Detect.); Influenza A PCR Not Detected (Not Detect.); Influenza B PCR Not Detected (Not Detect.); Mycoplasma pneumoniae PCR Not Detected (Not Detect.); Parainfluenza 1 PCR Not Detected (Not Detect.); Parainfluenza 2 PCR Not Detected (Not Detect.); Parainfluenza 3 PCR Not Detected (Not Detect.); Parainfluenza 4 PCR Not Detected (Not Detect.); RSV PCR Not Detected (Not Detect.); Rhino/Enterovirus PCR Not Detected (Not Detect.); SARS-CoV-2 PCR Not Detected (Not Detect.)
[2022-09-14 16:30] LABS: Glucose, Whole Blood 229 mg/dL (60-115)
[2022-09-14] MEDS: Morphine Sulfate 4 MG/ML CARTRIDGE IVPUSH (19:16)
[2022-09-14 19:36] LABS: Glucose, Whole Blood 146 mg/dL (60-115)
[2022-09-14] MEDS: Sennosides/Docusate Sodium TABLET 2 TAB PO (20:20)
[2022-09-14] MEDS: 0.9 % Sodium Chloride Flush 3 ML SYRINGE IVFLUSH (20:21)
[2022-09-15] MEDS: Morphine Sulfate 4 MG/ML CARTRIDGE IVPUSH ×2 (00:02→05:29)
[2022-09-15 03:28] VITALS: BP 117/56; PULSE 81; RESP 18; TEMP 36.9; O2SAT 97
[2022-09-15] MEDS: Omeprazole 40 MG CAPSULE.DR PO (05:29)
[2022-09-15 07:21] VITALS: BP 129/57; PULSE 82; RESP 18; TEMP 36.4; O2SAT 95
[2022-09-15 07:24] LABS: Hematocrit 33.3 % (42.0-52.0); Hemoglobin 11.6 g/dl (14.0-18.0); Mean Corpuscular HGB Conc 34.8 g/dl (31.0-36.0); Mean Corpuscular Hemoglobin 30.7 pg (27.0-33.0); Mean Corpuscular Volume 88.1 fL (80.0-98.0); Mean Platelet Volume 10.7 fL (9.4-12.4); Red Blood Count 3.78 X10*6/uL (4.60-5.80); Red Cell Distribution Width 12.5 % (11.0-16.0); White Blood Count 12.3 X10*3/uL (4.8-10.8)
[2022-09-15 07:27] LABS: Platelet Count 88 X10*3/uL (160-400)
[2022-09-15 07:39] LABS: Anion Gap 16 (12-20); Blood Urea Nitrogen 10 mg/dL (9-16); Calcium 8.1 mg/dL (8.4-10.2); Carbon Dioxide 21 mmol/L (22-29); Chloride 99 mmol/L (96-108); Creatinine Clr Calc Pharmacy 90.4; Estimated Glomerular Filt Rate > 60; Glucose Random 184 mg/dL (60-115); Magnesium 1.8 mg/dL (1.6-2.6); Potassium 3.6 mmol/L (3.3-5.1); Sodium 132 mmol/L (135-145)
[2022-09-15 07:41] LABS: Glucose, Whole Blood 192 mg/dL (60-115)
[2022-09-15 07:45] VITALS: PULSE 76; RESP 18; O2SAT 95
[2022-09-15] MEDS: Fluticasone/Vilanterol 200/25 BLST.W.DEV 1 PUFF INHALE (07:45)
[2022-09-15] MEDS: Isosorbide Mononitrate 30 MG TAB.ER.24H PO (10:02)
[2022-09-15] MEDS: polyethylene glycoL 3350 17 GM POWD.PACK PO (10:03)
[2022-09-15] MEDS: Folic Acid 1 MG TABLET PO (10:03)
[2022-09-15] MEDS: Ascorbic Acid 500 MG TABLET PO (10:03)
[2022-09-15] MEDS: Multivitamin TABLET 1 TAB PO (10:04)
[2022-09-15] MEDS: Atorvastatin Calcium 80 MG TABLET PO (10:04)
[2022-09-15] MEDS: Sacubitril/Valsartan 24/26 1 TAB TABLET PO (10:04)
[2022-09-15] MEDS: Sennosides/Docusate Sodium TABLET 2 TAB PO (10:04)
[2022-09-15] MEDS: Cholecalciferol (Vitamin D3) 25 MCG TABLET 50 MCG PO (10:05)
[2022-09-15] MEDS: 0.9 % Sodium Chloride Flush 3 ML SYRINGE IVFLUSH (10:06)
[2022-09-15] MEDS: levoFLOXacin/D5W 750 MG/150 ML PIGGYBACK 150 MG IV (10:06)
[2022-09-15] MEDS: carvediloL 6.25 MG TABLET PO (10:06)
[2022-09-15] MEDS: Tamsulosin HCL 0.4 MG CAPSULE PO (10:06)
[2022-09-15 11:30] VITALS: BP 98/51; PULSE 85; RESP 17; TEMP 36.4; O2SAT 95
[2022-09-15 12:11] LABS: Glucose, Whole Blood 225 mg/dL (60-115)
--- NOTE | 2022-09-15 12:32 | MHC.CM.PN ---
Plan for patient to d/c today. Per hospitalist would like pt to have f/u appt dylan/ Delphine upon d/c. this entry writer placed call to office and left message. Awaiting return phone call.
[2022-09-15 15:38] VITALS: BP 103/49; PULSE 78; RESP 17; TEMP 36.4; O2SAT 96
[2022-09-15 15:59] LABS: Glucose, Whole Blood 180 mg/dL (60-115)
--- NOTE | 2022-09-15 16:16 | PM.DS ---
DS: Providers Provider Date of Service: 09/15/22 Date of admission: 09/09/22 23:44 Date of discharge: 09/15/22 Primary care physician: Sarah Hopper MD Consults: 09/09/22 23:48 Consult to Hematology / Oncology Routine Consulting Provider: [facility] Oncology/Hematology Reason for consultation: abdominal mass.?lymphoma Has provider been notified: No 09/13/22 07:51 Consult to General Surgery Routine Consulting Provider: [facility] General Surgeons Reason for consultation: ileus vs SBO DS: Diagnosis Discharge Diagnosis (1) Lymphoma: Status: Acute (2) Ileus: Status: Acute DS: Summary Hospital Course Hospital Course: from H+P by hospitalist Dr Galileo Lechuga, 09/10/22: This is a 81-year-old male with a pertinent history of congestive heart failure with preserved ejection fraction, [id number] diabetes mellitus, essential hypertension, alcohol use disorder, COPD-asthma overlap syndrome who presents to the emergency department for evaluation of abdominal pain.? Patient is Italian speaking and history was obtained with the use of an freelance interpreter/translator.? He is a vague historian, states that he has been having ongoing epigastric pain for the last 5 days.? It has been constant, progressive and radiating to the back.? It is associated with nausea.? Patient is with poor p.o. intake for the last 2 days decreased decreased appetite and epigastric pain.? Denies any changes in bowel habits.? No fever, chills, chest pain, shortness of breath, palpitations, changes in urinary habits.? Patient does have a history of smoking and states he quit 20 years ago.? No personal history of cancer. In the emergency department, CT of the abdomen was concerning for 8 cm mass in the upper abdomen suspicious for lymphoma. 81yo M with 3v CAD s/p LM + LAD stents, HFpEF, DM2, HTN, AUD, COPD/asthma presenting with abd pain and found to have 8cm mass in the upper abdomen, just above the celiac axis with adjacent pathologically enlarged lymph nodes most suspicious for lymphoma; multiple splenic masses; LDH elevated. He was admitted and underwent CT-guided biopsy on 09/11/22. Prelimiary pathology consistent with lymphoma; final pending. He developed ileus that resolved with conservative measure. Also had transient fever of unknown etiology, possibly due to lymphoma or occult infection; blood cultures, urine culture, and respiratory workup was negative. He was treated with levofloxacin. He has mild thrombocyoptenia likely due to the lymphoma. He was discharged home and will follow up with Dr Amy Akers from Hematology-Oncology on 09/27/22 at 2:40pm. Time Spent with Patient Time attestation: Total time spent providing and/or coordinating discharge services: Discharge coordination time: Greater than 30 minutes Quality: Safe Use of Opioids Does Pt have an Active Cancer Diagnosis on the Problem List?: No Quality: Stroke Does the patient have a stroke diagnosis?: No Physical Exam Vital Signs: Vital Signs: Last Vital Signs Temp 97.5 F 09/15/22 15:38 Pulse 78 09/15/22 15:38 Resp 17 09/15/22 15:38 BP 103/49 L 09/15/22 15:38 Pulse Ox 96 09/15/22 15:38 O2 Del Method 09/15/22 15:38 BMI result Body Mass Index 35.3 Gen: in no acute distress HEENT: sclera anicteric, moist mucus membranes Neck: supple Lungs: clear to auscultation bilaterally Heart: regular rate and rhythm, no murmurs Abd: soft, non-tender, obese Ext: no edema Skin: warm/well-perfused Neuro: alert and oriented x3, no focal findings Psych: appropriate affect DS: Data Data Completed and Pending Completed studies during hospitalization [Text1]: Laboratory Results WBC 12.3 X10*3/uL (4.8-10.8) H 09/15/22 05:20 RBC 3.78 X10*6/uL (4.60-5.80) L 09/15/22 05:20 Hgb 11.6 g/dl (14.0-18.0) L 09/15/22 05:20 Hct 33.3 % (42.0-52.0) L 09/15/22 05:20 MCV 88.1 fL (80.0-98.0) 09/15/22 05:20 MCH 30.7 pg (27.0-33.0) 09/15/22 05:20 MCHC 34.8 g/dl (31.0-36.0) 09/15/22 05:20 RDW 12.5 % (11.0-16.0) 09/15/22 05:20 Plt Count 88 X10*3/uL (160-400) L 09/15/22 05:20 MPV 10.7 fL (9.4-12.4) 09/15/22 05:20 Immature Gran % (Auto) 1.5 % (0.0-0.4) H 09/10/22 06:34 Neut % (Auto) 38.4 % (45-73) L 09/10/22 06:34 Lymph % (Auto) 19.9 % (20-40) L 09/10/22 06:34 [place] % (Auto) 39.6 % (2-11) H 09/10/22 06:34 Eos % (Auto) 0.3 % (0-4) 09/10/22 06:34 Baso % (Auto) 0.3 % (0-2) 09/10/22 06:34 Lymph # (Auto) 1.4 X10*3/uL (1.2-4.9) 09/10/22 06:34 [place] # (Auto) 2.9 X10*3/uL (0.1-1.2) H 09/10/22 06:34 Eos # (Auto) 0.0 X10*3/uL (0.0-0.4) 09/10/22 06:34 Baso # (Auto) 0.0 X10*3/uL (0.0-0.2) 09/10/22 06:34 Abs Immat Gran (auto) 0.11 X10*3/uL (0.00-0.03) H 09/10/22 06:34 Absolute Neuts (auto) 2.8 x10*3/uL (2.0-8.3) 09/10/22 06:34 Absolute Nucleated RBC 0.000 X10*3/uL (0.0-0.012) 09/15/22 05:20 Nucleated RBC % (auto) 0.0 /100WBC (0.0-0.2) 09/15/22 05:20 Smear Tech's Comments VERIFIED 09/09/22 18:28 PT 15.1 SEC (10.0-13.1) H 09/10/22 09:06 INR 1.3 (0.9-1.1) H 09/10/22 09:06 APTT 34.5 SEC (26.0-36.4) 09/10/22 09:06 Sodium 132 mmol/L (135-145) L 09/15/22 05:20 Potassium 3.6 mmol/L (3.3-5.1) 09/15/22 05:20 Chloride 99 mmol/L (96-108) 09/15/22 05:20 Carbon Dioxide 21 mmol/L (22-29) L 09/15/22 05:20 Anion Gap 16 (12-20) 09/15/22 05:20 BUN 10 mg/dL (9-16) 09/15/22 05:20 Creatinine 0.66 mg/dL (0.5-1.4) 09/15/22 05:20 Estim Creat Clear Calc 90.4 09/15/22 05:20 Estimated GFR > 60 09/15/22 05:20 POC Glucose 180 mg/dL (60-115) H 09/15/22 15:42 Random Glucose 184 mg/dL (60-115) H 09/15/22 05:20 Estimat Average Glucose 206 mg/dL 09/10/22 01:15 Hemoglobin A1c % 8.8 % 09/10/22 01:15 Lactic Acid 1.8 mmol/L (0.5-2.0) 09/12/22 20:25 Calcium 8.1 mg/dL (8.4-10.2) L 09/15/22 05:20 Magnesium 1.8 mg/dL (1.6-2.6) 09/15/22 05:20 Total Bilirubin 0.7 mg/dL (0.0-1.0) 09/09/22 18:28 AST 20 U/L (5-37) 09/09/22 18:28 ALT 22 U/L (0-40) 09/09/22 18:28 Alkaline Phosphatase 82 U/L (39-117) 09/09/22 18:28 Lactate Dehydrogenase 312 U/L (118-273) H 09/10/22 09:06 Troponin I High Sens 8.6 ng/L (<3.5-35.0) 09/12/22 12:51 B-Natriuretic Peptide 154 pg/mL (<100) H 09/09/22 18:28 Total Protein 7.3 g/dL (6.5-8.0) 09/09/22 18:28 Albumin 3.8 g/dL (3.5-5.0) 09/09/22 18:28 Lipase 16 U/L (8-78) 09/09/22 18:28 Procalcitonin 0.23 ng/mL 09/13/22 08:34 Urine Color Dark Yellow 09/13/22 15: Urine Appearance Clear 09/13/22 15: Urine pH 5.5 (5.0-9.0) 09/13/22 15:30 Ur Specific [place] 1.020 (1.005-1.025) 09/13/22 15: Urine Protein 30 (1+) mg/dL (Neg-Trace) H 09/13/22 15: Urine Glucose (UA) Negative mg/dL (Negative) 09/13/22 15: Urine Ketones Trace mg/dL (Negative) 09/13/22 15:30 Urine Blood Negative (Negative) 09/13/22 15: Urine Nitrite Negative (Negative) 09/13/22 15:30 Ur Leukocyte Esterase Small (1+) (Negative) H 09/13/22 15:30 Urine RBC 0-2 /HPF (0-2) 09/13/22 15:30 Urine WBC 11-20 /HPF (0-5) H 09/13/22 15:30 Ur Squamous Epith Cells 3-5 /HPF (0-2) 09/13/22 15:30 Urine Bacteria 4+ (None Seen) 09/13/22 15:30 Hyaline Casts 6-10 /LPF (0-2) 09/13/22 15:30 Leuk/Lym Interpretation See Note 09/11/22 16:36 Respiratory Panel [place] See Note 09/13/22 16:15 Adenovirus (Rapid PCR) Not Detected (Not Detect.) 09/13/22 16:15 B.pert (TEM-PCR) Not Detected (Not Detect.) 09/13/22 16:15 B.parapertussis DNA PCR Not Detected (Not Detect.) 09/13/22 16:15 C. pneumoniae DNA (PCR) Not Detected (Not Detect.) 09/13/22 16:15 Coronavirus OC43 (PCR) Not Detected (Not Detect.) 09/13/22 16:15 Coronavirus HKU1 (PCR) Not Detected (Not Detect.) 09/13/22 16:15 Coronavirus 229E (PCR) Not Detected (Not Detect.) 09/13/22 16:15 COVID-19 (BLANCO) Negative (Negative) 09/09/22 18:28 COVID-19 Clin Com See Note 09/09/22 18:28 Coronavirus NL63 (PCR) Not Detected (Not Detect.) 09/13/22 16:15 HIV 1&2 Ab/P24 Ag 4thGn Nonreactive (Nonreactive) 09/10/22 09:06 Human Metapneumovir PCR Not Detected (Not Detect.) 09/13/22 16:15 Influenza A (RT-PCR) Not Detected (Not Detect.) 09/13/22 16:15 Influenza B (RT-PCR) Not Detected (Not Detect.) 09/13/22 16:15 M. pneumoniae (PCR) Not Detected (Not Detect.) 09/13/22 16:15 Parainfluenza 1 (PCR) Not Detected (Not Detect.) 09/13/22 16:15 Parainfluenza 2 (PCR) Not Detected (Not Detect.) 09/13/22 16:15 Parainfluenza 3 (PCR) Not Detected (Not Detect.) 09/13/22 16:15 Parainfluenza 4 (PCR) Not Detected (Not Detect.) 09/13/22 16:15 RSV (PCR) Not Detected (Not Detect.) 09/13/22 16:15 Entero/Rhino (PCR) Not Detected (Not Detect.) 09/13/22 16:15 SARS-CoV-2 RNA (RT-PCR) Not Detected (Not Detect.) 09/13/22 16:[address] 09/10/22 11:44 IMPRESSION: Motion degradation limits evaluation of the pulmonary parenchyma. Tiny 3 mm solid left lower lobe pulmonary nodule is unchanged from 2009 therefore likely benign. No new suspicious or enlarging pulmonary nodule within limitations of motion. Trace right pleural effusion. Partially imaged is a ill-defined soft tissue mass in the upper abdomen associated with the diaphragmatic crura which remain suspicious for lymphoma, adjacent lymphadenopathy and multiple hypoattenuating splenic mass is similar to recent prior dedicated CT abdomen pelvis. Head CT 09/10/22 11:45 IMPRESSION: 1. No acute intracranial abnormality. If clinical concern for intracranial metastasis, contrast-enhanced MR brain would be required for evaluation. 2. Dense opacification of the left frontal sinus with patchy mucosal thickening involving the maxillary sinuses and ethmoid air cells with chronic mucoperiosteal thickening, with chronic soft tissue fullness in the left nasal cavity which could be related to sinonasal polyposis, consider correlation with direct visualization. Abdomen Biopsy CT 09/11/22 16:50 IMPRESSION: Successful ultrasound and fluoroscopy-guided retroperitoneal mass biopsy performed without immediate complications. Chest X-Ray 09/12/22 20:05 FINDINGS/IMPRESSION: Low lung volumes. Mild diffuse peribronchial vascular opacities may reflect edema or atypical infection. No pneumothorax. No pleural effusion. Unchanged cardiomediastinal silhouette. KUB X-Ray 09/12/22 20:05 FINDINGS/IMPRESSION: Lines or devices: None. Multiple gas-filled loops of bowel. With areas of small bowel measuring up to 3 cm. This may reflect ileus versus evolving obstruction. No significant stool burden. Supine technique limits evaluation for extraluminal air although no secondary findings are appreciated. No abnormal calcifications. Visualized portions of the lung bases appear clear. Abdomen/Pelvis CT 09/13/22 15:30 IMPRESSION: There is no significant change in the large retroperitoneal mass. There is no bowel obstruction seen at this time. Mild mesenteric congestion is stable. Small bilateral pleural effusions with underlying atelectasis is stable. Fleischner guidelines were followed. Pending studies at discharge: Pending at discharge 09/11/22 16:36 Surgical Path [Surgical] [PTH] Routine Discharge Plan Discharge Anticipated Discharge Date/Time: 09/15/22 15:37 Patient Disposition: Home, Self-Care Discharge Diagnosis: lymphoma Referrals: Sarah Caal MD [Primary Care Provider] - 1 Week Amy Akers MD [Physician] - 09/27/22 2:40 pm Discharge Medications: New levofloxacin 750 mg tablet 750 mg PO DAILY Qty: 2 0RF Continued albuterol sulfate 90 mcg/actuation HFA aerosol inhaler 2 puff PO Q4-6H PRN (Reason: shortness of breath or wheezing) Qty: 8.5 6RF atorvastatin 80 mg tablet 80 mg PO DAILY omega-3 fatty acids 1,000 mg capsule 1,000 mg PO BID oxybutynin chloride 5 mg tablet extended release 24 hr 5 mg PO DAILY furosemide 40 mg tablet 40 mg PO DAILY isosorbide mononitrate 30 mg tablet extended release 24 hr 30 mg PO DAILY Qty: 90 3RF carvedilol 6.25 mg tablet 1 tab PO BID glipizide 10 mg tablet extended release 24hr 1 tab PO DAILY folic acid 1 mg tablet 1 tab PO DAILY Entresto 24-26 mg tablet 1 tab PO BID ascorbic acid (vitamin C) [Vitamin C] 500 mg Tablet 500 mg PO BID cholecalciferol (vitamin D3) [Vitamin D3] 50 mcg (2,000 unit) Tablet 50 mcg PO DAILY oxycodone-acetaminophen 5-325 mg tablet 1 tab PO Q8H PRN (Reason: severe pain) Qty: 9 0RF Levemir FlexTouch U-100 Insuln 100 unit/mL (3 mL) insulin pen 12 unit subcut DAILY cetirizine 10 mg tablet 10 mg PO DAILY PRN (Reason: Allergy Symptoms) tamsulosin 0.4 mg capsule 0.4 mg PO DAILY ipratropium-albuterol 0.5 mg-3 mg(2.5 mg base)/3 mL solution for nebulization 3 ml INHALATION QID PRN (Reason: Shortness Of Breath) metformin 500 mg tablet extended release 24 hr 500 mg PO BID multivitamin with folic acid [Daily-Tejinder (with folic acid)] 400 mcg tablet 1 tab PO DAILY Trelegy Ellipta 200-62.5-25 mcg blister with device 1 inh INHALATION DAILY PRN (Reason: Shortness Of Breath) aspirin 81 mg tablet,delayed release (DR/EC) 81 mg PO DAILY Qty: 90 3RF Brilinta 90 mg tablet 90 mg PO BID Qty: 180 3RF Discharge Orders: Discharge Order (Routine); Ordered 09/15/22 Ordered By: David Reeder Diet: Diabetic diet Activity on Discharge: As tolerated Stand Alone Forms: Patient Portal Discharge page Other Ambulatory Orders: Vitamin B12 and Folate (Routine) Timeframe: 20220912 Facility: [facility] - Location: Laboratory Ordered By: Amy Akers Ferritin (Routine) Timeframe: 20220912 Facility: [facility] - Location: Laboratory Ordered By: Amy Akers Immunofixation Pnl, Serum (Routine) Timeframe: 20220912 Facility: [facility] - Location: Laboratory Ordered By: Amy Akers Leukemia/Lymphoma Eval. Blood (Routine) Timeframe: 20220912 Facility: [facility] - Location: Laboratory Ordered By: Amy Akers Protein Electrophoresis, Serum (Routine) Timeframe: 20220912 Facility: [facility] - Location: Laboratory Ordered By: Amy Akers Care Plan Goals: diagnosis and treatment of lymphoma Health Concerns: abdominal pain fever lymphoma Plan of Treatment: take oxycodone-acetaminophen as needed for pain take levofloxacin for 2 more days follow up with oncologist Dr Amy Akers as scheduled, 09/27/22, at 2:40pm, at the [facility] at [place] [id number] Please follow up with your primary care doctor within 1 week. Return to the hospital if you experience recurrent or worsening symptoms. Assessment: See Discharge Summary.
== END 2022-09-15 17:09 | disposition home or self-care (01) | DRG 841 ==
LOC: HO.ED 23:29 → HO.EDOVER 09-10 00:18 → HO.S3 09-10 00:33
PROVIDERS: Internal Medicine; Physician Assistant; Radiology Diagnostic Radiology; Admitting Provider Student in an Organized Health Care Education/Training Program; Emergency Provider Student in an Organized Health Care Education/Training Program; PCP Internal Medicine; Visit Provider Family Medicine
DX: C85.93 Non-Hodgkin lymphoma, unspecified, intra-abdominal lymph nodes (principal); I50.32 Chronic diastolic (congestive) heart failure; K56.7 Ileus, unspecified; J44.9 Chronic obstructive pulmonary disease, unspecified; E78.5 Hyperlipidemia, unspecified; I25.10 Atherosclerotic heart disease of native coronary artery without angina pectoris; I11.0 Hypertensive heart disease with heart failure; E11.65 Type 2 diabetes mellitus with hyperglycemia; F10.11 Alcohol abuse, in remission; K59.00 Constipation, unspecified; D69.6 Thrombocytopenia, unspecified; Z95.5 Presence of coronary angioplasty implant and graft; Z20.822 Contact with and (suspected) exposure to COVID-19; Z23 Encounter for immunization; I25.2 Old myocardial infarction; Z87.891 Personal history of nicotine dependence; Z88.0 Allergy status to penicillin; Z79.82 Long term (current) use of aspirin; Z79.84 Long term (current) use of oral hypoglycemic drugs; Z79.899 Other long term (current) drug therapy
CPT/HCPCS: 36415; 49180; 70450; 71045; 71260; 74018; 74176; 74177; 77012; 80048; 80053; 81001; 82947; 83036; 83605; 83615; 83690; 83735; 83880; 84145; 84484; 85025; 85027; 85610; 85730; 87040; 87086; 87389; 87633; 87635; 88184; 88185; 88300; 88305; 88341; 88342; 88360; 88374; 88377; 90686; 93005; 94640; 99152; 99153; 99285; J1956; J2270; J2405; Q9967

== ENCOUNTER 2022-09-19 20:09 | Emergency (ER) | payer OTHER, SELFPAY ==
--- NOTE | ~2022-09-19 | XR_ITS ---
EXAMINATION: XR CHEST CLINICAL INFORMATION: Pain. COMPARISON: Chest radiograph dated from 09/12/2022. TECHNIQUE: Frontal view of the chest was obtained. FINDINGS: Stable prominence of the cardiomediastinal silhouette with redemonstration of atherosclerotic disease of the aortic arch. EKG wires overlie the chest. Similar degree of central vascular engorgement and mild interstitial prominence. No focal airspace opacities. Mild blunting of the left costophrenic angle could reflect pleural thickening or trace amount of pleural fluid. No pneumothorax. Severe degenerative changes in the right shoulder. XR/XR chest 1V IMPRESSION: Similar degree of central vascular engorgement and mild interstitial prominence which could be seen in the setting of pulmonary edema or an atypical infectious process of the small airways. Possible trace amount of left-sided pleural fluid versus pleural thickening.
--- NOTE | ~2022-09-19 | CT_ITS ---
EXAMINATION: CT ABDOMEN AND PELVIS WITH CONTRAST CLINICAL INFORMATION: Upper abdominal pain COMPARISON: Previous CT of the abdomen and pelvis most recent 09/13/2022 TECHNIQUE: Multidetector volumetric images were obtained from the superior aspect of the liver through the pubic symphysis following administration 85 mL of Omnipaque 350 intravenous contrast. Sagittal and coronal reformatted images were obtained on the technologist's workstation. Oral contrast: Yes This CT examination was performed using dose optimization techniques as appropriate, variously including the following: *Automated exposure control *Adjustment of mA and/or kV according to patient size (this includes techniques or standardized protocols for targeted exams where dose is matched to indication/reason for exam; i.e. extremities or head) *Use of iterative reconstruction technique DLP: 7 2 4 mGy-cm FINDINGS: LUNG BASES: There are small bilateral pleural effusions and right lower lobe atelectasis, unchanged. LIVER, GALLBLADDER, AND BILIARY TREE: The liver is normal in size, shape, and attenuation. There is a mass in the upper abdomen. This may involve the intrahepatic IVC and caudate lobe. No other focal liver lesion. Normal gallbladder. No biliary duct dilatation. There is a large heterogeneous soft tissue mass in the upper retroperitoneum. This extends into the lower chest/posterior mediastinum. This appears separate from the esophagus and displaces the esophagus to the left. This is separate from the stomach and pancreas. This again may involve the intrahepatic IVC and caudate lobe of the liver. This abuts the celiac axis. There are adjacent enlarged are upper abdominal retroperitoneal lymph nodes,. Largest lymph nodes are precaval lymph node measuring 2.3 cm in short axis and left periaortic or celiac axis node measuring 2.3 cm in short axis axial image 28 series 3. PANCREAS: Calcifications in the head of the pancreas. Pancreas is otherwise normal. SPLEEN: There are multiple low-attenuation lesions in the spleen, largest measuring 2 cm that are unchanged ADRENAL GLANDS: Unremarkable. KIDNEYS AND URETERS: The kidneys are normal in size, shape, and attenuation. Small nonobstructing right renal stone. Mild bilateral perinephric fat stranding. No hydronephrosis. 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 There is a TURP defect. The bladder is otherwise unremarkable. GASTROINTESTINAL TRACT: The small and large bowel are unremarkable. The appendix is unremarkable. There is fat stranding of the small bowel mesentery. This is similar to previous exam. There is trace ascites adjacent to the liver and spleen. ABDOMINAL WALL: Small bilateral inguinal hernias containing fat. LYMPH NODES: Upper abdominal retroperitoneal mass and adjacent enlarged upper abdominal retroperitoneal lymph nodes as described above. VASCULAR: There is evidence of atherosclerotic disease. No aneurysm. Encasement of the celiac axis by the retroperitoneal mass and probable involvement of the intrahepatic IVC as described above. PELVIC VISCERA: Unremarkable. OSSEOUS STRUCTURES: Degenerative changes of the spine. AVN of the right femoral head. CT/CT abdomen pelvis w IV con IMPRESSION: No change in the upper abdominal retroperitoneal mass and adjacent enlarged retroperitoneal lymph nodes. No change in multiple splenic lesions. New trace ascites. Small bilateral pleural effusions and right lower lobe atelectasis, unchanged. Small nonobstructing right renal stone. No significant abnormality. Fleischner guidelines were followed.
[2022-09-19 20:21] VITALS: BP 144/78; PULSE 90; O2SAT 98
[2022-09-19 20:23] VITALS: BP 130/73; PULSE 88; RESP 23; TEMP 36.9; O2SAT 96; BMI 33.6
--- NOTE | 2022-09-19 20:32 | ECG_ITS ---
Test Reason : CHEST PAIN Blood Pressure : / mmHG Vent. Rate : 085 BPM Atrial Rate : 085 BPM P-R Int : 150 ms QRS Dur : 080 ms QT Int : 366 ms P-R-T Axes : 049 002 011 degrees QTc Int : 435 ms Normal sinus rhythm Low voltage QRS Normal ECG When compared with ECG of 12-SEP-2022 11:01, No significant change was found Referred By: Cary Brock Electronically Signed By:TIERRA BALLARD MD
--- NOTE | 2022-09-19 20:34 | ED.CHESTPAIN ---
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 Sent home has follow up with Oncology 09/27/22. He ntoes since he left some persistent abdominal pain and he is vague whether or not he is taking his medications since a VNA has not been there in the past few days. He notes his upper abdomen is more painful and he keeps getting bigger and bigger. MD complaint: other (upper abdominal pain) Pertinent past history: other (upper abdominal pain) Onset (ago): week(s) (2) Timing of current episode: episodic Prior episodes: Yes Onset: during rest Pain location: epigastric Pain radiation: none Severity: moderate Quality: aching and fullness Relieving factors: nothing Exacerbating factors: nothing Context: recent illness Associated symptoms: nausea Treatment prior to arrival: none Related Data Home Medications Medication Instructions Recorded Confirmed insulin detemir U-100 100 unit/mL 12 unit subcut DAILY 12/17/21 09/10/22 (3 mL) subcutaneous pen (Levemir FlexTouch U-100 Insulin) fluticasone fur. 200 mcg-umeclid 1 inh inhalation DAILY PRN 05/11/22 09/10/22 62.5 mcg-vilant 25 mcg Shortness Of Breath inhalat.powder (Trelegy Ellipta) ipratropium 0.5 mg-albuterol 3 mg 3 ml inhalation QID PRN Shortness 05/11/22 09/10/22 (2.5 mg base)/3 mL nebulization Of Breath soln metformin 500 mg tablet,extended 500 mg PO BID 05/11/22 09/10/22 release 24 hr multivitamin with folic acid 400 1 tab PO DAILY 05/11/22 09/10/22 mcg tablet (Daily-Tejinder (with folic acid)) cetirizine 10 mg tablet 10 mg PO DAILY PRN Allergy Symptoms 05/25/22 09/10/22 tamsulosin 0.4 mg capsule 0.4 mg PO DAILY 05/25/22 09/10/22 atorvastatin 80 mg tablet 80 mg PO DAILY 05/30/22 09/10/22 furosemide 40 mg tablet 40 mg PO DAILY 05/30/22 09/10/22 omega-3 fatty acids 1,000 mg 1,000 mg PO BID 05/30/22 09/10/22 capsule oxybutynin chloride 5 mg 5 mg PO DAILY 05/30/22 09/10/22 tablet,extended release 24 hr ascorbic acid (vitamin C) 500 mg 500 mg PO BID 09/10/22 09/10/22 tablet (Vitamin C) carvedilol 6.25 mg tablet 1 tab PO BID 09/10/22 09/10/22 cholecalciferol (vitamin D3) 50 50 mcg PO DAILY 09/10/22 09/10/22 mcg (2,000 unit) tablet (Vitamin D3) folic acid 1 mg tablet 1 tab PO DAILY 09/10/22 09/10/22 glipizide 10 mg tablet, extended 1 tab PO DAILY 09/10/22 09/10/22 release 24 hr sacubitril 24 mg-valsartan 26 mg 1 tab PO BID 09/10/22 09/10/22 tablet (Entresto) Previous Rx's Medication Instructions Recorded albuterol sulfate 90 mcg/actuation 2 puff PO Q4-6H PRN shortness of 05/02/22 aerosol inhaler breath or wheezing #8.5 grams aspirin 81 mg tablet,delayed 81 mg PO DAILY #90 tabs 05/26/22 release ticagrelor 90 mg tablet (Brilinta) 90 mg PO BID #180 tabs 05/26/22 isosorbide mononitrate 30 mg 30 mg PO DAILY #90 tabs 06/14/22 tablet,extended release 24 hr levofloxacin 750 mg tablet 750 mg PO DAILY #2 tabs 09/15/22 oxycodone-acetaminophen 5 mg-325 1 tab PO Q8H PRN severe pain #9 09/15/22 mg tablet tabs Allergies Allergy/AdvReac Type Severity Reaction Status Date / Time Penicillins Allergy Intermediate Swelling Verified 09/09/22 17:38 Review of Systems Review of Systems: Constitutional : No Weight loss, No Fever, No Chills, pos weight gain, pos fatigue ENT/Mouth : No sore throat, No Rhinorrhea Eyes: No Swelling, No Redness Cardiovascular : No Chest Pain, No SOB, pos edema Respiratory : No Cough, No Sputum, No Wheezing Gastrointestinal :no Nausea, no Vomiting, no Diarrhea, positive abdominal Pain, No Hematochezia, No Melena Genitourinary : No Dysuria, No Urinary Frequency, No Hematuria, No Urgency Musculoskeletal : No joint pain, No Myalgias, No Joint Swelling Skin : No Skin Lesions, No rash Neuro : No Weakness, No Numbness, No Dizziness, No Headache Psych : No Anxiety/Panic, No Depression Heme/Lymph: No Bruising, No Lymphadenopathy Endocrine : No Polyuria, No Polydipsia All other systems reviewed and are negative. [facility] Past Medical History Attestation statement: The following information was validated with the patient. Source: old records reviewed Medical History Abdominal mass Asthma Asthma-COPD overlap syndrome COPD with asthma COVID-19 Diabetes Diabetes Dyspnea on exertion Hyperlipidemia Hypertension Lymphoma Thrombocytopenia Surgical History H/O lithotripsy Social History Social History Household Members: None Housing: Apartment Do you presently have visiting nurse or other home services: Yes (visiting nurse at times) Alcohol intake: current Alcohol intake frequency: 3 or more drinks per day Patient Tobacco Use Status: Former Tobacco user Advance Directives: No Advance Directives Information Provided: Yes service: No Current occupational status: retired and disabled Physical Exam Vital Signs: Vital Signs: Last Vital Signs Temp 98.4 F 09/19/22 20:23 Pulse 88 09/19/22 20:23 Resp 23 H 09/19/22 20:23 BP 130/73 09/19/22 20:23 Pulse Ox 96 09/19/22 20:23 O2 Del Method 09/19/22 20:23 BMI result Body Mass Index 33.6 Appearance: Alert. Oriented X3. No acute distress. Eyes: Pupils equal, round and reactive to light. ENT: Pharynx normal. Neck: Normal inspection. Neck supple. CVS: Normal heart rate and rhythm. Pulses normal. Respiratory: No respiratory distress. Breath sounds normal. Abdomen: Soft and moderate ttp in epigastric area no rebound or gurading Obese Skin: Skin warm and dry. Normal skin color. Normal skin turgor. Extremities: trace pitting lower extremity edema. No calf ttp Neuro: Oriented X 3. No motor deficit. No sensory deficit. Course Course Course Narrative: trop flat, trace ascites, no acute change in CT scan has outpatient oncology appointment coming up. states he is going to take his medications in the morning 96% on RA< walking to and from the bathroom no distress feels much better, has diuresed here MDM - Chest Pain MDM Narrative Medical decision making narrative: 81 yo male from home hx of HTN, HLD, dCHF, alcohol abuse, NSTEMI, dc from here 09/15 for new dx 8cm upper abdominal mass now with worsening abdominal pain at this time will obtain basic labs - repeat imaging given patient states he has enlargement of abdomen possible ileus vs SBO. IV morphine for pain. Dispo per results and findings. Lab Data Result diagrams: 09/19/22 20:41 09/19/22 20:41 Labs: Lab Results 09/19/22 09/19/22 09/19/22 Range/Units 20:41 20:41 20:41 WBC 8.9 (4.8-10.8) X10*3/uL RBC 3.89 L (4.60-5.80) X10*6/uL Hgb 11.7 L (14.0-18.0) g/dl Hct 34.4 L (42.0-52.0) % MCV 88.4 (80.0-98.0) fL MCH 30.1 (27.0-33.0) pg MCHC 34.0 (31.0-36.0) g/dl RDW 13.1 (11.0-16.0) % Plt Count 86 L (160-400) X10*3/uL MPV 9.9 (9.4-12.4) fL Immature Gran % (Auto) 1.5 H (0.0-0.4) % Neut % (Auto) 36.4 L (45-73) % Lymph % (Auto) 17.9 L (20-40) % Bacon % (Auto) 43.7 H (2-11) % Eos % (Auto) 0.3 (0-4) % Baso % (Auto) 0.2 (0-2) % Lymph # (Auto) 1.6 (1.2-4.9) X10*3/uL Bacon # (Auto) 3.9 H (0.1-1.2) X10*3/uL Eos # (Auto) 0.0 (0.0-0.4) X10*3/uL Baso # (Auto) 0.0 (0.0-0.2) X10*3/uL Abs Immat Gran (auto) 0.13 H (0.00-0.03) X10*3/uL Absolute Neuts (auto) 3.2 (2.0-8.3) x10*3/uL Absolute Nucleated RBC 0.000 (0.0-0.012) X10*3/uL Nucleated RBC % (auto) 0.0 (0.0-0.2) /100WBC Smear Tech's Comments VERIFIED PT (10.0-13.1) SEC INR (0.9-1.1) Sodium 139 (135-145) mmol/L Potassium 3.5 (3.3-5.1) mmol/L Chloride 101 (96-108) mmol/L Carbon Dioxide 25 (22-29) mmol/L Anion Gap 17 (12-20) BUN 8 L (9-16) mg/dL Creatinine 0.75 (0.5-1.4) mg/dL Estim Creat Clear Calc 80.3 Estimated GFR > 60 Random Glucose 132 H (60-115) mg/dL Calcium 9.2 D (8.4-10.2) mg/dL Magnesium 1.6 (1.6-2.6) mg/dL Total Bilirubin 0.6 (0.0-1.0) mg/dL Direct Bilirubin 0.3 (0.0-0.5) mg/dL AST 35 D (5-37) U/L ALT 34 (0-40) U/L Alkaline Phosphatase 91 (39-117) U/L Troponin I High Sens (<3.5-35.0) ng/L B-Natriuretic Peptide 244 H (<100) pg/mL Total Protein 7.4 (6.5-8.0) g/dL Albumin 3.5 (3.5-5.0) g/dL Ethyl Alcohol mg/dL COVID-19 (BLANCO) (Negative) COVID-19 Clin Com 09/19/22 09/19/22 09/19/22 Range/Units 20:41 20:41 20:41 WBC (4.8-10.8) X10*3/uL RBC (4.60-5.80) X10*6/uL Hgb (14.0-18.0) g/dl Hct (42.0-52.0) % MCV (80.0-98.0) fL MCH (27.0-33.0) pg MCHC (31.0-36.0) g/dl RDW (11.0-16.0) % Plt Count (160-400) X10*3/uL MPV (9.4-12.4) fL Immature Gran % (Auto) (0.0-0.4) % Neut % (Auto) (45-73) % Lymph % (Auto) (20-40) % Bacon % (Auto) (2-11) % Eos % (Auto) (0-4) % Baso % (Auto) (0-2) % Lymph # (Auto) (1.2-4.9) X10*3/uL Bacon # (Auto) (0.1-1.2) X10*3/uL Eos # (Auto) (0.0-0.4) X10*3/uL Baso # (Auto) (0.0-0.2) X10*3/uL Abs Immat Gran (auto) (0.00-0.03) X10*3/uL Absolute Neuts (auto) (2.0-8.3) x10*3/uL Absolute Nucleated RBC (0.0-0.012) X10*3/uL Nucleated RBC % (auto) (0.0-0.2) /100WBC Smear Tech's Comments PT 15.6 H (10.0-13.1) SEC INR 1.3 H (0.9-1.1) Sodium (135-145) mmol/L Potassium (3.3-5.1) mmol/L Chloride (96-108) mmol/L Carbon Dioxide (22-29) mmol/L Anion Gap (12-20) BUN (9-16) mg/dL Creatinine (0.5-1.4) mg/dL Estim Creat Clear Calc Estimated GFR Random Glucose (60-115) mg/dL Calcium (8.4-10.2) mg/dL Magnesium (1.6-2.6) mg/dL Total Bilirubin (0.0-1.0) mg/dL Direct Bilirubin (0.0-0.5) mg/dL AST (5-37) U/L ALT (0-40) U/L Alkaline Phosphatase (39-117) U/L Troponin I High Sens 8.6 (<3.5-35.0) ng/L B-Natriuretic Peptide (<100) pg/mL Total Protein (6.5-8.0) g/dL Albumin (3.5-5.0) g/dL Ethyl Alcohol mg/dL COVID-19 ([facility]ANCO) Negative (Negative) COVID-19 Clin Com See Note 09/19/22 Range/Units 20:41 WBC (4.8-10.8) X10*3/uL RBC (4.60-5.80) X10*6/uL Hgb (14.0-18.0) g/dl Hct (42.0-52.0) % MCV (80.0-98.0) fL MCH (27.0-33.0) pg MCHC (31.0-36.0) g/dl RDW (11.0-16.0) % Plt Count (160-400) X10*3/uL MPV (9.4-12.4) fL Immature Gran % (Auto) (0.0-0.4) % Neut % (Auto) (45-73) % Lymph % (Auto) (20-40) % Bacon % (Auto) (2-11) % Eos % (Auto) (0-4) % Baso % (Auto) (0-2) % Lymph # (Auto) (1.2-4.9) X10*3/uL Bacon # (Auto) (0.1-1.2) X10*3/uL Eos # (Auto) (0.0-0.4) X10*3/uL Baso # (Auto) (0.0-0.2) X10*3/uL Abs Immat Gran (auto) (0.00-0.03) X10*3/uL Absolute Neuts (auto) (2.0-8.3) x10*3/uL Absolute Nucleated RBC (0.0-0.012) X10*3/uL Nucleated RBC % (auto) (0.0-0.2) /100WBC Smear Tech's Comments PT (10.0-13.1) SEC INR (0.9-1.1) Sodium (135-145) mmol/L Potassium (3.3-5.1) mmol/L Chloride (96-108) mmol/L Carbon Dioxide (22-29) mmol/L Anion Gap (12-20) BUN (9-16) mg/dL Creatinine (0.5-1.4) mg/dL Estim Creat Clear Calc Estimated GFR Random Glucose (60-115) mg/dL Calcium (8.4-10.2) mg/dL Magnesium (1.6-2.6) mg/dL Total Bilirubin (0.0-1.0) mg/dL Direct Bilirubin (0.0-0.5) mg/dL AST (5-37) U/L ALT (0-40) U/L Alkaline Phosphatase (39-117) U/L Troponin I High Sens (<3.5-35.0) ng/L B-Natriuretic Peptide (<100) pg/mL Total Protein (6.5-8.0) g/dL Albumin (3.5-5.0) g/dL Ethyl Alcohol < 10 mg/dL COVID-19 ([facility]ANCO) (Negative) COVID-19 Clin Com ECG Data ECG #1: Attestation: I personally reviewed and interpreted this ECG as follows: ECG interpretation date: 09/19/22 ECG interpretation time: 21:56 Interpretation: Rate: 85 Rhythm: NSR [place]: normal Normal P waves. Normal WILFRIDO. Normal QRS complex. ST T wave : no MANN, nonspecific qTC: normal prior studies: no acute ischemia The study has been interpreted contemporaneously by me. . Discharge Plan Discharge Clinical Impression: Small pleural effusion Abdominal mass Qualifiers: Abdominal location: epigastric Qualified Code(s): R19.06 - Epigastric swelling, mass or lump Patient Disposition: Home, Self-Care Instructions: Pleural Effusion (ED) Additional Instructions: return to ED for any worsening symptoms or concerns elizabeth un seguimiento con el onc?logo seg?n lo planeado [place] [facility] Hematolog?a-Oncolog?a el mi?rcoles 09/27/22 a las 2:40 p. m. Prescriptions: No Action albuterol sulfate 90 mcg/actuation HFA aerosol inhaler 2 puff PO Q4-6H PRN (Reason: shortness of breath or wheezing) Qty: 8.5 6RF atorvastatin 80 mg tablet 80 mg PO DAILY omega-3 fatty acids 1,000 mg capsule 1,000 mg PO BID oxybutynin chloride 5 mg tablet extended release 24 hr 5 mg PO DAILY furosemide 40 mg tablet 40 mg PO DAILY isosorbide mononitrate 30 mg tablet extended release 24 hr 30 mg PO DAILY Qty: 90 3RF carvedilol 6.25 mg tablet 1 tab PO BID glipizide 10 mg tablet extended release 24hr 1 tab PO DAILY folic acid 1 mg tablet 1 tab PO DAILY Entresto 24-26 mg tablet 1 tab PO BID ascorbic acid (vitamin C) [Vitamin C] 500 mg Tablet 500 mg PO BID cholecalciferol (vitamin D3) [Vitamin D3] 50 mcg (2,000 unit) Tablet 50 mcg PO DAILY oxycodone-acetaminophen 5-325 mg tablet 1 tab PO Q8H PRN (Reason: severe pain) Qty: 9 0RF levofloxacin 750 mg tablet 750 mg PO DAILY Qty: 2 0RF Levemir FlexTouch U-100 Insuln 100 unit/mL (3 mL) insulin pen 12 unit subcut DAILY cetirizine 10 mg tablet 10 mg PO DAILY PRN (Reason: Allergy Symptoms) tamsulosin 0.4 mg capsule 0.4 mg PO DAILY ipratropium-albuterol 0.5 mg-3 mg(2.5 mg base)/3 mL solution for nebulization 3 ml INHALATION QID PRN (Reason: Shortness Of Breath) metformin 500 mg tablet extended release 24 hr 500 mg PO BID multivitamin with folic acid [Daily-Tejinder (with folic acid)] 400 mcg tablet 1 tab PO DAILY Trelegy Ellipta 200-62.5-25 mcg blister with device 1 inh INHALATION DAILY PRN (Reason: Shortness Of Breath) aspirin 81 mg tablet,delayed release (DR/EC) 81 mg PO DAILY Qty: 90 3RF Brilinta 90 mg tablet 90 mg PO BID Qty: 180 3RF Print Language: Citizen Of [place]
[2022-09-19 20:53] LABS: Basophils Percent Auto 0.2 % (0-2); Eosinophils Percent Auto 0.3 % (0-4); Hematocrit 34.4 % (42.0-52.0); Hemoglobin 11.7 g/dl (14.0-18.0); Imm Gran Abs Auto 0.13 X10*3/uL (0.00-0.03); Imm Gran Pct Auto 1.5 % (0.0-0.4); Lymphocytes Absolute Auto 1.6 X10*3/uL (1.2-4.9); Lymphocytes Percent Auto 17.9 % (20-40); MANUAL DIFF FLAG SCAN; Mean Corpuscular Hemoglobin 30.1 pg (27.0-33.0); Mean Corpuscular Volume 88.4 fL (80.0-98.0); Mean Platelet Volume 9.9 fL (9.4-12.4); Monocytes Absolute Auto 3.9 X10*3/uL (0.1-1.2); Monocytes Percent Auto 43.7 % (2-11); Neutrophils Absolute Auto 3.2 x10*3/uL (2.0-8.3); Neutrophils Percent Auto 36.4 % (45-73); Red Blood Count 3.89 X10*6/uL (4.60-5.80); Red Cell Distribution Width 13.1 % (11.0-16.0); SCAN SMEAR FLAG 1; White Blood Count 8.9 X10*3/uL (4.8-10.8)
[2022-09-19 20:54] LABS: Platelet Count 86 X10*3/uL (160-400)
[2022-09-19] MEDS: Morphine Sulfate 4 MG/ML CARTRIDGE IVPUSH (20:54)
[2022-09-19] MEDS: ondansetron HCL 4 MG/2 ML VIAL IVPUSH (20:54)
[2022-09-19 20:58] LABS: INTERNATIONAL NORM RATIO 1.3 (0.9-1.1); Prothrombin Time 15.6 SEC (10.0-13.1)
[2022-09-19 21:06] LABS: Ethanol < 10 mg/dL
[2022-09-19 21:09] LABS: Alanine Aminotransferase 34 U/L (0-40); Albumin Level 3.5 g/dL (3.5-5.0); Alkaline Phosphatase 91 U/L (39-117); Anion Gap 17 (12-20); Aspartate Amino Transferase 35 U/L (5-37); Bilirubin Direct 0.3 mg/dL (0.0-0.5); Bilirubin Total 0.6 mg/dL (0.0-1.0); Blood Urea Nitrogen 8 mg/dL (9-16); Calcium 9.2 mg/dL (8.4-10.2); Carbon Dioxide 25 mmol/L (22-29); Chloride 101 mmol/L (96-108); Creatinine Clr Calc Pharmacy 80.3; Estimated Glomerular Filt Rate > 60; Glucose Random 132 mg/dL (60-115); Magnesium 1.6 mg/dL (1.6-2.6); Potassium 3.5 mmol/L (3.3-5.1); Sodium 139 mmol/L (135-145); Total Protein 7.4 g/dL (6.5-8.0)
[2022-09-19 21:12] LABS: SLIDE REVIEW VERIFIED
[2022-09-19 21:16] LABS: B Type Natriuretic Peptide 244 pg/mL (<100); Troponin-I High Sensitivity 8.6 ng/L (<3.5-35.0)
[2022-09-19 21:31] LABS: COVID-19 Test Negative (Negative); IDNOW Serial# 16C4AD1C
[2022-09-19] MEDS: iohexoL 350 MG/ML 100 ML INFUS..BTL IV (21:32)
[2022-09-19] MEDS: Furosemide 40 MG/4 ML VIAL IVPUSH (22:05)
[2022-09-19 22:42] VITALS: BP 120/74; PULSE 89; RESP 20; TEMP 36.8; O2SAT 96
== END 2022-09-19 22:52 | disposition home or self-care (01) ==
PROVIDERS: Emergency Provider Emergency Medicine; PCP Internal Medicine
DX: R19.03 Right lower quadrant abdominal swelling, mass and lump (principal); R07.89 Other chest pain; R06.02 Shortness of breath; Z20.822 Contact with and (suspected) exposure to COVID-19; Z79.899 Other long term (current) drug therapy; Z87.891 Personal history of nicotine dependence
CPT/HCPCS: 36415; 71045; 74177; 80048; 80076; 82077; 83735; 83880; 84484; 85025; 85610; 87635; 93005; 96374; 96375; 99283; 99284; J1940; J2270; J2405; Q9967

== ENCOUNTER 2022-09-20 15:15 | Emergency (ER) | payer OTHER, SELFPAY ==
[2022-09-20 15:25] VITALS: BP 136/72; PULSE 91; RESP 20; TEMP 36.5; O2SAT 98; BMI 33.3
--- NOTE | 2022-09-20 16:28 | ED.NAVMDI ---
HPI - Nausea/Vomiting/Diarrhea General Chief complaint: Nausea/Vomiting/Diarrhea Stated complaint: abdominal pain nausea Time Seen by Provider: 09/20/22 16:04 Source: patient and hourly sign language interpreter Mode of arrival: EMS Limitations: language barrier ([place] Helen[place] speaking) History of Present Illness HPI Narrative: Patient is an 81-year-old male past medical history of HTN, HLD, CHF, CAD, and recent diagnosis of lymphoma (1st appt next week with oncology) who presents to the ED today with several complaints. Patient has been seen in the ED here several times in the last few months, most recent being last night, with complaints of epigastric pain, nausea, unintentional weight loss, generalized weakness, decreased appetite, and insomnia. He states he went to Urgent Care earlier today to receive something for his various complaints who then advised patient to be seen in the ED given his diagnosis. While here, he tells me his main concerns are his lack of sleep due to an increased feeling of anxiety when he lays down and his decrease in appetite. He denies any significant changes in his symptoms since his visit here last night. He denies any current fevers, chills, chest pain, cough, SOB, vomiting, diarrhea, leg pain/swelling, and rashes. Associated nausea: Yes Related Data Home Medications Medication Instructions Recorded Confirmed insulin detemir U-100 100 unit/mL 12 unit subcut DAILY 12/17/21 09/20/22 (3 mL) subcutaneous pen (Levemir FlexTouch U-100 Insulin) fluticasone fur. 200 mcg-umeclid 1 inh inhalation DAILY PRN 05/11/22 09/20/22 62.5 mcg-vilant 25 mcg Shortness Of Breath inhalat.powder (Trelegy Ellipta) ipratropium 0.5 mg-albuterol 3 mg 3 ml inhalation QID PRN Shortness 05/11/22 09/20/22 (2.5 mg base)/3 mL nebulization Of Breath soln metformin 500 mg tablet,extended 500 mg PO BID 05/11/22 09/20/22 release 24 hr multivitamin with folic acid 400 1 tab PO DAILY 05/11/22 09/20/22 mcg tablet (Daily-Tejinder (with folic acid)) cetirizine 10 mg tablet 10 mg PO DAILY PRN Allergy Symptoms 05/25/22 09/20/22 atorvastatin 80 mg tablet 80 mg PO DAILY 05/30/22 09/20/22 omega-3 fatty acids 1,000 mg 1,000 mg PO BID 05/30/22 09/20/22 capsule oxybutynin chloride 5 mg 5 mg PO DAILY 05/30/22 09/20/22 tablet,extended release 24 hr ascorbic acid (vitamin C) 500 mg 500 mg PO BID 09/10/22 09/20/22 tablet (Vitamin C) carvedilol 6.25 mg tablet 1 tab PO BID 09/10/22 09/20/22 cholecalciferol (vitamin D3) 50 50 mcg PO DAILY 09/10/22 09/20/22 mcg (2,000 unit) tablet (Vitamin D3) folic acid 1 mg tablet 1 tab PO DAILY 09/10/22 09/20/22 glipizide 10 mg tablet, extended 1 tab PO DAILY 09/10/22 09/20/22 release 24 hr tamsulosin 0.4 mg capsule 1 cap PO DAILY 09/20/22 09/20/22 Previous Rx's Medication Instructions Recorded albuterol sulfate 90 mcg/actuation 2 puff PO Q4-6H PRN shortness of 05/02/22 aerosol inhaler breath or wheezing #8.5 grams aspirin 81 mg tablet,delayed 81 mg PO DAILY #90 tabs 05/26/22 release ticagrelor 90 mg tablet (Brilinta) 90 mg PO BID #180 tabs 05/26/22 Allergies Allergy/AdvReac Type Severity Reaction Status Date / Time Penicillins Allergy Intermediate Swelling Verified 09/20/22 13:38 Review of Systems Review of Systems: Yes all other systems are reviewed and are negative Constitutional: Constitutional: Reports as per HPI, Denies body ache(s), Denies chills, Denies fever(s), Denies headache(s), Reports weakness and Reports weight loss Comments: Insomnia Eyes: Eyes: Reports no additional eye complaints and Denies change in vision ENT: Reports system reviewed and no additional complaints, except as documented, Denies dizziness, Denies headache(s), Denies nasal congestion, Denies nasal discharge and Denies neck pain Cardiovascular: Cardiovascular: Reports no additional cardiovascular complaints, Denies chest pain, Denies leg edema and Denies dyspnea Respiratory: Respiratory: Reports no additional respiratory complaints, Denies cough and Denies dyspnea Gastrointestinal: Gastrointestinal: Reports no additional gastrointestinal complaints, Reports abdominal pain, Denies diarrhea, Reports nausea and Denies vomiting Genitourinary: Genitourinary: Denies urinary incontinence Musculoskeletal: Musculoskeletal: Reports no additional musculoskeletal complaints, Denies back pain, Denies arthralgias, Denies joint swelling, Denies neck pain, Denies numbness and Denies tingling Integumentary/Breasts: Skin/Breast: Reports system reviewed and no additional complaints, except as docu and Denies rash Neurologic: Reports system reviewed and no additional complaints, except as documented, Denies Abnormal speech present, Denies dizziness, Denies headache(s), Denies numbness, Denies tingling and Reports weakness Psychiatric: Psychiatric: Reports anxiety PMFSH Past Medical History Attestation statement: The following information was validated with the patient. Source: old records reviewed, obtained from family and nursing notes reviewed Medical History Abdominal mass Asthma Asthma-COPD overlap syndrome COPD with asthma COVID-19 Diabetes Diabetes Dyspnea on exertion Hyperlipidemia Hypertension Lymphoma Thrombocytopenia Surgical History H/O lithotripsy Social History Social History Household Members: None Housing: Apartment Do you presently have visiting nurse or other home services: Yes (visiting nurse at times) Alcohol intake: current Alcohol intake frequency: 3 or more drinks per day Patient Tobacco Use Status: Former Tobacco user Advance Directives: No Advance Directives Information Provided: No service: No Current occupational status: retired and disabled Physical Exam Vital Signs: Vital Signs: Last Vital Signs Temp 98.5 F 09/21/22 05:52 Pulse 83 09/21/22 05:52 Resp 17 09/21/22 05:52 BP 154/65 H 09/21/22 05:52 Pulse Ox 96 09/21/22 05:52 O2 Del Method 09/21/22 05:52 BMI result Body Mass Index 33.3 Const: General: cooperative, comfortable, no acute distress and tired appearing Orientation/consciousness: patient oriented x3 Limitations: no limitations HEENT: Head: Yes normal to inspection Ears: hearing grossly normal bilaterally General nose exam: Normal external nose present Face and sinus: Yes normal facial exam Mouth: Normal oral and palatal mucosa present Throat: Yes posterior oropharynx normal Eyes: General: appearance normal, both eyes and all related structures Pupils: Equal, round and reactive pupils present Neck: Neck: Yes normal visual inspection Chest: Chest palpation & inspection: normal inspection of the chest Resp: Effort & Inspection: normal respiratory effort Auscultation: clear to auscultation bilaterally Cardio: Rate: regular rate Rhythm: regular rhythm Peripheral pulses: Peripheral pulses 2+ throughout GI: Inspection: Yes distended Palpation (GI): Soft to palpation and Tenderness to palpation present (GI) in the epigastrum Auscultation: Hypoactive bowel sounds present (RUQ, LUQ) and normoactive bowel sounds (RLQ, LLQ) Back/Spine/Pelvis: Thoracic/Lumbar Spine: thoracic and lumbar spine normal to inspection Skin: General skin exam: no rashes or lesions noted Neuro: General: patient oriented x3, no focal motor deficits and normal sensation to monofilament Cranial nerves: Yes Equal, round and reactive pupils present Cognition (Neuro): normal cognition Speech: No Abnormal speech present Gait exam (Neuro): Normal gait present Motor exam (neuro): 5/5 motor strength present throughout Extrem: General: Yes normal to inspection Course Course Course Narrative: Reviewed labs which show chronic thrombocytopenia. Patient has mild hypokalemia. Will order p.o. replacement. Case Management Physical therapy consultations were placed for the morning. Patient placed in physician observation pending disposition. Reevaluation(s) Reevaluation #1: 1800-Sign out to Danni [employer] pending above, MDM - Nausea/Vomiting/Diarrhea MDM Narrative Medical decision making narrative: Patient is an 81-year-old male past medical history of HTN, HLD, CHF, CAD, and recent diagnosis of lymphoma who presents to the ED today with several complaints. His main concerns are receiving something for his lack of sleep and appetite. Vital signs stable. Physical exam remarkable for diffuse tenderness to palpation and hypoactive bowel sounds in the bilateral upper quadrant. Generalized complaints most likely secondary to recent diagnosis of lymphoma. At this time, will order CBC, CMP, liver panel, UA to rule out any new acute processes. Was re-scanned during ED visit last night with no acute changes since last scan, therefore will defer abdominal imaging at this time. Will order Zofran p.r.n. nausea. Pt expresses interest in staying at a short term care facility to help manage diagnosis/symptoms as he lives alone. Pending negative workup and PT/care team consult, plan is to find bed for pt. Medical Records Attestation: I reviewed the patient's medical records. Lab Data Attestation: I reviewed the patient's lab results. Result diagrams: 09/20/22 16:40 09/20/22 16:40 Labs: Lab Results 09/20/22 09/20/22 09/20/22 Range/Units 16:40 16:40 17:42 WBC 9.7 (4.8-10.8) X10*3/uL RBC 3.47 L (4.60-5.80) X10*6/uL Hgb 10.4 L (14.0-18.0) g/dl Hct 31.0 L (42.0-52.0) % MCV 89.3 (80.0-98.0) fL MCH 30.0 (27.0-33.0) pg MCHC 33.5 (31.0-36.0) g/dl RDW 13.1 (11.0-16.0) % Plt Count 83 L (160-400) X10*3/uL MPV 10.0 (9.4-12.4) fL Immature Gran % (Auto) Cancelled Neut % (Auto) Cancelled Lymph % (Auto) Cancelled [place] % (Auto) Cancelled Eos % (Auto) Cancelled Baso % (Auto) Cancelled Lymph # (Auto) Cancelled [place] # (Auto) Cancelled Eos # (Auto) Cancelled Baso # (Auto) Cancelled Abs Immat Gran (auto) Cancelled Absolute Neuts (auto) Cancelled Absolute Nucleated RBC 0.000 (0.0-0.012) X10*3/uL Nucleated RBC % (auto) 0.0 (0.0-0.2) /100WBC Neutrophils % (Manual) 63 (45-73) % Band Neutrophils % 2 L (3-5) % Lymphocytes % (Manual) 9 L (20-40) % Monocytes % (Manual) 25 H (2-11) % Basophils % (Manual) 1 (0-2) % Abs Neuts (Manual) 6.3 (2.0-8.3) X10*3/uL Lymphocytes # (Manual) 0.9 L (1.2-4.9) X10*3/uL Monocytes # (Manual) 2.4 H (0.1-1.2) X10*3/uL Basophils # (Manual) 0.1 (0.0-0.2) X10*3/uL Platelet Estimate DECREASED (NORMAL) Large Platelets PRESENT Plt Morphology Comment NORMAL RBC Morphology NOTED Polychromasia 1+ (0-2) /OIF Microcytosis 1+ (5-14) /OIF Ovalocytes 1+ (5-14) /OIF [place]ell Cells 2+ (3-5) /OIF Acanthocytes (Spur) 1+ (0-2) /OIF Sodium 139 (135-145) mmol/L Potassium 3.2 L (3.3-5.1) mmol/L Chloride 104 (96-108) mmol/L Carbon Dioxide 24 (22-29) mmol/L Anion Gap 14 (12-20) BUN 9 (9-16) mg/dL Creatinine 0.74 (0.5-1.4) mg/dL Estim Creat Clear Calc 81.0 Estimated GFR > 60 Random Glucose 109 (60-115) mg/dL Calcium 8.5 D (8.4-10.2) mg/dL Total Bilirubin 0.6 (0.0-1.0) mg/dL Direct Bilirubin 0.3 (0.0-0.5) mg/dL AST 30 (5-37) U/L ALT 29 (0-40) U/L Alkaline Phosphatase 80 (39-117) U/L Total Protein 6.5 (6.5-8.0) g/dL Albumin 3.1 L (3.5-5.0) g/dL COVID-19 ([facility]AN[facility]) Negative (Negative) COVID-19 Clin Com See Note Discharge Plan Discharge Clinical Impression: Lymphoma, Weakness Patient Disposition: Still a Patient Prescriptions: No Action albuterol sulfate 90 mcg/actuation HFA aerosol inhaler 2 puff PO Q4-6H PRN (Reason: shortness of breath or wheezing) Qty: 8.5 6RF atorvastatin 80 mg tablet 80 mg PO DAILY omega-3 fatty acids 1,000 mg capsule 1,000 mg PO BID oxybutynin chloride 5 mg tablet extended release 24 hr 5 mg PO DAILY carvedilol 6.25 mg tablet 1 tab PO BID glipizide 10 mg tablet extended release 24hr 1 tab PO DAILY folic acid 1 mg tablet 1 tab PO DAILY ascorbic acid (vitamin C) [Vitamin C] 500 mg Tablet 500 mg PO BID cholecalciferol (vitamin D3) [Vitamin D3] 50 mcg (2,000 unit) Tablet 50 mcg PO DAILY Levemir FlexTouch U-100 Insuln 100 unit/mL (3 mL) insulin pen 12 unit subcut DAILY cetirizine 10 mg tablet 10 mg PO DAILY PRN (Reason: Allergy Symptoms) ipratropium-albuterol 0.5 mg-3 mg(2.5 mg base)/3 mL solution for nebulization 3 ml INHALATION QID PRN (Reason: Shortness Of Breath) metformin 500 mg tablet extended release 24 hr 500 mg PO BID multivitamin with folic acid [Daily-Tejinder (with folic acid)] 400 mcg tablet 1 tab PO DAILY Trelegy Ellipta 200-62.5-25 mcg blister with device 1 inh INHALATION DAILY PRN (Reason: Shortness Of Breath) tamsulosin 0.4 mg capsule 1 cap PO DAILY aspirin 81 mg tablet,delayed release (DR/EC) 81 mg PO DAILY Qty: 90 3RF Brilinta 90 mg tablet 90 mg PO BID Qty: 180 3RF
[2022-09-20] MEDS: Ondansetron ODT 4 MG TAB.RAPDIS TRANSLINGU (16:35)
[2022-09-20 16:56] LABS: Hemoglobin 10.4 g/dl (14.0-18.0); PLT CLUMP 1
[2022-09-20 16:58] LABS: Mean Corpuscular HGB Conc 33.5 g/dl (31.0-36.0); Mean Corpuscular Volume 89.3 fL (80.0-98.0); Red Blood Count 3.47 X10*6/uL (4.60-5.80); Red Cell Distribution Width 13.1 % (11.0-16.0)
[2022-09-20 17:12] LABS: Alanine Aminotransferase 29 U/L (0-40); Albumin Level 3.1 g/dL (3.5-5.0); Alkaline Phosphatase 80 U/L (39-117); Anion Gap 14 (12-20); Aspartate Amino Transferase 30 U/L (5-37); Bilirubin Direct 0.3 mg/dL (0.0-0.5); Bilirubin Total 0.6 mg/dL (0.0-1.0); Blood Urea Nitrogen 9 mg/dL (9-16); Calcium 8.5 mg/dL (8.4-10.2); Carbon Dioxide 24 mmol/L (22-29); Chloride 104 mmol/L (96-108); Estimated Glomerular Filt Rate > 60; Glucose Random 109 mg/dL (60-115); Potassium 3.2 mmol/L (3.3-5.1); Sodium 139 mmol/L (135-145); Total Protein 6.5 g/dL (6.5-8.0)
[2022-09-20 17:16] LABS: Platelet Count 83 X10*3/uL (160-400); White Blood Count 9.7 X10*3/uL (4.8-10.8)
[2022-09-20 17:21] LABS: Band Neutrophils Percent 2 % (3-5); Basophils Abs Manual 0.1 X10*3/uL (0.0-0.2); Basophils Percent Manual 1 % (0-2); Lymphocytes Absolute Manual 0.9 X10*3/uL (1.2-4.9); Lymphocytes Percent Manual 9 % (20-40); Monocytes Absolute Manual 2.4 X10*3/uL (0.1-1.2); Monocytes Percent Manual 25 % (2-11); Neutrophils Absolute Manual 6.3 X10*3/uL (2.0-8.3); Neutrophils Percent Manual 63 % (45-73)
[2022-09-20 17:22] LABS: Acanthocytes 1+ (0-2) /OIF; Burr Cells 2+ (3-5) /OIF; Large Platelet PRESENT; Microcytosis 1+ (5-14) /OIF; Ovalocytes 1+ (5-14) /OIF; Platelet Estimate DECREASED (NORMAL); Platelet Morphology Comment NORMAL; Polychromasia 1+ (0-2) /OIF; RBC Morphology NOTED
--- NOTE | 2022-09-20 17:46 | PHA.MEDREC ---
Pharmacy Consult ? Medication Reconciliation Pharmacy has completed the medication reconciliation.
[2022-09-20 18:04] LABS: COVID-19 Test Negative (Negative); IDNOW Serial# 16C4AD1C
--- NOTE | 2022-09-20 19:23 | MHC.CM.ED ---
CM met with patient at request of Alexus RIVER. eligibility supervisor used, as pt is Korean speaking only. Pt is A&Ox3. Lives alone. Friend, Lauri Saba, lives in upstairs apartment. Helps with transportation. Uses a cane. Has CCA. States nurse comes to set up his medications. PCP at [facility] Dr. Sarah Hopper. Pt states he wants a new doctor because when he goes to the clinic, he always sees someone different. Pt recently admitted to [facility] 09/09-09/15 with new diagnosis of Lymphoma. Has first oncology appointment with Dr. Akers on 09/27/22 @ 2:40 pm. HCP reviewed, completed and signed. Copies given. Uploaded into [employer] and [facility] [employer]. HCP#1/friend Geno Miranda ([phone]) and HCP #2/friend Lauri Saba ([phone]). Awaiting PT assessment. Reviewed possible d/c plan with pt, including STR if recommended. Pt willing to go to STR if recommended, but refuses to go directly from hospital. Pt wants to go home and secure his belongings. CM spent some time with handle bender explaining to patient that if PT recommends STR, he needs to go there, not go home. Pt adamantly tells CM he will go home and then go to therapy. He tells CM that he has to secure his belongings. Explained that he will only be at [facility] for a week or two. CM was unable to make pt understand process. Pt is aware that PT will see him in the morning, will make a recommendation and then we will go from there. No referrals placed pending PT evaluation and pt hesitance to go to STR tomorrow.
[2022-09-20] MEDS: Potassium Chloride ER 20 MEQ TAB.ER.PRT PO (19:28)
[2022-09-20 22:33] VITALS: BP 151/72; PULSE 91; RESP 16; TEMP 37.6; O2SAT 93
[2022-09-20 23:16] VITALS: RESP 18
[2022-09-21 01:38] VITALS: BP 143/73; PULSE 93; RESP 18; TEMP 37.1; O2SAT 96
[2022-09-21 02:35] VITALS: BP 145/72; PULSE 91; RESP 18; TEMP 37.1; O2SAT 96
[2022-09-21 03:15] VITALS: RESP 18
[2022-09-21 05:52] VITALS: BP 154/65; PULSE 83; RESP 17; TEMP 36.9; O2SAT 96
[2022-09-21 08:06] VITALS: PULSE 107; O2SAT 96
[2022-09-21 09:16] VITALS: BP 135/78; PULSE 101; RESP 18; O2SAT 96
[2022-09-21] MEDS: Tamsulosin HCL 0.4 MG CAPSULE PO (09:17)
[2022-09-21] MEDS: Aspirin Enteric Coated 81 MG TABLET.DR PO (09:18)
[2022-09-21] MEDS: Multivitamin TABLET 1 TAB PO (09:18)
[2022-09-21] MEDS: Ticagrelor 90 MG TABLET PO (09:18)
[2022-09-21] MEDS: Folic Acid 1 MG TABLET PO (09:18)
[2022-09-21] MEDS: Atorvastatin Calcium 80 MG TABLET PO (09:18)
[2022-09-21] MEDS: carvediloL 6.25 MG TABLET PO (09:19)
[2022-09-21] MEDS: Ascorbic Acid 500 MG TABLET PO (09:19)
[2022-09-21] MEDS: Cholecalciferol (Vitamin D3) 25 MCG TABLET 50 MCG PO (09:19)
[2022-09-21 09:24] LABS: Glucose, Whole Blood 102 mg/dL (60-115)
--- NOTE | 2022-09-21 09:33 | PC.NURSE ---
pt. complain of poor apatite, loosing weight and not being able to sleep. He states that when he eats it feels like food gets stuck pointing to epigastric area. He says that when he eats he then gets nauseated and will vomit. Skin warm, pale and moist. no pain at this time. POC 102, held glargine. Held metformin pt had a scan less than 72hrs ago and was told by to hold metformin for three days. He is now sitting comfortably and eating oatmeal. pt also states he is not able to sleep and would like to be prescribe something to help him increase apatite and help him sleep.
[2022-09-21] MEDS: glipiZIDE XL 10 MG TAB.ER.24 PO (09:53)
--- NOTE | 2022-09-21 12:03 | MHC.CM.ED ---
Patient remains in ER. Physical therapy eval completed. Home therapy is recommended. Patient is active with [facility]. Patient is active with [facility] for shelter. Per Kriss at [facility] will provide physical therapy services. Met with patient and gamma operator. Patient feels he can go home. However he is concerned about insomnia and not having an appetite. Myra DE has discussed this with him and will send him home with zomichelle and atsachi. Continue to monitor for d/c needs.
[2022-09-21] MEDS: oxyCODONE HCl Immed Release 5 MG TABLET PO (12:14)
== END 2022-09-21 12:24 | disposition home or self-care (01) ==
PROVIDERS: Nurse Practitioner Family; Emergency Provider Emergency Medicine Emergency Medical Services; PCP Internal Medicine
DX: C85.90 Non-Hodgkin lymphoma, unspecified, unspecified site (principal); E87.6 Hypokalemia; R11.2 Nausea with vomiting, unspecified; I10 Essential (primary) hypertension; R26.81 Unsteadiness on feet; I25.10 Atherosclerotic heart disease of native coronary artery without angina pectoris; Z20.822 Contact with and (suspected) exposure to COVID-19; Z79.899 Other long term (current) drug therapy; Z87.891 Personal history of nicotine dependence
CPT/HCPCS: 36415; 80048; 80076; 82947; 85007; 85025; 85027; 87635; 97162; 99212; 99284

== ENCOUNTER 2022-09-22 10:20 | Outpatient (RCR) | payer OTHER, SELFPAY ==
[2022-09-22 10:40] VITALS: BP 114/57; PULSE 98; RESP 14; TEMP 36.6; O2SAT 97; BMI 36.6
--- NOTE | 2022-09-22 10:57 | PM.HEMONCCN ---
Subjective - Subjective Chief complaint: Consult for: Lymphoma. Patient: new to practice Consult date: 09/22/22 Requesting Physician: Sarah Caal. Primary Care Provider: Nona Hopper, Radha Summary: DIAGNOSIS: LYMPHOMA. HPI - Consult Narrative Reason for consult: Consult for: Lymphoma. Narrative: Santiago Almanza is a 81 year old gentleman, recent diagnosis of lymphoma who was in house between 09/10 till 09/15. Discharge summary: He presented with abd pain and found to have 8cm mass in the upper abdomen, just above the celiac axis with adjacent pathologically enlarged lymph nodes most suspicious for lymphoma; multiple splenic masses; LDH elevated. He was admitted and underwent CT-guided biopsy on 09/11/22. Prelimiary pathology consistent with lymphoma; final pending. He developed ileus that resolved with conservative measure. Also had transient fever of unknown etiology, possibly due to lymphoma or occult infection; blood cultures, urine culture, and respiratory workup was negative. He was treated with levofloxacin. He has mild thrombocyoptenia likely due to the lymphoma. He presented to the ED on 09/19 with several complaints: Patient has been seen in the ED here several times in the last few months, most recent being last night, with complaints of epigastric pain, nausea, unintentional weight loss, generalized weakness, decreased appetite, and insomnia. He states he went to Urgent Care to receive something for his various complaints who then advised patient to be seen in the ED given his diagnosis. While here, he tells me his main concerns are his lack of sleep due to an increased feeling of anxiety when he lays down and his decrease in appetite. He denies any significant changes in his symptoms since his visit here last night. He denies any current fevers, chills, chest pain, cough, SOB, vomiting, diarrhea, leg pain/swelling, and rashes. CT scan of the chest from 09/10: Motion degradation limits evaluation of the pulmonary parenchyma. Tiny 3 mm solid left lower lobe pulmonary nodule is unchanged from 2009 therefore likely benign. No new suspicious or enlarging pulmonary nodule within limitations of motion. Trace right pleural effusion. Partially imaged is a ill-defined soft tissue mass in the upper abdomen associated with the diaphragmatic crura which remain suspicious for lymphoma, adjacent lymphadenopathy and multiple hypoattenuating splenic mass is similar to recent prior dedicated CT abdomen pelvis. CT scan of the abdomen from 09/19 revealed: No change in the upper abdominal retroperitoneal mass and adjacent enlarged retroperitoneal lymph nodes. No change in multiple splenic lesions. New trace ascites. Small bilateral pleural effusions and right lower lobe atelectasis, unchanged. Small nonobstructing right renal stone. No significant abnormality. past medical history: HTN, HLD, CHF, CAD. 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 FAMILY HISTORY: Denies any known Heme-Onc problems in the family. 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 He is not . He has 5 children. He quit smoking 20 years ago. He still drinks. ROS: He has zero energy. He can not sleep. He has not slept for several nights. He can barely walk. He denies any fever chills or night sweats. He he has no appetite. He lost 20 lb in 4 weeks. He complains of dizziness. He has chest pain and shortness of breath. He complains of epigastric pain radiating to the sides. He has indigestion. Sometimes has difficulty swallowing. He has nausea. He has not moved his bowels for 3 days. Denies any gross blood in the stools. He complains of urinary frequency. He denies any joint pain. He has leg weakness. He has depression and anxiety. Denies skin rashes no pruritus. Review of Systems - Constitutional Reports system reviewed and no additional complaints, except as documented - Eyes Reports system reviewed and no additional complaints, except as documented - ENT Reports system reviewed and no additional complaints, except as documented - Cardiovascular Reports system reviewed and no additional complaints, except as documented - Respiratory Reports no additional respiratory complaints - Gastrointestinal Reports system reviewed and no additional complaints, except as documented - Genitourinary Genitourinary: Reports no additional male genitourinary complaints - Musculoskeletal Reports system reviewed and no additional complaints, except as documented - Integumentary/Breasts Skin/Breast: Reports no additional skin complaints - Neurologic Reports system reviewed and no additional complaints, except as documented - Psychiatric Reports system reviewed and no additional complaints, except as documented - Endocrine Reports no additional endocrine complaints - Hematologic/Lymphatic Reports system reviewed and no additional complaints, except as documented - Allergic/Immunologic Reports system reviewed and no additional complaints, except as documented Oncology Screenings - ECOG Performance Status ECOG Performance Status: 2 [facility] Medical History: Medical History (Last Reviewed 09/26/22 @ 11:57 by Cary Brock DO) Abdominal mass Asthma Asthma-COPD overlap syndrome COPD with asthma COVID-19 Diabetes Diabetes Diastolic CHF Dyspnea on exertion Hyperlipidemia Hypertension Lymphoma Thrombocytopenia Functional capacity: wheelchair bound Patient : No Family History: Family History (Last Updated 09/22/22 @ 10:47 by Kylee Miranda CMA) Other No family history of cancer Surgical History: Surgical History (Last Reviewed 09/22/22 @ 10:46 by Kylee Miranda CMA) H/O lithotripsy Social History: Social History (Last Reviewed 09/26/22 @ 11:57 by Cary Brock DO) Living Situation History: Household Members: None Housing: Apartment Are you a primary health careers instructor to a significant other at home: No Do you presently have visiting nurse or other home services: Yes Do you presently have visiting nurse or other home services comment: visiting nurse at times [facility] Tobacco History: Patient Tobacco Use Status: Former Tobacco user Advance Directives: Advance Directives Date on File: 09/21/22 Occupation Assessmet: service: No Current occupational status: retired Current occupational status: disabled Home Medications and Allergies Home Medications Medication Instructions Recorded Confirmed Type insulin detemir U-100 100 unit/mL 12 unit subcut DAILY 12/17/21 09/26/22 History (3 mL) subcutaneous pen (Levemir FlexTouch U-100 Insulin) fluticasone fur. 200 mcg-umeclid 1 inh inhalation DAILY PRN 05/11/22 09/26/22 History 62.5 mcg-vilant 25 mcg Shortness Of Breath inhalat.powder (Trelegy Ellipta) ipratropium 0.5 mg-albuterol 3 mg 3 ml inhalation QID PRN Shortness 05/11/22 09/26/22 History (2.5 mg base)/3 mL nebulization Of Breath soln metformin 500 mg tablet,extended 500 mg PO BIDWM 05/11/22 09/26/22 History release 24 hr multivitamin with folic acid 400 1 tab PO DAILY 05/11/22 09/26/22 History mcg tablet (Daily-Tejinder (with folic acid)) cetirizine 10 mg tablet 10 mg PO DAILY PRN Allergy Symptoms 05/25/22 09/26/22 History atorvastatin 80 mg tablet 80 mg PO DAILY 05/30/22 09/26/22 History omega-3 fatty acids 1,000 mg 1,000 mg PO TID 05/30/22 09/26/22 History capsule oxybutynin chloride 5 mg 5 mg PO DAILY 05/30/22 09/26/22 History tablet,extended release 24 hr ascorbic acid (vitamin C) 500 mg 500 mg PO BID 09/10/22 09/26/22 History tablet (Vitamin C) carvedilol 6.25 mg tablet 1 tab PO BID 09/10/22 09/26/22 History cholecalciferol (vitamin D3) 50 50 mcg PO DAILY 09/10/22 09/26/22 History mcg (2,000 unit) tablet (Vitamin D3) folic acid 1 mg tablet 1 tab PO DAILY 09/10/22 09/26/22 History glipizide 10 mg tablet, extended 1 tab PO DAILY 09/10/22 09/26/22 History release 24 hr tamsulosin 0.4 mg capsule 1 cap PO DAILY 09/20/22 09/26/22 History dronabinol 2.5 mg capsule 2.5 mg PO BID@1130,1730 09/26/22 09/26/22 History losartan 25 mg tablet 1 tab PO QPM 09/26/22 09/26/22 History oxycodone-acetaminophen 5 mg-325 1 tab PO Q8H PRN severe pain 09/26/22 09/26/22 History mg tablet Allergies Allergy/AdvReac Type Severity Reaction Status Date / Time Penicillins Allergy Intermediate Swelling Verified 09/22/22 10:49 Physical Exam Vital signs: Vital Signs Temp 98 F 09/22/22 10:40 Pulse 98 09/22/22 10:40 Resp 14 09/22/22 10:40 BP 114/57 L 09/22/22 10:40 Pulse Ox 97 09/22/22 10:40 O2 Del Method 09/22/22 10:40 Intake & Output 09/21/22 09/22/22 09/22/22 18:59 06:59 18:59 Other: Weight 90.9 kg [place] Weight in Grams 05032 Weight 90.9 kg - Constitutional Present: mild distress - Routine HEENT Exam Head: Present: normal inspection ENT: Present: mucous membranes moist - Routine Neck Exam Present: supple - Routine Respiratory Exam Present: CTAB - Routine Cardiovascular Exam Cardiovascular: Present: RRR, S1, S2 - Routine Abdominal Exam Present: normal bowel sounds, nontender - Routine Extremities Exam Present: nontender - Routine Skin Exam Present: intact - Routine Neurological Exam Present: alert, oriented X3, normal speech - Routine Psychiatric Exam Present: anxious, depressed Hem/Onc Consult Result - Labs CBC & Chem 7: 09/22/22 11:21 09/22/22 11:21 Assessment and Plan Patient Active problem list reviewed?: Yes (1) High grade malignant lymphoma Status: Acute Assessment and plan: This is an unfortunate 81-year-old gentleman who has had abdominal complaints anorexia weight loss. CT scan revealed abdominal mass with splenic lesions. He had a biopsy of abdominal mass done, Preliminary results: High-grade lymphoma. FISH: Results are pending. PLAN: I will proceed with further staging workup. Will arrange for a PET scan. Arrange for an echocardiogram. Arrange for a bone marrow biopsy. Will have a Port-A-Cath inserted. Will plan the treatment based upon the final pathological findings. All this was explained to him and his DAY SPA MANAGER. All their questions were answered to their satisfaction. He will return in 1 week for a follow-up. Thank you, Addendum: Pathology reveals myc rearrangement. 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 Waiting for BCL2 and BCL6 studies. - Time Spent With Patient Time Spent with Patient (in minutes): 30
[2022-09-22 11:43] LABS: Baso%MD 0.1 %; Eos%MD 0.1 %; Hematocrit 34.7 % (42.0-52.0); Hemoglobin 11.7 g/dl (14.0-18.0); IG%MD 0.8 %; Lymph%MD 11.8 %; Mean Corpuscular HGB Conc 33.7 g/dl (31.0-36.0); Mean Corpuscular Hemoglobin 29.9 pg (27.0-33.0); Mean Corpuscular Volume 88.7 fL (80.0-98.0); Mean Platelet Volume 10.1 fL (9.4-12.4); Mono%MD 33.3 %; Neut%MD 53.9 %; Red Blood Count 3.91 X10*6/uL (4.60-5.80); Red Cell Distribution Width 12.9 % (11.0-16.0)
[2022-09-22 11:44] LABS: Platelet Count 91 X10*3/uL (160-400)
[2022-09-22 11:57] LABS: Alanine Aminotransferase 25 U/L (0-40); Albumin Level 3.5 g/dL (3.5-5.0); Alkaline Phosphatase 96 U/L (39-117); Anion Gap 16 (12-20); Aspartate Amino Transferase 36 U/L (5-37); Blood Urea Nitrogen 10 mg/dL (9-16); Calcium 9.3 mg/dL (8.4-10.2); Carbon Dioxide 28 mmol/L (22-29); Chloride 97 mmol/L (96-108); Creatinine Clr Calc Pharmacy 65.1; Estimated Glomerular Filt Rate > 60; Glucose Random 154 mg/dL (60-115); Lactate Dehydrogenase 436 U/L (118-273); Potassium 3.7 mmol/L (3.3-5.1); Sodium 137 mmol/L (135-145); Total Protein 7.5 g/dL (6.5-8.0)
[2022-09-22 12:02] LABS: Band Neutrophils Percent 0 % (3-5); Hypochromasia 1+ (5-14) /OIF; Lymphocytes Absolute Manual 1.4 X10*3/uL (1.2-4.9); Lymphocytes Percent Manual 12 % (20-40); Monocytes Absolute Manual 3.6 X10*3/uL (0.1-1.2); Monocytes Percent Manual 30 % (2-11); Neutrophils Percent Manual 58 % (45-73); Platelet Estimate DECREASED (NORMAL); Platelet Morphology Comment NORMAL; RBC Morphology NOTED
--- NOTE | 2022-09-22 12:50 | MHC.HEMONCMA ---
Pt was in for consult. Clinical summary reviewed and updated, VSS. Labs were drawn. Pt to return in 2 weeks. PET, echo and port insertion ordered.
--- NOTE | 2022-09-22 16:32 | HO.HEMONCSCH ---
Echo and port insertion sent to [facility].
--- NOTE | 2022-09-25 10:23 | HO.HEMONCPA ---
PA IS REQUIRED FOR PET CT ([id number]) , SENT CLINICAL INFORMATION TO [facility] . AWAITING DECISION
[2022-09-25 21:27] LABS: Beta-2 Microglobulin, Serum 3.22 mg/L (< OR = 2.51)
--- NOTE | 2022-09-28 10:08 | HO.HEMONCSCH ---
Called pts childbirth and infant care teacher and lvm informing her of port insertion for 10/02/22 at 0830am, pt has to stop taking aspirin tomorrow.
--- NOTE | 2022-10-02 10:33 | MHC.HEMONC ---
PET Auth # [id number] valid from 09/25/22-12/23/22 per Kush Pradhan from [facility]. Will fax to [facility] as they can do scan tomorrow.
--- NOTE | 2022-10-02 12:07 | HO.HEMONCSCH ---
Addendum entered by Aimee Rosario 10/11/22 11:57: PET/CT SCAN not booked because pt is in rehab. Appt when pt is out of rehab Original Note: PET/CT SCAN ORDER FAXED TO [facility] FOR APPT REQUEST
--- NOTE | 2022-10-03 08:57 | MHC.HEMONC ---
Paul GUZMAN at [facility] - pt has been at [facility] since last night. Dr Ulloa advised. Pt appt for today canceled.
--- NOTE | 2022-10-03 16:09 | MHC.HEMONC ---
Per Dr Ulloa-pt will be going to [facility] for treatment. Pt currently in ED at [facility]
--- NOTE | 2022-10-25 14:50 | MHC.HEMONC ---
Key reached out to pt. Key spoke w/ pt's JALOUSIE INSTALLER. Pt still admitted at [facility] . JALOUSIE INSTALLER will call to dept after pt is discharged from the hospital
--- NOTE | 2022-11-13 11:24 | HE.ONCSEC ---
WAS TOLD BY SARA , THAT PT HAS BEEN TRANSFERRED TO [facility] AND IF ANYONE HAS ANY QUESTIONS OR CONCERNS THEY CAN CALL THIS NUMBER [phone] . SHE ALSO SCHEDULED AN APPT FOR PATIENT AND SAY SHE WILL CALL THE CARE HOME SO THEY CAN BE AWARE OF THIS APPT .
== END 2023-02-09 | disposition home or self-care (01) ==
LOC: HO.ONC 10:20
PROVIDERS: Visit Provider Internal Medicine Medical Oncology
DX: C85.90 Non-Hodgkin lymphoma, unspecified, unspecified site (principal)
CPT/HCPCS: 36415; 80053; 82232; 83615; 85007; 85027; 99204

== ENCOUNTER 2022-09-26 10:51 | Emergency (ER) | payer OTHER, SELFPAY ==
[2022-09-26 10:53] VITALS: BP 137/77; PULSE 90; O2SAT 97
--- NOTE | 2022-09-26 10:58 | ED.NAVMDI ---
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 Is undergoing staging before starting chemo. He comes in today stating he has persistent nausea, weight loss, pain and wants help. He states he only has a person come in for 1 hour a day to help him and it isn't working. MD elicited complaint: nausea and abdominal pain Pertinent past history: other (abdominal mass) Onset (ago): week(s) (few) Associated nausea: Yes Associated abdominal pain: Yes Location of pain: epigastric Pain consistency: constant Severity: moderate Exacerbating factors: eating Relieving factors: none Context: other (recent dx of abdominal mass) Associated symptoms: loss of appetite, malaise, nausea/vomiting and weakness Related Data Home Medications Medication Instructions Recorded Confirmed insulin detemir U-100 100 unit/mL 12 unit subcut DAILY 12/17/21 09/22/22 (3 mL) subcutaneous pen (Levemir FlexTouch U-100 Insulin) fluticasone fur. 200 mcg-umeclid 1 inh inhalation DAILY PRN 05/11/22 09/22/22 62.5 mcg-vilant 25 mcg Shortness Of Breath inhalat.powder (Trelegy Ellipta) ipratropium 0.5 mg-albuterol 3 mg 3 ml inhalation QID PRN Shortness 05/11/22 09/22/22 (2.5 mg base)/3 mL nebulization Of Breath soln metformin 500 mg tablet,extended 500 mg PO BID 05/11/22 09/22/22 release 24 hr multivitamin with folic acid 400 1 tab PO DAILY 05/11/22 09/22/22 mcg tablet (Daily-Tejinder (with folic acid)) cetirizine 10 mg tablet 10 mg PO DAILY PRN Allergy Symptoms 05/25/22 09/22/22 atorvastatin 80 mg tablet 80 mg PO DAILY 05/30/22 09/22/22 omega-3 fatty acids 1,000 mg 1,000 mg PO BID 05/30/22 09/22/22 capsule oxybutynin chloride 5 mg 5 mg PO DAILY 05/30/22 09/22/22 tablet,extended release 24 hr ascorbic acid (vitamin C) 500 mg 500 mg PO BID 09/10/22 09/22/22 tablet (Vitamin C) carvedilol 6.25 mg tablet 1 tab PO BID 09/10/22 09/22/22 cholecalciferol (vitamin D3) 50 50 mcg PO DAILY 09/10/22 09/22/22 mcg (2,000 unit) tablet (Vitamin D3) folic acid 1 mg tablet 1 tab PO DAILY 09/10/22 09/22/22 glipizide 10 mg tablet, extended 1 tab PO DAILY 09/10/22 09/22/22 release 24 hr tamsulosin 0.4 mg capsule 1 cap PO DAILY 09/20/22 09/22/22 Previous Rx's Medication Instructions Recorded albuterol sulfate 90 mcg/actuation 2 puff PO Q4-6H PRN shortness of 05/02/22 aerosol inhaler breath or wheezing #8.5 grams aspirin 81 mg tablet,delayed 81 mg PO DAILY #90 tabs 05/26/22 release ticagrelor 90 mg tablet (Brilinta) 90 mg PO BID #180 tabs 05/26/22 lorazepam 0.5 mg tablet 0.5 mg PO BEDTIME PRN sleep #15 09/21/22 tabs ondansetron 4 mg disintegrating 4 mg PO Q6H PRN nausea and 09/21/22 tablet vomiting #14 tabs dronabinol 2.5 mg capsule 2.5 mg PO BID #60 caps 09/22/22 Allergies Allergy/AdvReac Type Severity Reaction Status Date / Time Penicillins Allergy Intermediate Swelling Verified 09/22/22 10:49 Review of Systems Review of Systems: Constitutional : No Weight loss, No Fever, No Chills ENT/Mouth : No sore throat, No Rhinorrhea Eyes: No Swelling, No Redness Cardiovascular : No Chest Pain, No SOB, NoEdema Respiratory : No Cough, No Sputum, No Wheezing Gastrointestinal : Positive Nausea, no Vomiting, no Diarrhea, positive abdominal Pain, No Hematochezia, No Melena, pos constipation Genitourinary : No Dysuria, No Urinary Frequency, No Hematuria, No Urgency Musculoskeletal : No joint pain, No Myalgias, No Joint Swelling Skin : No Skin Lesions, No rash Neuro : pos Weakness, No Numbness, No Dizziness, No Headache Psych : No Anxiety/Panic, No Depression Heme/Lymph: No Bruising, No Lymphadenopathy Endocrine : No Polyuria, No Polydipsia All other systems reviewed and are negative. Gastrointestinal: Gastrointestinal: Reports nausea PMFSH Past Medical History Medical History Abdominal mass Asthma Asthma-COPD overlap syndrome COPD with asthma COVID-19 Diabetes Diabetes Diastolic CHF Dyspnea on exertion Hyperlipidemia Hypertension Lymphoma Thrombocytopenia Surgical History H/O lithotripsy Family History Family History (Updated 09/22/22 @ 10:47 by Kylee Miranda CMA) Other No family history of cancer Social History Social History Household Members: None Housing: Apartment Are you a primary health care legal assistant to a significant other at home: No Do you presently have visiting nurse or other home services: Yes (visiting nurse at [facility]) Alcohol intake: current Alcohol intake frequency: 3 or more drinks per day Patient Tobacco Use Status: Former Tobacco user Advance Directives: Yes Advance Directives on File: Yes Advance Directives Date on File: 09/21/22 service: No Current occupational status: retired and disabled Physical Exam Vital Signs: Vital Signs: Last Vital Signs Temp 99.3 F 09/26/22 11:21 Pulse 61 09/26/22 12:00 Resp 18 09/26/22 12:00 BP 160/52 H 09/26/22 12:00 Pulse Ox 94 09/26/22 12:00 O2 Del Method 09/26/22 12:00 BMI result Body Mass Index 38.4 Appearance: Alert. Oriented X3. No acute distress. Eyes: Pupils equal, round and reactive to light. ENT: Pharynx normal. Neck: Normal inspection. Neck supple. CVS: Normal heart rate and rhythm. Pulses normal. Respiratory: No respiratory distress. Breath sounds normal. Abdomen: Soft some distention felt in upper abdomen - fullness, no rebound Skin: Skin warm and dry. pale skin color. Normal skin turgor. Extremities: No lower extremity edema. No calf ttp Neuro: Oriented X 3. No motor deficit. No sensory deficit. Course Course Course Narrative: Patient placed in physician observation at 129pm. The indication for observation is that the patient needs more time for PT/CM to help with safe discharge planning. Other than mag being low no other acute findings - repleted MDM - Nausea/Vomiting/Diarrhea MDM Narrative Medical decision making narrative: 81 yo male from home hx of HTN, HLD, dCHF, alcohol abuse, NSTEMI, dc from here 09/15 for new dx 8cm upper abdominal mass underwent CT guided biopsy pathology consistent with high grade lymphoma - recent visits for persistent n/v and abdominal pain just had CT scan at end of August for same without new changes. He did not meet acute rehab criteria on last admission. He is here stating he has no one and cannot care for himself. Will obtain labs, IVF, IV morphine for pain - refer to CM if medically cleared. Lab Data Result diagrams: 09/26/22 11:49 09/26/22 11:49 Labs: Lab Results 09/26/22 09/26/22 09/26/22 Range/Units 11:49 11:49 11:50 WBC 8.2 (4.8-10.8) X10*3/uL RBC 3.70 L (4.60-5.80) X10*6/uL Hgb 11.0 L (14.0-18.0) g/dl Hct 33.1 L (42.0-52.0) % MCV 89.5 (80.0-98.0) fL MCH 29.7 (27.0-33.0) pg MCHC 33.2 (31.0-36.0) g/dl RDW 12.9 (11.0-16.0) % Plt Count 90 L (160-400) X10*3/uL MPV 9.8 (9.4-12.4) fL Immature Gran % (Auto) 1.2 H (0.0-0.4) % Neut % (Auto) 55.6 (45-73) % Lymph % (Auto) 12.5 L (20-40) % [place] % (Auto) 30.2 H (2-11) % Eos % (Auto) 0.4 (0-4) % Baso % (Auto) 0.1 (0-2) % Lymph # (Auto) 1.0 L (1.2-4.9) X10*3/uL [place] # (Auto) 2.5 H (0.1-1.2) X10*3/uL Eos # (Auto) 0.0 (0.0-0.4) X10*3/uL Baso # (Auto) 0.0 (0.0-0.2) X10*3/uL Abs Immat Gran (auto) 0.10 H (0.00-0.03) X10*3/uL Absolute Neuts (auto) 4.5 (2.0-8.3) x10*3/uL Absolute Nucleated RBC 0.000 (0.0-0.012) X10*3/uL Nucleated RBC % (auto) 0.0 (0.0-0.2) /100WBC Smear Tech's Comments VERIFIED Sodium 136 (135-145) mmol/L Potassium 4.3 (3.3-5.1) mmol/L Chloride 98 (96-108) mmol/L Carbon Dioxide 26 (22-29) mmol/L Anion Gap 16 (12-20) BUN 7 L (9-16) mg/dL Creatinine 0.69 (0.5-1.4) mg/dL Estim Creat Clear Calc 78.0 Estimated GFR > 60 Random Glucose 108 (60-115) mg/dL Calcium 9.2 (8.4-10.2) mg/dL Magnesium 1.3 L* (1.6-2.6) mg/dL Total Bilirubin 0.5 (0.0-1.0) mg/dL Direct Bilirubin 0.3 (0.0-0.5) mg/dL AST 33 (5-37) U/L ALT 24 (0-40) U/L Alkaline Phosphatase 91 (39-117) U/L Total Protein 7.3 (6.5-8.0) g/dL Albumin 3.2 L (3.5-5.0) g/dL Lipase 13 (8-78) U/L COVID-19 ([facility]ANCO) Negative (Negative) COVID-19 Clin Com See Note Discharge Plan Discharge Clinical Impression: Adult failure to thrive, Hypomagnesemia Patient Disposition: Still a Patient Prescriptions: No Action albuterol sulfate 90 mcg/actuation HFA aerosol inhaler 2 puff PO Q4-6H PRN (Reason: shortness of breath or wheezing) Qty: 8.5 6RF atorvastatin 80 mg tablet 80 mg PO DAILY omega-3 fatty acids 1,000 mg capsule 1,000 mg PO BID oxybutynin chloride 5 mg tablet extended release 24 hr 5 mg PO DAILY carvedilol 6.25 mg tablet 1 tab PO BID glipizide 10 mg tablet extended release 24hr 1 tab PO DAILY folic acid 1 mg tablet 1 tab PO DAILY ascorbic acid (vitamin C) [Vitamin C] 500 mg Tablet 500 mg PO BID cholecalciferol (vitamin D3) [Vitamin D3] 50 mcg (2,000 unit) Tablet 50 mcg PO DAILY dronabinol 2.5 mg Capsule 2.5 mg PO BID Qty: 60 3RF Rx Instructions: administer before lunch and evening meal/dinner Levemir FlexTouch U-100 Insuln 100 unit/mL (3 mL) insulin pen 12 unit subcut DAILY cetirizine 10 mg tablet 10 mg PO DAILY PRN (Reason: Allergy Symptoms) ipratropium-albuterol 0.5 mg-3 mg(2.5 mg base)/3 mL solution for nebulization 3 ml INHALATION QID PRN (Reason: Shortness Of Breath) metformin 500 mg tablet extended release 24 hr 500 mg PO BID multivitamin with folic acid [Daily-Tejinder (with folic acid)] 400 mcg tablet 1 tab PO DAILY Trelegy Ellipta 200-62.5-25 mcg blister with device 1 inh INHALATION DAILY PRN (Reason: Shortness Of Breath) tamsulosin 0.4 mg capsule 1 cap PO DAILY ondansetron 4 mg tablet,disintegrating 4 mg PO Q6H PRN (Reason: nausea and vomiting) Qty: 14 0RF lorazepam 0.5 mg tablet 0.5 mg PO BEDTIME PRN (Reason: sleep) Qty: 15 0RF aspirin 81 mg tablet,delayed release (DR/EC) 81 mg PO DAILY Qty: 90 3RF Brilinta 90 mg tablet 90 mg PO BID Qty: 180 3RF
[2022-09-26 11:00] VITALS: BP 150/88; PULSE 93; RESP 18; TEMP 37; O2SAT 96; BMI 38.4
[2022-09-26 11:21] VITALS: BP 145/78; PULSE 87; RESP 20; TEMP 37.4; O2SAT 96
[2022-09-26] MEDS: 0.9 % Sodium Chloride 500 ML IV (11:38)
[2022-09-26] MEDS: Morphine Sulfate 4 MG/ML CARTRIDGE IVPUSH (11:40)
[2022-09-26] MEDS: ondansetron HCL 4 MG/2 ML VIAL IVPUSH (11:40)
[2022-09-26 12:00] VITALS: BP 160/52; PULSE 61; RESP 18; O2SAT 94
[2022-09-26 12:04] LABS: Basophils Percent Auto 0.1 % (0-2); Eosinophils Percent Auto 0.4 % (0-4); Hematocrit 33.1 % (42.0-52.0); Imm Gran Pct Auto 1.2 % (0.0-0.4); Lymphocytes Percent Auto 12.5 % (20-40); MANUAL DIFF FLAG SCAN; Mean Corpuscular HGB Conc 33.2 g/dl (31.0-36.0); Mean Corpuscular Hemoglobin 29.7 pg (27.0-33.0); Mean Corpuscular Volume 89.5 fL (80.0-98.0); Mean Platelet Volume 9.8 fL (9.4-12.4); Monocytes Absolute Auto 2.5 X10*3/uL (0.1-1.2); Monocytes Percent Auto 30.2 % (2-11); Neutrophils Absolute Auto 4.5 x10*3/uL (2.0-8.3); Neutrophils Percent Auto 55.6 % (45-73); Red Cell Distribution Width 12.9 % (11.0-16.0); SCAN SMEAR FLAG 1; White Blood Count 8.2 X10*3/uL (4.8-10.8)
[2022-09-26 12:05] LABS: Platelet Count 90 X10*3/uL (160-400)
[2022-09-26 12:22] LABS: COVID-19 Test Negative (Negative); IDNOW Serial# 55D5AD1C
[2022-09-26 12:34] LABS: SLIDE REVIEW VERIFIED
[2022-09-26 12:44] LABS: Alanine Aminotransferase 24 U/L (0-40); Albumin Level 3.2 g/dL (3.5-5.0); Alkaline Phosphatase 91 U/L (39-117); Anion Gap 16 (12-20); Aspartate Amino Transferase 33 U/L (5-37); Bilirubin Direct 0.3 mg/dL (0.0-0.5); Bilirubin Total 0.5 mg/dL (0.0-1.0); Blood Urea Nitrogen 7 mg/dL (9-16); Calcium 9.2 mg/dL (8.4-10.2); Carbon Dioxide 26 mmol/L (22-29); Chloride 98 mmol/L (96-108); Estimated Glomerular Filt Rate > 60; Glucose Random 108 mg/dL (60-115); Lipase 13 U/L (8-78); Potassium 4.3 mmol/L (3.3-5.1); Sodium 136 mmol/L (135-145); Total Protein 7.3 g/dL (6.5-8.0)
[2022-09-26 13:20] LABS: Magnesium 1.3 mg/dL (1.6-2.6)
[2022-09-26] MEDS: Magnesium Sulfate/H2O 2 GM/50 ML PIGGYBACK IV (13:29)
--- NOTE | 2022-09-26 14:16 | MHC.CM.ED ---
Received case management consult from Dr Brock. Patient came to ER with nausea and weakness. Work up essentially negative. Physical therapy eval is pending. Patient is know to T/W. Patient was discharged from ER on 09/21/22. Patient was in the ER for dizziness at that time. Physical therapy eval recommended home therapy. Patient is active with [facility] for assisted. [facility] is provided physical therapy. Patient was recently diagnosed with lymphoma. Patient had 1st appointment with Dr Posadas on 09/22/22. At this time, Dr Ulloa's plan is to complete a PET scan and biopsy before developing a care plan for the lymphoma. Anticipate patient will want jail care at a assisted facility. Referral broadcasted within 20 miles of patient's home to all facilities contracted with [facility] in [facility]. Continue to monitor for d/c needs.
--- NOTE | 2022-09-26 17:56 | PHA.MEDREC ---
Pharmacy Consult ? Medication Reconciliation Pharmacy has completed the medication reconciliation. Recieved updated medication list from [facility]. Per Dr. Noriega, dianelys, kael and rosey are to be on hold. Daniela Smallwood, KeniaD
[2022-09-26 20:49] VITALS: BP 154/76; PULSE 112; RESP 20; TEMP 36.2; O2SAT 97
[2022-09-26] MEDS: oxyCODONE HCl Immed Release 5 MG TABLET PO (21:52)
[2022-09-26] MEDS: Ticagrelor 90 MG TABLET PO (22:08)
[2022-09-26] MEDS: Ascorbic Acid 500 MG TABLET PO (22:08)
[2022-09-26] MEDS: Losartan Potassium 25 MG TABLET PO (22:08)
[2022-09-26] MEDS: carvediloL 6.25 MG TABLET PO (22:08)
--- NOTE | 2022-09-26 22:15 | MHC.CM.ED ---
Attempted to meet with patient to review plan of care, but patient sleeping. Recently medicated for pain. DBV following. CM to follow for d/c planning.
[2022-09-27] VITALS (7 sets, daily range): BP systolic 101–169; BP diastolic 59–97; PULSE 81–94; RESP 16–24; TEMP 36.3–37.1; O2SAT 96–100
[2022-09-27] MEDS: Magnesium Hydrox/Alum Hydrox 30 ML ORAL.SUSP PO (04:01)
[2022-09-27] MEDS: Tamsulosin HCL 0.4 MG CAPSULE PO (07:38)
[2022-09-27] MEDS: Atorvastatin Calcium 80 MG TABLET PO (07:38)
[2022-09-27] MEDS: carvediloL 6.25 MG TABLET PO ×2 (07:38→20:38)
[2022-09-27] MEDS: metFORMIN HCl ER 500 MG TAB.ER.24H PO (07:38)
[2022-09-27] MEDS: Aspirin Enteric Coated 81 MG TABLET.DR PO (07:39)
[2022-09-27] MEDS: Multivitamin TABLET 1 TAB PO (07:39)
[2022-09-27] MEDS: Folic Acid 1 MG TABLET PO (07:40)
[2022-09-27] MEDS: Ascorbic Acid 500 MG TABLET PO ×2 (07:40→20:38)
[2022-09-27] MEDS: Insulin Glargine,Hum.rec.anlog 100 UNIT/ML 10 ML VIAL 8 UNIT SUBCUT (07:40)
[2022-09-27] MEDS: Cholecalciferol (Vitamin D3) 25 MCG TABLET 50 MCG PO (07:40)
[2022-09-27 09:21] LABS: Glucose, Whole Blood 97 mg/dL (60-115)
[2022-09-27] MEDS: oxyCODONE HCl Immed Release 5 MG TABLET PO ×2 (10:11→20:38)
[2022-09-27] MEDS: Ondansetron ODT 4 MG TAB.RAPDIS TRANSLINGU ×2 (10:11→20:47)
[2022-09-27] MEDS: Ticagrelor 90 MG TABLET PO ×2 (10:18→20:38)
--- NOTE | 2022-09-27 10:19 | PC.NURSE ---
PT C/O NAUSEA, CONCERNED ABOUT HIS BLOOD SUGARS. POCT CHECKED, WNL. PT HAS EATEN BREAKFAST THIS MORNING. PT REQUIRING FREQUENT REASSURANCE. UPDATE GIVEN TO DAUGHTER SARA [phone]
[2022-09-27 13:23] LABS: Glucose, Whole Blood 101 mg/dL (60-115)
[2022-09-27] MEDS: ondansetron HCL 4 MG/2 ML VIAL IVPUSH (15:09)
[2022-09-27] MEDS: HYDROmorphone HCl 0.5 MG/0.5 ML SYRINGE IVPUSH (15:09)
[2022-09-27] MEDS: Losartan Potassium 25 MG TABLET PO (20:38)
[2022-09-27] MEDS: LORazepam 0.5 MG TABLET PO (20:38)
[2022-09-27 20:58] LABS: Glucose, Whole Blood 116 mg/dL (60-115)
[2022-09-28] VITALS: BP 109/65; PULSE 86; RESP 18; TEMP 36.4; O2SAT 97
[2022-09-28 02:00] VITALS: BP 127/72; PULSE 84; RESP 18; TEMP 36.3; O2SAT 97
[2022-09-28 04:00] VITALS: BP 112/65; PULSE 86; RESP 18; TEMP 36.4; O2SAT 96
[2022-09-28] MEDS: Ondansetron ODT 4 MG TAB.RAPDIS TRANSLINGU (04:27)
[2022-09-28 06:00] VITALS: BP 125/67; PULSE 77; RESP 18; TEMP 36.3; O2SAT 96
[2022-09-28] MEDS: metFORMIN HCl ER 500 MG TAB.ER.24H PO (07:46)
[2022-09-28 07:48] LABS: Glucose, Whole Blood 106 mg/dL (60-115)
[2022-09-28 07:55] VITALS: BP 127/70; PULSE 84; RESP 18; O2SAT 96
[2022-09-28] MEDS: Insulin Glargine,Hum.rec.anlog 100 UNIT/ML 10 ML VIAL 8 UNIT SUBCUT (08:53)
[2022-09-28] MEDS: Tamsulosin HCL 0.4 MG CAPSULE PO (08:54)
[2022-09-28] MEDS: Folic Acid 1 MG TABLET PO (08:54)
[2022-09-28] MEDS: Ascorbic Acid 500 MG TABLET PO (08:54)
[2022-09-28] MEDS: carvediloL 6.25 MG TABLET PO (08:55)
[2022-09-28] MEDS: Ticagrelor 90 MG TABLET PO (08:55)
[2022-09-28] MEDS: Atorvastatin Calcium 80 MG TABLET PO (08:55)
[2022-09-28] MEDS: Aspirin Enteric Coated 81 MG TABLET.DR PO (08:55)
[2022-09-28] MEDS: Multivitamin TABLET 1 TAB PO (08:55)
[2022-09-28] MEDS: Cholecalciferol (Vitamin D3) 25 MCG TABLET 50 MCG PO (08:55)
[2022-09-28 08:56] VITALS: BP 100/60; PULSE 96
--- NOTE | 2022-09-28 09:05 | MHC.CM.ED ---
Patient remains in ER overflow. Samina Smyth has obtained insurance auth and [facility] PASRR Level 2. Patient can leave at 10am. Daya falloned. [facility] with chart. Met with patient and analytical lead in order to complete discharge plan. Patient is concerned he needs to pay his rent before he goes to [facility]. T/W explained patient would have to go straight [facility] the [facility] [place] [facility]. Patient requested T/W speak to patient's MINE SHIFTER/HCP, Geno. T/W spoke with Geno via telephone at [phone]. She will speak to patient via telephone and let him know she will handle his rent. Patient, Jaci MEJÍA and Ines RIVER aware. Continue to monitor for d/c needs.
== END 2022-09-28 10:02 | disposition skilled nursing facility (03) ==
PROVIDERS: Emergency Provider Emergency Medicine; PCP Nurse Practitioner Primary Care
DX: R62.7 Adult failure to thrive (principal); Z68.38 Body mass index [BMI] 38.0-38.9, adult; E83.42 Hypomagnesemia; Z20.822 Contact with and (suspected) exposure to COVID-19; R11.0 Nausea; R53.1 Weakness; I11.0 Hypertensive heart disease with heart failure; I50.30 Unspecified diastolic (congestive) heart failure; E11.9 Type 2 diabetes mellitus without complications; E78.5 Hyperlipidemia, unspecified; C85.93 Non-Hodgkin lymphoma, unspecified, intra-abdominal lymph nodes; Z79.4 Long term (current) use of insulin; Z79.02 Long term (current) use of antithrombotics/antiplatelets; Z79.899 Other long term (current) drug therapy; Z87.891 Personal history of nicotine dependence
CPT/HCPCS: 80048; 80076; 82947; 83690; 83735; 85025; 87635; 96361; 96365; 96374; 96375; 96376; 97162; 99284; 99285; J1170; J2270; J2405; J3475

== ENCOUNTER 2022-10-02 06:53 | Day surgery (SDC) | payer OTHER, SELFPAY ==
--- NOTE | ~2022-10-02 | IR_ITS ---
PROCEDURE: IR INSERTION OF TUNNEL CATHETER CLINICAL INFORMATION: Chemotherapy for high-grade lymphoma. COMPARISON: None TECHNIQUE: Procedure and risks and benefits including bleeding, infection and pneumothorax were discussed with the patient through an crew foreman and informed consent was obtained. All elements of maximal sterile barrier technique followed including use of cap, mask, sterile gown, sterile gloves, a sterile full body drape and hand hygiene. Also followed skin preparation with 2% chlorhexidine for cutaneous antisepsis, and sterile ultrasound preparation with sterile gel and probe cover when applicable. The right neck and chest were prepped and draped in the usual sterile fashion. The skin and soft tissues were anesthetized with 1% lidocaine plain. Using ultrasound guidance and a 5 [place]er micropuncture system, right internal jugular vein access was obtained. Over an 018 wire, a 5 [place]er dilator was positioned in the SVC. The skin and soft tissues of the right upper anterior chest were anesthetized with 1% lidocaine. A small incision was made. A subcutaneous pocket was created using blunt dissection. Subcutaneous tunnel from the chest to the neck incision was anesthetized with 1% lidocaine plain. Using a tunneler, a 5.8 [place] single-lumen catheter was tunneled from the chest to the neck incision. The catheter was attached to the port. The port and catheter were flushed. The port was positioned in the subcutaneous pocket and secured using 220 nonabsorbable sutures. An 035 guidewire was advanced through the 5-[place]er dilator into the IVC. The 5 [place] dilator was exchanged for a 6 [place] peel-away sheath. Using bent wire technique, catheter length was estimated and the catheter was cut. Catheter length is 21 cm. Catheter was fed centrally through the peel-away sheath. Catheter tip is at the cavoatrial junction. The neck incision was closed using a 4-0 absorbable subcuticular suture. The chest incision was closed using four 3-0 absorbable interrupted sutures followed by a running 4-0 absorbable subcuticular suture. Real-time ultrasound guidance was used to document vein patency and for needle entry. A formal ultrasound picture was recorded. The patient received Versed 2 mg and fentanyl 100 mcg and clindamycin 600 mg intravenously during the procedure. Total sedation time was 46 minutes. Conscious sedation was provided by a registered nurse under my direct supervision using continuous hemodynamic monitoring. Fluoroscopy time: 2.2 minutes DAP: 542 cGy-cm squared 1 saved fluoroscopic image. FINDINGS: There is a 5.8 [place] single-lumen Deltec passport PowerPort with tip projecting over the cavoatrial junction. IR/IR cvc insert tunnel w prt/manager wholesale IMPRESSION: Right internal jugular Port-A-Cath placement.
[2022-10-02 07:41] LABS: Basophils Percent Auto 0.1 % (0-2); Eosinophils Percent Auto 0.2 % (0-4); Hemoglobin 11.2 g/dl (14.0-18.0); Imm Gran Abs Auto 0.12 X10*3/uL (0.00-0.03); Imm Gran Pct Auto 1.3 % (0.0-0.4); Lymphocytes Absolute Auto 1.4 X10*3/uL (1.2-4.9); Lymphocytes Percent Auto 15.1 % (20-40); MANUAL DIFF FLAG SCAN; Mean Corpuscular HGB Conc 32.9 g/dl (31.0-36.0); Mean Corpuscular Hemoglobin 29.9 pg (27.0-33.0); Mean Corpuscular Volume 90.9 fL (80.0-98.0); Mean Platelet Volume 9.8 fL (9.4-12.4); Monocytes Percent Auto 31.1 % (2-11); Neutrophils Percent Auto 52.2 % (45-73); Platelet Count 109 X10*3/uL (160-400); Red Blood Count 3.74 X10*6/uL (4.60-5.80); SCAN SMEAR FLAG 1; White Blood Count 9.5 X10*3/uL (4.8-10.8)
[2022-10-02 07:45] LABS: Glucose, Whole Blood 89 mg/dL (60-115)
[2022-10-02 07:47] LABS: INTERNATIONAL NORM RATIO 1.3 (0.9-1.1); Prothrombin Time 15.3 SEC (10.0-13.1)
[2022-10-02 07:49] LABS: Partial Thromboplastin Time 31.9 SEC (26.0-36.4)
[2022-10-02 08:07] LABS: SLIDE REVIEW VERIFIED
[2022-10-02 08:13] VITALS: BMI 36.6
[2022-10-02] MEDS: Dextrose 50 % 25 GM/50 ML SYRINGE IVPUSH (09:10)
--- NOTE | 2022-10-02 09:40 | PC.NURSE ---
Blood sugar taken upon arrival in preop area. Results 89. Patient asymptomatic. While waiting for procedure, patient began c/o dizziness. New telephone order obtained from Dr. Wagoner. See orders. Medication administered, tolerated well. planting supervisor at bedside. Blood sugar rechecked before going to radiology, results 173.
[2022-10-02 09:43] LABS: Glucose, Whole Blood 173 mg/dL (60-115)
[2022-10-02] MEDS: Lidocaine HCl 1 % MPF 5 ML VIAL 15 ML SUBCUT (11:17)
[2022-10-02] MEDS: Lidocaine HCl 2%/Epi 1:100,000 20 ML VIAL INFILTRATI (11:18)
--- NOTE | 2022-10-02 11:30 | HO.RADPN ---
RADIOLOGY Narrative Narrative: RIJ Deltec single lumen PASSPORT portacath placed. Tip at cavoatrial junction.
[2022-10-02 11:45] VITALS: BP 133/81; PULSE 93; RESP 16; TEMP 36.9; O2SAT 96
[2022-10-02 12:00] VITALS: BP 133/81; PULSE 91; RESP 16; O2SAT 96
[2022-10-02 12:15] VITALS: BP 133/70; PULSE 95; RESP 16; O2SAT 96
[2022-10-02] MEDS: oxyCODONE HCl Immed Release 5 MG TABLET PO (12:20)
[2022-10-02] MEDS: Acetaminophen 325 MG TABLET 650 MG PO (12:20)
[2022-10-02 12:30] VITALS: BP 126/65; PULSE 97; RESP 16; O2SAT 96
[2022-10-02 12:45] VITALS: BP 128/72; PULSE 95; RESP 16; O2SAT 96
[2022-10-02 13:00] VITALS: BP 125/73; PULSE 98; RESP 16; TEMP 36.9; O2SAT 96
== END 2022-10-02 13:16 | disposition home or self-care (01) ==
PROVIDERS: PCP Internal Medicine; Visit Provider Radiology Diagnostic Radiology
DX: Z45.2 Encounter for adjustment and management of vascular access device (principal); C85.90 Non-Hodgkin lymphoma, unspecified, unspecified site; J44.9 Chronic obstructive pulmonary disease, unspecified; I11.0 Hypertensive heart disease with heart failure; I50.30 Unspecified diastolic (congestive) heart failure; E11.9 Type 2 diabetes mellitus without complications; Z79.4 Long term (current) use of insulin; Z79.51 Long term (current) use of inhaled steroids; Z79.899 Other long term (current) drug therapy; Z87.891 Personal history of nicotine dependence; Z88.0 Allergy status to penicillin
CPT/HCPCS: 36415; 36561; 82947; 85025; 85610; 85730; 99152; 99153; C1769; C1788; J1642; J2250; J3010